=== PATIENT | female | born 1935 | race Caucasian/White ===

== ENCOUNTER 2016-12-12 17:03 | Emergency (ER) | payer MEDICARE, BC ==
[2016-12-12 17:33] VITALS: BP 181/81
--- NOTE | 2016-12-12 18:11 | UC ---
Complaint Female HPI - HPI Summary HPI Summary: The patient comes in today for: 1. Dysuria and urinary frequency: Onset: This morning. Palliative/provocative: Urination. AZO helps. Quality: Dysuria. Region: Severity: 4/10 Time: Constant, but worse with urination. Associated symptoms: "I've had previous urinary tract infections and these are the same symptoms. " Last UTI: 1-2 years ago. Urinary frequency: Present. Fever: None Urinary urgency: Present. * - History Of Current Complaint Chief Complaint: UCGU Stated Complaint: POSS UTI Time Seen by Provider: 12/12/16 18:02 Hx Last Menstrual Period: "years ago." ?: No - Allergies/Home Medications Allergies/Adverse Reactions: Allergies Allergy/AdvReac Type Severity Reaction Status Date / Time Doxycycline Allergy Unknown Unknown Verified 05/17/15 22:06 Reaction Details Erythromycin Allergy Unknown Unknown Verified 05/17/15 22:06 Reaction Details Home Medications: Home Medications Phenazopyridine HCl [Azo Urinary Pain Relief] 2 tab PO ONCE PRN 12/12/16 [ History Confirmed 12/12/16] PMH/Surg Hx/FS Hx/Imm Hx Previously Healthy: No - directed ASA use for ? reasons, insomnia, Endocrine History Of: Reports: Thyroid Disease - per pt, hypo thyroid Denies: Diabetes, Hyperthyroidism, Hypothyroidism, Dyslipidemia Cardiovascular History Of: Reports: Hypertension Denies: Cardiac Disorders, Pacemaker/ICD, Myocardial Infarction, Congestive Heart Failure, Atrial Fibrillation, Deep Vein Thrombosis, Bleeding Disorders Respiratory History Of: Denies: COPD, Asthma, Bronchitis, Pneumonia, Pulmonary Embolism GI/ History Of: Denies: Gastroesophageal Reflux, Ulcer, Gastrointestinal Bleed, Gall Bladder Disease, Kidney Stones, Diverticulitis, Renal Disease, Urosepsis Neurological History Of: Denies: TIA, CVA, Dementia, Seizures, Migraine Psychological History Of: Reports: Anxiety, Depression Denies: Bipolar Disorder, Schizophrenia, Post Traumatic Stress Disorder Cancer History Of: Denies: Lung Cancer, Colorectal Cancer, Breast Cancer, Prostate Cancer, Cervical Cancer Other History Of: Anticoagulant Therapy - ASA daily for general health. Negative For: HIV, Hepatitis B, Hepatitis C - Surgical History Surgical History: Yes Surgery Procedure, Year, and Place: hysterectomy. BILAT BREAST LUMPECTOMY- cysts - Family History Known Family History: Positive: Hypertension Negative: Cardiac Disease - Social History Occupation: Unemployed Alcohol Use: Rare Substance Use Type: None Smoking Status (MU): Never Smoked Tobacco - Immunization History Most Recent Influenza Vaccination: fall 2013 Most Recent Tetanus Shot: has received in past Most Recent Pneumonia Vaccination: has had before Review of Systems Constitutional: Negative Skin: Rash - Lichen sclerosis "in the groin area." Eyes: Negative ENT: Negative Respiratory: Negative Cardiovascular: Negative Gastrointestinal: Negative Genitourinary: Dysuria, Frequency, Urgency All Other Systems Reviewed And Are Negative: Yes Physical Exam Triage Information Reviewed: Yes Appearance: Well-Appearing, No Pain Distress, Well-Nourished Vital Signs: Initial Vital Signs Temp 98.1 F 12/12/16 17:25 Pulse 79 12/12/16 17:25 Resp 18 12/12/16 17:25 BP 181/81 12/12/16 17:25 Pulse Ox 100 12/12/16 17:25 Patient said that she does not usually have high blood pressure. She was encouraged to follow up with her primary care provider regarding today's elevated blood pressure. Vital Signs Reviewed: Yes Eyes: Positive: Conjunctiva Clear. Negative: Discharge ENT: Positive: Hearing grossly normal. Negative: Pharyngeal erythema, Nasal congestion, Nasal drainage, TM bulging, TM dull, TM red, Tonsillar swelling, Tonsillar exudate Dental: Negative: Gross Decay/Caries @, Dental Fracture @ Neck: Positive: Supple, Nontender, No Lymphadenopathy. Negative: Nuchal Rigidity Respiratory: Positive: Chest non-tender, Lungs clear, No respiratory distress, No accessory muscle use. Negative: Crackles, Stridor Cardiovascular: Positive: RRR, No Murmur Abdomen Description: Positive: Nontender, No Organomegaly, Soft. Negative: Distended, Guarding Musculoskeletal: Negative: Strength Intact, ROM Intact Neurological: Positive: Alert, Muscle Tone Normal Psychological: Positive: Age Appropriate Behavior, Consolable Skin: Negative: rashes, breakdown Diagnostics - Laboratory Diagnostic Studies Completed/Ordered: Urine screen: Trace WBC. Nitriate (+) Complaint Female Dx - Differential Dx/Diagnosis Provider Diagnoses: UTI Discharge - Discharge Plan Condition: Stable Disposition: HOME Patient Education Materials: Urinary Tract Infection in Women (ED) Referrals: [facility] PHYSICIAN REFERRAL [Outside] No Primary Care Phys,NOPCP [Primary Care Provider] - 1 Week (Please see your primary care provider in about three days to see how well you are doing. If you don't have a primary care provider, please contact the physician referral service. If you can't get in timely, please you may come back to see us until you can. If you get worse, please be seen sooner by us or the ER.)
== END 2016-12-12 18:35 | disposition home or self-care (01) ==
LOC: UCEAST 17:03
DX: N39.0 Urinary tract infection, site not specified (principal); Z88.1 Allergy status to other antibiotic agents; Z90.710 Acquired absence of both cervix and uterus; L90.0 Lichen sclerosus et atrophicus; R03.0 Elevated blood-pressure reading, without diagnosis of hypertension
CPT/HCPCS: 81003; 87086; 99212; G0463

== ENCOUNTER 2017-01-01 15:55 | Emergency (ER) | payer MEDICARE, BC ==
[2017-01-01 17:07] LABS: Urine Bacteria Absent (Absent); Urine Bilirubin Negative (Negative); Urine Glucose Negative (Negative); Urine Nitrite Positive (Negative)
[2017-01-01 18:34] VITALS: BP 156/69
[2017-01-01] MEDS ORDERED: Ciprofloxacin TAB* 500 MG PO SCH (21:00)
--- NOTE | 2017-01-11 20:26 | ED ---
Kae Connor SooYoung, scribed for Abdulaziz Adkins MD on 01/01/17 at 1641 . GI/ HPI - HPI Summary HPI Summary: A 81 y/o F presents to ED with c/o extreme discomfort during and after urinating onset 3 days ago. She notes that the Pyridium makes her urine red. Pert PMHx: multiple bladder infections. - History of Current Complaint Chief Complaint: EDUrogenitalProblems Stated Complaint: UTI Hx Obtained From: Patient Onset/Duration: Started Days Ago, Still Present Current Severity: Moderate Pain Intensity: 3 Associated Signs and Symptoms: Positive: Dysuria Aggravating Factor(s): Urination - Allergy/Home Medications Allergies/Adverse Reactions: Allergies Allergy/AdvReac Type Severity Reaction Status Date / Time Doxycycline Allergy Unknown Unknown Verified 01/01/17 16:11 Reaction Details Erythromycin Allergy Unknown Unknown Verified 01/01/17 16:11 Reaction Details PMH/Surg Hx/FS Hx/Imm Hx Previously Healthy: No Endocrine/Hematology History: Reports: Hx Anticoagulant Therapy - ASA daily for general health., Hx Thyroid Disease - per pt, hypo thyroid Denies: Hx Diabetes Cardiovascular History: Reports: Hx Angina, Hx Hypertension Denies: Hx Congestive Heart Failure, Hx Coronary Artery Disease, Hx Deep Vein Thrombosis, Hx Myocardial Infarction, Hx Pacemaker/ICD Respiratory History: Denies: Hx Asthma, Hx Chronic Obstructive Pulmonary Disease (COPD), Hx Lung Cancer, Hx Pneumonia, Hx Pulmonary Embolism GI History: Denies: Hx Gall Bladder Disease, Hx Gastrointestinal Bleed, Hx Ulcer, Hx Urosepsis History: Denies: Hx Kidney Stones, Hx Renal Disease Neurological History: Denies: Hx Dementia, Hx Migraine, Hx Seizures, Hx Transient Ischemic Attacks (TIA) Psychiatric History: Reports: Hx Anxiety, Hx Depression Denies: Hx Schizophrenia, Hx Bipolar Disorder - Surgical History Surgery Procedure, Year, and Place: hysterectomy. BILAT BREAST LUMPECTOMY- cysts - Immunization History Date of Tetanus Vaccine: UNKNOWN Date of Influenza Vaccine: JULY 2014 Infectious Disease History: No Infectious Disease History: Denies: Hx Clostridium Difficile, Hx Hepatitis, Hx Human Immunodeficiency Virus (HIV), Hx of Known/Suspected MRSA, Hx Shingles, Hx Tuberculosis, Hx Known/ Suspected VRE, Hx Known/Suspected VRSA, History Other Infectious Disease, Traveled Outside the [place] in Last 30 Days - Family History Known Family History: Positive: Hypertension Negative: Cardiac Disease - Social History Occupation: Retired Lives: Alone Alcohol Use: Rare Hx Substance Use: No Substance Use Type: Reports: None Hx Tobacco Use: No Smoking Status (MU): Never Smoked Tobacco Review of Systems Negative: Fever Positive: dysuria - pain during and after urination All Other Systems Reviewed And Are Negative: Yes Physical Exam Triage Information Reviewed: Yes Vital Signs On Initial Exam: Initial Vitals Temp Pulse Resp BP Pulse Ox 97.9 F 71 16 119/69 100 01/01/17 16:06 01/01/17 16:06 01/01/17 16:06 01/01/17 16:06 01/01/17 16:06 Vital Signs Reviewed: Yes Appearance: Positive: Well-Appearing, No Pain Distress Skin: Positive: Warm, Skin Color Reflects Adequate Perfusion, Dry Head/Face: Positive: Normal Head/Face Inspection Eyes: Positive: Normal ENT: Positive: Normal ENT inspection Neck: Positive: Supple, Nontender Musculoskeletal: Positive: Normal Neurological: Positive: Normal Psychiatric: Positive: Normal, Affect/Mood Appropriate Diagnostics - Vital Signs Vital Signs Temp Pulse Resp BP Pulse Ox 01/01/17 16:06 97.9 F 71 16 119/69 100 - Laboratory Lab Results: Lab Results 01/01/17 Range/Units 16:39 Urine Color Nancy Urine Appearance Clear Urine pH 6.0 (5-9) Ur Specific [place] 1.010 (1.010-1.030) Urine Protein Negative (Negative) Urine Ketones Trace H (Negative) Urine Blood Negative (Negative) Urine Nitrate Positive H (Negative) Urine Bilirubin Negative (Negative) Urine Urobilinogen Positive H (Negative) Ur Leukocyte Esterase Trace H (Negative) Urine WBC (Auto) 3+(>20/hpf) H (Absent) Urine RBC (Auto) Trace(0-2/hpf) (Absent) Urine Bacteria Absent (Absent) Urine Glucose Negative (Negative) Lab Statement: Any lab studies that have been ordered have been reviewed, and results considered in the medical decision making process. GIGU Course/Dx - Diagnoses Provider Diagnoses: UTI (urinary tract infection) Discharge - Discharge Plan Condition: Stable Disposition: HOME Prescriptions: Ciprofloxacin TAB* [Cipro Tab*] 500 mg PO BID #10 tab Patient Education Materials: Ciprofloxacin (By mouth), Urinary Tract Infection in Women (ED) Referrals: No Primary Care Phys,NOPCP [Primary Care Provider] - Eliot Parsons MD [Medical Doctor] - (In a few days if your symptoms persist. Otherwise, see as scheduled.) The documentation as recorded by the Kae carr SooYoung accurately reflects the service I personally performed and the decisions made by me, Abdulaziz Adkins MD.
== END 2017-01-01 18:33 | disposition home or self-care (01) ==
LOC: ED 15:55
DX: R30.0 Dysuria (principal); N39.0 Urinary tract infection, site not specified
CPT/HCPCS: 81003; 81015; 87086; 99282; A9270-GY

== ENCOUNTER 2017-04-24 16:58 | Emergency (ER) | payer MEDICARE, BC ==
[2017-04-24 17:12] VITALS: BP 116/61
--- NOTE | 2017-04-24 19:00 | UC ---
Garry Connor Alok, scribed for Gary Briseno MD on 04/24/17 at 1853 . Abdominal Pain Female HPI - HPI Summary HPI Summary: [address]F [address] the [facility] for 3-4 days of abd pain accompanied by nausea and loss of appetite. Pt states her abd pain is at a 6/10 in severity and is constant. Pt states her abd pain worsens with ambulation. Pt also notes lightheadedness currently and states she feels bloated. Pt also notes that her stools have been harder than baseline. Pt also notes a subjective fever today. Pt denies vomiting or chills. Pt denies hematochezia or diarrhea. Pt takes Potassium, Amlodipine, Paroxetine, and Troxidone. - History of Current Complaint Chief Complaint: UCAbdominalPain Stated Complaint: NO APPETITE,STOMACH CRAMPS Time Seen by Provider: 04/24/17 18:42 Hx Obtained From: Patient Hx Last Menstrual Period: "years ago." Onset/Duration: Lasting Days, Still Present Severity Initially: Moderate Severity Currently: Moderate Pain Intensity: 6 Pain Scale Used: 0-10 Numeric Location: Discrete At: LLQ Radiates: No Aggravating Factor(s): Movement Alleviating Factor(s): Nothing Associated Signs and Symptoms: Positive: Fever - subjective, Decreased Appetite , Nausea. Negative: Blood in Stool, Vomiting, Diarrhea Allergies/Adverse Reactions: Allergies Allergy/AdvReac Type Severity Reaction Status Date / Time Doxycycline Allergy Unknown Unknown Verified 01/01/17 16:11 Reaction Details Erythromycin Allergy Unknown Unknown Verified 01/01/17 16:11 Reaction Details PMH/Surg Hx/FS Hx/Imm Hx Other History Of: Anticoagulant Therapy - ASA daily for general health. Negative For: HIV, Hepatitis B, Hepatitis C - Surgical History Surgical History: Yes Surgery Procedure, Year, and Place: hysterectomy. BILAT BREAST LUMPECTOMY- cysts - Family History Known Family History: Positive: Hypertension Negative: Cardiac Disease - Social History Occupation: Retired Alcohol Use: Rare Substance Use Type: None Smoking Status (MU): Never Smoked Tobacco - Immunization History Most Recent Influenza Vaccination: fall 2013 Most Recent Tetanus Shot: has received in past Most Recent Pneumonia Vaccination: has had before Review of Systems Constitutional: Fever - subjective Gastrointestinal: Abdominal Pain, Nausea, Other - loss of appetite Neurological: Other - lightheadedness All Other Systems Reviewed And Are Negative: Yes Physical Exam Triage Information Reviewed: Yes Appearance: No Pain Distress, Ill-Appearing - mildly Vital Signs: Initial Vital Signs Temp 98 F 04/24/17 17:08 Pulse 80 04/24/17 17:08 Resp 18 04/24/17 17:08 BP 116/61 04/24/17 17:08 Pulse Ox 100 04/24/17 17:08 Vital Signs Reviewed: Yes Eyes: Positive: Other: - EOMI, EVE ENT: Positive: Normal ENT inspection Neck: Positive: Supple, Nontender Respiratory: Positive: Lungs clear, Normal breath sounds Cardiovascular: Positive: RRR Abdomen Description: Positive: Soft, Other: - Left Lower quadrant tenderness Bowel Sounds: Positive: Hypoactive Musculoskeletal Exam: Normal Musculoskeletal: Positive: Strength Intact, ROM Intact Neurological: Positive: Alert, Other: - Sensory/Motor intact Skin: Positive: Other - warm, dry, skin color reflects adequate perfusion Abd Pain Female Course/Dx - Course Course Of Treatment: Patient medications reviewed this visit. AMA/ED/POV FOR ABDOMINAL PAIN AND LIGHTHEADEDNESS. - Differential Dx/Diagnosis Provider Diagnoses: ABDOMINAL PAIN AND LIGHTHEADEDNESS Discharge - Discharge Plan Condition: Stable Disposition: AGAINST MEDICAL ADVICE Referrals: Rissa Green MD [Primary Care Provider] - The documentation as recorded by the Garry carr Alok accurately reflects the service I personally performed and the decisions made by , Gary Briseno MD.
== END 2017-04-24 19:23 | disposition left against medical advice (07) ==
LOC: UCEAST 16:58
DX: R10.9 Unspecified abdominal pain (principal); R42 Dizziness and giddiness; Z88.3 Allergy status to other anti-infective agents; Z79.82 Long term (current) use of aspirin
CPT/HCPCS: 99212; G0463

== ENCOUNTER 2017-04-24 19:38 | Emergency (ER) | payer MEDICARE, BC ==
[2017-04-24 20:33] LABS: Hematocrit 40 % (35-47); Hemoglobin 13.1 g/dl (12.0-16.0); Mean Corpuscular HGB Conc 33 g/dl (31-36); Mean Corpuscular Hemoglobin 28 pg (27-31); Mean Corpuscular Volume 87 fL (80-97); Mean Platelet Volume 9 um3 (7.4-10.4); Red Blood Count 4.62 10^6/ul (4.0-5.4); Red Cell Distribution Width 14 % (10.5-15); White Blood Count 4.6 10^3/ul (3.5-10.8)
--- NOTE | 2017-04-24 20:38 | ED ---
Charlotte Connor Edward, scribed for Andi Humphreys MD on 04/24/17 at 1941 . Abdominal Pain/Female - HPI Summary HPI Summary: 82 y/o female presents to ED c/o constant ABD bloating for the last 3-4 days. The bloating has gotten worse this afternoon. Patient has had decreased appetite due to the bloating. She also c/o pain the the left side of the ABD that radiates to the back. Associated sx: decreased urinary frequency. Denies nausea, fever. - History of Current Complaint Stated Complaint: ABD BLOATING Hx Obtained From: Patient Hx Last Menstrual Period: "years ago." Onset/Duration: Sudden Onset, Lasting Days, Still Present Timing: Constant Severity Initially: Mild Severity Currently: Mild Location: Diffuse Character: Other: - Bloating Associated Signs and Symptoms: Positive: Back Pain, Other: - ABD pain in L side. Negative: Fever, Nausea Allergies/Adverse Reactions: Allergies Allergy/AdvReac Type Severity Reaction Status Date / Time Erythromycin Allergy Unknown Unknown Verified 01/01/17 16:11 Reaction Details Doxycycline AdvReac Unknown Unknown Verified 04/24/17 19:44 Reaction Details PMH/Surg Hx/FS Hx/Imm Hx Previously Healthy: No Endocrine/Hematology History: Reports: Hx Anticoagulant Therapy - ASA daily for general health., Hx Thyroid Disease - per pt, hypo thyroid Denies: Hx Diabetes Cardiovascular History: Reports: Hx Angina, Hx Hypertension Denies: Hx Congestive Heart Failure, Hx Coronary Artery Disease, Hx Deep Vein Thrombosis, Hx Myocardial Infarction, Hx Pacemaker/ICD Respiratory History: Denies: Hx Asthma, Hx Chronic Obstructive Pulmonary Disease (COPD), Hx Lung Cancer, Hx Pneumonia, Hx Pulmonary Embolism GI History: Denies: Hx Gall Bladder Disease, Hx Gastrointestinal Bleed, Hx Ulcer, Hx Urosepsis History: Denies: Hx Kidney Stones, Hx Renal Disease Musculoskeletal History: Denies: Hx Osteoporosis Neurological History: Denies: Hx Dementia, Hx Migraine, Hx Seizures, Hx Transient Ischemic Attacks (TIA) Psychiatric History: Reports: Hx Anxiety, Hx Depression Denies: Hx Schizophrenia, Hx Bipolar Disorder - Surgical History Surgery Procedure, Year, and Place: hysterectomy. BILAT BREAST LUMPECTOMY- cysts - Immunization History Date of Tetanus Vaccine: UNKNOWN Date of Influenza Vaccine: JULY 2014 Infectious Disease History: Denies: Hx Clostridium Difficile, Hx Hepatitis, Hx Human Immunodeficiency Virus (HIV), Hx of Known/Suspected MRSA, Hx Shingles, Hx Tuberculosis, Hx Known/ Suspected VRE, Hx Known/Suspected VRSA, History Other Infectious Disease - Family History Known Family History: Positive: Hypertension Negative: Cardiac Disease - Social History Occupation: Retired Lives: Alone Alcohol Use: Rare Hx Substance Use: No Substance Use Type: Reports: None Hx Tobacco Use: No Smoking Status (MU): Never Smoked Tobacco Review of Systems Constitutional: Negative Negative: Fever Eyes: Negative ENT: Negative Cardiovascular: Negative Respiratory: Negative Positive: Abdominal Pain - L side, Other - ABD bloating. Decreased appetite secondary to bloating. Negative: Nausea Positive: other - Decreased frequency Musculoskeletal: Negative Skin: Negative Neurological: Negative Psychological: Normal All Other Systems Reviewed And Are Negative: Yes Physical Exam Triage Information Reviewed: Yes Vital Signs On Initial Exam: Initial Vitals Temp Pulse Resp BP Pulse Ox 97.3 F 68 18 170/56 100 04/24/17 19:43 04/24/17 19:43 04/24/17 19:43 04/24/17 19:43 04/24/17 19:43 Vital Signs Reviewed: Yes Appearance: Positive: Well-Appearing, No Pain Distress Skin: Positive: Warm Head/Face: Positive: Normal Head/Face Inspection Eyes: Positive: EVE ENT: Positive: Hearing grossly normal Neck: Positive: Supple Respiratory/Lung Sounds: Positive: Breath Sounds Present Cardiovascular: Positive: RRR Abdomen Description: Positive: Nontender, Soft Bowel Sounds: Positive: Present Musculoskeletal: Positive: Strength/ROM Intact Neurological: Positive: Alert, Oriented to Person Place, Time Diagnostics - Vital Signs Vital Signs Temp Pulse Resp BP Pulse Ox 04/24/17 19:43 97.3 F 68 18 170/56 100 - Laboratory Result Diagrams: 04/24/17 20:26 04/24/17 20:26 Lab Statement: Any lab studies that have been ordered have been reviewed, and results considered in the medical decision making process. - CT CT ABD/PEL CT Interpretation: No Acute Changes - No evidence of acute pathology. Sigmoid diverticulosis without obvious diverticulitis. CT Interpretation Completed By: Radiologist Re-Evaluation - Re-Evaluation 1 Re-Evaluation Time: 23:45 Change: Improved - results d/w pt Abdominal Pain Fem Course/Dx - Course Course Of Treatment: 82 y/o female presents to ED c/o constant ABD bloating for the last 3-4 days. The bloating has gotten worse this afternoon. Patient has had decreased appetite due to the bloating. She also c/o pain the the left side of the ABD that radiates to the back. Associated sx: decreased urinary frequency. Denies nausea, fever. CT ABD/PEL shows No evidence of acute pathology. Sigmoid diverticulosis without obvious diverticulitis. Pt will be discharged home. - Diagnoses Provider Diagnoses: Diverticulosis Discharge - Discharge Plan Condition: Stable Disposition: HOME Patient Education Materials: Diverticulosis (ED) Referrals: Rissa Green MD [Primary Care Provider] - 3 Days (Please f/u in 2-3 days) The documentation as recorded by the Charlotte carr Edward accurately reflects the service I personally performed and the decisions made by me, Andi Humphreys MD.
[2017-04-24 20:50] LABS: Albumin 3.9 g/dL (3.2-5.2); C Reactive Protein 5.08 mg/L (< 5.00); EGFR African American 81.9 (>60); EGFR Non-African American 63.7 (>60); Globulin 2.8 g/dL (2-4); Potassium 3.4 mmol/L (3.5-5.0); Total Bilirubin 0.5 mg/dL (0.2-1.0); Total Protein 6.7 g/dL (6.4-8.9)
[2017-04-24 21:30] LABS: Urine Bacteria Absent (Absent); Urine Bilirubin Negative (Negative); Urine Glucose Negative (Negative); Urine Nitrite Negative (Negative)
[2017-04-24] MEDS ORDERED: Iohexol 300* (CONTRAST) 10 ML SDV IV ONE (21:32)
[2017-04-24] MEDS ORDERED: amLODIPine TAB* 5 MG PO ONE (21:57)
[2017-04-25 00:19] VITALS: BP 149/86
--- NOTE | 2017-04-25 07:46 | RAD ---
CLINICAL HISTORY: Lower abdominal pain COMPARISON: None TECHNIQUE: Multiple contiguous axial CT scans were obtained of the abdomen and pelvis after the administration of intravenous contrast. Coronal and sagittal multiplanar reformations are submitted for review. Oral contrast was administered. Delayed images were obtained through the abdomen and pelvis. FINDINGS: LUNG BASES: The lung bases are clear. LIVER: The liver is diffusely low in attenuation compared to the spleen. There are no focal hepatic parenchymal masses. BILE DUCTS: There is no intrahepatic or extrahepatic biliary dilatation. GALLBLADDER: The gallbladder is normal, without pericholecystic inflammatory change. PANCREAS: The pancreas is normal, without mass or ductal dilatation. SPLEEN: Normal in size and appearance. UPPER GI TRACT: Evaluation of the gastrointestinal tract is limited by incomplete gastric distention. There is a small sliding hiatal hernia SMALL BOWEL AND MESENTERY: The small bowel is normal in contour, course, and caliber. There is no obstruction or dilatation. COLON: There is scattered diverticula of the distal colon. There is no pericolonic inflammatory change. ADRENALS: Normal bilaterally. KIDNEYS: The kidneys are normal in shape, size, contour, and axis. There is no hydronephrosis or nephrolithiasis. BLADDER: The bladder is smooth in contour. PELVIC ORGANS: The pelvic organs are not visualized. AORTA: There is calcific atherosclerotic disease of the abdominal aorta and its branches, without aneurysmal dilatation IVC: Unremarkable LYMPH NODES: There is no lymphadenopathy by size criteria. ABDOMINAL WALL: There is no evidence for abdominal wall hernia. BONES AND SOFT TISSUES: There is diffuse osteopenia. Degenerative changes are noted. OTHER: None IMPRESSION: 1. SCATTERED DIVERTICULA OF THE DISTAL COLON. 2. ATHEROSCLEROSIS. 3. SMALL HIATAL HERNIA
== END 2017-04-25 00:26 | disposition home or self-care (01) ==
LOC: ED 19:38
DX: K57.90 Diverticulosis of intestine, part unspecified, without perforation or abscess without bleeding (principal); I10 Essential (primary) hypertension; Z79.82 Long term (current) use of aspirin; F41.9 Anxiety disorder, unspecified; F32.9 Major depressive disorder, single episode, unspecified
CPT/HCPCS: 36415; 74177; 80053; 81003; 81015; 83605; 83690; 83735; 85025; 86140; 87086; 99283; A9270-GY; Q9967

== ENCOUNTER 2018-07-20 18:11 | Inpatient (IN) | payer MEDICARE, BC ==
[2018-07-20] MEDS ORDERED: NS 0.9% 1000 ML* 1,000 ML IV ONE (20:00)
[2018-07-20] MEDS ORDERED: Ondansetron ODT TAB* 4 MG SL ONE (20:00)
--- NOTE | 2018-07-20 20:00 | ED ---
Complex/Multi-Sys Presentation - HPI Summary HPI Summary: This patient is an 83 year old female presenting to [facility] accompanied by son with a chief complaint of nausea and generalized weakness since 3 days ago. Patient states that when she yawns, the right side of her jaw aches. The pain is rated 4/10 in severity. Symptoms aggravated by nothing. Symptoms alleviated by nothing. Patient notes that she has forgotten to take her medication yesterday. Patient additionally reports nausea, lack of appetite, vomiting 1x, abd pain. Patient denies diarrhea. - History Of Current Complaint Chief Complaint: EDWeakness Time Seen by Provider: 07/20/18 19:44 Hx Obtained From: Patient Onset/Duration: Still Present Timing: Constant Severity Currently: Moderate Severity Initially: Moderate Location: Pain At: - abd Aggravating Factor(s): nothing Alleviating Factor(s): nothing Associated Signs And Symptoms: Positive: Other - nausea, lack of appetite, vomiting 1x, abd pain. Negative: Diarrhea - Allergies/Home Medications Allergies/Adverse Reactions: Allergies Allergy/AdvReac Type Severity Reaction Status Date / Time doxycycline Allergy Unknown Unknown Verified 07/21/18 09:39 Reaction Details erythromycin base Allergy Unknown Unknown Verified 07/21/18 09:39 Reaction Details Home Medications: Home Medications Levothyroxine TAB* 100 mcg PO DAILY 07/20/18 [History Confirmed 07/20/18] Lisinopril [Lisinopril 2.5 MG-] 2.5 mg PO DAILY 07/20/18 [History Confirmed ] Nitrofurantoin Macrocrystals* 100 mg PO BID 07/20/18 [History Confirmed 07/20/18 ] Spironolactone TAB* 25 mg PO DAILY 07/20/18 [History Confirmed 07/20/18] traZODone TAB* [Desyrel TAB*] 50 mg PO BEDTIME 07/21/18 [History Confirmed 07/21] PMH/Surg Hx/FS Hx/Imm Hx Previously Healthy: No Endocrine/Hematology History: Reports: Hx Anticoagulant Therapy - ASA daily for general health., Hx Thyroid Disease - per pt, hypo thyroid Denies: Hx Diabetes Cardiovascular History: Reports: Hx Angina, Hx Hypertension Denies: Hx Congestive Heart Failure, Hx Coronary Artery Disease, Hx Deep Vein Thrombosis, Hx Myocardial Infarction, Hx Pacemaker/ICD Respiratory History: Denies: Hx Asthma, Hx Chronic Obstructive Pulmonary Disease (COPD), Hx Lung Cancer, Hx Pneumonia, Hx Pulmonary Embolism GI History: Denies: Hx Gall Bladder Disease, Hx Gastrointestinal Bleed, Hx Ulcer, Hx Urosepsis History: Denies: Hx Kidney Stones, Hx Renal Disease Musculoskeletal History: Denies: Hx Osteoporosis Neurological History: Denies: Hx Dementia, Hx Migraine, Hx Seizures, Hx Transient Ischemic Attacks (TIA) Psychiatric History: Reports: Hx Anxiety, Hx Depression Denies: Hx Schizophrenia, Hx Bipolar Disorder - Surgical History Surgery Procedure, Year, and Place: hysterectomy. BILAT BREAST LUMPECTOMY- cysts - Immunization History Date of Tetanus Vaccine: UNKNOWN Date of Influenza Vaccine: JULY 2014 Infectious Disease History: No Infectious Disease History: Denies: Hx Clostridium Difficile, Hx Hepatitis, Hx Human Immunodeficiency Virus (HIV), Hx of Known/Suspected MRSA, Hx Shingles, Hx Tuberculosis, Hx Known/ Suspected VRE, Hx Known/Suspected VRSA, History Other Infectious Disease, Traveled Outside the [place] in Last 30 Days - Family History Known Family History: Positive: Hypertension Negative: Cardiac Disease - Social History Lives: With Family Alcohol Use: Rare Hx Substance Use: No Substance Use Type: Reports: None Hx Tobacco Use: No Smoking Status (MU): Never Smoked Tobacco Review of Systems Negative: Fever Positive: Abdominal Pain, Vomiting, Nausea, Other - lack of appetite. Negative : Diarrhea Positive: Weakness All Other Systems Reviewed And Are Negative: Yes Physical Exam - Summary Physical Exam Summary: Appearance: Well-appearing, Well-nourished, lying in bed comfortable Skin: Warm, dry, no obvious rash Eyes: sclera anicteric, no conjunctival pallor ENT: mucous membranes dry Neck: deferred Respiratory: No signs of respiratory distress Cardiovascular: Appears well perfused, pulses are nml Abdomen: deferred Musculoskeletal: Moving all 4 extremities without obvious discomfort Neurological: Awake and alert, mentation is normal, speech is fluent and appropriate Psychiatric: affect is normal, does not appear anxious or depressed Triage Information Reviewed: Yes Vital Signs On Initial Exam: Initial Vitals Temp Pulse Resp BP Pulse Ox 98.9 F 105 18 128/107 94 07/20/18 18:17 07/20/18 18:17 07/20/18 18:17 07/20/18 18:17 07/20/18 18:17 Vital Signs Reviewed: Yes Diagnostics - Vital Signs Vital Signs Temp Pulse Resp BP Pulse Ox 07/20/18 18:17 98.9 F 105 18 128/107 94 - Laboratory Result Diagrams: 07/22/18 07:33 07/22/18 07:33 Lab Statement: Any lab studies that have been ordered have been reviewed, and results considered in the medical decision making process. - CT CT Abd/Pel CT Interpretation: Positive (See Comments) - CT Abd/Pel reveals, per radiologist , IMPRESSION: 1. Moderate bilateral pleural effusions with atelectasis. 2. Large heart. Small pericardial effusion. 3. No other acute disease seen. As above. ED physician has reviewed this radiology report. CT Interpretation Completed By: Radiologist Complex Multi-Symp Course/Dx Assessment/Plan: This patient is an 83 year old female presenting to [facility] accompanied by son with a chief complaint of nausea and generalized weakness since [address] Abd/Pel reveals, per radiologist, IMPRESSION: 1. Moderate bilateral pleural effusions with atelectasis. 2. Large heart. Small pericardial effusion. 3. No other acute disease seen. As above. ED physician has reviewed this radiology report. Bloodwork Obtained. Urinalysis Obtained. In the ED course the patient was given Iohexol, NS 0.9% 1000ml, Zofran 8mg SL, Rocephin. We discussed patient care with Dr. Vera (Hospitalist ) and they recommended admitting the patient. Patient will be admitted to the floor. The patient is agreeable with this plan. - Diagnoses Provider Diagnoses: UTI (urinary tract infection) - Physician Notifications Discussed Care Of Patient With: Lucia Vera - Hospitalist Time Discussed With Above Provider: 21:45 - We discussed patient care with Dr. Vera (Hospitalist) and they recommended admitting the patient. Discharge - Sign-Out/Discharge Documenting (check all that apply): Patient Departure - Discharge Plan Condition: Stable Disposition: ADMITTED TO [facility] - Billing Disposition and Condition Condition: STABLE Disposition: Admitted to [facility] - Attestation Statements Document Initiated by Scribe: Yes Documenting Scribe: Dena Fernando Provider For Whom Scribe is Documenting (Include Credential): Abdulaziz Brantley MD Scribe Attestation: Dena Connor, scribed for Abdulaziz Brantley MD on 07/23/18 at 1347. Scribe Documentation Reviewed: Yes Provider Attestation: The documentation as recorded by the Dena carr accurately reflects the service I personally performed and the decisions made by me, Abdulaziz Brantley MD
[2018-07-20 20:09] LABS: ABS Basophils 0 10^3/ul (0-0.2); ABS Eosinophils 0 10^3/ul (0-0.6); ABS Lymphocytes 0.4 10^3/ul (1.0-4.8); ABS Monocytes 0.7 10^3/ul (0-0.8); ABS Neutrophils 12.1 10^3/ul (1.5-7.7); ABS Nucleated RBC 0 10^3/ul; Eosinophil % 0.2 % (0-6); Hematocrit 37 % (35-47); Lymphocyte % 2.7 % (25-47); Mean Corpuscular HGB Conc 33 g/dl (31-36); Mean Corpuscular Hemoglobin 28 pg (27-31); Mean Corpuscular Volume 85 fL (80-97); Mean Platelet Volume 8.8 um3 (7.4-10.4); Nucleated Red Blood Cells % 0.1; Platelet Count 237 10^3/ul (150-450); Red Blood Count 4.31 10^6/ul (4.00-5.40); Red Cell Distribution Width 15 % (10.5-15); White Blood Count 13.2 10^3/ul (3.5-10.8)
[2018-07-20 20:14] LABS: EGFR Non-African American 79.5 (>60)
[2018-07-20] MEDS ORDERED: Iohexol 300* (CONTRAST) 10 ML SDV IV ONE (20:25)
[2018-07-20 20:37] LABS: Urine Appearance Cloudy; Urine Blood 2+ (Negative); Urine Color Yellow; Urine Ketones 2+ (Negative); Urine Protein Negative (Negative); Urine Red Blood Cell Absent (Absent); Urine Specific Gravity 1.011 (1.010-1.030); Urine Urobilinogen Negative (Negative); Urine White Blood Cell 3+(>20/hpf) (Absent)
[2018-07-20] MEDS ORDERED: cefTRIAXone(*) 1 GM in NS 0.9% 50 ML* 50 ML IVPB ONE (21:41)
[2018-07-20] MEDS ORDERED: Acetaminophen TAB* 325 MG PO PRN (21:58)
[2018-07-20] MEDS ORDERED: Al Hydrox/Mg Hydrox/Simet LIQ* 30 ML UDC PO PRN (21:58)
[2018-07-20] MEDS ORDERED: Enoxaparin(*) 40 MG/0.4 ML SYR SUBCUT SCH (22:00)
--- NOTE | 2018-07-20 23:14 | RAD ---
EXAM: CT Abdomen and Pelvis With Intravenous Contrast CLINICAL HISTORY: 83 years old, female; Pain; Abdominal pain; Generalized; Additional info: Abd pain, nausea TECHNIQUE: Axial computed tomography images of the abdomen and pelvis with intravenous contrast. All CT scans at this facility use at least one of these dose optimization techniques: automated exposure control; mA and/or kV adjustment per patient size (includes targeted exams where dose is matched to clinical indication); or iterative reconstruction. Coronal and sagittal reformatted images were created and reviewed. CONTRAST: 75 mL of omnipaque 300 administered intravenously. COMPARISON: A/P W CT ABD/PEL W 04/24/2017 10:33 PM FINDINGS: Lung bases: See below. Pleural space: Moderate bilateral pleural effusions with atelectasis. Heart: Large heart. Small pericardial effusion. ABDOMEN: Liver: Unremarkable. No mass. Gallbladder and bile ducts: Unremarkable. No calcified stones. No ductal dilation. Pancreas: Unremarkable. No mass. No ductal dilation. Spleen: Unremarkable. No splenomegaly. Adrenals: Unremarkable. No mass. Kidneys and ureters: Unremarkable. No solid mass. No hydronephrosis. Stomach and bowel: Diverticulosis. No obstruction. No mucosal thickening. PELVIS: Appendix: No findings to suggest acute appendicitis. Bladder: Unremarkable. No mass. Reproductive: Unremarkable as visualized. ABDOMEN and PELVIS: Intraperitoneal space: Unremarkable. No free air. No significant fluid collection. Bones/joints: Moderate skeletal degenerative change. No acute fracture. No dislocation. Soft tissues: Unremarkable. Vasculature: Moderate atherosclerosis. No abdominal aortic aneurysm. Lymph nodes: Unremarkable. No enlarged lymph nodes. Other findings: No other acute disease seen. As above. IMPRESSION: 1. Moderate bilateral pleural effusions with atelectasis. 2. Large heart. Small pericardial effusion. 3. No other acute disease seen. As above. To contact [facility] with a general question: Operations Center - [phone] For direct physician to physician contact: Physician Hotline - [phone] [facility] ([facility] Facility ID #[id number])
[2018-07-21] MEDS: traZODone TAB* 50 MG TAB PO SCH ×2 (01:42→20:35)
--- NOTE | 2018-07-21 03:48 | HP ---
CC: Dr. Green; Dr. Madden HISTORY AND PHYSICAL: DATE OF ADMISSION: 07/20/18 TIME OF ADMISSION: 11:30 p.m. PRIMARY CARE PHYSICIAN: Dr. Green. ASSEMBLER MECHANICAL ORDNANCE: Dr. Madden. CHIEF COMPLAINT: Weakness. HISTORY OF PRESENT ILLNESS: This is an 83-year-old female with history of SVT and cardiomyopathy who presents with weakness and nausea for the past 5 days. She went to Dr. Green's office on Monday with dysuria and was prescribed nitrofurantoin. There was some uncertainty between her and her son about whether she had actually taken it; however, she has a bottle with her and it is empty. She thought she had forgotten to take some. She came to the emergency department today because she was feeling "overall lousy". She noticed that she was more weak and sleepy and had some nausea. She does not think she had any fevers. Her son, Benjamin, is here and thinks she has been much more forgetful than usual over the past week. She denies any diarrhea, fevers, chills, chest pain, shortness of breath, dyspnea on exertion, headache, falls or confusion. PAST MEDICAL HISTORY: Depression/anxiety, insomnia, Lichen sclerosis, hypertension, hyperlipidemia, hypothyroid, depressed LV function of unknown etiology and history of SVT, [id number] mitral regurgitation. PAST SURGICAL HISTORY: She had a hysterectomy and a tonsillectomy. HOME MEDICATIONS: 1. Levothyroxine 100 mcg daily. 2. Xanax 0.5 mg daily p.r.n. anxiety. 3. Lisinopril 2.5 mg daily. 4. Paroxetine 50 mg daily. 5. Spironolactone 25 mg daily. SOCIAL HISTORY: She is a nonsmoker. She does not drink. She lives alone in the house and her son, Cristino, lives 10 miles away and sees her often. PHYSICAL EXAMINATION GENERAL: Alert, elderly female, in no distress. She is oriented x3; however, quite forgetful when recalling the events of the week. She forgot that she saw doctor Dr. Green on Monday. She is oriented to situation and answers all questions appropriately VITAL SIGNS: Temperature 98.6, heart rate 88, respiratory rate 18, pulse ox 98 % on 2 L, blood pressure 138/74. HEENT: Pupils are equal, round and reactive to light. No nystagmus. Oral mucosa is moist. She does have some aphthous ulcers on her tongue. NECK: No cervical adenopathy. CHEST: She seems to be in irregularly irregular rhythm. She has a systolic murmur at the apex. Her lungs have some crackles bilaterally at the bases. ABDOMEN: Soft, nontender, nondistended. The Ricks sign is negative. She has no CVA tenderness. EXTREMITIES: No edema, rashes, or ulcers. Her strength is 5/5 in all extremities. LABORATORY DATA: Urinalysis shows 3+ leukocyte esterase, 3+ wbc's, negative for nitrites. Her sodium is 133, potassium is 3.9, chloride 100, glucose 134. CRP 106. White blood cell 13.2, hemoglobin 12.0, platelets 237. A urinalysis from 07/16/18 shows E. coli that was sensitive to nitrofurantoin. ASSESSMENT AND PLAN: This is an 83-year-old female with history of cardiomyopathy, supraventricular tachycardia, and depression, who presents today with weakness and nausea and is found to have a positive urinalysis. 1. Complicated urinary tract infection. It appears that she took all of the nitrofurantoin and the culture from Monday shows E. coli that was sensitive to nitrofurantoin. So, it is a little unusual that her symptoms have continued despite being on the appropriate antibiotics for the appropriate amount of time. She does seem quite confused when discussing the antibiotic. So, while there are no pills in the bottles, I questioned whether she actually took all of them. Alternatively, she may have taken all of them and we need to consider other etiologies of her weakness and nausea. She has received 1 dose of ceftriaxone in the emergency department and I am going to continue this for presumed urinary tract infection, but I am also sending blood cultures, checking a chest x-ray and EKG, a troponin in order to broaden the differential for her presentation. I will follow up on her urine culture and adjust antibiotics as necessary. 2. New-onset atrial fibrillation. In reviewing her records in [facility], it appears that when she wore a Holter monitor recently, new onset atrial fibrillation was discovered; however, it is unclear to me whether this has been discussed with her. Dr. Madden is her primary back tender insulation board. I am going to check an EKG now and it may be worth reaching out to Dr. Madden tomorrow to discuss these findings. She has Eliquis on her record from Dr. Green's office. So, it appears that she has been treated for atrial fibrillation in the past, but she does not have any recollection of this nor does her son. 3. Cardiomyopathy. She follows with Dr. Madden. Most recently in March. She appears euvolemic to me at this time. So I am continuing her home medications. 4. Depression and anxiety. Continue home doses of Xanax and paroxetine. 5. DVT prophylaxis. Lovenox subcutaneously. 6. Diet, unrestricted. [id number]/[facility] #: [id number] [facility]
[2018-07-21] MEDS: Levothyroxine TAB* 100 MCG TAB PO SCH (06:09)
[2018-07-21 07:50] LABS: ABS Basophils 0.1 10^3/ul (0-0.2); ABS Eosinophils 0.1 10^3/ul (0-0.6); ABS Monocytes 0.8 10^3/ul (0-0.8); ABS Neutrophils 6.6 10^3/ul (1.5-7.7); ABS Nucleated RBC 0 10^3/ul; Eosinophil % 1.6 % (0-6); Hematocrit 33 % (35-47); Lymphocyte % 11.7 % (25-47); Mean Corpuscular HGB Conc 34 g/dl (31-36); Mean Corpuscular Hemoglobin 28 pg (27-31); Mean Corpuscular Volume 84 fL (80-97); Mean Platelet Volume 8.5 um3 (7.4-10.4); Nucleated Red Blood Cells % 0.1; Platelet Count 227 10^3/ul (150-450); Red Cell Distribution Width 15 % (10.5-15); White Blood Count 8.6 10^3/ul (3.5-10.8)
[2018-07-21 07:59] LABS: EGFR Non-African American 75.8 (>60)
--- NOTE | 2018-07-21 08:15 | RAD ---
HISTORY: effusions COMPARISONS: January 29, 2015 VIEWS: 4: Frontal dual-energy and lateral views of the chest. FINDINGS: CARDIOMEDIASTINAL SILHOUETTE: The cardiomediastinal silhouette is normal. LUMA: The luma are normal. PLEURA: There is blunting of the costophrenic angles bilaterally. LUNG PARENCHYMA: There is hyperinflation with flattening of the diaphragm and expansion of the AP diameter of the chest. ABDOMEN: The upper abdomen is clear. There is no subphrenic gas. BONES AND SOFT TISSUES: No bone or soft tissue abnormalities are noted. OTHER: None. IMPRESSION: COPD. SMALL BILATERAL PLEURAL EFFUSIONS. R1
[2018-07-21] MEDS: Lisinopril TAB* 5 MG PO SCH (10:11)
[2018-07-21] MEDS: PARoxetine HCL TAB* 10 MG PO SCH (10:12)
[2018-07-21] MEDS: PARoxetine HCL TAB* 40 MG PO SCH (10:13)
[2018-07-21] MEDS: Spironolactone TAB* 25 MG PO SCH (10:13)
[2018-07-21] MEDS: cefTRIAXone(*) 1 GM in NS 0.9% 50 ML* 50 ML IVPB SCH (15:59)
--- NOTE | 2018-07-21 16:56 | PN ---
Subjective Date of Service: 07/21/18 Interval History: Pt seen and examined. Meds and labs reviewed. Pt observed to be walking around the room without any gait instability ROS: Denied BONILLA/dizziness, F/C, N/V, CP, SOB, increased cough, sputum production , abd pain, diarrhea, constipation, dysuria, myalgias, arthralgias, throat pain , and new skin lesions. The rest of the 14 point ROS are unremarkable. PHYSICAL EXAM: GEN APPEARANCE: Awake, not in acute distress HEENT: NC/AT, PERRLA, moist oral mucosa, (-) throat erythema NECK: Soft, supple, (-) cervical LAD, (-)JVD HEART: S1S2 WNL, RRR, No MRG CHEST: CTA, BL, GAE, No W/R/R ABD: Soft, ND/NT, NABS 4x Q EXT: No C/C/E SKIN: Warm to touch PSYCH: No active psychosis, hallucinations, depression, SI/HI Objective Active Medications: Acetaminophen (Tylenol Tab*) 650 mg PO Q4H PRN PRN Reason: FEVER/PAIN Al Hydrox/Mg Hydrox/Simethicone (Maalox Plus*) 30 ml PO Q6H PRN PRN Reason: INDIGESTION Alprazolam (Xanax Tab*) 0.5 mg PO DAILY PRN PRN Reason: ANXIETY Enoxaparin Sodium (Lovenox(*)) 30 mg SUBCUT Q24HR [facility] Ceftriaxone Sodium 1 gm/ (Sodium Chloride) 50 mls @ 200 mls/hr IVPB Q24H [facility] Last Admin: 07/21/18 15:59 Dose: 200 mls/hr Levothyroxine Sodium (Synthroid Tab*) 100 mcg PO 0600 [facility] Last Admin: 07/21/18 06:09 Dose: 100 mcg Lisinopril (Prinivil Tab*) 2.5 mg PO DAILY [facility] Last Admin: 07/21/18 10:11 Dose: 2.5 mg Paroxetine HCl (Paxil Tab*) 10 mg PO DAILY [facility] Last Admin: 07/21/18 10:12 Dose: 10 mg Paroxetine HCl (Paxil Tab*) 40 mg PO DAILY [facility] Last Admin: 07/21/18 10:13 Dose: 40 mg Psyllium Hydrophilic Mucilloid (Metamucil Lucho*) 1 pkt PO DAILY PRN PRN Reason: DIARRHEA Spironolactone (Aldactone Tab*) 25 mg PO DAILY [facility] Last Admin: 07/21/18 10:13 Dose: 25 mg Trazodone HCl (Desyrel Tab*) 50 mg PO BEDTIME [facility] Last Admin: 07/21/18 01:42 Dose: 50 mg Vital Signs - 8 hr 07/21/18 12:01 Temperature 97.4 F Pulse Rate 79 Respiratory 20 Rate Blood Pressure 107/47 (mmHg) O2 Sat by Pulse 98 Oximetry Oxygen Devices in Use Now: Nasal Cannula Result Diagrams: 07/21/18 07:24 07/21/18 07:24 Assess/Plan/Problems-Billing Assessment: - Patient Problems (1) UTI (urinary tract infection) Current Visit: Yes Status: Acute Comment: -Failure of outpatient treatment -Continue Rocephin -Awaiting GS and culture results (2) Atrial fibrillation Current Visit: Yes Status: Acute Code(s): I48.91 - UNSPECIFIED ATRIAL FIBRILLATION SNOMED Code(s): 88591145 Comment: -There is some confusion whether this is new or not but from [facility], appears to have been part of her history -Will repeat 12 lead and continue tele -Will discuss with Dr. Blount in AM especially if RVR occurs along with purported Eliquis documented in PCPs office but not currently taking?? (3) Cardiomyopathy Current Visit: Yes Status: Acute Code(s): I42.9 - CARDIOMYOPATHY, UNSPECIFIED SNOMED Code(s): 27849280 Comment: -Continue Lisinopril and spironolactone -Defer with Dr. Madden on F/U (4) Depression Current Visit: Yes Status: Acute Code(s): F32.9 - MAJOR DEPRESSIVE DISORDER , SINGLE EPISODE, UNSPECIFIED SNOMED Code(s): 92152896 Comment: -Continue Paroxetine and Trazodone (5) Hypothyroidism Current Visit: Yes Status: Acute Code(s): E03.9 - HYPOTHYROIDISM, UNSPECIFIED SNOMED Code(s): 35456208 Comment: -Continue Synthroid (6) DVT prophylaxis Current Visit: No Status: Acute Priority: Medium Onset Date: 01/29/15 Code(s): YCT3739 - SNOMED Code(s): 776527630 Comment: -Given advanced age, will change dose of Lovenox to 30 mg Status and Disposition: -For possible D/C in 1-2 days
[2018-07-21] MEDS: ALPRAZolam TAB* 0.5 MG PO PRN (20:35)
[2018-07-21] MEDS ORDERED: cefTRIAXone(*) 1 GM in NS 0.9% 50 ML* 50 ML IVPB SCH (21:00)
[2018-07-22] MEDS: Levothyroxine TAB* 100 MCG TAB PO SCH (05:34)
[2018-07-22 07:52] LABS: ABS Basophils 0.1 10^3/ul (0-0.2); ABS Eosinophils 0.3 10^3/ul (0-0.6); ABS Monocytes 0.7 10^3/ul (0-0.8); ABS Neutrophils 3.8 10^3/ul (1.5-7.7); ABS Nucleated RBC 0 10^3/ul; Eosinophil % 4.7 % (0-6); Hematocrit 33 % (35-47); Hemoglobin 10.8 g/dl (12.0-16.0); Lymphocyte % 16.7 % (25-47); Mean Corpuscular HGB Conc 33 g/dl (31-36); Mean Corpuscular Hemoglobin 28 pg (27-31); Mean Corpuscular Volume 84 fL (80-97); Mean Platelet Volume 8.4 um3 (7.4-10.4); Nucleated Red Blood Cells % 0.2; Platelet Count 238 10^3/ul (150-450); Red Blood Count 3.87 10^6/ul (4.00-5.40); Red Cell Distribution Width 15 % (10.5-15); White Blood Count 5.8 10^3/ul (3.5-10.8)
[2018-07-22 08:09] LABS: EGFR Non-African American 83.7 (>60)
[2018-07-22] MEDS ORDERED: Magnesium Sulfate 2 GM IV* 2 GM/50 ML BAG IVPB ONE (09:30)
[2018-07-22] MEDS: Enoxaparin(*) 30 MG/0.3 ML SYR SUBCUT SCH (09:31)
[2018-07-22] MEDS: Lisinopril TAB* 5 MG PO SCH (09:32)
[2018-07-22] MEDS: PARoxetine HCL TAB* 40 MG PO SCH (09:32)
[2018-07-22] MEDS: Spironolactone TAB* 25 MG PO SCH (09:32)
[2018-07-22] MEDS: PARoxetine HCL TAB* 10 MG PO SCH (09:32)
--- NOTE | 2018-07-22 14:09 | PN ---
Subjective Date of Service: 07/22/18 Interval History: Pt seen and examined. Meds and labs reviewed. CC: Feels weak ROS: Denied BONILLA/dizziness, F/C, N/V, CP, SOB, increased cough, sputum production , abd pain, diarrhea, constipation, dysuria, myalgias, arthralgias, throat pain , and new skin lesions. The rest of the 14 point ROS are unremarkable. PHYSICAL EXAM: GEN APPEARANCE: Awake, not in acute distress HEENT: NC/AT, PERRLA, moist oral mucosa, (-) throat erythema NECK: Soft, supple, (-) cervical LAD, (-)JVD HEART: S1S2 WNL, RRR, No MRG CHEST: CTA, BL, GAE, No W/R/R ABD: Soft, ND/NT, NABS 4x Q EXT: No C/C/E SKIN: Warm to touch PSYCH: No active psychosis, hallucinations, depression, SI/HI Objective Active Medications: Acetaminophen (Tylenol Tab*) 650 mg PO Q4H PRN PRN Reason: FEVER/PAIN Al Hydrox/Mg Hydrox/Simethicone (Maalox Plus*) 30 ml PO Q6H PRN PRN Reason: INDIGESTION Alprazolam (Xanax Tab*) 0.5 mg PO DAILY PRN PRN Reason: ANXIETY Last Admin: 07/21/18 20:35 Dose: 0.5 mg Enoxaparin Sodium (Lovenox(*)) 30 mg SUBCUT Q24HR [facility] Last Admin: 07/22/18 09:31 Dose: 30 mg Ceftriaxone Sodium 1 gm/ (Sodium Chloride) 50 mls @ 200 mls/hr IVPB Q24H [facility] Last Admin: 07/21/18 15:59 Dose: 200 mls/hr Levothyroxine Sodium (Synthroid Tab*) 100 mcg PO 0600 [facility] Last Admin: 07/22/18 05:34 Dose: 100 mcg Lisinopril (Prinivil Tab*) 2.5 mg PO DAILY [facility] Last Admin: 07/22/18 09:32 Dose: 2.5 mg Paroxetine HCl (Paxil Tab*) 10 mg PO DAILY [facility] Last Admin: 07/22/18 09:32 Dose: 10 mg Paroxetine HCl (Paxil Tab*) 40 mg PO DAILY [facility] Last Admin: 07/22/18 09:32 Dose: 40 mg Psyllium Hydrophilic Mucilloid (Metamucil Lucho*) 1 pkt PO DAILY PRN PRN Reason: DIARRHEA Spironolactone (Aldactone Tab*) 25 mg PO DAILY [facility] Last Admin: 07/22/18 09:32 Dose: 25 mg Trazodone HCl (Desyrel Tab*) 50 mg PO BEDTIME [facility] Last Admin: 07/21/18 20:35 Dose: 50 mg Vital Signs - 8 hr 07/22/18 07/22/18 07:37 08:00 Temperature 98.5 F Pulse Rate 91 Respiratory 18 18 Rate Blood Pressure 132/72 (mmHg) O2 Sat by Pulse 93 Oximetry Oxygen Devices in Use Now: None Result Diagrams: 07/22/18 07:33 07/22/18 07:33 Microbiology and Other Data: Microbiology 07/20/18 20:18 Urine Culture - Final Urine Corynebacterium Species 07/21/18 00:14 Aerobic Blood Culture - Preliminary Blood Venous No Growth Day 1 Anaerobic Blood Culture - Preliminary No Growth Day 1 Assess/Plan/Problems-Billing Assessment: - Patient Problems (1) UTI (urinary tract infection) Current Visit: Yes Status: Acute Comment: -Failure of outpatient treatment -Continue Rocephin, abx D#2/10 -Urine Cx shows possible Corynebacterium, however, likely contaminant given improved on Rocephin alone; otherwise may need to be shifted to Vanco or Linezolid---only 1-10K CFUs -Will await blood culture results (2) Atrial fibrillation Current Visit: Yes Status: Acute Code(s): I48.91 - UNSPECIFIED ATRIAL FIBRILLATION SNOMED Code(s): 17979411 Comment: -There is some confusion whether this is new or not but from [facility] [place], appears to have been part of her history -Will repeat 12 lead shows pt is on Sinus rhythm with old LBBB -Defer with PCP to clarify with Dr. Madden on F/U if pt truly on Eliquis (3) Cardiomyopathy Current Visit: Yes Status: Acute Code(s): I42.9 - CARDIOMYOPATHY, UNSPECIFIED SNOMED Code(s): 28452322 Comment: -Continue Lisinopril and spironolactone -Defer with Dr. Madden on F/U (4) Depression Current Visit: Yes Status: Acute Code(s): F32.9 - MAJOR DEPRESSIVE DISORDER , SINGLE EPISODE, UNSPECIFIED SNOMED Code(s): 92333547 Comment: -Continue Paroxetine and Trazodone (5) Hypothyroidism Current Visit: Yes Status: Acute Code(s): E03.9 - HYPOTHYROIDISM, UNSPECIFIED SNOMED Code(s): 10471393 Comment: -Continue Synthroid (6) DVT prophylaxis Current Visit: No Status: Acute Priority: Medium Onset Date: 01/29/15 Code(s): DGM4923 - SNOMED Code(s): 465612316 Comment: -Given advanced age, continue Lovenox 30 mg Status and Disposition: -For possible D/C in 1-2 days -Given weakness, will ask PT to evaluate prior to planned D/C -Will call son in AM, Hever Carola at: [phone] if pt to be D/Cd in AM per his request
[2018-07-22] MEDS: Psyllium PAK PO PRN (15:53)
[2018-07-22] MEDS: cefTRIAXone(*) 1 GM in NS 0.9% 50 ML* 50 ML IVPB SCH (15:54)
[2018-07-22] MEDS ORDERED: Zolpidem TAB* 5 MG PO ONE (18:00)
[2018-07-22] MEDS: traZODone TAB* 50 MG TAB PO SCH (20:45)
[2018-07-23] MEDS: ALPRAZolam TAB* 0.5 MG PO PRN (04:05)
[2018-07-23] MEDS: Levothyroxine TAB* 100 MCG TAB PO SCH (05:07)
[2018-07-23] MEDS: Psyllium PAK PO PRN (09:12)
[2018-07-23] MEDS: PARoxetine HCL TAB* 40 MG PO SCH (09:13)
[2018-07-23] MEDS: Enoxaparin(*) 30 MG/0.3 ML SYR SUBCUT SCH (09:13)
[2018-07-23] MEDS: Spironolactone TAB* 25 MG PO SCH (09:13)
[2018-07-23] MEDS: PARoxetine HCL TAB* 10 MG PO SCH (09:13)
[2018-07-23] MEDS: Lisinopril TAB* 5 MG PO SCH (09:13)
[2018-07-23] MEDS ORDERED: Magnesium Sulfate 2 GM IV* 2 GM/50 ML BAG IVPB ONE (10:23)
[2018-07-23] MEDS: Apixaban* 2.5 MG TAB PO SCH ×2 (11:31→11:56)
[2018-07-23 13:35] VITALS: BP 142/80
[2018-07-23] MEDS ORDERED: Cefpodoxime (NF) 200 MG TAB PO SCH (16:00)
[2018-07-23] MEDS ORDERED: Cefdinir cap (NF) 300 MG CAP PO SCH (17:00)
[2018-07-23] MEDS ORDERED: Melatonin 3 MG TAB PO SCH (21:00)
--- NOTE | 2018-07-24 07:02 | DS ---
ADDENDUM NOW INCLUDED ON THIS REPORT CC: Serene Orta NP; Dr. Vera; Dr. Abdulaziz Brantley; Dr. Green * DISCHARGE SUMMARY: DATE OF ADMISSION: DATE OF DISCHARGE: 07/23/18 DISCHARGE DIAGNOSES: Are as follows: 1. Urinary tract infection, failed outpatient treatment, improved. 2. Atrial fibrillation. The patient refuses Eliquis. 3. Cardiomyopathy, history of. 4. History of depression. 5. History of hypothyroidism. HISTORY OF PRESENT ILLNESS/HOSPITAL COURSE: The patient is an 83-year-old lady with history of SVT and cardiomyopathy, who presented with weakness and nausea for the past 5 days. She mentioned that she went to Dr. Green's office on Monday with dysuria and was prescribed nitrofurantoin. However, there was some uncertainty whether she was compliant with this medication or not and the patient was feeling overall unwell and hence, her presentation to the ED and subsequent admission for failed outpatient therapy with UTI, either due to noncompliance or due to failure of treatment. She has been placed on Rocephin for the past 2 days and has done well and on urine cultures, it shows corynebacterium species, which could be just due to a contamination given she has done well with Rocephin alone. Her blood cultures were found to be normal for the last 2 days. She will be discharged home improved. The patient had been advised to follow up and/or call her PCP, Dr. Orta, within 3 days post discharge and arrange for a postdischarge followup. She was advised to discuss her Eliquis anticoagulation with either Dr. Orta and/or Dr. Madden; and if insurance is denying, Dr. Orta and Dr. Madden should be able to help her choose an anticoagulant that can be covered by her insurance. However, the son is unsure of whether this was the medication that was being denied by insurance and considered by the patient to be expensive, thus further decreasing compliance and will defer with Dr. Orta and/or Dr. Madden and follow up. If her symptoms resume or develop new ones or feel unwell for any reason, she was advised to call her PCP; and if her PCP cannot entertain her due to scheduling issues alone, she was advised to call [facility] if her issue is nonemergent. She was advised to call my office regarding any questions, concerns, or further clarifications regarding her discharge plans and /or prescriptions and to take her medications as prescribed. REVIEW OF SYSTEMS: She mentions that she still has insomnia despite being on trazodone and specially staying in the hospital. Hence, the patient is to continue on melatonin. Denied any other symptoms such as headaches, dizziness, fevers, chills, nausea, vomiting, chest pain, shortness of breath, increased cough and/or sputum production, abdominal pain, diarrhea, constipation, pain and /or increased frequency in urination, myalgias or arthralgias, throat pain, or new skin lesions. The rest of the 14-point review of systems are otherwise unremarkable. PHYSICAL EXAMINATION: Reveals the most recent vital signs of records with blood pressure of 142/80, 97.7 degrees Fahrenheit, 94 beats per minute heart rate, 20 per minute respiratory rate, saturating at 94% on room air. General Appearance: The patient is awake, alert, not in acute distress. HEENT: Normocephalic, atraumatic. PERRLA. Extraocular muscles intact. Negative for icterus. Moist oral mucosa. Negative throat erythema. Neck is soft, supple, with no cervical lymphadenopathy. No JVD. Heart: S1, S2, within normal limits. Regular rate and rhythm. No murmurs, rubs, or gallops. Chest: Clear to auscultation bilaterally. Good air entry. No wheezes, rales, or rhonchi. Abdomen is soft, nondistended, nontender. Normoactive bowel sounds x4 quadrants. Extremities: No cyanosis, clubbing, or edema. Psychiatric: No active psychosis, depression, suicidal or homicidal ideation. Skin is warm to touch. TIME SPENT: The total time spent evaluating the patient, reviewing pertinent data, and appropriate documentation is 40 minutes. ADDENDUM: DISCHARGE MEDICATIONS: 1. Alprazolam 0.5 to 1 tablet p.o. q. daily p.r.n. 2. Apixaban 2.5 mg p.o. b.i.d. 60 tabs prescribed, 0 refill. 3. Cefpodoxime 200 mg p.o. q.12, dispensed 18 tabs with 0 refill. The patient is to continue with 9 more days of treatment. 4. Synthroid 100 mcg p.o. q. daily. 5. Lisinopril 2.5 mg p.o. q. daily. 6. Melatonin 1 tab p.o. q.h.s. 7. Paroxetine 50 mg p.o. q. daily. 8. Psyllium one packet p.o. q. daily. 9. Spironolactone 25 mg p.o. q. daily. 10. Trazodone 50 mg p.o. q. h.s. 11. Floranex tablet 1 tab p.o. q. daily for 12 more days. [id number]/[facility] #: [id number] A- [id number]/[facility] #: [id number] [facility]
--- NOTE | 2018-07-24 07:11 | DS ---
DISCHARGE SUMMARY: ADDENDUM: DISCHARGE MEDICATIONS: 1. Alprazolam 0.5 to 1 tablet p.o. q. daily p.r.n. 2. Apixaban 2.5 mg p.o. b.i.d. 60 tabs prescribed, 0 refill. 3. Cefpodoxime 200 mg p.o. q.12, dispensed 18 tabs with 0 refill. The patient is to continue with 9 more days of treatment. 4. Synthroid 100 mcg p.o. q. daily. 5. Lisinopril 2.5 mg p.o. q. daily. 6. Melatonin 1 tab p.o. q.h.s. 7. Paroxetine 50 mg p.o. q. daily. 8. Psyllium one packet p.o. q. daily. 9. Spironolactone 25 mg p.o. q. daily. 10. Trazodone 50 mg p.o. q. h.s. 11. Floranex tablet 1 tab p.o. q. daily for 12 more days. [id number]/[facility] #: [id number] [facility]
== END 2018-07-23 18:10 | disposition home or self-care (01) | DRG 690 ==
LOC: ED 18:11 → MED 21:58 → OBSVTOIN 22:00
PROVIDERS: ADMIT Internal Medicine; ATTEND Student in an Organized Health Care Education/Training Program
DX: N39.0 Urinary tract infection, site not specified (principal); I42.9 Cardiomyopathy, unspecified; I47.1 Supraventricular tachycardia; I48.91 Unspecified atrial fibrillation; F32.9 Major depressive disorder, single episode, unspecified; E03.9 Hypothyroidism, unspecified; G47.00 Insomnia, unspecified; I10 Essential (primary) hypertension; E78.5 Hyperlipidemia, unspecified; I34.0 Nonrheumatic mitral (valve) insufficiency; F41.9 Anxiety disorder, unspecified; Z79.899 Other long term (current) drug therapy
CPT/HCPCS: 36415; 71046; 74177; 80048; 80053; 81003; 81015; 83605; 83690; 83735; 83880; 84100; 84484; 85025; 86140; 87040; 87086; 93005; 99284; A9270-GY; G8978-GP-CI; G8979-GP-CI; G8980-GP-CI; J0696; J1650; J3475; Q9967

== ENCOUNTER → 2018-08-20 19:07 | Emergency (ER) | payer MEDICARE, BC ==
[~2018-08-20 19:07] MED LIST: Iohexol 300* (CONTRAST) 10 ML SDV IV ONE; NS 0.9% 1000 ML* 1,000 ML IV ONE
--- OUTSIDE RECORDS SUMMARY | 2018-08-20 19:26 | XMS REPORT ---
:1935 External Reference #:[id number] Author Organization [facility] Address [address] [place] [id number] Phone [phone] Care Team Providers Name Role Phone Uche Duque MD Primary Care Physician Unavailable Payers Type Date Identification Numbers Payment Provider Subscriber Medicare Primary Policy Number: [id number] Medicare Blanca Tinoco PayID: [id number] [address] [place] [address] Medigap Part B Effective: Policy Number: Eliot Tinoco 2017 [id number] Ppo Group Number: [id number] [address] [address] PayID: [id number] LANNY Claudio [id number] Medigap Part B Expires: Policy Number: Eliot Valadez 2014 [id number] Pp Roopa Group Number: [id number] [address] [address] PayID: [id number] LANNY Claudio [id number] Problems Date Description Provider Status Onset: 04/10/2012 Depressive disorder Uche Duque M.D. Active Onset: 04/10/2012 Hammer toe Uche Duque M.D. Active Onset: 04/10/2012 Insomnia Uche uDque M.D. Active Onset: 09/03/2012 Electrocardiogram abnormal José Madden M.D. Active Onset: 09/03/2012 Essential hypertension José Madden M.D. Active Onset: 09/03/2012 Palpitations José Madden M.D. Active Onset: 10/30/2013 Mitral valve disorder José Madden M.D. Active Note: moderate to severe MR Onset: 10/30/2013 Hypokalemia José Madden M.D. Active Onset: 12/16/2014 Osteoarthritis of knee Uche Duque M.D. Active Note: possible iliotibial band syndrome, Dr Valenzuela Onset: 05/18/2015 Postoperative Wound Closure Shaun Cottrell M.D., [facility], Active Encounter [facility] Onset: Cardiomyopathy Active Note: non ischemic Onset: 07/27/2016 Anxiety disorder Uche Duque M.D. Active Onset: 03/20/2014 Osteopenia Uche Duque M.D. Active Onset: 05/10/2017 Diverticular disease of colon Uche Duque M.D. Active Note: scattered diverticuli of L colon Onset: 05/10/2017 Hiatal hernia Uche Duque M.D. Active Note: small Onset: 05/18/2017 Other sleep disorders Jimena Root MD Active Family History Date Family Member(s) Problem(s) Comments Father due to stomach CA () Mother due to Stroke () Mother due to CHF () Children 5 1 daughter and 5 sons all alive and well First Brother due to Parkinsons () Disease First Sister Cancer, Breast First Sister due to Alzheimer's () Disease First Sister polio Paternal Grandmother due to cancer stomach () Maternal Grandfather due to Heart Disease () Social History Type Date Description Comments Marital Status Lives With Alone in fall 2010 in [facility]. 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 Occupation Retired Occupation Homemaker ETOH Use Rarely consumes alcohol Recreational Drug Use Denies Drug Use Smoking Patient has never smoked Daily Caffeine Consumes on average 1 cup of hot tea per day Daily Caffeine Consumes on average 1 cup every other day of regular coffee per day Exercise Type/Frequency Exercises regularly Exercise Type/Frequency walks regularly every day Currently Active Patient is currently not sexually active General Hx Text belongs to philanth[employer] educational [employer] ( [employer]) Allergies, Adverse Reactions, Alerts Date Description Reaction Status Severity Comments 03/19/2012 Erythromycin confusion active 03/19/2012 Doxycycline active nausea 12/13/2016 Sulfamethoxazole nausea active Medications Medication Date Status Form Strength Qnty SIG Indications Ordering Provider Amiodarone HCL 07/30 Active Tablets 100mg 45tab take 2 tabs I48.0 Serene S. /2018 s by mouth Foster, daily for 2 N.P. weeks then 1 tab daily. Shingrix 07/16 Active Suspension 50mcg/0.5 1unit intramuscul Rec ML s ar x 1 then Dunia, repeat in 4 M.D. months Zolpidem 07/16 Active Tablets 5mg 30tab 1 tab at F51.04 Uche Tartrate s bedtime as Dunia, needed for M.D. sleep Eliquis 07/05 Active Tablets 2.5mg 60tab 1 tablet by Uche /2018 s mouth twice Duque, a day. M.D. blood thinner. Lisinopril 12/15 Active Tablets 2.5mg 60tab Take 1 tab I42.9 Serene S. /2017 s by mouth Foster, daily N.P. Pravastatin 11/27 Active Tablets 10mg 14tab take one José Sodium s tablet by F. susy Crowell M.D. Spironolactone 10/18 Active Tablets 25mg 30tab 1 tab by I42.9 José /2017 s mouth daily Flaquita Madden M.D. Alprazolam 09/13 Active Tablets 1mg 60tab 1 -2 tab a F41.9 Uche s day as Dunia, needed for M.D. anxiety attack Paroxetine HCL 12/08 Active Tablets 10mg 90tab Take One F41.9 Uche s Tablet By Duque, Mouth Every M.D. Day To Be Taken Along With 40MG Levothyroxine 11/26 Active Tablets 100mcg 90tab Take One Uche Sodium s Tablet By Duque, Mouth Every M.D. Day Paroxetine HCL 08/18 Active Tablets 40mg 90tab Take One F41.9 Gonsalo ECelso s Tablet By Wendy Mouth Every M.D. Day Along With 10MG Daily Multi For Her Active Capsules 1 po qd Unknown Calcium Active Tablets 1000mg 1 PO qd Metamucil Active Capsules 0.52gm 3 caps Unknown daily with water bid Trazodone HCL Active Tablets 100mg 1 1/2 tabs Wendy [facility], Gonsalo Alfonso MD Cefpodoxime Active Tablets 200mg Take One Unknown Proxetil Tablet By Mouth Every 12 Hours Fiber Active Tablets 2-4 tabs as needed daily increase up to twice a day if needed Cipro 08/03 Hx Tablets 250mg 10tab 1 tab twice Uche s a day x 5 Duque, - days M.D. 08/07 Nitrofurantoin 07/16 Hx Capsules 100mg 10cap 1 by mouth N30.01 Uche Macrocrystal s twice a day Dunia, - M.D. 07/21 Nitrofurantoin 03/16 Hx Capsules 100mg 10cap 1 by mouth Uche Macrocrystal s twice a day Dunia, - X 5 days in M.D. 03/21 case of UTI Rosuvastatin 11/01 Hx Tablets 5mg 30tab 1/2 tab by Serene Browning Calcium s mouth every Foster, - mon, mon, N.P. 11/26 Amlodipine 08/16 Hx Tablets 2.5mg 30tab 1 by mouth I10 José Besylate s every day F. - Mauser, 10/18 M.D. Valsartan 08/16 Hx Tablets 40mg 30tab Pt stopped I42.9 s this med, F. - states is Mauser, 10/18 causes M.D. anxiety---- 1 by mouth every day Nitroglycerin 07/26 Hx Patches 0.2mg/HR 90uni apply 1 24HR ts patch every F. - in the Mauser, 03/01 morning off M.D. at night hold as of 5.5.18 Mometasone 03/29 Hx Cream 0.1% 45gm apply to L30.9 Uche Furoate affected Duque, - areas twice M.D. 08/08 a day days only Amlodipine 02/21 Hx Tablets 5mg 90tab 1 by mouth I10 José Besylate s every day F. - Malindar, 08/16 M.D. Bacitracin 12/29 Hx Ointment 500Unit/G 14gm apply to L L08.9 Uche (External) M area of Dunia, - breast ( M.D. 02/20 open sores ) twice a day x 7 days Diazepam 12/29 Hx Tablets 2mg 5tabs 10/03 to 1 F41.9 Uche /2017 tab as Dunia, - needed for M.D. 02/20 severe anxiety Alprazolam 11/16 Hx Tablets 1mg 30tab 10/03 - 1 tab F41.9 s a day as Dunia, - needed for M.D. 09/13 anxiety attack Amlodipine 11/16 Hx Tablets 10mg 90tab Take One I10 Uche Besylate s Tablet By Dunia, - Mouth Every M.D. 02/21 Day Melatonin ( 07/27 Hx Tablets ER 3mg 30tab once at [facility] ) /2015 s night Dunia, - M.D. 11/16 Triamcinolone 03/31 Hx Cream 0.1% 45uni apply thin R21 Uche Acetonide ts film twice Dunia, - daily X 10 M.D. 11/16 days Hydroxyzine HCL 03/31 Hx Tablets 25mg 30tab take 1 R21 Adry s tablet by Espinoza, - mouth in M.D. 07/27 the evening to stop itching Trazodone HCL 02/21 Hx Tablets 100mg 60tab Take 1 & Uche s 1/2 Tablets Dunia, - By Mouth M.D. 07/16 Every Night AT Bedtime Ciprofloxacin 01/10 Hx Tablets 250mg 10tab 1 by mouth Uche HCL s twice a day Dunia, - for 5 days M.D. 01/01 Prednisone 12/30 Hx Tablets 10mg QS take 3 tab R21 Uche daily x 2 Dunia, - days then 2 M.D. 03/31 tab daily 3 days and then 1 tab daily x 3 days Keflex 12/30 Hx Capsules 500mg 21cap 1 by mouth R21 s tid X 7 Dunia, - days M.D. 01/05 Lunesta 12/30 Hx Tablets 1mg 30tab Not Taking G47.09 s Dunia, - M.D. 07/27 Atorvastatin 12/09 Hx Tablets 10mg 30tab 1 by mouth E78.5 José Calcium s every night F. - hold as of Maryanne, 07/07 10.6.16 M.D. Metoprolol 11/10 Hx Tablets ER 25mg 90tab Stopped José Succinate ER 24HR s Taking 1/2 F. - by mouth Maryanne, 02/21 every day( . not taking at this time) Azo Urinary Pain 08/03 Hx Tablets 97.5mg Uche Relief Dunia, Strength - M.D. 11/10 Sulfamethoxazole 08/03 Hx Tablets 800-160mg 14tab 1 by mouth N30.00 Uche /Trimethoprim s twice a day Dunia, - M.D. 11/10 Alprazolam 06/22 Hx Tablets 0.5mg 30tab 1-2 tab as F43.22 s needed for Dunia, - anxiety M.D. 11/16 Trazodone HCL 06/03 Hx Tablets 100mg 60tab Take 1 & s 1/2 Tablets Dunia, - By Mouth M.D. 12/30 Every Night AT Bedtime Metoprolol 05/08 Hx Tablets ER 25mg 30tab 1/2 tablet José Succinate ER 24HR s once a day F. - Maryanne, 11/09 M.D. Lunesta 04/21 Hx Tablets 2mg 30tab 1/2 to 1 s tab by Dunia, - mouth at M.D. 06/22 bedtime as needed Lunesta 04/08 Hx Tablets 1mg 60tab 1 to 2 s tablets at Dunia, - bedtime as M.D. 04/21 needed for sleep. Amlodipine 04/06 Hx Tablets 5mg 90tab 1 by mouth I10 Uche Besylate /2014 s every day Christiana DuqueDCelso 11/16 Alprazolam 04/06 Hx Tablets 0.25mg 30tab 1 tab by 300.09 Uche Dispers s mouth as Dunia, - needed M.D. 06/22 Atorvastatin 02/04 Hx Tablets 10mg 90tab 1 by mouth 272.2 Uche Calcium s every day Christiana Duque M.D. 08/03 Aspirin 81 10/[address] 81mg po qd Flaquita Madden, 07/30D. Keflex 10/28 Hx Capsules 250mg 14cap 1 po bid 682.9 Uche /2014 s Christiana Duque M.D. 11/08 Aspirin 10/02 Hx Tablets 325mg 1 po qd Ordering - Provider 10/30 Levothroid 09/06 Hx Tablets 100mcg 30tab 1 by mouth Uche /2013 s every day Christiana Duque M.D. 11/26 Triamcinolone 06/27 Hx Cream 0.1% 30gm apply twice Uche Acetonide a day x 10 Dunia, - days on the M.D. 10/28 area Amlodipine 12/24 Hx Tablets 2.5mg 60tab 1 by mouth José Besylate s every day Flaquita Madden, 04/06.D. Potassium 09/03 Hx Capsules ER 10Meq 180ca 1 by mouth José Chloride ER ps daily; Flaquita Madden, 12/15 as on D10/18/17 Amlodipine 09/03 Hx Tablets 2.5mg 90tab 2 po qd José Besylate s Flaquita Madden, 12/24.D. Lisinopril 08/30 Hx Tablets 10mg 90tab 1 po qd 401.9 Uche s Christiana Duque M.D. 09/03 Lisinopril 08/06 Hx Tablets 5mg 30tab 1 po qd 401.9 s Dunia, - M.D. 09/03 Acyclovir 08/06 Hx Tablets 400mg 21tab 1 tab tid X 054.9 s 7 days Dunia, - M.D. 08/30 Alprazolam 07/03 Hx Tablets 0.25mg 30tab 1 tab by s mouth as Dunia, - needed for M.D. 04/06 once a day Bactrim DS 06/01 Hx Tablets 800-160mg 6tabs twice daily 599.0 Catrachita /2011 for 3 days Hira, - N.P. 07/03 Pyridium 06/01 Hx Tablets 200mg 6tabs 1 tab tid 599.0 Catrachita after Hira, - meals, max N.P. 06/01 2 days Estradiol 05/27 Hx Tablets 0.5mg 30tab qod s Dunia, - M.D. 08/06 Estradiol 03/19 Hx Tablets 0.5mg 30tab 1 po qd X 2 627.2 s wks and Dunia, - then as M.D. 04/10 Trazodone HCL 03/19 Hx Tablets 100mg 135ta take 2 by 780.52 bs mouth at Dunia, - bedtime M.D. 04/08 Estradiol Hx Tablets 2mg 30tab po qam s - 07/03 Trazodone HCL Hx Tablets 50mg 90tab 1 tablet at Unknown / s bedtime as - needed 04/10 Alprazolam Hx Tablets 0.5mg 10tab 1 po bid s prn - 07/03 Retin-A Hx Cream 0.1% 1unit apply as s directed to Dunia, - affected M.D. 07/03 area daily Omeprazole Hx Capsules DR 20mg 90cap 1 po qd Unknown s - 03/19 Oxybutynin Hx Tablets 5mg 270ta 1 po bid Unknown Chloride /0000 bs - 03/19 Mupirocin Hx Ointment 2% 44gm apply to Unknown / skin - lesions 04/10 twice daily /2011 Levothroid Hx Tablets 0.1mg 30tab 1 po qd Valentin / s Christiana Montes M.D.,FACP 09/06 Red Rice Yeast Hx 600mg 1 po qd Unknown /0000 - 12/11 Bend 3 Hx Capsules 90cap po qd Unknown /0000 s - 12/11 Fish Oil Hx Capsules 1000mg 90cap 1 po qd Unknown / s - 12/08 Vitamin E-400 Hx Capsules 400Unit 1 po Unknown / occasionall - y 11/[address] 325mg 30tab 1/2 tablet Unknown /0000 s po qd - 10/30 Paroxetine HCL Hx Tablets 30mg 135ta Take 1 tab 311 Uche /0000 bs daily Christiana Duque M.D. 08/18 Red Yeast Rice Hx Capsules 600mg 1 by mouth Unknown /0000 twice a day - 02/[address] 20mg 1 by mouth Unknown /0000 every day - 03/22 Triamcinolone Hx Lotion 0.1% to be Unknown Acetonide / applied - twice a day 12/30 on arms, /2016 thighs Trazodone HCL Hx 100mg 60uni 1and a half Uche /0000 ts tablet Dunia - tablet at M.D. 06/03 bedtime /2014 Vitamin B12 00 Hx 1 tablet po Unknown / occasional - 11/16 Co Q 10 Hx 200mg 1 tablet José / daily Flaquita Madden 02/20 M.D. /2016 Relax & Sleep Hx Tablets Unknown / - 02/20 Phenazopyridine Hx Tablets 100mg Unknown HCL / - 02/20 Sulfamethoxazole 0000 Hx Tablets 800-160mg Unknown /Trimethoprim DS /0000 - 02/20 Doxycycline Hx Capsules 100mg Swann, Monohydrate / Christiana Barnard MD 10/26 Immunizations CPT Code Status Date Vaccine Lot # 53220 Given 05/30/2018 Pneumonia Vaccine [id number] Given 09/13/2017 Influenza Virus Vaccine, Quadrivalent, Split, [id number] Preservative Free 81235 Given 06/22/2015 Influenza Virus Vaccine, Quadrivalent, Split, [id number] Preservative Free 02796 Given 12/18/2014 Pneumococcal Conjugate Vaccine 13 Valent For [id number] Intramuscular Use 86534 Given 08/18/2014 Flu Vaccine Split Virus Preservative Free For [id number] Indiv 3Yr Older 64142 Given 06/27/2013 Flu Vaccine Split Virus Preservative Free For [id number] Indiv 3Yr Older 03481 Given 10/02/2008 Pneumonia Vaccine Vital Signs Date Vital Result Comment 08/07/2018 Height 62 inches 5'2" Weight 121.00 lb Heart Rate 84 /min BP Systolic Sitting 116 mmHg BP Diastolic Sitting 78 mmHg Body Temperature 97.1 F O2 % BldC Oximetry 98 % BMI (Body Mass Index) 22.1 kg/m2 07/30/2018 Weight 122.50 lb Heart Rate 80 /min BP Systolic Sitting 108 mmHg Rue regular cuff BP Diastolic Sitting 68 mmHg Rue regular cuff Ejection Fraction 35-40 echocardiogram 10/13/17 07/16/2018 Height 62 inches 5'2" Weight 122.00 lb Heart Rate 87 /min BP Systolic Sitting 134 mmHg BP Diastolic Sitting 86 mmHg O2 % BldC Oximetry 97 % BMI (Body Mass Index) 22.3 kg/m2 05/30/2018 Height 62 inches 5'2" Weight 124.00 lb Heart Rate 77 /min BP Systolic Sitting 118 mmHg BP Diastolic Sitting 82 mmHg O2 % BldC Oximetry 98 % BMI (Body Mass Index) 22.7 kg/m2 04/18/2018 Height 63 inches 5'3" Heart Rate 64 /min BP Systolic 130 mmHg right arm reg cuff sitting BP Diastolic 82 mmHg right arm reg cuff sitting BP Systolic Sitting 132 mmHg left arm reg cuff sitting BP Diastolic Sitting 84 mmHg left arm reg cuff sitting BP Systolic Standing 128 mmHg standing right arm reg cuff BP Diastolic Standing 78 mmHg standing right arm reg cuff 03/23/2018 Height 63 inches 5'3" Weight 129.00 lb No shoes Heart Rate 68 /min BP Systolic Sitting 162 mmHg Rue reg cuff BP Diastolic Sitting 92 mmHg Rue reg cuff BP Systolic Standing 152 mmHg Rue reg cuff BP Diastolic Standing 90 mmHg Rue reg cuff Respiratory Rate 17 /min BMI (Body Mass Index) 22.8 kg/m2 Ejection Fraction 35-40% 10/13/2017-echo 03/21/2018 Height 63 inches 5'3" Weight 128.00 lb Heart Rate 79 /min BP Systolic Sitting 140 mmHg BP Diastolic Sitting 85 mmHg Body Temperature 97.4 F O2 % BldC Oximetry 98 % BMI (Body Mass Index) 22.7 kg/m2 03/01/2018 Height 63 inches 5'3" Heart Rate 78 /min BP Systolic Sitting 106 mmHg BP Diastolic Sitting 62 mmHg O2 % BldC Oximetry 96 % 02/02/2018 Height 63 inches 5'3" Weight 129.00 lb pt scale Heart Rate 70 /min BP Systolic Sitting 112 mmHg L/A Reg Cuff BP Diastolic Sitting 70 mmHg L/A Reg Cuff BMI (Body Mass Index) 22.8 kg/m2 Ejection Fraction 35-40% echo 10/13/2017 01/05/2018 Height 63 inches 5'3" Weight 129.00 lb without shoes Heart Rate 88 /min BP Systolic Sitting 120 mmHg Rue reg cuff BP Diastolic Sitting 82 mmHg Rue reg cuff BP Systolic Standing 122 mmHg Rue reg cuff BP Diastolic Standing 84 mmHg Rue reg cuff Respiratory Rate 17 /min BMI (Body Mass Index) 22.8 kg/m2 Ejection Fraction 35-40% date 10/13/17 ECHO 12/15/2017 Height 63 inches 5'3" Weight 131.50 lb without shoes Heart Rate 72 /min BP Systolic Sitting 122 mmHg LA, reg cuff BP Diastolic Sitting 78 mmHg LA, reg cuff BMI (Body Mass Index) 23.3 kg/m2 Ejection Fraction 35%-40% 10/13/17 10/26/2017 Weight 126.00 lb Heart Rate 77 /min BP Systolic Sitting 130 mmHg BP Diastolic Sitting 66 mmHg O2 % BldC Oximetry 97 % 10/18/2017 Height 62.5 inches 5'2.50" Weight 129.00 lb w/shoes Heart Rate 68 /min BP Systolic Sitting 136 mmHg LA reg cuff BP Diastolic Sitting 80 mmHg LA reg cuff BMI (Body Mass Index) 23.2 kg/m2 Ejection Fraction 35-40% Echo 10/13/17 09/13/2017 Weight 129.00 lb Heart Rate 69 /min BP Systolic Sitting 136 mmHg BP Diastolic Sitting 78 mmHg Body Temperature 97.5 F O2 % BldC Oximetry 98 % 08/16/2017 Height 62.5 inches 5'2.50" Weight 128.00 lb Heart Rate 68 /min BP Systolic Sitting 130 mmHg LA reg cuff BP Diastolic Sitting 76 mmHg LA reg cuff BMI (Body Mass Index) 23.0 kg/m2 Ejection Fraction 45%-50% echo 05/1807/20/2017 Height 62.5 inches 5'2.50" Weight 127.00 lb w/o shoes Heart Rate 72 /min BP Systolic Sitting 122 mmHg LA reg cuff BP Diastolic Sitting 68 mmHg LA reg cuff BMI (Body Mass Index) 22.9 kg/m2 Ejection Fraction 45-50% Jerald 06/09/17 05/18/2017 Height 62.5 inches 5'2.50" Weight 128.00 lb Heart Rate 72 /min BP Systolic Sitting 108 mmHg BP Diastolic Sitting 58 mmHg Respiratory Rate 14 /min O2 % BldC Oximetry 97 % BMI (Body Mass Index) 23.0 kg/m2 Neck Circumference in inches 12.5 05/15/2017 Height 63 inches 5'3" Weight 128.00 lb No shoes Heart Rate 78 /min BP Systolic Sitting 144 mmHg Rue reg cuff BP Diastolic Sitting 86 mmHg Rue reg cuff Respiratory Rate 18 /min BMI (Body Mass Index) 22.7 kg/m2 Ejection Fraction 45-50% 05/11/2017-echo 05/10/2017 Height 63 inches 5'3" Weight 127.00 lb Heart Rate 93 /min BP Systolic Sitting 150 mmHg BP Diastolic Sitting 80 mmHg Body Temperature 97.6 F O2 % BldC Oximetry 98 % BMI (Body Mass Index) 22.5 kg/m2 03/29/2017 Height 63 inches 5'3" Weight 130.50 lb Heart Rate 77 /min BP Systolic 114 mmHg BP Diastolic 70 mmHg Body Temperature 97.1 F O2 % BldC Oximetry 97 % BMI (Body Mass Index) 23.1 kg/m2 03/13/2017 Heart Rate 77 /min BP Systolic Sitting 114 mmHg BP Diastolic Sitting 70 mmHg O2 % BldC Oximetry 98 % 02/21/2017 Height 62.6 inches 5'2.60" Weight 130.25 lb w/o shoes Heart Rate 72 /min BP Systolic Sitting 122 mmHg LA reg cuff BP Diastolic Sitting 78 mmHg LA reg cuff BMI (Body Mass Index) 23.4 kg/m2 Ejection Fraction 55% Echo 11/16/15 12/29/2016 Weight 131.00 lb Heart Rate 74 /min BP Systolic Sitting 134 mmHg BP Diastolic Sitting 72 mmHg Respiratory Rate 15 /min Body Temperature 98.2 F O2 % BldC Oximetry 98 % 12/08/2016 Heart Rate 76 /min BP Systolic Sitting 140 mmHg BP Diastolic Sitting 78 mmHg Body Temperature 97.4 F O2 % BldC Oximetry 97 % 11/16/2016 Weight 130.00 lb Heart Rate 71 /min BP Systolic Sitting 168 mmHg BP Diastolic Sitting 88 mmHg O2 % BldC Oximetry 98 % 09/12/2016 Height 62.5 inches 5'2.50" Weight 133.75 lb with boots Heart Rate 66 /min BP Systolic Sitting 126 mmHg LA reg cuff BP Diastolic Sitting 78 mmHg LA reg cuff BMI (Body Mass Index) 24.1 kg/m2 Ejection Fraction 55% echo 11/16/15 07/27/2016 Height 62.5 inches 5'2.50" Weight 130.50 lb Heart Rate 75 /min BP Systolic Sitting 120 mmHg BP Diastolic Sitting 80 mmHg Body Temperature 97.1 F O2 % BldC Oximetry 98 % BMI (Body Mass Index) 23.5 kg/m2 07/07/2016 Height 62.5 inches 5'2.50" Weight 132.00 lb without shoes Heart Rate 80 /min BP Systolic Sitting 120 mmHg Ra reg cuff BP Diastolic Sitting 62 mmHg Ra reg cuff Respiratory Rate 17 /min BMI (Body Mass Index) 23.8 kg/m2 Ejection Fraction 55% date 11/16/15 ECHO 03/31/2016 Height 62.5 inches 5'2.50" Heart Rate 76 /min BP Systolic Sitting 110 mmHg BP Diastolic Sitting 60 mmHg Body Temperature 97.9 F O2 % BldC Oximetry 98 % 12/31/2015 Height 62.5 inches 5'2.50" Weight 127.25 lb Heart Rate 70 /min BP Systolic Sitting 114 mmHg BP Diastolic Sitting 62 mmHg Body Temperature 96.8 F O2 % BldC Oximetry 98 % BMI (Body Mass Index) 22.9 kg/m2 12/10/2015 Height 62.5 inches 5'2.50" Weight 103.25 lb Heart Rate 65 /min BP Systolic Sitting 112 mmHg LA, regular cuff BP Diastolic Sitting 64 mmHg LA, regular cuff BMI (Body Mass Index) 18.6 kg/m2 Ejection Fraction 55% echo 11/16/15 11/10/2015 Height 62.5 inches 5'2.50" Weight 131.00 lb without shoes Heart Rate 68 /min BP Systolic Sitting 130 mmHg LA reg cuff BP Diastolic Sitting 60 mmHg LA reg cuff Respiratory Rate 16 /min BMI (Body Mass Index) 23.6 kg/m2 Ejection Fraction 45-50% date 04/15/15 ECHO 08/03/2015 Weight 126.00 lb Heart Rate 85 /min BP Systolic Sitting 122 mmHg BP Diastolic Sitting 62 mmHg Body Temperature 98.9 F O2 % BldC Oximetry 96 % 06/22/2015 Height 63 inches 5'3" Weight 129.00 lb Heart Rate 63 /min BP Systolic 130 mmHg BP Diastolic 67 mmHg Body Temperature 97.2 F BMI (Body Mass Index) 22.8 kg/m2 05/18/2015 Height 63 inches 5'3" Weight 130.00 lb Heart Rate 70 /min 72 BP Systolic Sitting 114 mmHg left arm, reg cuff BP Diastolic Sitting 72 mmHg left arm, reg cuff BP Systolic Standing 108 mmHg left arm, reg cuff BP Diastolic Standing 68 mmHg left arm, reg cuff Respiratory Rate 16 /min BMI (Body Mass Index) 23.0 kg/m2 Ejection Fraction 45-50% 04/15/15 05/07/2015 Weight 128.00 lb with out shoes Heart Rate 76 /min BP Systolic Sitting 130 mmHg LA reg cuff BP Diastolic Sitting 70 mmHg LA reg cuff Respiratory Rate 17 /min Ejection Fraction 45-50% date 04/15/15 ECHO 04/24/2015 Heart Rate 71 /min BP Systolic Sitting 133 mmHg BP Diastolic Sitting 70 mmHg 04/06/2015 Heart Rate 67 /min BP Systolic Sitting 161 mmHg BP Diastolic Sitting 91 mmHg 03/23/2015 Height 63 inches 5'3" Weight 131.75 lb Heart Rate 64 /min BP Systolic Sitting 160 mmHg LA< reg BP Diastolic Sitting 84 mmHg LA< reg BMI (Body Mass Index) 23.3 kg/m2 Ejection Fraction 55%-60% 11/26/13 echo 02/04/2015 Weight 128.75 lb Heart Rate 80 /min BP Systolic Sitting 118 mmHg BP Diastolic Sitting 74 mmHg Body Temperature 97.2 F O2 % BldC Oximetry 97 % 12/18/2014 Height 62.25 inches 5'2.25" Weight 130.75 lb Heart Rate 75 /min BP Systolic Sitting 115 mmHg BP Diastolic Sitting 70 mmHg BMI (Body Mass Index) 23.7 kg/m2 08/18/2014 Weight 129.00 lb Heart Rate 72 /min BP Systolic Sitting 122 mmHg BP Diastolic Sitting 80 mmHg O2 % BldC Oximetry 96 % 01/08/2014 Height 62.50 inches 5'2.50" Weight 131.00 lb Heart Rate 80 /min BP Systolic Sitting 124 mmHg BP Diastolic Sitting 78 mmHg Body Temperature 97.4 F BMI (Body Mass Index) 23.6 kg/m2 12/12/2013 Height 62.50 inches 5'2.50" Weight 131.00 lb Heart Rate 82 /min BP Systolic Sitting 122 mmHg BP Diastolic Sitting 68 mmHg Body Temperature 97.3 F BMI (Body Mass Index) 23.6 kg/m2 10/30/2013 Height 62.50 inches 5'2.50" Weight 130.00 lb Heart Rate 80 /min BP Systolic Sitting 138 mmHg BP Diastolic Sitting 72 mmHg BMI (Body Mass Index) 23.4 kg/m2 10/28/2013 Weight 129.00 lb Heart Rate 73 /min BP Systolic Sitting 130 mmHg BP Diastolic Sitting 72 mmHg 07/10/2013 Heart Rate 69 /min BP Systolic Sitting 138 mmHg BP Diastolic Sitting 62 mmHg 06/27/2013 Weight 128.00 lb Heart Rate 63 /min BP Systolic Sitting 150 mmHg BP Diastolic Sitting 86 mmHg 02/13/2013 Weight 130.00 lb Heart Rate 88 /min BP Systolic Sitting 160 mmHg BP Diastolic Sitting 92 mmHg Body Temperature 98.3 F 02/06/2013 Weight 128.00 lb Heart Rate 73 /min BP Systolic Sitting 152 mmHg BP Diastolic Sitting 78 mmHg 12/24/2012 Height 62.5 inches 5'2.50" Weight 126.00 lb Heart Rate 70 /min BP Systolic 118 mmHg BP Diastolic 66 mmHg BMI (Body Mass Index) 22.7 kg/m2 12/14/2012 Height 62.5 inches 5'2.50" Weight 123.00 lb Heart Rate 76 /min machine 76 BP Systolic 116 mmHg machine 118/69 BP Diastolic 70 mmHg machine 118/69 BMI (Body Mass Index) 22.1 kg/m2 12/11/2012 Height 62.5 inches 5'2.50" Weight 124.75 lb Heart Rate 82 /min BP Systolic 140 mmHg BP Diastolic 82 mmHg BP Systolic Sitting 140 mmHg BP Diastolic Sitting 84 mmHg BMI (Body Mass Index) 22.5 kg/m2 11/27/2012 Height 62.5 inches 5'2.50" Heart Rate 68 /min BP Systolic Sitting 150 mmHg BP Diastolic Sitting 80 mmHg 09/03/2012 Height 62.5 inches 5'2.50" Weight 123.00 lb BP Systolic 130 mmHg BP Diastolic 90 mmHg BP Systolic Sitting 132 mmHg BP Diastolic Sitting 90 mmHg BP Systolic Standing 130 mmHg BP Diastolic Standing 88 mmHg Respiratory Rate 16 /min BMI (Body Mass Index) 22.1 kg/m2 08/30/2012 Height 62.5 inches 5'2.50" Weight 126.00 lb Heart Rate 70 /min BP Systolic Sitting 153 mmHg BP Diastolic Sitting 78 mmHg BMI (Body Mass Index) 22.7 kg/m2 08/06/2012 Height 62.5 inches 5'2.50" Weight 127.00 lb Heart Rate 72 /min BP Systolic Sitting 146 mmHg BP Diastolic Sitting 88 mmHg BMI (Body Mass Index) 22.9 kg/m2 07/03/2012 Height 62.5 inches 5'2.50" Weight 124.00 lb Heart Rate 76 /min BP Systolic Sitting 156 mmHg BP Diastolic Sitting 88 mmHg BMI (Body Mass Index) 22.3 kg/m2 06/01/2012 Height 62 inches 5'2" Weight 121.00 lb Heart Rate 78 /min BP Systolic Sitting 144 mmHg BP Diastolic Sitting 84 mmHg Body Temperature 97.8 F lt ear BMI (Body Mass Index) 22.1 kg/m2 04/10/2012 Height 62 inches 5'2" Weight 120.00 lb Heart Rate 76 /min BP Systolic Sitting 104 mmHg BP Diastolic Sitting 80 mmHg BMI (Body Mass Index) 21.9 kg/m2 03/19/2012 Height 62 inches 5'2" Weight 121.00 lb Heart Rate 58 /min BP Systolic Sitting 140 mmHg BP Diastolic Sitting 82 mmHg Respiratory Rate 14 /min Body Temperature 97.3 F BMI (Body Mass Index) 22.1 kg/m2 Results Test Date Test Result H/L Range Note Urine Culture And 07/20/2018 Urine Culture SEE RESULT 1 Sensitivities BELOW Laboratory test finding 07/20/2018 B-Type Natriuretic 1206 pg/mL High 2 Peptide BNP Urinalysis Profile 07/20/2018 Urine Color Yellow Urine Appearance Cloudy Urine Specific [place] 1.011 1.010-1.030 Urine pH 6.0 5-9 Urine Urobilinogen Negative Negative Urine Ketones 2+ Negative Urine Protein Negative Negative Urine Leukocytes 3+ Negative Urine Blood 2+ Negative Urine Nitrite Negative Negative Urine Bilirubin Negative Negative Urine Glucose Negative Negative Urine White Blood Cell 3+(>20/hpf) Absent Urine Red Blood Cell Absent Absent Urine Bacteria Absent Absent Urine Squamous Epithelial Cell Present Absent Laboratory test finding 07/20/2018 Lactic Acid 1.1 mmol/L 0.5-2.0 3 Comp Metabolic Panel 07/20/2018 Sodium 133 mmol/L Low 135-145 Potassium 3.9 mmol/L 3.5-5.0 Chloride 100 mmol/L Low 101-111 Co2 Carbon Dioxide 25 mmol/L 22-32 Anion Gap 8 mmol/L 2-11 Glucose 134 mg/dL High 70-100 Blood Urea Nitrogen 10 mg/dL 6-24 Creatinine 0.70 mg/dL 0.51-0.95 BUN/Creatinine Ratio 14.3 8-20 Calcium 9.1 mg/dL 8.6-10.3 Total Protein 6.7 g/dL 6.4-8.9 Albumin 3.7 g/dL 3.2-5.2 Globulin 3.0 g/dL 2-4 Albumin/Globulin Ratio 1.2 1-3 Total Bilirubin 1.10 mg/dL High 0.2-1.0 Alkaline Phosphatase 67 U/L 34-104 Alt 57 U/L High 7-52 Ast 29 U/L 13-39 Egfr Non- 79.5 >60 Egfr 96.2 >60 4 CBC Auto Diff 07/20/2018 White Blood Count 13.2 10^3/uL High 3.5-10.8 Red Blood Count 4.31 10^6/uL 4.00-5.40 Hemoglobin 12.0 g/dL 12.0-16.0 Hematocrit 37 % 35-47 Mean Corpuscular Volume 85 fL 80-97 Mean Corpuscular Hemoglobin 28 pg 27-31 Mean Corpuscular HGB Conc 33 g/dL 31-36 Red Cell Distribution Width 15 % 10.5-15 Platelet Count 237 10^3/uL 150-450 Mean Platelet Volume 8.8 um3 7.4-10.4 Abs Neutrophils 12.1 10^3/uL High 1.5-7.7 Abs Lymphocytes 0.4 10^3/uL Low 1.0-4.8 Abs Monocytes 0.7 10^3/uL 0-0.8 Abs Eosinophils 0 10^3/uL 0-0.6 Abs Basophils 0 10^3/uL 0-0.2 Abs Nucleated RBC 0 10^3/uL Granulocyte % 91.4 % High 38-83 Lymphocyte % 2.7 % Low 25-47 Monocyte % 5.5 % 0-7 Eosinophil % 0.2 % 0-6 Basophil % 0.2 % 0-2 Nucleated Red Blood Cells % 0.1 Laboratory test finding 07/20/2018 Lipase < 10 U/L Low 11.0-82.0 C Reactive Protein 106.57 mg/L High <8.01 Urine Culture And 07/16/2018 Urine Culture SEE RESULT BELOW 5 Sensitivities Ua Routine 07/16/2018 Ua Specific [place] 1.015 Ua PH 6 Ua Color medium yellow Ua Appera cloudy Ua WBC ++ Ua Protein trace Ua Glucose norm Ua Ketones - Ua Bilirubin - Ua Urobilinogen norm Ua Nitrite - Ua Occult Blood 250 Comp Metabolic Panel 06/22/2018 Sodium 140 mmol/L 135-145 Chloride 105 mmol/L 101-111 Co2 Carbon Dioxide 29 mmol/L 22-32 Glucose 92 mg/dL 70-100 Blood Urea Nitrogen 18 mg/dL 6-24 Creatinine 0.78 mg/dL 0.51-0.95 BUN/Creatinine Ratio 23.1 High 8-20 Calcium 9.2 mg/dL 8.6-10.3 Total Protein 6.6 g/dL 6.4-8.9 Albumin 4.2 g/dL 3.2-5.2 Globulin 2.4 g/dL 2-4 Albumin/Globulin Ratio 1.8 1-3 Total Bilirubin 0.40 mg/dL 0.2-1.0 Alkaline Phosphatase 59 U/L 34-104 Alt 18 U/L 7-52 Ast 19 U/L 13-39 Egfr Non- 70.2 >60 Egfr 84.9 >60 6 Potassium 5.2 mmol/L High 3.5-5.0 Anion Gap 6 mmol/L 2-11 Lipid Profile (Trig/Chol/HDL) 06/22/2018 Triglycerides 100 mg/dL 7 Cholesterol 230 mg/dL 8 HDL Cholesterol 45.3 mg/dL 9 LDL Cholesterol 165 mg/dL 10 Laboratory test finding 06/22/2018 Magnesium 2.0 mg/dL 1.9-2.7 TSH (Thyroid Stim Horm) 6.41 mcIU/mL High 0.34-5.60 T3 Free 2.80 pg/mL 2.5-3.9 Free T4 (Free Thyroxine) 0.75 ng/dL 0.61-1.12 Laboratory test finding 06/14/2018 TSH (Thyroid Stim Horm) <pending> T3 Free <pending> Free T4 (Free Thyroxine) <pending> Magnesium <pending> Lipid Panel - [facility] 10/31/2017 Creatine Kinase(CK) 43 U/L 10223 11 Comp Metabolic Panel 10/31/2017 Sodium 138 mmol/L 133-145 Potassium 4.0 mmol/L 3.5-5.0 Chloride 105 mmol/L 101-111 Co2 Carbon Dioxide 28 mmol/L 22-32 Anion Gap 5 mmol/L 2-11 Glucose 96 mg/dL 70-100 Blood Urea Nitrogen 17 mg/dL 6-24 Creatinine 0.80 mg/dL 0.51-0.95 BUN/Creatinine Ratio 21.3 High 8-20 Calcium 9.2 mg/dL 8.6-10.3 Total Protein 6.5 g/dL 6.4-8.9 Albumin 3.9 g/dL 3.2-5.2 Globulin 2.6 g/dL 2-4 Albumin/Globulin Ratio 1.5 1-3 Total Bilirubin 0.40 mg/dL 0.2-1.0 Alkaline Phosphatase 65 U/L 34-104 Alt 17 U/L 7-52 Ast 19 U/L 13-39 Egfr Non- 68.3 >60 Egfr 87.9 >60 12 Lipid Profile (Trig/Chol/HDL) 10/31/2017 Triglycerides 136 mg/dL 13 Cholesterol 235 mg/dL 14 HDL Cholesterol 39.8 mg/dL 15 LDL Cholesterol 168 mg/dL 16 Laboratory test finding 10/31/2017 Magnesium 2.0 mg/dL 1.9-2.7 17 Laboratory test finding 07/07/2017 Magnesium 2.1 mg/dL 1.9-2.7 18 Basic Metabolic Panel 07/07/2017 Sodium 139 mmol/L 133-145 Potassium 4.1 mmol/L 3.5-5.0 Chloride 104 mmol/L 101-111 Co2 Carbon Dioxide 31 mmol/L 22-32 Anion Gap 4 mmol/L 2-11 Glucose 96 mg/dL 70-100 Blood Urea Nitrogen 19 mg/dL 6-24 Creatinine 0.78 mg/dL 0.51-0.95 BUN/Creatinine Ratio 24.4 High 8-20 Calcium 8.9 mg/dL 8.6-10.3 Egfr Non- 70.4 >60 Egfr 90.5 >60 19 CBC Auto Diff 04/24/2017 White Blood Count 4.6 10^3/uL 3.5-10.8 Red Blood Count 4.62 10^6/uL 4.0-5.4 Hemoglobin 13.1 g/dL 12.0-16.0 Hematocrit 40 % 35-47 Mean Corpuscular Volume 87 fL 80-97 Mean Corpuscular Hemoglobin 28 pg 27-31 Mean Corpuscular HGB Conc 33 g/dL 31-36 Red Cell Distribution Width 14 % 10.5-15 Platelet Count 166 10^3/uL 150-450 Mean Platelet Volume 9 um3 7.4-10.4 Abs Neutrophils 3.4 10^3/uL 1.5-7.7 Abs Lymphocytes 0.6 10^3/uL Low 1.0-4.8 Abs Monocytes 0.4 10^3/uL 0-0.8 Abs Eosinophils 0.1 10^3/uL 0-0.6 Abs Basophils 0 10^3/uL 0-0.2 Abs Nucleated RBC 0 10^3/uL Granulocyte % 74.1 % 38-83 Lymphocyte % 14.1 % Low 25-47 Monocyte % 9.7 % High 1-9 Eosinophil % 1.2 % 0-6 Basophil % 0.9 % 0-2 Nucleated Red Blood Cells % 0 Comp Metabolic Panel 04/24/2017 Sodium 136 mmol/L 133-145 Potassium 3.4 mmol/L Low 3.5-5.0 Chloride 106 mmol/L 101-111 Co2 Carbon Dioxide 23 mmol/L 22-32 Anion Gap 7 mmol/L 2-11 Glucose 97 mg/dL 70-100 Blood Urea Nitrogen 17 mg/dL 6-24 Creatinine 0.85 mg/dL 0.51-0.95 BUN/Creatinine Ratio 20.0 8-20 Calcium 9.0 mg/dL 8.6-10.3 Total Protein 6.7 g/dL 6.4-8.9 Albumin 3.9 g/dL 3.2-5.2 Globulin 2.8 g/dL 2-4 Albumin/Globulin Ratio 1.4 1-3 Total Bilirubin 0.50 mg/dL 0.2-1.0 Alkaline Phosphatase 57 U/L 34-104 Alt 15 U/L 7-52 Ast 19 U/L 13-39 Egfr Non- 63.7 >60 Egfr 81.9 >60 20 Laboratory test finding 04/24/2017 Magnesium 2.0 mg/dL 1.9-2.7 Lipase 28 U/L 11.0-82.0 C Reactive Protein 5.08 mg/L High < 5.00 21 Lactic Acid 1.0 mmol/L 0.5-2.0 22 Urinalysis Profile 04/24/2017 Urine Color Straw Urine Appearance Clear Urine Specific [place] 1.004 Low 1.010-1.030 Urine pH 8.0 5-9 Urine Urobilinogen Negative Negative Urine Ketones Trace Negative Urine Protein Negative Negative Urine Leukocytes Trace Negative Urine Blood Negative Negative Urine Nitrite Negative Negative Urine Bilirubin Negative Negative Urine Glucose Negative Negative Urine White Blood Cell Trace(0-5/hpf) Absent Urine Red Blood Cell Absent Absent Urine Bacteria Absent Absent Urine Culture And 04/24/2017 Urine Culture SEE RESULT 23 Sensitivities BELOW Laboratory test finding 04/06/2017 TSH (Thyroid Stim 1.08 mcIU/mL 0.34- 5.60 Horm) Lipid Profile 04/06/2017 Triglycerides 105 mg/dL 24 (Trig/Chol/HDL) Cholesterol 229 mg/dL 25 HDL Cholesterol 48.8 mg/dL 26 LDL Cholesterol 159 mg/dL 27 Laboratory test finding 04/06/2017 T3 Free 2.80 pg/mL 2.5-3.9 Free T4 (Free Thyroxine) 0.94 ng/dL 0.61-1.12 Laboratory test finding 03/10/2017 TSH (Thyroid Stim 5.57 mcIU/mL 0.34- 5.60 Horm) Laboratory test finding 07/28/2016 Troponin-I (TnI) 0.01 ng/mL <0.03 28 Erythrocyte Sed Rate 16 mm/Hr 0-40 29 Comp Metabolic Panel 06/09/2016 Sodium 139 mmol/L 133-145 Potassium 3.8 mmol/L 3.5-5.0 Chloride 106 mmol/L 101-111 Co2 Carbon Dioxide 28 mmol/L 22-32 Anion Gap 5 mmol/L 2-11 Glucose 91 mg/dL 70-100 Blood Urea Nitrogen 21 mg/dL 6-24 Creatinine 0.77 mg/dL 0.51-0.95 BUN/Creatinine Ratio 27.3 High 8-20 Calcium 8.6 mg/dL 8.6-10.3 Total Protein 6.2 g/dL Low 6.4-8.9 Albumin 3.8 g/dL 3.2-5.2 Globulin 2.4 g/dL 2-4 Albumin/Globulin Ratio 1.6 1-3 Total Bilirubin 0.50 mg/dL 0.2-1.0 Alkaline Phosphatase 55 U/L 34-104 Alt 18 U/L 7-52 Ast 22 U/L 13-39 Egfr Non- 71.6 >60 Egfr 92.1 >60 30 Lipid Profile (Trig/Chol/HDL) 06/09/2016 Triglycerides 92 mg/dL 31 Cholesterol 194 mg/dL 32 HDL Cholesterol 43.1 mg/dL 33 LDL Cholesterol 133 mg/dL 34 Lipid Panel - [facility] 06/09/2016 Creatine Kinase(CK) 92 U/L 10-223 CBC Auto Diff 12/09/2015 White Blood Count 3.6 10^3/uL 3.5-10.8 Red Blood Count 4.77 10^6/uL 4.0-5.4 Hemoglobin 13.3 g/dL 12.0-16.0 Hematocrit 42 % 35-47 Mean Corpuscular Volume 87 fL 80-97 Mean Corpuscular Hemoglobin 28 pg 27-31 Mean Corpuscular HGB Conc 32 g/dL 31-36 Red Cell Distribution Width 15 % 10.5-15 Platelet Count 207 10^3/uL 150-450 Mean Platelet Volume 10 um3 7.4-10.4 Abs Neutrophils 2.0 10^3/uL 1.5-7.7 Abs Lymphocytes 1.1 10^3/uL 1.0-4.8 Abs Monocytes 0.4 10^3/uL 0-0.8 Abs Eosinophils 0.2 10^3/uL 0-0.6 Abs Basophils 0.1 10^3/uL 0-0.2 Abs Nucleated RBC 0 10^3/uL Granulocyte % 53.7 % 38-83 Lymphocyte % 29.2 % 25-47 Monocyte % 10.4 % High 1-9 Eosinophil % 4.8 % 0-6 Basophil % 1.9 % 0-2 Nucleated Red Blood Cells % 0.1 Lipid Profile (Trig/Chol/HDL) 12/09/2015 Triglycerides 113 mg/dL 35 Cholesterol 234 mg/dL 36 HDL Cholesterol 47.1 mg/dL 37 LDL Cholesterol 164 mg/dL 38 Laboratory test finding 12/09/2015 TSH (Thyroid Stim Horm) 2.27 ?IU/mL 0.34-5.60 Magnesium 2.1 mg/dL 1.9-2.7 Vitamin B12 And Folate Serum 12/09/2015 Vitamin B12 730 pg/mL 180-914 39 Folic Acid (Folate) 15.18 ng/mL >3.99 Laboratory test finding 12/09/2015 CRP High Sensitivity 1.37 mg/L 40 Erythrocyte Sed Rate 11 mm/Hr 0-40 Lipid Panel - [facility] 12/09/2015 Creatine Kinase(CK) 44 U/L 10-223 Comp Metabolic Panel 12/09/2015 Sodium 140 mmol/L 133-145 Potassium 4.0 mmol/L 3.5-5.0 Chloride 105 mmol/L 101-111 Co2 Carbon Dioxide 30 mmol/L 22-32 Anion Gap 5 mmol/L 2-11 Glucose 88 mg/dL 70-100 Blood Urea Nitrogen 19 mg/dL 6-24 Creatinine 0.76 mg/dL 0.51-0.95 BUN/Creatinine Ratio 25.0 High 8-20 Calcium 8.9 mg/dL 8.6-10.3 Total Protein 6.4 g/dL 6.4-8.9 Albumin 3.9 g/dL 3.2-5.2 Globulin 2.5 g/dL 2-4 Albumin/Globulin Ratio 1.6 1-3 Total Bilirubin 0.30 mg/dL 0.2-1.0 Alkaline Phosphatase 54 U/L 34-104 Alt 14 U/L 7-52 Ast 19 U/L 13-39 Egfr Non- 72.9 >60 Egfr 93.7 >60 41 Laboratory test finding 08/03/2015 Urine Culture And SEE RESULT BELOW 42 Sensitivities Ua Routine 06/22/2015 Ua Specific [place] 1.005 Ua PH 5 Ua Color yellow Ua Appera clear Ua WBC small Ua Protein negative Ua Glucose negative Ua Ketones negative Ua Bilirubin small Ua Urobilinogen normal Ua Nitrite negative Ua Occult Blood negative Laboratory test 05/17/2015 Urine Culture And SEE RESULT BELOW 43 finding Sensitivities Basic Metabolic Panel 05/11/2015 Sodium 139 mmol/L 133-145 Potassium 4.7 mmol/L 3.5-5.0 Chloride 106 mmol/L 101-111 Co2 Carbon Dioxide 30 mmol/L 22-32 Anion Gap 3 mmol/L 2-11 Glucose 71 mg/dL 70-100 Blood Urea Nitrogen 20 mg/dL 6-24 Creatinine 0.76 mg/dL 0.51-0.95 BUN/Creatinine Ratio 26.3 High 8-20 Calcium 9.0 mg/dL 8.6-10.3 Egfr Non- 72.9 >60 Egfr 93.7 >60 44 Liver Function Panel 05/11/2015 Total Protein 6.2 g/dL Low 6.4-8.9 45 Albumin 3.7 g/dL 3.2-5.2 45 Globulin 2.5 g/dL 2-4 45 Albumin/Globulin Ratio 1.5 1-3 45 Total Bilirubin 0.30 mg/dL 0.2-1.0 45 Direct Bilirubin 0.10 mg/dL 0.03-0.18 45 Indirect Bilirubin 0.2 mg/dL Low 0.3-1.0 45 Alkaline Phosphatase 59 U/L 34-104 45 Alt 14 U/L 7-52 45 Ast 20 U/L 13-39 45 Laboratory test finding 05/11/2015 Partial Thrombo Time 31.1 seconds 26.0 -36.3 PTT Inr/Protime 05/11/2015 Inr 0.90 0.78-1.07 CBC Auto Diff 05/11/2015 White Blood Count 4.1 10^3/uL Low 4.8-10.8 Red Blood Count 4.59 10^6/uL 4.0-5.4 Hemoglobin 12.9 g/dL 12.0-16.0 Hematocrit 40 % 35-47 Mean Corpuscular Volume 87 fL 80-97 Mean Corpuscular Hemoglobin 28 pg 27-31 Mean Corpuscular HGB Conc 32 g/dL 31-36 Red Cell Distribution Width 14 % 10.5-15 Platelet Count 247 10^3/uL 150-450 Mean Platelet Volume 9 um3 7.4-10.4 Abs Neutrophils 2.5 10^3/uL 1.5-7.7 Abs Lymphocytes 0.9 10^3/uL Low 1.0-4.8 Abs Monocytes 0.4 10^3/uL 0-0.8 Abs Eosinophils 0.2 10^3/uL 0-0.6 Abs Basophils 0 10^3/uL 0-0.2 Abs Nucleated RBC 0.01 10^3/uL Granulocyte % 60.5 % 38-83 Lymphocyte % 22.2 % Low 25-47 Monocyte % 10.3 % High 1-9 Eosinophil % 6.1 % High 0-6 Basophil % 0.9 % 0-2 Nucleated Red Blood Cells % 0.2 Liver Function Panel 04/24/2015 Total Protein 6.5 g/dL 6.4-8.9 Albumin 4.1 g/dL 3.2-5.2 Globulin 2.4 g/dL 2-4 Albumin/Globulin Ratio 1.7 1-3 Total Bilirubin 0.30 mg/dL 0.2-1.0 Direct Bilirubin 0.10 mg/dL 0.03-0.18 Indirect Bilirubin 0.2 mg/dL Low 0.3-1.0 Alkaline Phosphatase 55 U/L 34-104 Alt 16 U/L 7-52 Ast 20 U/L 13-39 Laboratory test finding 01/29/2015 B Type Natriuretic Peptide 78 pg/mL 46 Laboratory test finding 01/29/2015 Creatine Kinase 45 U/L 10-223 Comp Metabolic Panel 01/29/2015 Sodium 138 mmol/L 133-145 Potassium 3.4 mmol/L Low 3.5-5.0 Chloride 105 mmol/L 101-111 Co2 Carbon Dioxide 28 mmol/L 22-32 Anion Gap 5 mmol/L 2-11 Glucose 88 mg/dL 70-100 Blood Urea Nitrogen 20 mg/dL 6-24 Creatinine 0.83 mg/dL 0.51-0.95 BUN/Creatinine Ratio 24.1 High 8-20 Calcium 9.1 mg/dL 8.6-10.3 Total Protein 6.8 g/dL 6.4-8.9 Albumin 4.0 g/dL 3.2-5.2 Globulin 2.8 g/dL 2-4 Albumin/Globulin Ratio 1.4 1-3 Total Bilirubin 0.40 mg/dL 0.2-1.0 Alkaline Phosphatase 59 U/L 34-104 Alt 17 U/L 7-52 Ast 20 U/L 13-39 Egfr Non- 65.8 >60 Egfr 84.6 >60 47 CKMB 01/29/2015 CKMB ng/mL 1.8 ng/mL 0.6-6.3 Laboratory test finding 01/29/2015 Inr 0.87 0.78-1.07 Activated Partial Thrombo Time 30.9 seconds 26.0-36.3 Urinalysis Profile 01/29/2015 Urine Color Straw Urine Appearance Clear Urine Specific [place] 1.008 Low 1.010-1.030 Urine pH 8.0 5-9 Urine Urobilinogen Negative Negative Urine Ketones Negative Negative Urine Protein Negative Negative Urine Leukocytes Trace Negative Urine Blood Negative Negative Urine Nitrite Negative Negative Urine Bilirubin Negative Negative Urine Glucose Negative Negative Urine White Blood Cell Trace(0-5/hpf) Absent Urine Red Blood Cell Absent Absent Urine Bacteria Absent Absent Urine Squamous Epithelial Cell Present Absent Laboratory test finding 01/29/2015 Troponin I 0.01 ng/mL <0.03 48 CBC Auto Diff 01/29/2015 White Blood Count 3.6 10^3/uL Low 4.8-10.8 Red Blood Count 4.92 10^6/uL 4.0-5.4 Hemoglobin 14.1 g/dL 12.0-16.0 Hematocrit 42 % 35-47 Mean Corpuscular Volume 86 fL 80-97 Mean Corpuscular Hemoglobin 29 pg 27-31 Mean Corpuscular HGB Conc 33 g/dL 31-36 Red Cell Distribution Width 14 % 10.5-15 Platelet Count 189 10^3/uL 150-450 Mean Platelet Volume 9 um3 7.4-10.4 Abs Neutrophils 1.8 10^3/uL 1.5-7.7 Abs Lymphocytes 1.1 10^3/uL 1.0-4.8 Abs Monocytes 0.4 10^3/uL 0-0.8 Abs Eosinophils 0.3 10^3/uL 0-0.6 Abs Basophils 0 10^3/uL 0-0.2 Abs Nucleated RBC 0.01 10^3/uL Granulocyte % 49.3 % 38-83 Lymphocyte % 30.5 % 25-47 Monocyte % 11.7 % High 1-9 Eosinophil % 7.3 % High 0-6 Basophil % 1.2 % 0-2 Nucleated Red Blood Cells % 0.2 Laboratory test 11/14/2014 TSH (Thyroid 2.14 IU/mL 0.34-5.60 49, 50 finding Stimulating Horm) Comp Metabolic Panel 11/14/2014 Sodium 137 mmol/L 133-145 49 Potassium 4.1 mmol/L 3.5-5.0 49 Chloride 105 mmol/L 101-111 49 Co2 Carbon Dioxide 26 mmol/L 22-32 49 Anion Gap 6 mmol/L 2-11 49 Glucose 87 mg/dL 70-100 49 Blood Urea Nitrogen 17 mg/dL 6-24 49 Creatinine 0.80 mg/dL 0.51-0.95 49 BUN/Creatinine Ratio 21.3 High 8-20 49 Calcium 9.1 mg/dL 8.6-10.3 49 Total Protein 6.3 g/dL Low 6.4-8.9 49 Albumin 4.0 g/dL 3.2-5.2 49 Globulin 2.3 g/dL 2-4 49 Albumin/Globulin Ratio 1.7 1-3 49 Total Bilirubin 0.40 mg/dL 0.2-1.0 49 Alkaline Phosphatase 57 U/L 34-104 49 Alt 14 U/L 7-52 49 Ast 20 U/L 13-39 49 Egfr Non- 68.8 >60 49 Egfr 88.5 >60 49, 51 Lipid Profile (Trig/Chol/HDL) 11/14/2014 Triglycerides 76 mg/dL 49, 52 Cholesterol 213 mg/dL 49, 53 HDL Cholesterol 45.1 mg/dL 49, 54 LDL Cholesterol 153 mg/dL 49, 55 Pthi 01/08/2014 PTH Intact 7.9 pmol/L 1.3-9.3 Calcium (PTH Intact) 8.9 mg/dL 8.6-10.3 Vitamin D, 25 Hydroxy 01/08/2014 25-Hydroxy Vitamin D2 <4.0 ng/mL 25-Hydroxy Vitamin D3 40 ng/mL 25-Hydroxy Vitamin D Total 40 ng/mL 56 Laboratory test finding 10/28/2013 TSH (Thyroid Stimulating 1.69 miu/mL 0.34-5.60 Horm) Potassium 3.9 mmol/L 3.5-5.0 Laboratory test finding 06/27/2013 Potassium 4.3 mmol/L 3.5-5.0 Laboratory test finding 01/08/2013 Free T4 1.24 ng/mL 0.61-1.24 57 TSH (Thyroid Stimulating Horm) 0.72 miu/mL 0.34-5.60 58 Lipid Panel 01/08/2013 Triglycerides 62 mg/dL 40-200 Cholesterol 224 mg/dL High Less than 200 HDL Cholesterol 57 mg/dL 40-60 59 Cholesterol/HDL Ratio 3.9 Average 1-4.44 LDL Cholesterol 154.6 mg/dL High Less Than 100 60 CMP Panel 01/08/2013 Sodium 139 mmol/L 133-145 Potassium 3.8 mmol/L 3.5-5.0 Chloride 104 mmol/L 101-111 Co2 Carbon Dioxide 29.0 mmol/L 22-32 Anion Gap 6.0 mmol/L 2-11 Glucose 83 mg/dL 70-100 Blood Urea Nitrogen 13 mg/dL 6-24 Creatinine 0.90 mg/dL 0.50-1.40 BUN/Creatinine Ratio 14.4 8-20 Calcium 9.1 mg/dL 8.1-9.9 Total Protein 6.1 g/dL Low 6.2-8.1 Albumin 3.7 g/dL 3.2-5.2 Globulin 2.4 g/dL 2-4 Albumin/Globulin Ratio 1.5 1-3 Total Bilirubin 0.7 mg/dL 0.4-1.5 Alkaline Phosphatase 61 U/L 30-110 Alt 21 U/L 14-54 Ast 24 U/L 12-42 Egfr Non- 60.4 >60 Egfr 77.7 >60 61 Basic Metabolic Panel 11/08/2012 Sodium 140 mmol/L 133-145 Potassium 4.0 mmol/L 3.5-5.0 Chloride 105 mmol/L 101-111 Co2 Carbon Dioxide 31.0 mmol/L 22-32 Anion Gap 4.0 mmol/L 2-11 Glucose 56 mg/dL Low 70-100 Blood Urea Nitrogen 17 mg/dL 6-24 Creatinine 0.70 mg/dL 0.50-1.40 BUN/Creatinine Ratio 24.3 High 8-20 Calcium 9.0 mg/dL 8.1-9.9 Egfr Non- 80.7 >60 Egfr 103.8 >60 62 Laboratory test finding 09/14/2012 TSH (Thyroid Stimulating 0.72 miu/mL 0.34-5.60 63 Horm) Comp Metabolic Panel 09/14/2012 Sodium 141 mmol/L 133-145 Potassium 3.8 mmol/L 3.5-5.0 Chloride 107 mmol/L 101-111 Co2 Carbon Dioxide 30.0 mmol/L 22-32 Anion Gap 4.0 mmol/L 2-11 Glucose 91 mg/dL 70-100 Blood Urea Nitrogen 18 mg/dL 6-24 Creatinine 0.80 mg/dL 0.50-1.40 BUN/Creatinine Ratio 22.5 High 8-20 Calcium 8.9 mg/dL 8.1-9.9 Total Protein 5.9 g/dL Low 6.2-8.1 Albumin 3.8 g/dL 3.2-5.2 Globulin 2.1 g/dL 2-4 Albumin/Globulin Ratio 1.8 1-3 Total Bilirubin 0.8 mg/dL 0.4-1.5 Alkaline Phosphatase 63 U/L 30-110 Alt 23 U/L 14-54 Ast 23 U/L 12-42 Egfr Non- 69.2 >60 Egfr 89.0 >60 64 CBC Auto Diff 09/14/2012 White Blood Count 3.4 10^3/uL Low 4.8-10.8 Red Blood Count 4.67 10^6/uL 4.0-5.4 Hemoglobin 13.4 g/dL 12.0-16.0 Hematocrit 41 % 35-47 Mean Corpuscular Volume 88 fL 80-97 Mean Corpuscular Hemoglobin 29 pg 27-31 Mean Corpuscular HGB Conc 33 g/dL 31-36 Red Cell Distribution Width 14 % 10.5-15 Platelet Count 180 10^3/uL 150-450 Mean Platelet Volume 10 um3 7.4-10.4 Abs Neutrophils 1.9 10^3/uL 1.5-7.7 Abs Lymphocytes 0.9 10^3/uL Low 1.0-4.8 Abs Monocytes 0.4 10^3/uL 0-0.8 Abs Eosinophils 0.1 10^3/uL 0-0.6 Abs Basophils 0 10^3/uL 0-0.2 Abs Nucleated RBC 0 10^3/uL Granulocyte % 55.6 % 38-83 Lymphocyte % 27.6 % 25-47 Monocyte % 12.2 % High 1-9 Eosinophil % 3.3 % 0-6 Basophil % 1.3 % 0-2 Nucleated Red Blood Cells % 0.1 Laboratory test finding 09/14/2012 Creatine Kinase 55 U/L 0-200 65 Lipid Profile (Trig/Chol/HDL) 09/14/2012 Triglycerides 87 mg/dL 40-200 Cholesterol 215 mg/dL High Less than 200 HDL Cholesterol 58 mg/dL 40-60 66 Cholesterol/HDL Ratio 3.7 Average 1-4.44 LDL Cholesterol 139.6 mg/dL High Less Than 100 67 Ua Routine 07/03/2012 Ua Specific [place] 1.000 Ua PH 7.5 Ua Color pale yellow Ua Appera clear Ua WBC neg Ua Protein neg Ua Glucose neg Ua Ketones neg Ua Bilirubin neg Ua Urobilinogen neg Ua Nitrite neg Ua Occult Blood neg Basic Metabolic Panel 06/26/2012 Sodium 136 mmol/L 135-145 Potassium 3.4 mmol/L Low 3.5-5.0 Chloride 101 mmol/L 101-111 Co2 (Carbon Dioxide) 30.0 mmol/L 22-32 Anion Gap 5.0 mmol/L 2-11 68 Glucose 83 mg/dL 70-100 BUN 13 mg/dL 6-24 Creatinine 0.8 mg/dL 0.50-1.40 One Over Creatinine 1.25 BUN/Creatinine Ratio 16.3 8-20 Calcium 8.8 mg/dL 8.1-9.9 eGFR Non- 69.2 > 60 eGFR 89.0 > 60 69 Lipid Profile (Trig/Chol/HDL) 06/26/2012 Triglyceride 63 mg/dL 40-200 Cholesterol 245 mg/dL High Less Than 200 70 High Density Lipoprotein 69 mg/dL High 40-60 71 Cholesterol/HDL Ratio 3.55 AVERAGE 1-4.44 Low Density Lipoprotein 163 mg/dL High Less Than 100 72 Laboratory test 06/26/2012 TSH 2.98 MIU/ML 0.34-5.60 finding Urine Culture & 06/01/2012 M 73 Sensitivi <SEE NOTE> Ua Routine 06/01/2012 Ua Specific [place] 1.005 Ua PH 6.0 Ua Color yellow Ua Appera cloudy Ua WBC +++ Ua Protein trace Ua Glucose neg Ua Ketones trace Ua Bilirubin mod Ua Urobilinogen neg Ua Nitrite pos Ua Occult Blood trace 1 SEE RESULT BELOW Name: BLANCA TINOCO : [address]: Oc Cortes MD Acct: [id number] Unit: [id number] AGE: 83 Location: [place] [address] Re07/20/18 SEX: F Status: ADM [place] SPEC: [id number] NEELAM: 07/20/[address]: Liliam Bah MD REQ: [id number] RECD: 07/20/18 STATUS: JASMYNE HARMAN DR: [facility] Uche Duque MD _ SOURCE: URINE SPDESC: ORDERED: Urine Culture Procedure Result Reported Site Urine Culture Final 07/22/18- 1026 ML Organism 1 CORYNEBACTERIUM SPECIES [place] Count 1-10,000 (Few) CFU/ML SIGNIFICANCE QUESTIONED. * ML - Main Lab . END OF REPORT DEPARTMENT OF PATHOLOGY, [address] [place] [address] Julius Herman M.D. Director [facility] # [id number] 2 >100 to <200 pg/mL: likely compensated congestive heart failure (CHF) 200 to 400 pg/mL: likely moderate CHF >400 pg/mL: likely moderate to severe CHF 3 [facility] Severe Sepsis and Septic Shock Management Bundle Measure requires all lactic acids initially measuring >2.0 mmol/L be repeated. 4 Because ethnic data is not always readily available, this report includes an eGFR for both -Americans and non- Americans. The National Kidney Disease Education Program (NKDEP) does not endorse the use of the MDRD equation for patients that are not between the ages of 18 and 70, are , have extremes of body size, muscle mass, or nutritional status, or are non- or non-. According to the National Kidney Foundation, irrespective of diagnosis, the stage of the disease is based on the level of kidney function: Stage Description GFR(mL/min/1.73 m(2)) 1 Kidney damage with normal or decreased GFR 90 2 Kidney damage with mild decrease in GFR 60-89 3 Moderate decrease in GFR 30-59 4 Severe decrease in GFR 15-29 5 Kidney failure <15 (or dialysis) 5 SEE RESULT BELOW Name: BLANCA TINOCO : [address]: Uche Duque MD Acct: [id number] Unit: [id number] AGE: 83 Location: [facility] Re07/16/18 SEX: F Status: REG REF SPEC: [id number] NEELAM: 07/16/[address]: Uche Duque MD REQ: [id number] RECD: 07/16/18 STATUS: COMP _ SOURCE: URINE SPDESC: ORDERED: Urine Culture COMMENTS: [id number] QUERIES: Urine Source: Random Procedure Result Reported Site Urine Culture Final 07/18/18- 0805 ML Organism 1 ESCHERICHIA COLI [place] Count >100,000 (Many) CFU/ML 1. ESCHERICHIA COLI M.I.C. RX --------- ------ Ampicillin 8 S Cefazolin <=4 S Cefepime <=1 S Ceftriaxone <=1 S Ciprofloxacin <=0.25 S Gentamicin <=1 S Levofloxacin <=0.12 S Meropenem <=0.25 S Nitrofurantoin <=16 S Tetracycline <=1 S Pipercillin/Tazobactam <=4 S Trimethoprim/Sulfamethoxazole <=20 S Amoxicillin/Clavulanic Acid 4 S Aztreonam <=1 S Contact the Microbiology Department for any additional antibiotic reporting. * ML - Main Lab . END OF REPORT DEPARTMENT OF PATHOLOGY, [address] [place] [address] Julius Herman M.D. Director [facility] # [id number] 6 Because ethnic data is not always readily available, this report includes an eGFR for both -Americans and non- Americans. The National Kidney Disease Education Program (NKDEP) does not endorse the use of the MDRD equation for patients that are not between the ages of 18 and 70, are , have extremes of body size, muscle mass, or nutritional status, or are non- or non-. According to the National Kidney Foundation, irrespective of diagnosis, the stage of the disease is based on the level of kidney function: Stage Description GFR(mL/min/1.73 m(2)) 1 Kidney damage with normal or decreased GFR 90 2 Kidney damage with mild decrease in GFR 60-89 3 Moderate decrease in GFR 30-59 4 Severe decrease in GFR 15-29 5 Kidney failure <15 (or dialysis) 7 Desirable: <150 Borderline High: 150-199 High: 200-499 Very High: >500 8 Desirable: <200 Borderline High: 200-239 High: >239 9 Low: <40 Desirable: 40-60 High: >60 10 Desirable: <100 Near Optimal: 100-129 Borderline High: 130-159 High: 160-189 Very High: >189 11 FASTING in two weeks 12 Because ethnic data is not always readily available, this report includes an eGFR for both -Americans and non- Americans. The National Kidney Disease Education Program (NKDEP) does not endorse the use of the MDRD equation for patients that are not between the ages of 18 and 70, are , have extremes of body size, muscle mass, or nutritional status, or are non- or non-. According to the National Kidney Foundation, irrespective of diagnosis, the stage of the disease is based on the level of kidney function: Stage Description GFR(mL/min/1.73 m(2)) 1 Kidney damage with normal or decreased GFR 90 2 Kidney damage with mild decrease in GFR 60-89 3 Moderate decrease in GFR 30-59 4 Severe decrease in GFR 15-29 5 Kidney failure <15 (or dialysis) 13 Desirable: <150 Borderline High: 150-199 High: 200-499 Very High: >500 14 Desirable: <200 Borderline High: 200-239 High: >239 15 Low: <40 Desirable: 40-60 High: >60 16 Desirable: <100 Near Optimal: 100-129 Borderline High: 130-159 High: 160-189 Very High: >189 17 FASTING in two weeks 18 Copy Result to: UCHE DUQUE ([id number]) 19 Because ethnic data is not always readily available, this report includes an eGFR for both -Americans and non- Americans. The National Kidney Disease Education Program (NKDEP) does not endorse the use of the MDRD equation for patients that are not between the ages of 18 and 70, are , have extremes of body size, muscle mass, or nutritional status, or are non- or non-. According to the National Kidney Foundation, irrespective of diagnosis, the stage of the disease is based on the level of kidney function: Stage Description GFR(mL/min/1.73 m(2)) 1 Kidney damage with normal or decreased GFR 90 2 Kidney damage with mild decrease in GFR 60-89 3 Moderate decrease in GFR 30-59 4 Severe decrease in GFR 15-29 5 Kidney failure <15 (or dialysis) 20 Because ethnic data is not always readily available, this report includes an eGFR for both -Americans and non- Americans. The National Kidney Disease Education Program (NKDEP) does not endorse the use of the MDRD equation for patients that are not between the ages of 18 and 70, are , have extremes of body size, muscle mass, or nutritional status, or are non- or non-. According to the National Kidney Foundation, irrespective of diagnosis, the stage of the disease is based on the level of kidney function: Stage Description GFR(mL/min/1.73 m(2)) 1 Kidney damage with normal or decreased GFR 90 2 Kidney damage with mild decrease in GFR 60-89 3 Moderate decrease in GFR 30-59 4 Severe decrease in GFR 15-29 5 Kidney failure <15 (or dialysis) 21 Acute inflammation: >10.00 22 [place] Severe Sepsis and Septic Shock Management Bundle Measure requires all lactic acids initially measuring >2.0 mmol/L be repeated. 23 SEE RESULT BELOW Name: BLANCA TINOCO : [address]: Andi Humphreys MD Acct: [id number] Unit: [id number] AGE: 82 Location: ED Re04/24/17 SEX: F Status: DEP ER SPEC: [id number] NEELAM: 04/24/[address] [facility] [address]: Andi Humphreys MD REQ: [id number] RECD: 04/24/17 STATUS: JASMYNE HARMAN DR: Uche Duque MD _ SOURCE: URINE SPDESC: ORDERED: Urine Culture Procedure Result Reported Site Urine Culture Final 04/26/17- 0858 ML No growth of clinically significant organisms * ML - MAIN LAB (PSYCHIATRIC1) . END OF REPORT * ML=Testing performed at Main Lab DEPARTMENT OF PATHOLOGY, [address] [place] [address] Julius Herman M.D. Director [facility] # [id number] 24 Desirable <150 Borderline high 150-199 High 200-499 Very High >500 25 Desirable <200 Borderline high 200-239 High >239 26 Low <40 Desirable: 40-60 High: >60 27 Desirable: <100 mg/dL Near Optimal: 100-129 mg/dL Borderline High: 130-159 mg/dL High: 160-189 mg/dL Very High: >189 mg/dL 28 Reference Range and Interpretation: TnI (ng/mL) Interpretation Less Than 0.03 ng/mL Not supportive of diagnosis of MA 0.03 - 0.50 ng/mL Indeterminate: suggest serial studies if clinically indicated. Greater than 0.5 ng/mL Consistent with diagnosis of MA 29 cc pmd PLEASE RUN STAT CALL DR DUNIA ESPINOZA [phone] EX 249 THANKS 30 Because ethnic data is not always readily available, this report includes an eGFR for both -Americans and non- Americans. The National Kidney Disease Education Program (NKDEP) does not endorse the use of the MDRD equation for patients that are not between the ages of 18 and 70, are , have extremes of body size, muscle mass, or nutritional status, or are non- or non-. According to the National Kidney Foundation, irrespective of diagnosis, the stage of the disease is based on the level of kidney function: Stage Description GFR(mL/min/1.73 m(2)) 1 Kidney damage with normal or decreased GFR 90 2 Kidney damage with mild decrease in GFR 60-89 3 Moderate decrease in GFR 30-59 4 Severe decrease in GFR 15-29 5 Kidney failure <15 (or dialysis) 31 Desirable <150 Borderline high 150-199 High 200-499 Very High >500 32 Desirable <200 Borderline high 200-239 High >239 33 Low <40 Desirable: 40-60 High: >60 34 Desirable: <100 mg/dL Near Optimal: 100-129 mg/dL Borderline High: 130-159 mg/dL High: 160-189 mg/dL Very High: >189 mg/dL 35 Desirable <150 Borderline high 150-199 High 200-499 Very High >500 36 Desirable <200 Borderline high 200-239 High >239 37 Low <40 Desirable: 40-60 High: >60 38 Desirable: <100 mg/dL Near Optimal: 100-129 mg/dL Borderline High: 130-159 mg/dL High: 160-189 mg/dL Very High: >189 mg/dL 39 Normal Range 180 to 914 Indeterminate Range 145 to 180 Deficient Range <145 40 Low risk: <1.00 Average risk: 1.00-3.00 High risk: >3.00 41 Because ethnic data is not always readily available, this report includes an eGFR for both -Americans and non- Americans. The National Kidney Disease Education Program (NKDEP) does not endorse the use of the MDRD equation for patients that are not between the ages of 18 and 70, are , have extremes of body size, muscle mass, or nutritional status, or are non- or non-. According to the National Kidney Foundation, irrespective of diagnosis, the stage of the disease is based on the level of kidney function: Stage Description GFR(mL/min/1.73 m(2)) 1 Kidney damage with normal or decreased GFR 90 2 Kidney damage with mild decrease in GFR 60-89 3 Moderate decrease in GFR 30-59 4 Severe decrease in GFR 15-29 5 Kidney failure <15 (or dialysis) 42 SEE RESULT BELOW Name: BLANCA TINOCO : [address]: Uche Duque MD Acct: [id number] Unit: [id number] AGE: 80 Location: [facility] Re08/03/15 SEX: F Status: REG REF SPEC: [id number] NEELAM: 08/03/15-[address]: Uche Duque MD REQ: [id number] RECD: 08/03/15 STATUS: COMP _ SOURCE: URINE SPDESC: ORDERED: Urine Culture Procedure Result Verified Site Urine Culture Final 08/05/15- 1119 ML Organism 1 ESCHERICHIA COLI Kennard Count >100,000 (Many) CFU/ML 1. ESCHERICHIA COLI M.I.C. RX --------- ------ Ampicillin <=2 S Cefazolin <=4 S Cefepime <=1 S Ceftriaxone <=1 S Ciprofloxacin <=0.25 S Gentamicin <=1 S Levofloxacin <=0.12 S Meropenem <=0.25 S Nitrofurantoin <=16 S Tetracycline <=1 S Pipercillin/Tazobactam <=4 S Trimethoprim/Sulfamethoxazole <=20 S Amoxicillin/Clavulanic Acid <=2 S Aztreonam <=1 S Contact the Microbiology Department for any additional antibiotic reporting. * ML - MAIN LAB ([facility]) . END OF REPORT * ML=Testing performed at Main Lab DEPARTMENT OF PATHOLOGY, [address] [place] [address] Julius Herman M.D. Director [facility] # [id number] 43 SEE RESULT BELOW Name: BLANCA TINOCO : [address]: Andrew Aldridge MD Acct: [id number] Unit: [id number] AGE: 80 Location: [facility] Re05/17/15 SEX: F Status: DEP ER SPEC: [id number] NEELAM: 05/17/[address] [facility] [address]: Andrew Aldridge MD REQ: [id number] RECD: 05/18/15 STATUS: JASMYNE HARMAN DR: Uche Duque MD _ SOURCE: URINE [facility]: ORDERED: Urine Culture Procedure Result Verified Site Urine Culture Final 05/20/15- 0825 ML Organism 1 ESCHERICHIA COLI Kenn[place] Count >100,000 (Many) CFU/ML 1. ESCHERICHIA COLI M.I.C. RX --------- ------ Ampicillin <=2 S Cefazolin <=4 S Cefepime <=1 S Ceftriaxone <=1 S Ciprofloxacin <=0.25 S Gentamicin <=1 S Levofloxacin <=0.12 S Meropenem <=0.25 S Nitrofurantoin <=16 S Tetracycline <=1 S Pipercillin/Tazobactam <=4 S Trimethoprim/Sulfamethoxazole <=20 S Amoxicillin/Clavulanic Acid <=2 S Aztreonam <=1 S Contact the Microbiology Department for any additional antibiotic reporting. * ML - MAIN LAB ([facility]) . END OF REPORT * ML=Testing performed at Main Lab DEPARTMENT OF PATHOLOGY, [address] [place] [address] Julius Herman M.D. Director [facility] # [id number] 44 Because ethnic data is not always readily available, this report includes an eGFR for both -Americans and non- Americans. The National Kidney Disease Education Program (NKDEP) does not endorse the use of the MDRD equation for patients that are not between the ages of 18 and 70, are , have extremes of body size, muscle mass, or nutritional status, or are non- or non-. According to the National Kidney Foundation, irrespective of diagnosis, the stage of the disease is based on the level of kidney function: Stage Description GFR(mL/min/1.73 m(2)) 1 Kidney damage with normal or decreased GFR 90 2 Kidney damage with mild decrease in GFR 60-89 3 Moderate decrease in GFR 30-59 4 Severe decrease in GFR 15-29 5 Kidney failure <15 (or dialysis) 45 HAVE DRAWN MAY 25 46 >100 to <200 pg/mL: likely compensated congestive heart failure (CHF) 200 to 400 pg/mL: likely moderate CHF >400 pg/mL: likely moderate to severe CHF DC HEART 47 Because ethnic data is not always readily available, this report includes an eGFR for both -Americans and non- Americans. The National Kidney Disease Education Program (NKDEP) does not endorse the use of the MDRD equation for patients that are not between the ages of 18 and 70, are , have extremes of body size, muscle mass, or nutritional status, or are non- or non-. According to the National Kidney Foundation, irrespective of diagnosis, the stage of the disease is based on the level of kidney function: Stage Description GFR(mL/min/1.73 m(2)) 1 Kidney damage with normal or decreased GFR 90 2 Kidney damage with mild decrease in GFR 60-89 3 Moderate decrease in GFR 30-59 4 Severe decrease in GFR 15-29 5 Kidney failure <15 (or dialysis) 48 Reference Range and Interpretation: TnI (ng/mL) Interpretation Less Than 0.03 ng/mL Not supportive of diagnosis of MA 0.03 - 0.50 ng/mL Indeterminate: suggest serial studies if clinically indicated. Greater than 0.5 ng/mL Consistent with diagnosis of MA 49 FASTING 12 HOUR 50 FASTING 12 HOUR 51 Because ethnic data is not always readily available, this report includes an eGFR for both -Americans and non- Americans. The National Kidney Disease Education Program (NKDEP) does not endorse the use of the MDRD equation for patients that are not between the ages of 18 and 70, are , have extremes of body size, muscle mass, or nutritional status, or are non- or non-. According to the National Kidney Foundation, irrespective of diagnosis, the stage of the disease is based on the level of kidney function: Stage Description GFR(mL/min/1.73 m(2)) 1 Kidney damage with normal or decreased GFR 90 2 Kidney damage with mild decrease in GFR 60-89 3 Moderate decrease in GFR 30-59 4 Severe decrease in GFR 15-29 5 Kidney failure <15 (or dialysis) 52 Desirable <150 Borderline high 150-199 High 200-499 Very High >500 53 Desirable <200 Borderline high 200-239 High >239 54 Low <40 Desirable: 40-60 High: >60 55 Desirable <100 Near Optimal 100-129 Borderline high 130-159 High 160-189 Very High >189 56 -- REFERENCE VALUE -- 25-HYDROXY D TOTAL (D2+D3) Optimum levels in the healthy population are 20-50, patients with bone disease may benefit from higher levels within this range. Test Performed by: [facility] [address] [address] [employer]: Emmett Brand III, M.D. 57 PT IS FASTING 58 PT IS FASTING 59 HDL Interpretation: Undesirable: High Risk: Less than 40 MG/DL Desirable: Low Risk: Greater than 60 MG/DL 60 LDL Interpretation: Low Risk Optimal Level: LDL Less than 100 MG/DL Near or Above Optimal: LDL 100-129 MG/DL Borderline High Risk: LDL 130-159 MG/DL High Risk: LDL 160-189 MG/DL Very High Risk: LDL Greater than 189 MG/DL 61 Because ethnic data is not always readily available, this report includes an eGFR for both -Americans and non- Americans. The National Kidney Disease Education Program (NKDEP) does not endorse the use of the MDRD equation for patients that are not between the ages of 18 and 70, are , have extremes of body size, muscle mass, or nutritional status, or are non- or non-. According to the National Kidney Foundation, irrespective of diagnosis, the stage of the disease is based on the level of kidney function: Stage Description GFR(mL/min/1.73 m(2)) 1 Kidney damage with normal or decreased GFR 90 2 Kidney damage with mild decrease in GFR 60-89 3 Moderate decrease in GFR 30-59 4 Severe decrease in GFR 15-29 5 Kidney failure <15 (or dialysis) 62 Because ethnic data is not always readily available, this report includes an eGFR for both -Americans and non- Americans. The National Kidney Disease Education Program (NKDEP) does not endorse the use of the MDRD equation for patients that are not between the ages of 18 and 70, are , have extremes of body size, muscle mass, or nutritional status, or are non- or non-. According to the National Kidney Foundation, irrespective of diagnosis, the stage of the disease is based on the level of kidney function: Stage Description GFR(mL/min/1.73 m(2)) 1 Kidney damage with normal or decreased GFR 90 2 Kidney damage with mild decrease in GFR 60-89 3 Moderate decrease in GFR 30-59 4 Severe decrease in GFR 15-29 5 Kidney failure <15 (or dialysis) 63 PT IS FASTING 64 Because ethnic data is not always readily available, this report includes an eGFR for both -Americans and non- Americans. The National Kidney Disease Education Program (NKDEP) does not endorse the use of the MDRD equation for patients that are not between the ages of 18 and 70, are , have extremes of body size, muscle mass, or nutritional status, or are non- or non-. According to the National Kidney Foundation, irrespective of diagnosis, the stage of the disease is based on the level of kidney function: Stage Description GFR(mL/min/1.73 m(2)) 1 Kidney damage with normal or decreased GFR 90 2 Kidney damage with mild decrease in GFR 60-89 3 Moderate decrease in GFR 30-59 4 Severe decrease in GFR 15-29 5 Kidney failure <15 (or dialysis) 65 PT IS FASTING 66 HDL Interpretation: Undesirable: High Risk: Less than 40 MG/DL Desirable: Low Risk: Greater than 60 MG/DL 67 LDL Interpretation: Low Risk Optimal Level: LDL Less than 100 MG/DL Near or Above Optimal: LDL 100-129 MG/DL Borderline High Risk: LDL 130-159 MG/DL High Risk: LDL 160-189 MG/DL Very High Risk: LDL Greater than 189 MG/DL 68 Anion gap measurement may be of limited value in the presence of any alkalosis, especially in a combined acid base disorder. . 69 Because ethnic data is not always readily available, this report includes an eGFR for both -Americans and non- Americans. The National Kidney Disease Education Program (NKDEP) does not endorse the use of the MDRD equation for patients that are not between the ages of 18 and 70, are , have extremes of body size, muscle mass, or nutritional status, or are non- or non-. According to the National Kidney Foundation, irrespective of diagnosis, the stage of the disease is based on the level of kidney function: Stage Description GFR(mL/min/1.73 m(2)) 1 Kidney damage with normal or decreased GFR 90 2 Kidney damage with mild decrease in GFR 60-89 3 Moderate decrease in GFR 30-59 4 Severe decrease in GFR 15-29 5 Kidney failure <15 (or dialysis) 70 CHOLESTEROL INTERPRETATION: Desirable: Less than 200 MG/DL Borderline-High Risk: 200-239 MG/DL High-Risk: 240 MG/DL and over 71 HDL INTERPRETATION: Undesirable: High Risk: Less than 40 MG/DL Desirable: Low Risk: Greater than 60 MG/DL 72 LDL INTERPRETATION: Low Risk Optimal Level: LDL Less than 100 MG/DL Near or Above Optimal: LDL 100-129 MG/DL Borderline High Risk: LDL 130-159 MG/DL High Risk: LDL 160-189 MG/DL Very High Risk: LDL Greater than 189 MG/DL 73 RUN DATE: 06/03/12 [facility] NMI LIVE PAGE 1 RUN TIME: 942 Specimen Inquiry RUN USER: INTERFACE Name: BLANCA TINOCO Allyson Status: REG REF Re06/01/12 Age/Sex: 77/F Unit#: [id number] Location: [facility] : 31 SPEC #: [id number] NEELAM: 06/01/12-124 STATUS: COMP REQ #: [id number] RECD: 06/01/12-[address]: Catrachita Iniguez NP SOURCE: URINE ENTR: 06/01/12-[address]: MEREDITHC: ORDERED: URINE C S QUERIES: MEDENT REQUISITION # [id number] SPECIMEN DESCRIPTION: URINE, RANDOM ACT WKST: UR 06/03/12 #1 Procedure Result Verified Site > URINE CULTURE SENSITIVI Final 06/03/12- 0943 ML FINAL: NO GROWTH DAY 2 (<1,000 CFU/mL) ML - [facility] Permit #[id number] [facility] [employer] [facility] [address] DEPARTMENT OF PATHOLOGY, [facility] [employer] [place], [place] [address] [facility] Permit #[id number] Julius Herman M.D. Director Shirin Vincent M.D. Program Analyst Procedures Date CPT Code Description Status Comment 06/15/2018 99175 Mobile Cardiovascular Telemetry Completed Over 24 HR Up To 30 Days 02/02/2018 54217 EKG Tracing & Interpretation Completed 12/15/2017 26853 EKG Tracing & Interpretation Completed 10/13/2017 09769 ECHO Transthoracic, Real-Time 2D Completed With Doppler And Color Flow 10/13/2017 84025 ECHO Transthoracic, Real-Time 2D Completed With Doppler And Color Flow 08/23/2017 11167 Holter Monitor Review (24 hr)dr Completed review & interp only 08/17/2017 67172 ECG Monitor/Recording W/Visual Completed Superimposition Scanning 07/26/2017 69190 ECHO Stress Test Incl Perf Completed Contiuous ekg Monitoring W/Phys Superv 07/26/2017 83295 ECHO Stress Test Incl Perf Completed Contiuous ekg Monitoring W/Phys Superv 07/20/2017 82091 EKG Tracing & Interpretation Completed 06/09/2017 48243 Echocardiography, Transesophageal, Completed Real Time W/Image 2D W/W/O M-M 06/09/2017 17448 Pulse Wave/Continuous-Interp.RPT Completed 06/09/2017 36299 Color Flow Doppler/Interp & Reprt Completed 06/09/2017 30687 Moderate Sedation Services; Same Completed Phys Intl 15 Mins; PT >=5 Years 06/09/2017 15677 Moderate Sedation Services; Same Completed Phys Each Additional 15 Mins 05/17/2017 48484 Echocardiography, Transesophageal, Completed Real Time W/Image 2D W/W/O M-M 05/11/2017 10877 ECHO Transthoracic, Real-Time 2D Completed With Doppler And Color Flow 04/06/2017 Bone Mineral Density Test Completed 02/21/2017 23831 EKG Tracing & Interpretation Completed 09/12/2016 33802 EKG Tracing & Interpretation Completed 07/27/2016 96822 EKG Tracing & Interpretation Completed 07/07/2016 82482 EKG Tracing & Interpretation Completed 11/16/2015 68747 ECHO Transthoracic, Real-Time 2D Completed With Doppler And Color Flow 11/10/2015 33866 EKG Tracing & Interpretation Completed 05/12/2015 40314 Left Heart Cath. Incl S/I Completed Coronaries, Angio S/I V Gram If Done 05/07/2015 05799 EKG Tracing & Interpretation Completed 04/15/2015 19539 ECHO Transthoracic, Real-Time 2D Completed With Doppler And Color Flow 03/23/2015 11540 EKG Tracing & Interpretation Completed 01/30/2015 64040 Treadmill Interp/Report Only Completed 01/30/2015 79123 Stress Test Supervsn W/Out I/R Completed 11/26/2013 33390 ECHO Transthoracic, Real-Time 2D Completed With Doppler And Color Flow 11/12/2013 Bone Mineral Density Test Completed 10/30/2013 23760 EKG Tracing & Interpretation Completed 12/24/2012 71590 EKG Tracing & Interpretation Completed 11/13/2012 47673 Stress ECHO Interpretation/Report Completed [facility] 11/13/2012 74057 Treadmill Interp/Report Only Completed 11/13/2012 60386 Stress Test Supervsn W/Out I/R Completed 10/11/2012 16555 Holter Monitoring 24 HR New Completed 09/14/2012 40865 ECHO Transthoracic, Real-Time 2D Completed With Doppler And Color Flow 09/12/2012 59522 ECHO Stress Test Incl Perf Completed Contiuous ekg Monitoring W/Phys Superv 09/12/2012 94897 ECHO Stress Test Incl Perf Completed Contiuous ekg Monitoring W/Phys Superv 09/12/2012 59171 ECHO Stress Test Incl Perf Completed Contiuous ekg Monitoring W/Phys Superv 09/03/2012 36374 EKG Tracing & Interpretation Completed 08/30/2012 46268 EKG Tracing & Interpretation Completed 07/30/2012 90175 Rad Exam; Foot Comp Completed 07/30/2012 13554 Xray Knee 3 Views Completed 07/30/2012 80916 Rad Exam; Knee, Ap&L Completed 05/14/2012 94781 Rad Exam; Foot Comp Completed 10/02/2010 Bone Mineral Density Test Completed normal per patient 10/02/2007 Colonoscopy Completed normal Encounters Type Date Location Provider CPT E/M Dx Office Visit 07/30/2018 2:00p [facility] Serene Orta N.P. 94997 I48.0 E78.00 I34.0 I42.9 Office Visit 07/23/2018 9:41a [facility],pc Oc Garcia 65259 N39.0 Hospitalists MD Sebastian I48.91 Office Visit 07/22/2018 9:41a [facility],josefa Garcia 02696 N39.0 Hospitalists MD Sebastian R53.1 Office Visit 07/21/2018 9:40a [facility],josefa Garcia 24371 R53.1 Hospitalists MD Sebastian N39.0 Office Visit 07/20/2018 9:40a [facility], [place] [address] R53.1 Hospitalists R11.0 N39.0 I48.91 Office Visit 07/16/2018 9:50a [facility] Internal Medicine Uche Duque M.D. 18851 R30.0 - Sarah N30.01 F51.04 Office Visit 05/30/2018 11:10a [facility] Internal Medicine Uche Duque 86194 Z00.01 - Sarah Olvera Z23 R09.89 Office Visit 04/18/2018 9:00a [facility] [place] [address] I10 Office Visit 03/23/2018 11:30a [facility] Serene Orta, 63186 I42.9 N.P. I34.0 I10 I47.1 Office Visit 03/21/2018 2:00p [facility] Internal Medicine - Uche Duque M.D. 74006 R21 [place] F41.9 Office Visit 03/01/2018 11:50a [facility] Internal Medicine Uche Duque M.D. 19585 F41.9 - Sarah M17.9 Office Visit 02/02/2018 3:40p [facility] José Madden M.D. 65993 I10 I34.0 I42.9 I47.1 I27.20 I25.10 Office Visit 01/05/2018 11:30a [facility] Serene Orta N.PCelso 71519 I10 I34.0 I42.9 I47.1 I27.20 E78.00 I25.10 Office Visit 12/15/2017 1:20p [facility] José Madden M.D. 61513 I10 I34.0 I42.9 I25.10 E78.00 I27.20 I47.1 Office Visit 10/26/2017 10:10a [facility] Internal Medicine - Uche Duque 74579 M17.9 Sarah Olvera Office Visit 10/18/2017 10:00a [facility] PALAK Alonso 84021 I10 I42.9 I34.0 I25.10 E78.00 Office Visit 09/13/2017 10:50a [facility] Internal Medicine Uche Duque M.D. 71287 F41.9 - Sarah Z23 Office Visit 08/16/2017 11:30a [facility] PALAK Alonso 79595 I34.0 I42.9 I10 Office Visit 07/20/2017 3:20p [facility] José Madden M.D. 21875 I34.0 I42.9 I44.7 G47.9 Office Visit 05/18/2017 2:00p [facility] [address] R06.83 Services Of [facility] R35.1 R68.2 R40.0 Office Visit 05/15/2017 2:30p [facility] PALAK Alonso 70505 I42.9 I34.0 Office Visit 05/10/2017 11:30a [facility] Internal Medicine U[place] Duque 02453 K57.30 - Sarah Olvera F41.9 G47.9 Office Visit 03/29/2017 11:10a [facility] [place] Duque 75884 Z00.01 - Sarah Olvera F41.9 L30.9 E03.9 E78.5 M85.89 G47.00 K59.00 Office Visit 03/13/2017 1:20p [facility] [place] Duque 95586 M25.551 - Sarah Olvera Office Visit 02/21/2017 1:20p [facility] José Madden, 75742 I42.9 May R94.31 I10 R53.83 G47.9 Office Visit 12/29/2016 11:50a [facility] Medicine Uche Duque M.D. 71487 F41.9 - [place] R30.0 L08.9 Office Visit 12/08/2016 1:40p [facility] Uche Duque M.D. 21278 F41.9 - [place] Office Visit 11/16/2016 11:10a [facility] Uche Duque M.D. 08536 I10 - [place] G47.00 F41.9 Office Visit 09/12/2016 11:00a [facility] PALAK Alonso 89147DKG I42.9 F41.9 R53.83 E78.5 Office Visit 07/27/2016 2:40p [facility] [place] Duque 26826 R07.89 - Sarah Olvera F41.9 Office Visit 07/07/2016 10:00a [facility] José Madden, 71655 I42.9 Yi Olvera I34.0 E78.5 R53.83 I10 Office Visit 03/31/2016 12:40p [facility] Medicine Adry Doran M.D. 61711 F41.9 - [place] R21 Office Visit 12/31/2015 11:50a [facility] Internal Medicine - Uche Duque M.D. 65162 R21 [place] G47.09 F41.9 Office Visit 12/10/2015 11:00a [facility] PALAK Alonso 12612 I42.9 I34.0 E78.5 R53.83 I10 Office Visit 11/10/2015 10:40a [facility] José Madden, 02701 R94.31 May I42.9 I34.0 Office Visit 08/03/2015 12:10p [facility] [place] Du[place] 26232 N30.00 - Mandy Olvera Office Visit 06/22/2015 12:10p [facility] [place], 44949 N39.42 - Mandy Olvera M17.9 V04.81 Z23 F43.22 R68.2 Office Visit 05/18/2015 4:00p [facility] Shaun Cottrell M.D., 99964 V58.41 [employer] AT [facility] Office Visit 05/07/2015 2:00p [facility] PALAK Alonso 65160 401.9 786.50 794.31 425.9 272.2 794.39 Office Visit 04/06/2015 1:10p [facility] [place] 42022 300.09 - Mandy Olvera 401.9 780.52 272.2 Office Visit 03/23/2015 11:20a [facility] José Madden M.D. 87683 401.9 786.50 794.31 424.0 307.49 Office Visit 02/04/2015 9:50a [facility] [place] Duque 71038 535.00 - Mandy Olvera 401.1 272.2 300.09 Office Visit 01/30/2015 10:44a [facility] Julia Jensen, 47448 786.50 [facility] May 789.06 244.9 401.9 Office Visit 01/29/2015 10:43a [facility] Julia eJnsen 50567 786.50 [facility] May 789.06 244.9 401.9 Office Visit 12/18/2014 2:30p [facility] Uche Duque M.D. 57615 V70.0 - Mandy 272.2 311 300.00 401.1 V03.82 V72.31 Office Visit 08/18/2014 12:10p [facility] Uche Duque M.D. 31439 472.0 - Mandy V04.81 300.00 Office Visit 01/08/2014 2:50p [facility] [place] Du[place] 77222 733.90 - Mandy Olvera 300.00 Office Visit 12/12/2013 12:10p [facility] Internal Medicine - U[place] Duque M.D. 10767 311 [place] 733.90 Office Visit 10/30/2013 11:20a [facility] José Madden M.D. 08779 401.9 424.0 311 276.8 794.31 785.1 Office Visit 10/28/2013 2:10p [facility] [place] Du[place] 02955 300.00 - Mandy Olvera 311 401.9 682.9 244.8 V49.81 782.1 Office Visit 07/10/2013 1:50p [facility] Internal Medicine Nurse Visit C 57515 401.9 - [place] Office Visit 06/27/2013 1:50p [facility] Uche Duque M.D. 42235 401.9 - [place] 276.8 272.2 300.00 V04.81 Office Visit 02/13/2013 11:10a [facility] [place] Duque 36050 338.19 - Mandy Olvera Office Visit 02/06/2013 2:50p [facility] [place] Du[place] 99972 401.9 - Mandy Olvera 311 272.2 300.00 Office Visit 12/24/2012 11:20a [facility] José Madden M.D. 01923 401.9 311 276.8 785.1 Office Visit 12/14/2012 11:00a [facility] [place] [address] 401.9 Office Visit 12/11/2012 1:50p [facility] - [place] Duque 08810 401.9 Mandy Olvera 311 300.00 272.2 276.8 Office Visit 11/27/2012 11:00a [facility] [place] [address] 401.1 Office Visit 11/13/2012 11:30a [facility] José Madden 83748 794.31 MCelsoDCelso 425.4 401.1 786.50 Office Visit 09/12/2012 1:30p [facility] José Madden M.D. 99111 785.1 794.31 786.50 Office Visit 09/03/2012 2:20p [facility] José Madden, 15027 794.31 May 401.9 785.1 Office Visit 08/30/2012 1:50p [facility] Uche Duque M.D. 56057 401.9 - [place] 794.31 470 311 Office Visit 08/06/2012 1:50p [facility] Uche Duque M.D. 54259 401.9 - [place] 054.9 Office Visit 07/30/2012 11:15a [facility] Migue Lopez M.D. 61096 355.6 Of Vi Office Visit 07/12/2012 1:30p [facility] Rene Brar 99315 719.47 Of Valery Abbott Office Visit 07/03/2012 1:10p [facility] Uche Duque M.D. 99182 V70.0 - [place] 788.43 311 300.00 272.2 796.2 586 Office Visit 06/01/2012 11:30a [facility] Catrachita Iniguez N.PCelso 78903 788.1 - [place] 599.0 Office Visit 05/28/2012 2:30p [facility] Of Migue Lopez, 54940 733.94 Vi Olvera Office Visit 05/14/2012 10:00a [facility] Of Migue Lopez, 57773 719.47 Vi Olvera Office Visit 04/10/2012 11:45a [facility] [place] Du[place] 74323 924.11 - Mandy Olvera 627.2 Office Visit 03/19/2012 2:00p [facility] - Uche Duque M.D. 41073 311 [place] 627.2 780.52 735.4 Plan of Care Future Appointment(s):09/17/2018 11:00 am - [place] [facility]09/28/2018 2:00 pm - José Madden M.D. at [facility]03/2018 - [place] Duque M.D.N39.0 Urinary tract infection, site not specifiedComments:I suggested to finish the antibiotic course ( Cefpodoxime ) every 12 sckpnH84.9 Anxiety disorder, xsyzgkbprklW95.8 Other specified hypothyroidismNew Labs:TSH (Thyroid Stim Horm)Free T4 (Free Thyroxine)T3 FreeZ23 Encounter for immunizationImmunizations/Injections:Fluzone High Dose
--- OUTSIDE RECORDS SUMMARY | 2018-08-20 19:27 | XMS REPORT ---
:1935 External Reference #:[id number] Author Organization [facility] Address [address] [place] [address] Phone [phone] Care Team Providers Name Role Phone Uche Duque MD Primary Care Physician Unavailable Payers Type Date Identification Numbers Payment Provider Subscriber Medicare Primary Policy Number: [id number] Medicare Blanca Tinoco PayID: [id number] [address] [place] [address] Medigap Part B Effective: Policy Number: Eliot Tinoco 2017 [id number] Ppo Group Number: [id number] [address] [address] PayID: [id number] LANNY Claudio [id number] Medigap Part B Expires: Policy Number: Eliot Valadez 2014 [id number] Pp Alejandrina Group Number: [id number] [address] [address] PayID: [id number] LANNY Claudio [id number] Problems Date Description Provider Status Onset: 04/10/2012 Depressive disorder Uche Duque M.D. Active Onset: 04/10/2012 Hammer toe Uche Duque M.D. Active Onset: 04/10/2012 Insomnia Uche Duque M.D. Active Onset: 09/03/2012 Electrocardiogram abnormal José Madden M.D. Active Onset: 09/03/2012 Essential hypertension José Madden M.D. Active Onset: 09/03/2012 Palpitations José Madden M.D. Active Onset: 10/30/2013 Mitral valve disorder José Madden M.D. Active Note: moderate to severe MR Onset: 10/30/2013 Hypokalemia José Madden M.D. Active Onset: 12/16/2014 Osteoarthritis of knee Uche Duque M.D. Active Note: possible iliotibial band syndrome, Dr Valenuzela Onset: 05/18/2015 Postoperative Wound Closure Shaun Cottrell M.D., [facility], Active Encounter [facility] Onset: Cardiomyopathy [...] Lives With Alone in fall 2010 in [facility]. 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 s mouth twice Foster, a day. N.P. blood thinner. Lisinopril 12/15 Active Tablets 2.5mg 60tab Take 1 tab I42.9 Serene S. s by mouth Foster, daily N.P. Pravastatin [...] Her Active Capsules 1 po qd Unknown / Calcium Active Tablets 1000mg 1 PO qd Unknown Metamucil Active Capsules 0.52gm 3 caps Unknown daily with water bid Nitrofurantoin 07/16 Hx Capsules 100mg 10cap 1 by mouth N30.01 Uche Macrocrystal s twice a day Duque, - M.D. 07/21 Nitrofurantoin 03/16 Hx Capsules 100mg 10cap 1 by mouth Uche Macrocrystal s twice a day Duque, - X 5 days in M.D. 03/21 case of UTI Rosuvastatin 11/01 Hx Tablets 5mg 30tab 10/03 tab by Serene Browning Calcium s mouth every Foster, - mon, mon, N.P. 11/26 Amlodipine 08/16 Hx Tablets 2.5mg 30tab 1 by mouth I10 José Besylate s every day F. - Marichr, 10/18 M.D. Valsartan 08/16 Hx Tablets 40mg 30tab Pt stopped I42.9 s this med, F. - states is Mauser, 10/18 causes .D. anxiety---- 1 by mouth every day Nitroglycerin 07/26 Hx Patches 0.2mg/HR 90uni apply 24HR ts patch every . - in the Mauser, 03/01 morning off M.D. at night hold as of 5.5.18 Mometasone 03/29 Hx Cream 0.1% 45gm apply to L30.9 Uche Furoate affected Duque, - areas twice M.D. 08 a day days only Amlodipine 02/21 Hx Tablets 5mg 90tab 1 by mouth I10 José Besylate s every day F. - Mauser, 08/16 M.D. Bacitracin 12/29 Hx Ointment 500Unit/G 14gm apply to L L08.9 Uche (External) /2016 area of Duque, - breast ( M.D. 02/20 open sores ) twice a day x 7 days Diazepam 12/29 Hx Tablets 2mg 5tabs 10/03 to 1 F41.9 tab as Dunia, - needed for M.D. 02/20 severe anxiety Alprazolam 11/16 Hx Tablets 1mg 30tab 10/03 - 1 tab F41.9 s a day as Dunia, - needed for M.D. 09/13 anxiety /2016 attack Amlodipine 11/16 Hx Tablets 10mg 90tab Take One I10 Uche Besylate s Tablet By Dunia, - Mouth Every M.D. Melatonin ( 07/27 Hx Tablets ER 3mg 30tab once at [facility] ) s night Dunia, - M.D. 11/16 Triamcinolone [...] Tablets 100mg 60tab Take 1 & s /2 Tablets Dunia, - By Mouth M.D. 07/16 Every AT Bedtime Ciprofloxacin 01/10 Hx Tablets 250mg 10tab 1 by mouth Uche HCL s twice a day Dunia, - for 5 days M.D. 01/01 Prednisone 12/30 Hx Tablets 10mg QS take 3 tab R21 Uche daily x 2 Duque, - days then 2 M.D. 03/31 tab daily x 3 days and then 1 tab daily x 3 days Keflex 12/30 Hx Capsules 500mg 21cap 1 by mouth R21 Uche s tid X 7 Dunia, - days M.D. 01/05 Lunesta 12/30 Hx Tablets 1mg 30tab Not Taking G47.09 Uche s Dunia, - M.D. 07/27 Atorvastatin 12/09 Hx Tablets 10mg 30tab 1 by mouth E78.5 José Calcium s every night F. - hold as of Maryanne, 07/07 10.6.16 M.D. Metoprolol 11/10 Hx Tablets ER 25mg 90tab Stopped José Succinate ER 24HR s Taking 1/2 F. - by mouth Maryanne, 02/21 every day( M.D. not taking at this time) Azo Urinary Pain 08/03 Hx Tablets 97.5mg Uche Relief Dunia, Strength - M.D. 11/10 Sulfamethoxazole 08/03 Hx Tablets 800-160mg 14tab 1 by mouth N30.00 Uche /Trimethoprim s twice a day Dunia, - M.D. 11/10 Alprazolam 06/22 Hx Tablets 0.5mg 30tab 1-2 tab as F43.22 Uche /2015 s needed for Dunia, - anxiety M.D. 11/16 Trazodone HCL 06/03 Hx Tablets 100mg 60tab Take 1 & s 1/2 Tablets Dunia, - By Mouth M.D. 12/30 Every Night AT Bedtime Metoprolol 05/08 Hx Tablets ER 25mg 30tab 1/2 tablet José Succinate 24HR s once a day F. - Maryanne, 11/09 M.D. Lunesta 04/21 Hx Tablets 2mg 30tab 1/2 to 1 s tab by Dunia, - mouth at M.D. 06/22 bedtime as needed Lunesta 04/08 Hx Tablets 1mg 60tab 1 to 2 Uche /2015 s tablets at Duque, - bedtime as M.D. 04/21 needed sleep. Amlodipine 04/06 Hx Tablets 5mg 90tab 1 by mouth I10 Uche Besylate s every day Dunia, - M.D. 11/16 Alprazolam 04/06 Hx Tablets 0.25mg 30tab 1 tab by 300.09 Uche Dispers s mouth as [place]ia, - needed M.D. 06/22 Atorvastatin 02/04 Hx Tablets 10mg 90tab 1 by mouth 272.2 Uche Calcium /2015 s every day Christiana Duque M.DCelso 08/03 Aspirin 81 10/[address] 81mg po qd Flaquita Madden, 07/30 Keflex 10/28 Hx Capsules 250mg 14cap 1 po bid 682.9 s Christiana Duque M.DCelso 11/08 Aspirin 10/02 Hx Tablets 325mg 1 po qd Ordering - Provider 10/30 Levothroid 09/06 Hx Tablets 100mcg 30tab 1 by mouth Uche s every day Christiana Duque M.DCelso 11/26 Triamcinolone 06/27 Hx Cream 0.1% 30gm apply twice Uche Acetonide a day x 10 Dunia, - days on the M.D. 10/28 area Amlodipine 12/24 Hx Tablets 2.5mg 60tab 1 by mouth José Besylate s every day Flaquita Madden, 04/06.. Potassium 09/03 Hx Capsules ER 10Meq 180ca 1 by mouth José Chloride ER ps daily; Flaquita Madden, 12/15 as on 10/18/17 Amlodipine 09/03 Hx Tablets 2.5mg 90tab 2 po qd José Besylate s Flaquita Madden, 12/24.D. Lisinopril 08/30 Hx Tablets 10mg 90tab 1 po qd 401.9 Uche /2012 s Christiana Duque.DCelso 09/03 Lisinopril 08/06 Hx Tablets 5mg 30tab 1 po qd 401.9 Uche /2012 s Christiana Duque M.DCelso 09/03 Acyclovir 08/06 Hx Tablets 400mg 21tab 1 tab tid X 054.9 Uche /2012 s 7 days Christiana DuqueDCelso 08/30 Alprazolam 07/03 Hx Tablets 0.25mg 30tab 1 tab by Uche s mouth as Dunia, - needed for M.D. 04/06 once a day Bactrim DS 06/01 Hx Tablets 800-160mg 6tabs twice daily 599.0 Catrachita /2011 for 3 days Hira, - N.P. 07/03 Pyridium 06/01 Hx Tablets 200mg 6tabs 1 tab tid 599.0 Catrachita /2011 after Hira, - meals, max N.P. 06/01 2 days Estradiol 05/27 Hx Tablets 0.5mg 30tab qod s Dunia, - M.D. 08/06 Estradiol 03/19 Hx Tablets 0.5mg 30tab 1 po qd X 2 627.2 s wks and Dunia, - then as M.D. 04/10 Trazodone HCL 03/19 Hx Tablets 100mg 135ta take 2 by 780.52 bs mouth at [facility], - bedtime M.D. 04/08 Estradiol Hx Tablets 2mg 30tab po qam s - 07/03 Trazodone HCL Hx Tablets 50mg 90tab 1 tablet at Unknown / s bedtime as - needed 04/10 Alprazolam Hx Tablets 0.5mg 10tab 1 po bid Unknown s prn - 07/03 Retin-A Hx Cream 0.1% 1unit apply as s directed to Dunia, - affected M.D. 07/03 area once daily Omeprazole Hx Capsules DR 20mg 90cap 1 po qd Unknown / s - 03/19 Oxybutynin Hx Tablets 5mg 270ta 1 po bid Unknown Chloride bs - 03/19 Mupirocin Hx Ointment 2% 44gm apply to skin - lesions 04/10 twice daily Levothroid Hx Tablets 0.1mg 30tab 1 po qd Valentin / s Christiana Montes M.D.,FACP 09/06 Red Rice Yeast Hx 600mg 1 po qd Unknown /0000 - 12/11 Garrochales 3 Hx Capsules 90cap po qd Unknown / s - 12/11 Fish Oil 0000 Hx Capsules 1000mg 90cap 1 po qd Unknown /0000 s - 12/08 Vitamin E-400 00 Hx Capsules 400Unit 1 po Unknown /0000 occasionall - y 11/16 [address] 325mg 30tab 1/2 tablet [...] Hx Lotion 0.1% to be Unknown Acetonide applied - twice a day 12/30 on arms, /2016 thighs Trazodone HCL Hx 100mg 60uni 1and a half Uche 0000 ts tablet Dunia - tablet at M.DCelso 06/03 bedtime /2014 Vitamin B12 00 Hx 1 tablet po Unknown /0000 occasional - 11/16 Co Q 10 Hx 200mg 1 tablet José daily Flaquita Madden 02/20 M.DCelso Relax & Sleep 00 Hx Tablets Unknown - 02/20 Phenazopyridine 00 Hx Tablets 100mg Unknown HCL 0000 - 02/20 Sulfamethoxazole Hx Tablets 800-160mg Unknown /Trimethoprim DS /0000 - 02/20 Doxycycline Hx Capsules 100mg Swann, Monohydrate /0000 Christiana Barnard MD 10/26 Immunizations CPT Code Status Date Vaccine Lot # [id number] Given 05/30/2018 Pneumonia Vaccine [id number] 22039 Given 09/13/2017 Influenza Virus Vaccine, Quadrivalent, Split, [id number] Preservative Free 84488 Given 06/22/2015 Influenza Virus Vaccine, Quadrivalent, Split, [id number] Preservative Free 64391 Given 12/18/2014 Pneumococcal Conjugate Vaccine 13 Valent For [id number] Intramuscular Use 11673 Given 08/18/2014 Flu Vaccine Split Virus Preservative Free For [id number] Indiv 3Yr Older 71475 Given 06/27/2013 Flu Vaccine Split Virus Preservative Free For [id number] Indiv 3Yr Older 59921 Given 10/02/2008 Pneumonia Vaccine Vital Signs Date Vital Result Comment 07/30/2018 Weight 122.50 lb Heart Rate 80 [...] Color Yellow Urine Appearance Cloudy Urine Specific Johnson 1.011 1.010-1.030 Urine pH 6.0 5-9 Urine [...] 5 Sensitivities Ua Routine 07/16/2018 Ua Specific Johnson 1.015 Ua PH 6 Ua Color medium [...] Thyroxine) <pending> Magnesium <pending> Lipid Panel - [facility] 10/31/2017 Creatine Kinase(CK) 43 U/L 10-223 11 Comp Metabolic Panel 10/31/2017 Sodium 138 [...] Color Straw Urine Appearance Clear Urine Specific Johnson 1.004 Low 1.010-1.030 Urine pH 8.0 5-9 [...] Cholesterol 133 mg/dL 34 Lipid Panel - [facility] 06/09/2016 Creatine Kinase(CK) 92 U/L 10-223 CBC [...] 42 Sensitivities Ua Routine 06/22/2015 Ua Specific Johnson 1.005 Ua PH 5 Ua Color yellow [...] Color Straw Urine Appearance Clear Urine Specific Johnson 1.008 Low 1.010-1.030 Urine pH 8.0 5-9 [...] 100 67 Ua Routine 07/03/2012 Ua Specific Johnson 1.000 Ua PH 7.5 Ua Color pale [...] <SEE NOTE> Ua Routine 06/01/2012 Ua Specific Johnson 1.005 Ua PH 6.0 Ua Color yellow Ua Appera cloudy Ua WBC +++ Ua Protein trace Ua Glucose neg Ua Ketones trace Ua Bilirubin mod Ua Urobilinogen neg Ua Nitrite pos Ua Occult Blood trace 1 SEE RESULT BELOW Name: ALEJANDRINABLANCA T : [address]: Oc Cortes MD Acct: [id number] Unit: [id number] AGE: 83 Location: [place] [address] Re07/20/18 SEX: F Status: ADM Ansley SPEC: [id number] NEELAM: 07/20/[address] [facility] [address]: Liliam Bah MD REQ: [id number] RECD: 07/20/18 STATUS: JASMYNE HARMAN DR: [facility] Uche Duque MD _ SOURCE: URINE SPDESC: ORDERED: Urine Culture Procedure Result Reported Site Urine Culture Final 07/22/18- 1026 ML Organism 1 CORYNEBACTERIUM SPECIES [place] Count 1-10,000 (Few) CFU/ML SIGNIFICANCE QUESTIONED. * ML - Main Lab . END OF REPORT DEPARTMENT OF PATHOLOGY, [address] [place] [address] Julius Herman M.D. Director [facility] # [id number] 2 >100 to <200 pg/mL: likely compensated congestive heart failure (CHF) 200 to 400 pg/mL: likely moderate CHF >400 pg/mL: likely moderate to severe CHF 3 [facility] Severe Sepsis and Septic Shock Management Bundle [...] [address]: Uche Duque MD Acct: [id number] Unit: [id number] AGE: 83 Location: [facility] Re07/16/18 SEX: F Status: REG REF SPEC: [id number] NEELAM: 07/16/18-[address] [facility] [address]: Uche Duque MD REQ: [id number] RECD: 07/16/18 STATUS: COMP _ SOURCE: URINE SPDESC: ORDERED: Urine Culture COMMENTS: [id number] QUERIES: Urine Source: Random Procedure Result Reported Site Urine Culture Final 07/18/18- 0805 ML Organism 1 ESCHERICHIA COLI [place] Count >100,000 (Many) CFU/ML 1. ESCHERICHIA COLI [...] . END OF REPORT DEPARTMENT OF PATHOLOGY, [address] [place] [address] Julius Herman M.D. Director [facility] # [id number] 6 Because ethnic data is not always [...] weeks 18 Copy Result to: UCHE DUQUE ([id number]) 19 Because ethnic data is not always [...] (or dialysis) 21 Acute inflammation: >10.00 22 [facility] Severe Sepsis and Septic Shock Management Bundle Measure requires all lactic acids initially measuring >2.0 mmol/L be repeated. 23 SEE RESULT BELOW Name: BLANCA TINOCO : [address]: Andi Humphreys MD Acct: [id number] Unit: [id number] AGE: 82 Location: ED Re04/24/17 SEX: F Status: DEP ER SPEC: [id number] NEELAM: 04/24/17-[address] [facility] [address]: Andi Humphreys MD REQ: [id number] RECD: 04/24/17 STATUS: JASMYNE HARMAN DR: Uche Duque MD _ SOURCE: URINE SPDESC: ORDERED: Urine Culture Procedure Result Reported Site Urine Culture Final 04/26/17- 0858 ML No growth of clinically significant organisms * ML - MAIN LAB ([facility]) . END OF REPORT * ML=Testing performed at Main Lab DEPARTMENT OF PATHOLOGY, [address] [place] [address] Julius Herman M.D. Director [facility] # [id number] 24 Desirable <150 Borderline high 150-199 High 200-499 Very High >500 25 Desirable <200 Borderline high 200-239 High >239 26 Low <40 Desirable: 40-60 High: >60 27 Desirable: <100 mg/dL Near Optimal: 100-129 mg/dL Borderline High: 130-159 mg/dL High: 160-189 mg/dL Very High: >189 mg/dL 28 Reference Range and Interpretation: TnI (ng/mL) Interpretation Less Than 0.03 ng/mL Not supportive of diagnosis of OR 0.03 - 0.50 ng/mL Indeterminate: suggest serial studies if clinically indicated. Greater than 0.5 ng/mL Consistent with diagnosis of OR 29 cc pmd PLEASE RUN STAT CALL DR DUNIA ESPINOZA [phone] EX 249 THANKS 30 Because ethnic data [...] [address]: Uche Duque MD Acct: [id number] Unit: [id number] AGE: 80 Location: [facility] Re08/03/15 SEX: F Status: REG REF SPEC: [id number] NEELAM: 08/03/[address] [facility] [address]: Uche Duque MD REQ: [id number] RECD: 08/03/15 STATUS: COMP _ SOURCE: URINE SPDESC: ORDERED: Urine Culture Procedure Result Verified Site Urine Culture Final 08/05/15- 1119 ML Organism 1 ESCHERICHIA COLI [place] Count >100,000 (Many) CFU/ML 1. ESCHERICHIA COLI [...] antibiotic reporting. * ML - MAIN LAB ([facility]) . END OF REPORT * ML=Testing performed at Main Lab DEPARTMENT OF PATHOLOGY, [address] [place] [address] Julius Herman M.D. Director [facility] # [id number] 43 SEE RESULT BELOW Name: BLANCA TINOCO Allyson : [address]: Andrew Aldridge MD Acct: [id number] Unit: [id number] AGE: 80 Location: [facility] Re05/17/15 SEX: F Status: DEP ER SPEC: [id number] NEELAM: 05/17/15-[address] [facility] [address]: Andrew Aldridge MD REQ: [id number] RECD: 05/18/159544 STATUS: JASMYNE HARMAN DR: Uche Duque MD _ SOURCE: URINE SPDESC: ORDERED: Urine Culture Procedure Result Verified Site Urine Culture Final 05/20/15- 08 ML Organism 1 ESCHERICHIA COLI [place] Count >100,000 (Many) CFU/ML 1. ESCHERICHIA COLI [...] antibiotic reporting. * ML - MAIN LAB ([facility]) . END OF REPORT * ML=Testing performed at Main Lab DEPARTMENT OF PATHOLOGY, [address] [place] [address] Julius Herman M.D. Director [facility] # [id number] 44 Because ethnic data is not always [...] failure <15 (or dialysis) 45 HAVE DRAWN WEEK MAY 25 46 >100 to <200 pg/mL: likely compensated congestive heart failure (CHF) 200 to 400 pg/mL: likely moderate CHF >400 pg/mL: likely moderate to severe CHF [facility] 47 Because ethnic data is not [...] 0.03 ng/mL Not supportive of diagnosis of OR 0.03 - 0.50 ng/mL Indeterminate: suggest serial studies if clinically indicated. Greater than 0.5 ng/mL Consistent with diagnosis of OR 49 FASTING 12 HOUR 50 FASTING 12 [...] levels within this range. Test Performed by: [place] [address] Document Specialist: Emmett Brand III, M.D. 57 PT IS [...] than 189 MG/DL 73 RUN DATE: 06/03/12 [facility] NMI LIVE PAGE 1 RUN TIME: 942 Specimen Inquiry RUN USER: INTERFACE Name: BLANCA TINOCO Status: REG REF Re06/01/12 Age/Sex: 77/F Unit#: [id number] [facility] SPEC #: [id number] NEELAM: 06/01/12-1249 STATUS: COMP REQ #: [id number] RECD: 06/01/12-[address]: Hira OROZCO,Catrachita Mccall SOURCE: URINE ENTR: 06/01/12-[address]: LANDEN: ORDERED: URINE C S QUERIES: MEDENT REQUISITION # [id number] SPECIMEN DESCRIPTION: URINE, RANDOM ACT WKST: UR 06/03/12 #1 Procedure Result Verified Site > URINE CULTURE SENSITIVI Final 06/03/12- 942 ML FINAL: NO GROWTH DAY 2 (<1,000 CFU/mL) ML - [facility] Permit #[id number] [address] [place] [address] DEPARTMENT OF PATHOLOGY, [address] [place] [address] [facility] Permit #[id number] 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 [employer] Procedures Date CPT Code Description Status Comment 06/15/2018 94016 Mobile Cardiovascular Telemetry Completed Over 24 HR Up To 30 Days 02/02/2018 36836 EKG Tracing & Interpretation Completed 12/15/2017 00235 EKG Tracing & Interpretation Completed 10/13/2017 32725 ECHO Transthoracic, Real-Time 2D Completed With Doppler And Color Flow 10/13/2017 53600 ECHO Transthoracic, Real-Time 2D Completed With Doppler And Color Flow 08/23/2017 44574 Holter Monitor Review (24 hr)dr Completed review & interp only 08/17/2017 72942 ECG Monitor/Recording W/Visual Completed Superimposition Scanning 07/26/2017 21545 ECHO Stress Test Incl Perf Completed Contiuous ekg Monitoring W/Phys Superv 07/26/2017 62158 ECHO Stress Test Incl Perf Completed Contiuous ekg Monitoring W/Phys Superv 07/20/2017 10248 EKG Tracing & Interpretation Completed 06/09/2017 95004 Echocardiography, Transesophageal, Completed Real Time W/Image 2D W/W/O M-M 06/09/2017 82370 Pulse Wave/Continuous-Interp.RPT Completed 06/09/2017 88182 Color Flow Doppler/Interp & Reprt Completed 06/09/2017 15388 Moderate Sedation Services; Same Completed Phys Intl 15 Mins; PT >=5 Years 06/09/2017 85110 Moderate Sedation Services; Same Completed Phys Each Additional 15 Mins 05/17/2017 53155 Echocardiography, Transesophageal, Completed Real Time W/Image 2D W/W/O M-M 05/11/2017 18316 ECHO Transthoracic, Real-Time 2D Completed With Doppler And Color Flow 04/06/2017 Bone Mineral Density Test Completed 02/21/2017 77312 EKG Tracing & Interpretation Completed 09/12/2016 05033 EKG Tracing & Interpretation Completed 07/27/2016 86815 EKG Tracing & Interpretation Completed 07/07/2016 33204 EKG Tracing & Interpretation Completed 11/16/2015 92451 ECHO Transthoracic, Real-Time 2D Completed With Doppler And Color Flow 11/10/2015 94629 EKG Tracing & Interpretation Completed 05/12/2015 50609 Left Heart Cath. Incl S/I Completed Coronaries, Angio S/I V Gram If Done 05/07/2015 44353 EKG Tracing & Interpretation Completed 04/15/2015 21294 ECHO Transthoracic, Real-Time 2D Completed With Doppler And Color Flow 03/23/2015 47249 EKG Tracing & Interpretation Completed 01/30/2015 93846 Treadmill Interp/Report Only Completed 01/30/2015 56782 Stress Test Supervsn W/Out I/R Completed 11/26/2013 43270 ECHO Transthoracic, Real-Time 2D Completed With Doppler And Color Flow 11/12/2013 Bone Mineral Density Test Completed 10/30/2013 76603 EKG Tracing & Interpretation Completed 12/24/2012 80756 EKG Tracing & Interpretation Completed 11/13/2012 09169 Stress ECHO Interpretation/Report Completed Hospital 11/13/2012 67436 Treadmill Interp/Report Only Completed 11/13/2012 00748 Stress Test Supervsn W/Out I/R Completed 10/11/2012 56974 Holter Monitoring 24 HR New Completed 09/14/2012 94354 ECHO Transthoracic, Real-Time 2D Completed With Doppler And Color Flow 09/12/2012 62308 ECHO Stress Test Incl Perf Completed Contiuous ekg Monitoring W/Phys Superv 09/12/2012 63244 ECHO Stress Test Incl Perf Completed Contiuous ekg Monitoring W/Phys Superv 09/12/2012 11387 ECHO Stress Test Incl Perf Completed Contiuous ekg Monitoring W/Phys Superv 09/03/2012 79687 EKG Tracing & Interpretation Completed 08/30/2012 93014 EKG Tracing & Interpretation Completed 07/30/2012 70338 Rad Exam; Foot Comp Completed 07/30/2012 62725 Xray Knee 3 Views Completed 07/30/2012 56728 Rad Exam; Knee, Ap&L Completed 05/14/2012 98422 Rad Exam; Foot Comp Completed 10/02/2010 Bone Mineral Density Test Completed normal per patient 10/02/2007 Colonoscopy Completed normal Encounters Type Date Location Provider CPT E/M Dx Office Visit 07/16/2018 9:50a [facility] Internal Medicine Uche Duque M.D. 45418 R30.0 - Sarah N30.01 F51.04 Office Visit 05/30/2018 11:10a [facility] Internal Medicine Uche Duque, 09416 Z00.01 - Sarah Olvera Z23 R09.89 Office Visit 04/18/2018 9:00a [facility] [place] [address] I10 Office Visit 03/23/2018 11:30a [facility] Serene Orta, 04817 I42.9 N.P. I34.0 I10 I47.1 Office Visit 03/21/2018 2:00p [facility] Internal Medicine - Uche Duque M.D. 50485 R21 Sarah F41.9 Office Visit 03/01/2018 11:50a [facility] Internal Medicine Uche Duque M.D. 45162 F41.9 - [place] M17.9 Office Visit 02/02/2018 3:40p [facility] José Madden M.D. 58051 I10 I34.0 I42.9 I47.1 I27.20 I25.10 Office Visit 01/05/2018 11:30a [facility] [facility] Serene Orta N.PCelso 32029 I10 I34.0 I42.9 I47.1 I27.20 E78.00 I25.10 Office Visit 12/15/2017 1:20p [facility] José Madden M.D. 26069 I10 I34.0 I42.9 I25.10 E78.00 I27.20 I47.1 Office Visit 10/26/2017 10:10a [facility] Internal Medicine - Uche Duque 61520 M17.9 Sarah Olvera Office Visit 10/18/2017 10:00a [facility] PALAK Alonso 06270 I10 I42.9 I34.0 I25.10 E78.00 Office Visit 09/13/2017 10:50a [facility] Internal Medicine Uche Duque M.D. 99863 F41.9 - [place] Z23 Office Visit 08/16/2017 11:30a [facility] PALAK Alonso 08771 I34.0 I42.9 I10 Office Visit 07/20/2017 3:20p [facility] José Madden M.D. 84059 I34.0 I42.9 I44.7 G47.9 Office Visit 05/18/2017 2:00p [facility] [place] [address] R06.83 [facility] R35.1 R68.2 R40.0 Office Visit 05/15/2017 2:30p [facility] [facility] PALAK Alonso 02750 I42.9 I34.0 Office Visit 05/10/2017 11:30a [facility] Internal Medicine Uche Duque 85541 K57.30 - Sarah Olvera F41.9 G47.9 Office Visit 03/29/2017 11:10a [facility] Internal Medicine Uche Duque, 98437 Z00.01 - Sarah Olvera F41.9 L30.9 E03.9 E78.5 M85.89 G47.00 K59.00 Office Visit 03/13/2017 1:20p [facility] Medicine Uche Duque, 88077 M25.551 - Sarah Olvera Office Visit 02/21/2017 1:20p [facility] José Madden, 69663 I42.9 May R94.31 I10 R53.83 G47.9 Office Visit 12/29/2016 11:50a [facility] Medicine Uche Duque M.D. 42135 F41.9 - Sarah R30.0 L08.9 Office Visit 12/08/2016 1:40p [facility] Medicine Uche Duque M.D. 57651 F41.9 - [place] Office Visit 11/16/2016 11:10a [facility] Medicine Uche Duque M.D. 08272 I10 - [place] G47.00 F41.9 Office Visit 09/12/2016 11:00a [facility] PALAK Alonso 00536PSA I42.9 F41.9 R53.83 E78.5 Office Visit 07/27/2016 2:40p [facility] Medicine Uche Duque, 21090 R07.89 - Sarah Olvera F41.9 Office Visit 07/07/2016 10:00a [facility] José Madden, 77663 I42.9 Yi Olvera I34.0 E78.5 R53.83 I10 Office Visit 03/31/2016 12:40p [facility] Adry Doran M.D. 13647 F41.9 - [place] R21 Office Visit 12/31/2015 11:50a [facility] Christiana Duque M.D. 92697 R21 [place] G47.09 F41.9 Office Visit 12/10/2015 11:00a [facility] PALAK Alonso 35699 I42.9 I34.0 E78.5 R53.83 I10 Office Visit 11/10/2015 10:40a [facility] José Madden 12250 R94.31 May I42.9 I34.0 Office Visit 08/03/2015 12:10p [facility] Uche Duque 34771 N30.00 - Mandy Olvera Office Visit 06/22/2015 12:10p [facility] Uche Duque 48894 N39.42 - Mandy Olvera M17.9 V04.81 Z23 F43.22 R68.2 Office Visit 05/18/2015 4:00p [facility] Shaun Cottrell M.D., 02027 V58.41 [employer] Administrator AT [facility] Office Visit 05/07/2015 2:00p [facility] PALAK Alonso 99084 401.9 786.50 794.31 425.9 272.2 794.39 Office Visit 04/06/2015 1:10p [facility] Uche Duque 99647 300.09 - Mandy Olvera 401.9 780.52 272.2 Office Visit 03/23/2015 11:20a [facility] José Madden M.D. 57053 401.9 786.50 794.31 424.0 307.49 Office Visit 02/04/2015 9:50a [facility] Uche Duque 38963 535.00 - Mandy Olvera 401.1 272.2 300.09 Office Visit 01/30/2015 10:44a [facility] Julia Jensen 17403 786.50 [facility] May 789.06 244.9 401.9 Office Visit 01/29/2015 10:43a [facility] Julia Jensen 84985 786.50 [facility]oc[facility] Hospitalists May 789.06 244.9 401.9 Office Visit 12/18/2014 2:30p [facility] Uche Duque M.D. 56739 V70.0 - [place] 272.2 311 300.00 401.1 V03.82 V72.31 Office Visit 08/18/2014 12:10p [facility] Uche Duque M.D. 55218 472.0 - [place] V04.81 300.00 Office Visit 01/08/2014 2:50p [facility] Uche Duque 12138 733.90 - Mandy Olvera 300.00 Office Visit 12/12/2013 12:10p [facility] - Uche Duque M.D. 35304 311 [place] 733.90 Office Visit 10/30/2013 11:20a [facility] José Madden M.D. 33117 401.9 424.0 311 276.8 794.31 785.1 Office Visit 10/28/2013 2:10p [facility] Uche Duque 01402 300.00 - Mandy Olvera 311 401.9 682.9 244.8 V49.81 782.1 Office Visit 07/10/2013 1:50p [facility] Nurse Visit C 58892 401.9 - [place] Office Visit 06/27/2013 1:50p [facility] Uche Duque M.D. 03440 401.9 - [place] 276.8 272.2 300.00 V04.81 Office Visit 02/13/2013 11:10a [facility] Uche Duque 70717 338.19 - Mandy Olvera Office Visit 02/06/2013 2:50p [facility] Uche uDque 83335 401.9 - Mandy Olvera 311 272.2 300.00 Office Visit 12/24/2012 11:20a [facility] José Madden M.D. 18312 401.9 311 276.8 785.1 Office Visit 12/14/2012 11:00a [facility] [place] [address] 401.9 Office Visit 12/11/2012 1:50p [facility] - Uche Duque 17512 401.9 Mandy Olvera 311 300.00 272.2 276.8 Office Visit 11/27/2012 11:00a [facility] Nurse Visit 41501 401.1 Office Visit 11/13/2012 11:30a [facility] José Madden, 49018 794.31 M.DCelso 425.4 401.1 786.50 Office Visit 09/12/2012 1:30p [facility] José Madden M.D. 10514 785.1 794.31 786.50 Office Visit 09/03/2012 2:20p [facility] José Madden, 26230 794.31 M.DCelso 401.9 785.1 Office Visit 08/30/2012 1:50p [facility] Uche Duque M.D. 12892 401.9 - [place] 794.31 470 311 Office Visit 08/06/2012 1:50p [facility] Uche Duque M.D. 77170 401.9 - [place] 054.9 Office Visit 07/30/2012 11:15a [facility] Migue Lopez M.D. 44382 355.6 Of Vi Office Visit 07/12/2012 1:30p [facility] Rene Brar 86372 719.47 Of Valery Abbott Office Visit 07/03/2012 1:10p [facility] Uche Duque M.D. 99586 V70.0 - [place] 788.43 311 300.00 272.2 796.2 586 Office Visit 06/01/2012 11:30a [facility] Catrachita Iniguez N.PCelso 98155 788.1 - [place] 599.0 Office Visit 05/28/2012 2:30p [facility] Of Migue Lopez 50778 733.94 Vi Olvera Office Visit 05/14/2012 10:00a [facility] Of Migue Lopez 32405 719.47 Vi Olvera Office Visit 04/10/2012 11:45a [facility] Uche Duque 75187 924.11 - Mandy Olvera 627.2 Office Visit 03/19/2012 2:00p [facility] - Uche Duque M.D. 13858 311 [place] 627.2 780.52 735.4 Plan of Care Future Appointment(s):09/17/2018 11:00 am - [place] [facility] Schedule at [facility]09/28/2018 2:00 pm - José Madden M.D. at [facility]03/2018 10:10 am - Uche Duque M.D. at [facility] - [place]17/ 29/2018 - Serene Orta N.P.I48.0 Paroxysmal atrial fibrillationNew Medication :Amiodarone HCL 100 mgNew Orders:EchocardiogramFollow up:2mo JENS Madden.Recommendations:Continue Eliquis; I can see how much Xarelto will cost STOP ASA START Amiodarone Take 2 tabs daily for 2 weeks then 1 tab daily. I will talk to Dr Duque about elevated TSH from 06/2018. We will monitor your thyroid, lungs and liver every 6 months on this medication. The idea is that this mediactionwill suppress the afib and improve your heart function. and give you more energy.E78.00 Pure hypercholesterolemia, ggofbksglfiH34.0 Nonrheumatic mitral (valve) hckchztuhroevZ33.9 Cardiomyopathy, unspecified
--- OUTSIDE RECORDS SUMMARY | 2018-08-20 19:28 | XMS REPORT ---
:1935 External Reference #:[id number] Author Organization [facility] Address [address] [place] [address] Phone [phone] Care Team Providers Name Role Phone Uche Duque MD Primary Care Physician Unavailable Payers Type Date Identification Numbers Payment Provider Subscriber Medicare Primary Policy Number: [id number] Medicare Blanca Tinoco PayID: [id number] [address] [place] [address] Medigap Part B Effective: Policy Number: Eliot Tinoco 2017 [id number] Ppo Group Number: [id number] [address] [address] PayID: [id number] LANNY Claudio 248[address] Medigap Part B Expires: Policy Number: Eliot Valadez 2014 [id number] Pp Alejandrina Group Number: [id number] [address] [address] PayID: [id number] LANNY Claudio [address]14 Problems Date Description Provider Status Onset: 04/10/2012 [...] 05/18/2015 Postoperative Wound Closure Shaun Cottrell M.D., [facility], Active Encounter [facility] Onset: Cardiomyopathy Active Note: [...] Lives With Alone in fall 2010 in [facility]. 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, - bedtime M.D. 04/08 Estradiol Hx [...] 1 po qd Unknown /0000 - 12/11 [place] 3 Hx Capsules 90cap po qd Unknown [...] CPT Code Status Date Vaccine Lot # [id number] Given 05/30/2018 Pneumonia Vaccine [id number] 34011 Given 09/13/2017 Influenza Virus Vaccine, Quadrivalent, Split, [id number] Preservative Free 92018 Given 06/22/2015 Influenza Virus Vaccine, Quadrivalent, Split, [id number] Preservative Free 54188 Given 12/18/2014 Pneumococcal Conjugate Vaccine 13 Valent For [id number] Intramuscular Use 96850 Given 08/18/2014 Flu Vaccine Split Virus Preservative Free For [id number] Indiv 3Yr Older 36837 Given 06/27/2013 Flu Vaccine Split Virus Preservative Free For [id number] Indiv 3Yr Older 53816 Given 10/02/2008 Pneumonia Vaccine Vital Signs Date [...] Color Yellow Urine Appearance Cloudy Urine Specific [place] 1.011 1.010-1.030 Urine pH 6.0 5-9 Urine [...] 5 Sensitivities Ua Routine 07/16/2018 Ua Specific [place] 1.015 Ua PH 6 Ua Color medium [...] Thyroxine) <pending> Magnesium <pending> Lipid Panel - [facility] 10/31/2017 Creatine Kinase(CK) 43 U/L 10-223 11 [...] Color Straw Urine Appearance Clear Urine Specific [place] 1.004 Low 1.010-1.030 Urine pH 8.0 5-9 [...] Cholesterol 133 mg/dL 34 Lipid Panel - [facility] 06/09/2016 Creatine Kinase(CK) 92 U/L 10-223 CBC [...] 42 Sensitivities Ua Routine 06/22/2015 Ua Specific [place] 1.005 Ua PH 5 Ua Color yellow [...] Color Straw Urine Appearance Clear Urine Specific [place] 1.008 Low 1.010-1.030 Urine pH 8.0 5-9 [...] 100 67 Ua Routine 07/03/2012 Ua Specific [place] 1.000 Ua PH 7.5 Ua Color pale [...] <SEE NOTE> Ua Routine 06/01/2012 Ua Specific [place] 1.005 Ua PH 6.0 Ua Color yellow Ua Appera cloudy Ua WBC +++ Ua Protein trace Ua Glucose neg Ua Ketones trace Ua Bilirubin mod Ua Urobilinogen neg Ua Nitrite pos Ua Occult Blood trace 1 SEE RESULT BELOW Name: ALEJANDRINABLANCA T : [address]: Oc Cortes MD Acct: [id number] Unit: [id number] AGE: 83 Location: [place] [id number] Re07/20/18 SEX: F Status: ADM [place] SPEC: [id number] NEELAM: 07/20/[address] [facility] [address]: Liliam Bah MD REQ: [id number] RECD: 07/20/18 STATUS: JASMYNE HARMAN DR: [facility] Uche Duque MD _ SOURCE: URINE SPDESC: ORDERED: Urine Culture Procedure Result Reported Site Urine Culture Final 07/22/18- 1026 ML Organism 1 CORYNEBACTERIUM SPECIES Warren Count 1-10,000 (Few) CFU/ML SIGNIFICANCE QUESTIONED. * ML - Main Lab . END OF REPORT DEPARTMENT OF PATHOLOGY, [address] [place] [address] Julius Herman M.D. Director [facility] # [id number] 2 >100 to <200 pg/mL: likely compensated congestive heart failure (CHF) 200 to 400 pg/mL: likely moderate CHF >400 pg/mL: likely moderate to severe CHF 3 [facility] Severe Sepsis and Septic Shock Management Bundle [...] [address]: Uche Duque MD Acct: [id number] Unit: [id number] AGE: 83 Location: [facility] Re07/16/18 SEX: F Status: REG REF SPEC: [id number] NEELAM: 07/16/18-[address] [facility] [address]: Uche Duque MD REQ: [id number] RECD: 07/16/18 STATUS: COMP _ SOURCE: URINE SPDESC: ORDERED: Urine Culture COMMENTS: [id number] QUERIES: Urine Source: Random Procedure Result Reported Site Urine Culture Final 07/18/18- 0805 ML Organism 1 ESCHERICHIA COLI Warren Count >100,000 (Many) CFU/ML 1. ESCHERICHIA COLI [...] . END OF REPORT DEPARTMENT OF PATHOLOGY, [address] [place] [address] Julius Herman M.D. Director [facility] # [id number] 6 Because ethnic data is not always [...] weeks 18 Copy Result to: UCHE DUQUE ([id number]) 19 Because ethnic data is not always [...] (or dialysis) 21 Acute inflammation: >10.00 22 [facility] Severe Sepsis and Septic Shock Management Bundle Measure requires all lactic acids initially measuring >2.0 mmol/L be repeated. 23 SEE RESULT BELOW Name: BLANCA TINOCO : [address]: Andi Humphreys MD Acct: [id number] Unit: [id number] AGE: 82 Location: ED Re04/24/17 SEX: F Status: DEP ER SPEC: [id number] NEELAM: 04/24/17-[address] [facility] [address]: Andi Humphreys MD REQ: [id number] RECD: 04/24/17 STATUS: JASMYNE HARMAN DR: Uche Duque MD _ SOURCE: URINE SPDESC: ORDERED: Urine Culture Procedure Result Reported Site Urine Culture Final 04/26/17- 0858 ML No growth of clinically significant organisms * ML - MAIN LAB ([facility]) . END OF REPORT * ML=Testing performed at Main Lab DEPARTMENT OF PATHOLOGY, [address] [place] [address] Julius Herman M.D. Director [facility] # [id number] 24 Desirable <150 Borderline high 150-199 High 200-499 Very High >500 25 Desirable <200 Borderline high 200-239 High >239 26 Low <40 Desirable: 40-60 High: >60 27 Desirable: <100 mg/dL Near Optimal: 100-129 mg/dL Borderline High: 130-159 mg/dL High: 160-189 mg/dL Very High: >189 mg/dL 28 Reference Range and Interpretation: TnI (ng/mL) Interpretation Less Than 0.03 ng/mL Not supportive of diagnosis of NV 0.03 - 0.50 ng/mL Indeterminate: suggest serial studies if clinically indicated. Greater than 0.5 ng/mL Consistent with diagnosis of NV 29 cc pmd PLEASE RUN STAT CALL DR DUNIA ESPINOZA [phone] EX 249 THANKS 30 Because ethnic data [...] [address]: Uche Duque MD Acct: [id number] Unit: [id number] AGE: 80 Location: [facility] Re08/03/15 SEX: F Status: REG REF SPEC: [id number] NEELAM: 08/03/[address] [facility] [address]: Uche Duque MD REQ: [id number] RECD: 08/03/15 STATUS: COMP _ SOURCE: URINE SPDESC: ORDERED: Urine Culture Procedure Result Verified Site Urine Culture Final 08/05/15- 1119 ML Organism 1 ESCHERICHIA COLI [place] Count >100,000 (Many) CFU/ML 1. ESCHERICHIA COLI [...] antibiotic reporting. * ML - MAIN LAB ([facility]) . END OF REPORT * ML=Testing performed at Main Lab DEPARTMENT OF PATHOLOGY, [address] [place] [address] Julius Herman M.D. Director [facility] # [id number] 43 SEE RESULT BELOW Name: BLANCA TINOCO Allyson : [address]: Andrew Aldridge MD Acct: [id number] Unit: [id number] AGE: 80 Location: [facility] Re05/17/15 SEX: F Status: DEP ER SPEC: [id number] NEELAM: 05/17/15-[address] [facility] [address]: Andrew Aldridge MD REQ: [id number] RECD: 05/18/157661 STATUS: JASMYNE HARMAN DR: Uche Duque MD _ SOURCE: URINE SPDESC: ORDERED: Urine Culture Procedure Result Verified Site Urine Culture Final 05/20/15- 08 ML Organism 1 ESCHERICHIA COLI [place] Count >100,000 (Many) CFU/ML 1. ESCHERICHIA COLI [...] ML - MAIN LAB ([facility]) . END OF REPORT * ML=Testing performed at Main Lab DEPARTMENT OF PATHOLOGY, [address] [place] [address] Julius Herman M.D. Director [facility] # [id number] 44 Because ethnic data is not always [...] 0.03 ng/mL Not supportive of diagnosis of NV 0.03 - 0.50 ng/mL Indeterminate: suggest serial studies if clinically indicated. Greater than 0.5 ng/mL Consistent with diagnosis of NV 49 FASTING 12 HOUR 50 FASTING 12 [...] levels within this range. Test Performed by: [place] [address] Basketball Coach: Emmett Brand III, M.D. 57 PT IS [...] than 189 MG/DL 73 RUN DATE: 06/03/12 [facility] NMI LIVE PAGE 1 RUN TIME: 942 Specimen Inquiry RUN USER: INTERFACE Name: BLANCA TINOCO Status: REG REF Re06/01/12 Age/Sex: 77/F Unit#: [id number] [facility] [birth year] SPEC #: [id number] NEELAM: 06/01/12-1249 STATUS: COMP REQ #: [id number] RECD: 06/01/12-[address]: Hira OROZCO,Catrachita Mccall SOURCE: URINE ENTR: 06/01/12-[address]: LANDEN: ORDERED: URINE C S QUERIES: MEDENT REQUISITION # [id number] SPECIMEN DESCRIPTION: URINE, RANDOM ACT WKST: UR 06/03/12 #1 Procedure Result Verified Site > URINE CULTURE SENSITIVI Final 06/03/12- 942 ML FINAL: NO GROWTH DAY 2 (<1,000 CFU/mL) ML - [facility] Permit #[id number] [address] [place] [address] DEPARTMENT OF PATHOLOGY, [address] [place] [address] [facility] Permit #[id number] May De Los Santos M.D. Slurry Tank Tender Procedures Date CPT Code Description Status Comment 06/15/2018 17171 Mobile Cardiovascular Telemetry Completed Over 24 HR Up To 30 Days 02/02/2018 68720 EKG Tracing & Interpretation Completed 12/15/2017 94281 EKG Tracing & Interpretation Completed 10/13/2017 73554 ECHO Transthoracic, Real-Time 2D Completed With Doppler And Color Flow 10/13/2017 13773 ECHO Transthoracic, Real-Time 2D Completed With Doppler And Color Flow 08/23/2017 52859 Holter Monitor Review (24 hr)dr Completed review & interp only 08/17/2017 91575 ECG Monitor/Recording W/Visual Completed Superimposition Scanning 07/26/2017 19348 ECHO Stress Test Incl Perf Completed Contiuous ekg Monitoring W/Phys Superv 07/26/2017 55359 ECHO Stress Test Incl Perf Completed Contiuous ekg Monitoring W/Phys Superv 07/20/2017 13240 EKG Tracing & Interpretation Completed 06/09/2017 87089 Echocardiography, Transesophageal, Completed Real Time W/Image 2D W/W/O M-M 06/09/2017 17049 Pulse Wave/Continuous-Interp.RPT Completed 06/09/2017 87611 Color Flow Doppler/Interp & Reprt Completed 06/09/2017 82381 Moderate Sedation Services; Same Completed Phys Intl 15 Mins; PT >=5 Years 06/09/2017 27540 Moderate Sedation Services; Same Completed Phys Each Additional 15 Mins 05/17/2017 87779 Echocardiography, Transesophageal, Completed Real Time W/Image 2D W/W/O M-M 05/11/2017 76905 ECHO Transthoracic, Real-Time 2D Completed With Doppler And Color Flow 04/06/2017 Bone Mineral Density Test Completed 02/21/2017 79379 EKG Tracing & Interpretation Completed 09/12/2016 26924 EKG Tracing & Interpretation Completed 07/27/2016 90072 EKG Tracing & Interpretation Completed 07/07/2016 58177 EKG Tracing & Interpretation Completed 11/16/2015 11460 ECHO Transthoracic, Real-Time 2D Completed With Doppler And Color Flow 11/10/2015 57006 EKG Tracing & Interpretation Completed 05/12/2015 75554 Left Heart Cath. Incl S/I Completed Coronaries, Angio S/I V Gram If Done 05/07/2015 49449 EKG Tracing & Interpretation Completed 04/15/2015 22390 ECHO Transthoracic, Real-Time 2D Completed With Doppler And Color Flow 03/23/2015 92681 EKG Tracing & Interpretation Completed 01/30/2015 76588 Treadmill Interp/Report Only Completed 01/30/2015 70515 Stress Test Supervsn W/Out I/R Completed 11/26/2013 99582 ECHO Transthoracic, Real-Time 2D Completed With Doppler And Color Flow 11/12/2013 Bone Mineral Density Test Completed 10/30/2013 69891 EKG Tracing & Interpretation Completed 12/24/2012 90374 EKG Tracing & Interpretation Completed 11/13/2012 05386 Stress ECHO Interpretation/Report Completed Hospital 11/13/2012 11088 Treadmill Interp/Report Only Completed 11/13/2012 60190 Stress Test Supervsn W/Out I/R Completed 10/11/2012 36153 Holter Monitoring 24 HR New Completed 09/14/2012 61438 ECHO Transthoracic, Real-Time 2D Completed With Doppler And Color Flow 09/12/2012 92289 ECHO Stress Test Incl Perf Completed Contiuous ekg Monitoring W/Phys Superv 09/12/2012 24370 ECHO Stress Test Incl Perf Completed Contiuous ekg Monitoring W/Phys Superv 09/12/2012 44704 ECHO Stress Test Incl Perf Completed Contiuous ekg Monitoring W/Phys Superv 09/03/2012 43619 EKG Tracing & Interpretation Completed 08/30/2012 11250 EKG Tracing & Interpretation Completed 07/30/2012 86086 Rad Exam; Foot Comp Completed 07/30/2012 45344 Xray Knee 3 Views Completed 07/30/2012 10406 Rad Exam; Knee, Ap&L Completed 05/14/2012 79385 Rad Exam; Foot Comp Completed 10/02/2010 Bone Mineral Density Test Completed normal per patient 10/02/2007 Colonoscopy Completed normal Encounters Type Date Location Provider CPT E/M Dx Office Visit 07/16/2018 9:50a [facility] Internal Medicine Uche Duque M.D. 29331 R30.0 - Sarah N30.01 F51.04 Office Visit 05/30/2018 11:10a [facility] Internal Medicine Uche Duque, 29406 Z00.01 - Sarah Olvera Z23 R09.89 Office Visit 04/18/2018 9:00a [facility] [place] [address] I10 Office Visit 03/23/2018 11:30a [place] [facility] Serene Orta, 32992 I42.9 N.P. I34.0 I10 I47.1 Office Visit 03/21/2018 2:00p [facility] Internal Medicine - Uche Duque M.D. 13845 R21 Sarah F41.9 Office Visit 03/01/2018 11:50a [facility] Internal Medicine Uche Duque M.D. 10878 F41.9 - [place] M17.9 Office Visit 02/02/2018 3:40p [facility] José Madden M.D. 45715 I10 I34.0 I42.9 I47.1 I27.20 I25.10 Office Visit 01/05/2018 11:30a [place] [facility] Serene Orta N.PCelso 36357 I10 I34.0 I42.9 I47.1 I27.20 E78.00 I25.10 Office Visit 12/15/2017 1:20p [facility] José Madden M.D. 77588 I10 I34.0 I42.9 I25.10 E78.00 I27.20 I47.1 Office Visit 10/26/2017 10:10a [facility] Internal Medicine - Uche Duque 86511 M17.9 Sarah Olvera Office Visit 10/18/2017 10:00a [facility] PALAK Alonso 14648 I10 I42.9 I34.0 I25.10 E78.00 Office Visit 09/13/2017 10:50a [facility] Internal Medicine Uche Duque M.D. 65429 F41.9 - [place] Z23 Office Visit 08/16/2017 11:30a [facility] PALAK Alonso 79356 I34.0 I42.9 I10 Office Visit 07/20/2017 3:20p [facility] José Madden M.D. 06356 I34.0 I42.9 I44.7 G47.9 Office Visit 05/18/2017 2:00p [facility] [place] [address] R06.83 Services Of [facility] R35.1 R68.2 R40.0 Office Visit 05/15/2017 2:30p [place] [facility] PALAK Alonso 01009 I42.9 I34.0 Office Visit 05/10/2017 11:30a [facility] Internal Medicine Uche Duque 77303 K57.30 - Sarah Olvera F41.9 G47.9 Office Visit 03/29/2017 11:10a [facility] Internal Medicine Uche Duque, 77168 Z00.01 - Sarah Olvera F41.9 L30.9 E03.9 E78.5 M85.89 G47.00 K59.00 Office Visit 03/13/2017 1:20p [facility] Internal Medicine Uche Duque, 26204 M25.551 - Sarah Olvera Office Visit 02/21/2017 1:20p [facility] José Madden, 44608 I42.9 May R94.31 I10 R53.83 G47.9 Office Visit 12/29/2016 11:50a [facility] Internal Medicine Uche Duque M.D. 78552 F41.9 - Sarah R30.0 L08.9 Office Visit 12/08/2016 1:40p [facility] Internal Medicine Uche Duque M.D. 34679 F41.9 - [place] Office Visit 11/16/2016 11:10a [facility] Internal Medicine Uche Duque M.D. 16839 I10 - [place] G47.00 F41.9 Office Visit 09/12/2016 11:00a [facility] PALAK Alonso 25848NMS I42.9 F41.9 R53.83 E78.5 Office Visit 07/27/2016 2:40p [facility] Internal Medicine Uche Duque, 47937 R07.89 - Sarah Olvera F41.9 Office Visit 07/07/2016 10:00a [facility] José Madden, 96317 I42.9 Yi Olvera I34.0 E78.5 R53.83 I10 Office Visit 03/31/2016 12:40p [facility] Medicine Adry Doran M.D. 79685 F41.9 - [place] R21 Office Visit 12/31/2015 11:50a [facility] Internal Medicine Christiana Duque M.D. 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 02697 401.9 786.50 794.31 424.0 307.49 Office Visit 02/04/2015 9:50a [facility] Internal Medicine Uche Duque 16386 535.00 - Mandy Olvera 401.1 272.2 300.09 Office Visit 01/30/2015 10:44a [facility] Julia Jensen 75998 786.50 [facility] May 789.06 244.9 401.9 Office Visit 01/29/2015 10:43a [facility] Julia Jensen 09522 786.50 [facility]oc[facility] Hospitalists May 789.06 244.9 401.9 Office Visit 12/18/2014 2:30p [facility] Internal Medicine Uche Duque M.D. 14703 V70.0 - [place] 272.2 311 300.00 401.1 V03.82 V72.31 Office Visit 08/18/2014 12:10p [facility] Internal Medicine Uche Duque M.D. 05209 472.0 - [place] V04.81 300.00 Office Visit 01/08/2014 2:50p [facility] Internal Medicine Uche Duque 28943 733.90 - Mandy Olvera 300.00 Office Visit 12/12/2013 12:10p [facility] Internal Medicine - Uche Duque M.D. 81760 311 [place] 733.90 Office Visit 10/30/2013 11:20a [facility] José Madden M.D. 60338 401.9 424.0 311 276.8 794.31 785.1 Office Visit 10/28/2013 2:10p [facility] Internal Medicine Uche Duque 74572 300.00 - Mandy Olvera 311 401.9 682.9 244.8 V49.81 782.1 Office Visit 07/10/2013 1:50p [facility] Internal Medicine Nurse Visit C 95933 401.9 - [place] Office Visit 06/27/2013 1:50p [facility] Internal Medicine Uche Duque M.D. 01462 401.9 - [place] 276.8 272.2 300.00 V04.81 Office Visit 02/13/2013 11:10a [facility] Internal Medicine Uche Duque 25486 338.19 - Mandy Olvera Office Visit 02/06/2013 2:50p [facility] Internal Medicine Uche Duque 22592 401.9 - Mandy Olvera 311 272.2 300.00 Office Visit 12/24/2012 11:20a [facility] José Madden M.D. 28492 401.9 311 276.8 785.1 Office Visit 12/14/2012 11:00a [facility] [place] [address] 401.9 Office Visit 12/11/2012 1:50p [facility] Internal Medicine - Uche Duque 58006 401.9 Mandy Olvera 311 300.00 272.2 276.8 Office Visit 11/27/2012 11:00a [facility] Nurse Visit 66309 401.1 Office Visit 11/13/2012 11:30a [facility] José Madden, 22314 794.31 M.DCelso 425.4 401.1 786.50 Office Visit 09/12/2012 1:30p [facility] José Madden M.D. 48850 785.1 794.31 786.50 Office Visit 09/03/2012 2:20p [facility] José Madden, 98113 794.31 M.DCelso 401.9 785.1 Office Visit 08/30/2012 1:50p [facility] Medicine Uche Duque M.D. 96077 401.9 - [place] 794.31 470 311 Office Visit 08/06/2012 1:50p [facility] Medicine Uche Duque M.D. 78090 401.9 - [place] 054.9 Office Visit 07/30/2012 11:15a [facility] Migue Lopez M.D. 96052 355.6 Of Vi Office Visit 07/12/2012 1:30p [facility] Rene Brar 17759 719.47 Of Valery Abbott Office Visit 07/03/2012 1:10p [facility] Medicine Uche Duque M.D. 02225 V70.0 - [place] 788.43 311 300.00 272.2 796.2 586 Office Visit 06/01/2012 11:30a [facility] Medicine Catrachita Iniguez N.PCelso 62792 788.1 - [place] 599.0 Office Visit 05/28/2012 2:30p [facility] Of Migue Lopez 77116 733.94 Vi Olvera Office Visit 05/14/2012 10:00a [facility] Of Migue Lopez 75430 719.47 Vi Olvera Office Visit 04/10/2012 11:45a [facility] Internal Medicine Uche Duque 06916 924.11 - Mandy Olvera 627.2 Office Visit 03/19/2012 2:00p [facility] Internal Medicine - Uche Duque M.D. 59243 311 [place] 627.2 780.52 735.4 Plan of Care Future Appointment(s):09/17/2018 11:00 am - [place] [facility] Schedule at [facility]09/28/2018 2:00 pm - José Madden M.D. at [facility]03/2018 10:10 am - Uche Duque M.D. at [facility] Internal Medicine - Gbmjdemao08/ 29/2018 - Serene Orta N.P.I48.0 Paroxysmal atrial [...] and give you more energy.E78.00 Pure hypercholesterolemia, yjljvihzdniS64.0 Nonrheumatic mitral (valve) uyaqzjnlrcrxuM58.9 Cardiomyopathy, unspecified
--- NOTE | 2018-08-20 19:49 | ED ---
Abdominal Pain/Female - HPI Summary HPI Summary: An 83 y/o female presents to the ED c/o intermittent diarrhea since 08/11/2018. She rates her pain as 4/10. The pt admits to having left abd pain but denies fever. She has a Hx of diverticulosis. She was in the ED one month ago for similar symptoms when she was diagnosed with a UTI. She notes that after her ED visit one month ago she has been feeling more fatigued, rarely leaving the house. When she followed up with Dr. Green, she was told this may be due to her not taking her abx for her UTI. When in the ED one month ago she did not give a urine sample. - History of Current Complaint Chief Complaint: EDAbdPain Stated Complaint: DIARRHEA Time Seen by Provider: 08/20/18 19:27 Hx Obtained From: Patient Hx Last Menstrual Period: "years ago." Onset/Duration: Sudden Onset, Lasting Weeks, Still Present Timing: Intermittent Episode Lasting Severity Initially: Moderate Severity Currently: Moderate Pain Intensity: 4 Pain Scale Used: 0-10 Numeric Location: Discrete At: LLQ Radiates: No Associated Signs and Symptoms: Positive: Diarrhea Allergies/Adverse Reactions: Allergies Allergy/AdvReac Type Severity Reaction Status Date / Time doxycycline Allergy Unknown Unknown Verified 08/20/18 19:18 Reaction Details erythromycin base Allergy Unknown Unknown Verified 08/20/18 19:18 Reaction Details PMH/Surg Hx/FS Hx/Imm Hx Endocrine/Hematology History: Reports: Hx Anticoagulant Therapy - ASA daily for general health., Hx Thyroid Disease - per pt, hypo thyroid Denies: Hx Diabetes, Other Endocrine/Hematological Disorders Cardiovascular History: Reports: Hx Angina, Hx Hypertension, Hx Valvular Heart Disease - Mitral regurgitation Denies: Hx Congestive Heart Failure, Hx Coronary Artery Disease, Hx Deep Vein Thrombosis, Hx Myocardial Infarction, Hx Pacemaker/ICD Respiratory History: Denies: Hx Asthma, Hx Chronic Obstructive Pulmonary Disease (COPD), Hx Lung Cancer, Hx Pneumonia, Hx Pulmonary Embolism GI History: Denies: Hx Gall Bladder Disease, Hx Gastrointestinal Bleed, Hx Ulcer, Hx Urosepsis History: Reports: Other Problems/Disorders - UTI Denies: Hx Kidney Stones, Hx Renal Disease Musculoskeletal History: Reports: Other Musculoskeletal History - Lichens Sclerosa Denies: Hx Osteoporosis Sensory History: Reports: Hx Contacts or Glasses Denies: Hx Deafness, Hx Hearing Aid, Other Sensory Impairments Opthamlomology History: Reports: Hx Contacts or Glasses Denies: Other Sensory Impairments Neurological History: Denies: Hx Dementia, Hx Migraine, Hx Seizures, Hx Transient Ischemic Attacks (TIA) Psychiatric History: Reports: Hx Anxiety, Hx Depression Denies: Hx Schizophrenia, Hx Bipolar Disorder - Surgical History Surgery Procedure, Year, and Place: hysterectomy. BILAT BREAST LUMPECTOMY- cysts - Immunization History Date of Tetanus Vaccine: UNKNOWN Date of Influenza Vaccine: JULY 2014 Infectious Disease History: No Infectious Disease History: Denies: Hx Clostridium Difficile, Hx Hepatitis, Hx Human Immunodeficiency Virus (HIV), Hx of Known/Suspected MRSA, Hx Shingles, Hx Tuberculosis, Hx Known/ Suspected VRE, Hx Known/Suspected VRSA, History Other Infectious Disease, Traveled Outside the [place] in Last 30 Days - Family History Known Family History: Positive: Hypertension Negative: Cardiac Disease - Social History Alcohol Use: Rare Hx Substance Use: No Substance Use Type: Reports: None Hx Tobacco Use: No Smoking Status (MU): Never Smoked Tobacco Have You Smoked in the Last Year: No Review of Systems Positive: Fatigue Positive: Abdominal Pain - left, Diarrhea All Other Systems Reviewed And Are Negative: Yes Physical Exam - Summary Physical Exam Summary: VITAL SIGNS: Reviewed. GENERAL: Patient is a well-developed and nourished FEMALE who is lying comfortable in the stretcher. Patient is not in any acute respiratory distress. HEAD AND FACE: No signs of trauma. No ecchymosis, hematomas or skull depressions. No sinus tenderness. EYES: PERRLA, EOMI x 2, No injected conjunctiva, no nystagmus. EARS: Hearing grossly intact. Ear canals and tympanic membranes are within normal limits. MOUTH: Oropharynx within normal limits. NECK: Supple, trachea is midline, no adenopathy, no JVD, no carotid bruit, no c- spine tenderness, neck with full ROM. CHEST: Symmetric, no tenderness at palpation LUNGS: Clear to auscultation bilaterally. No wheezing or crackles. CVS: Regular rate and rhythm, S1 and S2 present, no murmurs or gallops appreciated. ABDOMEN: Soft, LLQ tenderness. No signs of distention. No rebound no guarding, and no masses palpated. Hyperactive bowel sounds. EXTREMITIES: FROM in all major joints, no edema, no cyanosis or clubbing. NEURO: Alert and oriented x 3. No acute neurological deficits. Speech is normal and follows commands. SKIN: Dry and warm Triage Information Reviewed: Yes Vital Signs On Initial Exam: Initial Vitals Temp Pulse Resp BP Pulse Ox 97.6 F 81 16 130/81 99 08/20/18 19:13 08/20/18 19:13 08/20/18 19:13 08/20/18 19:13 08/20/18 19:13 Vital Signs Reviewed: Yes Diagnostics - Vital Signs Vital Signs Temp Pulse Resp BP Pulse Ox 08/20/18 19:13 97.6 F 81 16 130/81 99 - Laboratory Result Diagrams: 08/20/18 19:57 08/20/18 19:56 Lab Statement: Any lab studies that have been ordered have been reviewed, and results considered in the medical decision making process. - CT abdomen/pelvis CT Interpretation Completed By: Radiologist - 1. Wall thickening in the sigmoid colon, possibly due to under distention. Colitis less likely. Diverticulosis coli. No convincing evidence of diverticulitis, but assessment is limited by motion artifact and lack of oral contrast. 2. Small bilateral pleural effusions, decreased since prior. ED physician has reviewed this imaging report. Re-Evaluation - Re-Evaluation First Eval Re-Evaluation Time: 23:30 Change: Improved Comment: Pt is feeling better Abdominal Pain Fem Course/Dx - Course Course Of Treatment: An 83 y/o female presents to the ED c/o intermittent diarrhea since 08/11/2018. She rates her pain as 4/10. The pt admits to having left abd pain but denies fever. She has a Hx of diverticulosis. She was in the ED one month ago for similar symptoms when she was diagnosed with a UTI. She notes that after her ED visit one month ago she has been feeling more fatigued, rarely leaving the house. When she followed up with Dr. Green, she was told this may be due to her not taking her abx for her UTI. When in the ED one month ago she did not give a urine sample. Her PE was remarkable with LLQ tenderness and hyperactive bowel sounds. Her abdomen/pelvis CT impression was: 1. Wall thickening in the sigmoid colon, possibly due to under distention. Colitis less likely. Diverticulosis coli. No convincing evidence of diverticulitis, but assessment is limited by motion artifact and lack of oral contrast. 2. Small bilateral pleural effusions, decreased since prior. The pt had no diarrhea in the ED. She does not have leukocytosis. Her CT results are secondary to underdistention of the colon, less likely diverticulosis. The patient was treated to two courses of Abx for UTI. Pt was advised to have PCP follow up with her urine culture. Pt does not require new abx at this time. Dx: diarrhea. The patient will be discharged and is agreeable with this plan. - Diagnoses Provider Diagnoses: Diarrhea Discharge - Sign-Out/Discharge Documenting (check all that apply): Patient Departure - DC - Discharge Plan Condition: Stable Disposition: HOME Patient Education Materials: Acute Diarrhea (ED) Referrals: Rissa Green MD [Primary Care Provider] - (1-2 days) Additional Instructions: HAVE YOUR PCP FOLLOW UP WITH YOUR URINE CULTURE. RETURN TO THE EMERGENCY DEPARTMENT FOR CHANGING OR WORSENING SYMPTOMS. FOLLOW UP WITH PCP IN 1-2 DAYS. - Attestation Statements Document Initiated by Scribe: Yes Documenting Scribe: Shaun Katz Provider For Whom Scribe is Documenting (Include Credential): Sameer Stubbs MD Scribe Attestation: Shaun Connor, scribed for Sameer Stubbs MD on 08/21/18 at 0027.
[2018-08-20 20:03] LABS: ABS Basophils 0.1 10^3/ul (0-0.2); ABS Eosinophils 0.2 10^3/ul (0-0.6); ABS Monocytes 0.5 10^3/ul (0-0.8); ABS Neutrophils 2.8 10^3/ul (1.5-7.7); ABS Nucleated RBC 0 10^3/ul; Eosinophil % 3.5 % (0-6); Hematocrit 35 % (35-47); Hemoglobin 11.3 g/dl (12.0-16.0); Lymphocyte % 22.2 % (25-47); Mean Corpuscular HGB Conc 33 g/dl (31-36); Mean Corpuscular Hemoglobin 28 pg (27-31); Mean Corpuscular Volume 84 fL (80-97); Mean Platelet Volume 8.4 fL (7.4-10.4); Nucleated Red Blood Cells % 0.2; Platelet Count 188 10^3/ul (150-450); Red Cell Distribution Width 16 % (10.5-15); White Blood Count 4.5 10^3/ul (3.5-10.8)
[2018-08-20 20:12] LABS: INR 0.96 (0.77-1.02)
[2018-08-20 20:28] LABS: EGFR Non-African American 70.2 (>60)
[2018-08-20 23:37] LABS: Urine Appearance Clear; Urine Blood Negative (Negative); Urine Color Yellow; Urine Ketones Negative (Negative); Urine Protein Negative (Negative); Urine Red Blood Cell Absent (Absent); Urine Specific Gravity 1.016 (1.010-1.030); Urine Urobilinogen Negative (Negative); Urine White Blood Cell 2+(11-20/hpf) (Absent)
[2018-08-21 00:14] VITALS: BP 136/90
== END | disposition home or self-care (01) ==
LOC: ED 19:07
DX: R19.7 Diarrhea, unspecified (principal); R53.83 Other fatigue; J90 Pleural effusion, not elsewhere classified; Z79.82 Long term (current) use of aspirin; Z90.710 Acquired absence of both cervix and uterus; Z88.1 Allergy status to other antibiotic agents
CPT/HCPCS: 36415; 74177; 80053; 81003; 81015; 83605; 83690; 83735; 85025; 85610; 85730; 86140; 87086; 99283; Q9967

== ENCOUNTER 2018-09-02 20:52 | Inpatient (IN) | payer MEDICARE, BC ==
--- OUTSIDE RECORDS SUMMARY | 2018-09-02 21:12 | XMS REPORT | Continuity of Care Document ---
:1935 External Reference #:[id number] Author Name Ann Mack Care Team Providers Name Role Phone Uche Duque MD Primary Care Physician Unavailable Payers Type Date Identification Numbers Payment Provider Subscriber Policy Number: [id number] Medicare Blanca Tinoco PayID: [id number] [address] [place] [address] Effective: 2017 Policy Number: [id number] [place] Justa Tinoco Group Number: [id number] [address] [address] PayID: [id number] LANNY Claudio [id number] Expires: 2014 Policy Number: Eliot Tinoco [id number] Group Number: [id number] [address] [address] PayID: [id number] LANNY Claudio [id number] Advance Directives Type Date Description Status Comment [facility] 12/18/2014 [facility] Current and Verified Problems Date Description Provider Status Onset: 04/10/2012 [...] 05/18/2015 Postoperative Wound Closure Shaun Cottrell M.D., [facility], Active Encounter [facility] Onset: Cardiomyopathy Active Note: non ischemic Onset: 07/27/2016 Anxiety disorder Uche Duque M.D. Active Onset: 03/20/2014 Osteopenia Uche Duque M.D. Active Onset: 05/10/2017 Diverticular disease of colon Uche Duque M.D. Active Note: scattered diverticuli of L colon sigmoid colon Onset: 05/10/2017 Hiatal hernia Uche Duque [...] () Social History Type Date Description Comments Sex Unknown Marital Status Lives With Alone in fall 2010 in [facility]. relocated to [place] to be near her son 5.12 Primary occasional caregiver for her during prolonged terminal illness; stressful for patient. Occupation Retired Occupation Homemaker ETOH Use Rarely consumes alcohol Recreational Drug Use Denies Drug Use Tobacco Use Start: Unknown Patient has never smoked Smoking Status Reviewed: 08/28/18 Patient has never smoked Exercise Type/Frequency Exercises regularly Exercise Type/Frequency walks regularly every day Currently Active Patient is currently not sexually active Allergies, Adverse Reactions, Alerts Date Description Reaction Status Severity Comments 03/19/2012 Erythromycin confusion Active 03/19/2012 Doxycycline Active nausea 12/13/2016 Sulfamethoxazole nausea Active Medications Medication Date Status Form Strength Qnty SIG Indications Ordering Provider Amlodipine 08/28 Active Tablets 5mg 90tab 1 by mouth Uche Besylate s every day May Duque Amiodarone HCL 07/30 Active Tablets 100mg 45tab take 2 tabs I48.0 Serene S. /2017 s by mouth Foster, daily for 2 N.P. weeks then 1 tab daily. Shingrix 07/16 Active Suspension 50mcg/0.5 1unit intramuscul Rec ML s ar x 1 then Dunia, repeat in 4 M.D. months Zolpidem 07/16 Active Tablets 5mg 30tab 1 tab at F51.04 Uche Tartrate s bedtime as Dunia, needed for M.D. sleep Eliquis 07/05 Active Tablets 2.5mg 60tab 1 tablet by Uche s mouth twice Duque, a day. M.D. [...] Tablets 40mg 90tab Take One F41.9 Gonsalo E. s Tablet By Wendy Mouth Every M.D. Day Along With 10MG Daily Multi For Her Active Capsules 1 po qd Unknown /0000 Calcium Active Tablets 1000mg 1 PO qd Unknown Metamucil Active Capsules 0.52gm 3 caps Unknown /0000 daily with water bid Fiber Active Tablets 2-4 tabs as Unknown /0000 needed daily increase up to twice a [...] José Besylate s every day F. - use, 10/18.D Valsartan 08/16 Hx Tablets 40mg 30tab Pt stopped I42.9 s this med, F. - states is Okuser, 10/18 causes M.. anxiety---- 1 by mouth every day Nitroglycerin 07/26 Hx Patches 0.2mg/HR 90uni apply 1 24HR ts patch every F. - in the [place], 03/01 morning off M.D. at night hold as of 5.5.18 Mometasone 03/29 Hx Cream 0.1% 45gm apply to L30.9 Uche Fur affected Duque, - areas twice M.D. 08 a day days only Amlodipine 02/21 Hx Tablets 5mg 90tab 1 by mouth I10 José Besylate s every day F. - [place], 08/16.D. Bacitracin 12/29 Hx Ointment 500Unit/G 14gm apply [...] Hx Tablets ER 3mg 30tab once at [facility] ) s night Dunia, [...] Tablets 1mg 30tab Not Taking G47.09 Uche /2016 s Christiana Duque.Prabhakar 07/27 Atorvastatin 12/09 Hx Tablets 10mg 30tab 1 by mouth E78.5 José Calcium s every night F. - hold as of Maryanne, 07/07 10.6.16 M.D. Metoprolol 11/10 Hx Tablets ER 25mg 90tab Stopped José Succinate ER 24HR s Taking 1/2 F. - by mouth Maryanne 02/21 every day( .D not taking at this time) Azo Urinary Pain 08/03 Hx Tablets 97.5mg Uche Relief Dunia, Strength - M.DCelso 11/10 Sulfamethoxazole 08/03 Hx Tablets 800-160mg 14tab 1 by mouth N30.00 Uche /Trimethoprim s twice a day Christiana Duque.Prabhakar 11/10 Alprazolam 06/22 Hx Tablets 0.5mg 30tab 1-2 tab as F43.22 Uche /2015 s needed for Dunia - anxiety M.D. 11/16 Trazodone HCL 06/03 Hx Tablets 100mg 60tab Take 1 & s 1/2 Tablets Dunia, - By Mouth M.D. 12/30 Every Night AT Bedtime Metoprolol 05/08 Hx Tablets ER 25mg 30tab 1/2 tablet José Succinate ER 24HR s once a day F. - Maryanne, 11/09 M.D. Lunesta 04/21 Hx Tablets 2mg 30tab 1/2 to 1 Uche /2015 s tab by Dunia, - mouth at M.D. 06/22 bedtime needed Lunesta 04/08 Hx Tablets 1mg 60tab 1 to 2 Uche /2015 s tablets at Dunia, - bedtime as M.D. 04/21 needed sleep. Amlodipine 04/06 Hx Tablets 5mg 90tab 1 by mouth I10 Uche Bes s every day Christiana Duque M.DCelso 11/16 Alprazolam 04/06 Hx Tablets 0.25mg 30tab 1 tab by 300.09 Dispers s mouth as Dunia - needed M.DCelso 06/22 Atorvastatin 02/04 Hx Tablets 10mg 90tab 1 by mouth 272.2 Uche s every day Christiana Duque M.D. 08/03 Aspirin 81 10/[address] 81mg po qd Flaquita Madden, 07/30.D. Keflex 10/28 Hx Capsules 250mg 14cap 1 po bid 682.9 s Christiana Duque M.D. 11/08 Aspirin 10/02 Hx Tablets 325mg 1 po qd Ordering - Provider 10/30 Levothroid 09/06 Hx Tablets 100mcg 30tab 1 by mouth Uche /2013 s every day Christiana Duque M.D. 11/26 Triamcinolone 06/27 Hx Cream 0.1% 30gm apply twice [facility] Acetonide a day x 10 Dunia, - [...] po qd José Besylate s Flaquita Madden, 12/24 M.D. Lisinopril 08/30 Hx Tablets 10mg 90tab 1 po qd 401.9 Uche /2012 s Christiana Duque M.D. 09/03 Lisinopril 08/06 Hx Tablets 5mg 30tab 1 po qd 401.9 Uche /2012 s Christiana Duque M.D. 09/03 Acyclovir 08/06 Hx Tablets 400mg 21tab 1 tab tid X 054.9 Uche /2012 s 7 days Christiana Duque M.D. 08/30 Alprazolam 07/03 Hx Tablets 0.25mg 30tab 1 tab by s mouth as Dunia, - needed for M.D. 04/06 once a day Bactrim DS 06/01 Hx Tablets 800-160mg 6tabs twice daily 599.0 Catrachita /2011 for 3 days Hira, - N.P. 07/03 Pyridium 06/01 Hx Tablets 200mg 6tabs 1 tab tid 599.0 Catrachita /2011 after Hira, - meals, max N.P. 06/01 2 days /2011 Estradiol 05/27 Hx Tablets 0.5mg 30tab qod [...] Tablets 0.5mg 10tab 1 po bid Unknown / s prn - 07/03 Retin-A Hx Cream 0.1% 1unit apply as s directed to Dunia, - affected M.D. 07/03 area once daily Omeprazole Hx Capsules DR 20mg 90cap 1 po qd Unknown s - 03/19 Oxybutynin Hx Tablets 5mg 270ta 1 po bid Unknown bs - 03/19 Mupirocin Hx Ointment 2% 44gm apply to skin - lesions 04/10 twice daily Levothroid Hx Tablets 0.1mg 30tab 1 po qd Valentin s Christiana Montes M.D.,FACP 09/06 Red Rice Yeast /00 Hx 600mg 1 po qd Unknown /0000 - 12/11 [place] 3 00/ Hx Capsules 90cap po qd Unknown /0000 s - 12/11 Fish Oil Hx Capsules 1000mg 90cap 1 po qd Unknown /0000 s - 12/08 Vitamin E-400 / Hx Capsules 400Unit 1 po Unknown /0000 occasionall - y 11/16 Aspirin 00/[address] 325mg 30tab 1/2 tablet [...] - twice a day 12/30 on arms, 2016 thighs Trazodone HCL Hx 100mg 60uni 1and a half Uche /0000 ts tablet Dunia, - tablet at M.DCelso 06/03 bedtime /2014 Vitamin B12 /00 Hx 1 tablet po Unknown /0000 occasional - 11/16 Co Q 10 Hx 200mg 1 tablet José / daily Flaquita Madden, 02/20 M.DCelso /2016 Relax & Sleep Hx Tablets Unknown /0000 - 02/20 Phenazopyridine 00 Hx Tablets 100mg Unknown HCL /0000 - 02/20 Sulfamethoxazole Hx Tablets 800-160mg Unknown /Trimethoprim DS /0000 - 02/20 Doxycycline 0000 Hx Capsules 100mg [place], Monohydrate /0000 Christiana Barnard MD 10/26 Trazodone HCL 00/00 Hx Tablets 100mg 1 1/2 tabs Wendy /0000 ravi IIIChristiana 08/28 MD Kaden Cefpodoxime Hx Tablets 200mg Take One Unknown Proxetil /0000 Tablet By - Mouth Every 08/28 Immunizations CPT Code Status Date Vaccine Lot # [id number] Given 05/30/2018 Pneumonia Vaccine [id number] Given 09/13/2017 Influenza Virus Vaccine, Quadrivalent, Split, [id number] Preservative Free [id number] Given 06/22/2015 Influenza Virus Vaccine, Quadrivalent, Split, [id number] Preservative Free [id number] Given 12/18/2014 Pneumococcal Conjugate Vaccine 13 Valent For [id number] Intramuscular Use 56211 Given 08/18/2014 Flu Vaccine Split Virus Preservative Free For [id number] Indiv 3Yr Older 22297 Given 06/27/2013 Flu Vaccine Split Virus Preservative Free For [id number] Indiv 3Yr Older 13769 Given 10/02/2008 Pneumonia Vaccine Vital Signs Date Vital Result Comment 08/28/2018 12:19pm Height 62 inches 5'2" Weight 121.00 lb Heart Rate 92 /min BP Systolic Sitting 128 mmHg BP Diastolic Sitting 78 mmHg O2 % BldC Oximetry 95 % BMI (Body Mass Index) 22.1 kg/m2 08/07/2018 10:11am Height 62 inches 5'2" Weight 121.00 lb Heart Rate 84 /min BP Systolic Sitting 116 mmHg BP Diastolic Sitting 78 mmHg Body Temperature 97.1 F O2 % BldC Oximetry 98 % BMI (Body Mass Index) 22.1 kg/m2 07/30/2018 2:02pm Weight 122.50 lb Heart Rate 80 /min BP Systolic Sitting 108 mmHg Rue regular cuff BP Diastolic Sitting 68 mmHg Rue regular cuff Ejection Fraction 35-40 echocardiogram 10/13/17 07/16/2018 9:41am Height 62 inches 5'2" Weight 122.00 lb Heart Rate 87 /min BP Systolic Sitting 134 mmHg BP Diastolic Sitting 86 mmHg O2 % BldC Oximetry 97 % BMI (Body Mass Index) 22.3 kg/m2 05/30/2018 11:24am Height 62 inches 5'2" Weight 124.00 lb Heart Rate 77 /min BP Systolic Sitting 118 mmHg BP Diastolic Sitting 82 mmHg O2 % BldC Oximetry 98 % BMI (Body Mass Index) 22.7 kg/m2 04/18/2018 8:53am Height 63 inches 5'3" Heart Rate 64 [...] mmHg standing right arm reg cuff 03/23/2018 10:58am Height 63 inches 5'3" Weight 129.00 lb No shoes Heart Rate 68 /min BP Systolic Sitting 162 mmHg Rue reg cuff BP Diastolic Sitting 92 mmHg Rue reg cuff BP Systolic Standing 152 mmHg Rue reg cuff BP Diastolic Standing 90 mmHg Rue reg cuff Respiratory Rate 17 /min BMI (Body Mass Index) 22.8 kg/m2 Ejection Fraction 35-40% 10/13/2017-echo 03/21/2018 1:33pm Height 63 inches 5'3" Weight 128.00 lb Heart Rate 79 /min BP Systolic Sitting 140 mmHg BP Diastolic Sitting 85 mmHg Body Temperature 97.4 F O2 % BldC Oximetry 98 % BMI (Body Mass Index) 22.7 kg/m2 03/01/2018 11:10am Height 63 inches 5'3" Heart Rate 78 /min BP Systolic Sitting 106 mmHg BP Diastolic Sitting 62 mmHg O2 % BldC Oximetry 96 % 02/02/2018 3:52pm Height 63 inches 5'3" Weight 129.00 lb pt scale Heart Rate 70 /min BP Systolic Sitting 112 mmHg L/A Reg Cuff BP Diastolic Sitting 70 mmHg L/A Reg Cuff BMI (Body Mass Index) 22.8 kg/m2 Ejection Fraction 35-40% echo 10/13/2017 01/05/2018 11:09am Height 63 inches 5'3" Weight 129.00 lb without shoes Heart Rate 88 /min BP Systolic Sitting 120 mmHg Rue reg cuff BP Diastolic Sitting 82 mmHg Rue reg cuff BP Systolic Standing 122 mmHg Rue reg cuff BP Diastolic Standing 84 mmHg Rue reg cuff Respiratory Rate 17 /min BMI (Body Mass Index) 22.8 kg/m2 Ejection Fraction 35-40% date 10/13/17 ECHO 12/15/2017 1:16pm Height 63 inches 5'3" Weight 131.50 lb without shoes Heart Rate 72 /min BP Systolic Sitting 122 mmHg LA, reg cuff BP Diastolic Sitting 78 mmHg LA, reg cuff BMI (Body Mass Index) 23.3 kg/m2 Ejection Fraction 35%-40% 10/13/17 10/26/2017 10:13am Weight 126.00 lb Heart Rate 77 /min BP Systolic Sitting 130 mmHg BP Diastolic Sitting 66 mmHg O2 % BldC Oximetry 97 % 10/18/2017 9:49am Height 62.5 inches 5'2.50" Weight 129.00 lb w/shoes Heart Rate 68 /min BP Systolic Sitting 136 mmHg LA reg cuff BP Diastolic Sitting 80 mmHg LA reg cuff BMI (Body Mass Index) 23.2 kg/m2 Ejection Fraction 35-40% Echo 10/13/17 09/13/2017 10:27am Weight 129.00 lb Heart Rate 69 /min BP Systolic Sitting 136 mmHg BP Diastolic Sitting 78 mmHg Body Temperature 97.5 F O2 % BldC Oximetry 98 % 08/16/2017 11:29am Height 62.5 inches 5'2.50" Weight 128.00 lb Heart Rate 68 /min BP Systolic Sitting 130 mmHg LA reg cuff BP Diastolic Sitting 76 mmHg LA reg cuff BMI (Body Mass Index) 23.0 kg/m2 Ejection Fraction 45%-50% echo 05/1807/20/2017 3:02pm Height 62.5 inches 5'2.50" Weight 127.00 lb w/o shoes Heart Rate 72 /min BP Systolic Sitting 122 mmHg LA reg cuff BP Diastolic Sitting 68 mmHg LA reg cuff BMI (Body Mass Index) 22.9 kg/m2 Ejection Fraction 45-50% Jerald 06/09/17 05/18/2017 2:16pm Height 62.5 inches 5'2.50" Weight 128.00 lb Heart Rate 72 /min BP Systolic Sitting 108 mmHg BP Diastolic Sitting 58 mmHg Respiratory Rate 14 /min O2 % BldC Oximetry 97 % BMI (Body Mass Index) 23.0 kg/m2 Neck Circumference in inches 12.5 05/15/2017 2:09pm Height 63 inches 5'3" Weight 128.00 lb No shoes Heart Rate 78 /min BP Systolic Sitting 144 mmHg Rue reg cuff BP Diastolic Sitting 86 mmHg Rue reg cuff Respiratory Rate 18 /min BMI (Body Mass Index) 22.7 kg/m2 Ejection Fraction 45-50% 05/11/2017-echo 05/10/2017 12:00pm Height 63 inches 5'3" Weight 127.00 lb Heart Rate 93 /min BP Systolic Sitting 150 mmHg BP Diastolic Sitting 80 mmHg Body Temperature 97.6 F O2 % BldC Oximetry 98 % BMI (Body Mass Index) 22.5 kg/m2 03/29/2017 11:39am Height 63 inches 5'3" Weight 130.50 lb Heart Rate 77 /min BP Systolic 114 mmHg BP Diastolic 70 mmHg Body Temperature 97.1 F O2 % BldC Oximetry 97 % BMI (Body Mass Index) 23.1 kg/m2 03/13/2017 1:16pm Heart Rate 77 /min BP Systolic Sitting 114 mmHg BP Diastolic Sitting 70 mmHg O2 % BldC Oximetry 98 % 02/21/2017 12:51pm Height 62.6 inches 5'2.60" Weight 130.25 lb w/o shoes Heart Rate 72 /min BP Systolic Sitting 122 mmHg LA reg cuff BP Diastolic Sitting 78 mmHg LA reg cuff BMI (Body Mass Index) 23.4 kg/m2 Ejection Fraction 55% Echo 11/16/15 12/29/2016 11:41am Weight 131.00 lb Heart Rate 74 /min BP Systolic Sitting 134 mmHg BP Diastolic Sitting 72 mmHg Respiratory Rate 15 /min Body Temperature 98.2 F O2 % BldC Oximetry 98 % 12/08/2016 1:40pm Heart Rate 76 /min BP Systolic Sitting 140 mmHg BP Diastolic Sitting 78 mmHg Body Temperature 97.4 F O2 % BldC Oximetry 97 % 11/16/2016 11:12am Weight 130.00 lb Heart Rate 71 /min BP Systolic Sitting 168 mmHg BP Diastolic Sitting 88 mmHg O2 % BldC Oximetry 98 % 09/12/2016 10:15am Height 62.5 inches 5'2.50" Weight 133.75 lb with boots Heart Rate 66 /min BP Systolic Sitting 126 mmHg LA reg cuff BP Diastolic Sitting 78 mmHg LA reg cuff BMI (Body Mass Index) 24.1 kg/m2 Ejection Fraction 55% echo 11/16/15 07/27/2016 2:40pm Height 62.5 inches 5'2.50" Weight 130.50 lb Heart Rate 75 /min BP Systolic Sitting 120 mmHg BP Diastolic Sitting 80 mmHg Body Temperature 97.1 F O2 % BldC Oximetry 98 % BMI (Body Mass Index) 23.5 kg/m2 07/07/2016 10:06am Height 62.5 inches 5'2.50" Weight 132.00 lb without shoes Heart Rate 80 /min BP Systolic Sitting 120 mmHg Ra reg cuff BP Diastolic Sitting 62 mmHg Ra reg cuff Respiratory Rate 17 /min BMI (Body Mass Index) 23.8 kg/m2 Ejection Fraction 55% date 11/16/15 ECHO 03/31/2016 12:51pm Height 62.5 inches 5'2.50" Heart Rate 76 /min BP Systolic Sitting 110 mmHg BP Diastolic Sitting 60 mmHg Body Temperature 97.9 F O2 % BldC Oximetry 98 % 12/31/2015 11:20am Height 62.5 inches 5'2.50" Weight 127.25 lb Heart Rate 70 /min BP Systolic Sitting 114 mmHg BP Diastolic Sitting 62 mmHg Body Temperature 96.8 F O2 % BldC Oximetry 98 % BMI (Body Mass Index) 22.9 kg/m2 12/10/2015 10:26am Height 62.5 inches 5'2.50" Weight 103.25 lb Heart Rate 65 /min BP Systolic Sitting 112 mmHg LA, regular cuff BP Diastolic Sitting 64 mmHg LA, regular cuff BMI (Body Mass Index) 18.6 kg/m2 Ejection Fraction 55% echo 11/16/15 11/10/2015 11:16am Height 62.5 inches 5'2.50" Weight 131.00 lb without shoes Heart Rate 68 /min BP Systolic Sitting 130 mmHg LA reg cuff BP Diastolic Sitting 60 mmHg LA reg cuff Respiratory Rate 16 /min BMI (Body Mass Index) 23.6 kg/m2 Ejection Fraction 45-50% date 04/15/15 ECHO 08/03/2015 12:33pm Weight 126.00 lb Heart Rate 85 /min BP Systolic Sitting 122 mmHg BP Diastolic Sitting 62 mmHg Body Temperature 98.9 F O2 % BldC Oximetry 96 % 06/22/2015 12:20pm Height 63 inches 5'3" Weight 129.00 lb Heart Rate 63 /min BP Systolic 130 mmHg BP Diastolic 67 mmHg Body Temperature 97.2 F BMI (Body Mass Index) 22.8 kg/m2 05/18/2015 3:53pm Height 63 inches 5'3" Weight 130.00 lb Heart Rate 70 /min 72 BP Systolic Sitting 114 mmHg left arm, reg cuff BP Diastolic Sitting 72 mmHg left arm, reg cuff BP Systolic Standing 108 mmHg left arm, reg cuff BP Diastolic Standing 68 mmHg left arm, reg cuff Respiratory Rate 16 /min BMI (Body Mass Index) 23.0 kg/m2 Ejection Fraction 45-50% 04/15/15 05/07/2015 2:33pm Weight 128.00 lb with out shoes Heart Rate 76 /min BP Systolic Sitting 130 mmHg LA reg cuff BP Diastolic Sitting 70 mmHg LA reg cuff Respiratory Rate 17 /min Ejection Fraction 45-50% date 04/15/15 ECHO 04/24/2015 1:42pm Heart Rate 71 /min BP Systolic Sitting 133 mmHg BP Diastolic Sitting 70 mmHg 04/06/2015 1:05pm Heart Rate 67 /min BP Systolic Sitting 161 mmHg BP Diastolic Sitting 91 mmHg 03/23/2015 12:23pm Height 63 inches 5'3" Weight 131.75 lb Heart Rate 64 /min BP Systolic Sitting 160 mmHg LA< reg BP Diastolic Sitting 84 mmHg LA< reg BMI (Body Mass Index) 23.3 kg/m2 Ejection Fraction 55%-60% 11/26/13 echo 02/04/2015 9:56am Weight 128.75 lb Heart Rate 80 /min BP Systolic Sitting 118 mmHg BP Diastolic Sitting 74 mmHg Body Temperature 97.2 F O2 % BldC Oximetry 97 % 12/18/2014 2:34pm Height 62.25 inches 5'2.25" Weight 130.75 lb Heart Rate 75 /min BP Systolic Sitting 115 mmHg BP Diastolic Sitting 70 mmHg BMI (Body Mass Index) 23.7 kg/m2 08/18/2014 12:10pm Weight 129.00 lb Heart Rate 72 /min BP Systolic Sitting 122 mmHg BP Diastolic Sitting 80 mmHg O2 % BldC Oximetry 96 % 01/08/2014 2:52pm Height 62.50 inches 5'2.50" Weight 131.00 lb Heart Rate 80 /min BP Systolic Sitting 124 mmHg BP Diastolic Sitting 78 mmHg Body Temperature 97.4 F BMI (Body Mass Index) 23.6 kg/m2 12/12/2013 11:48am Height 62.50 inches 5'2.50" Weight 131.00 lb Heart Rate 82 /min BP Systolic Sitting 122 mmHg BP Diastolic Sitting 68 mmHg Body Temperature 97.3 F BMI (Body Mass Index) 23.6 kg/m2 10/30/2013 11:07am Height 62.50 inches 5'2.50" Weight 130.00 lb Heart Rate 80 /min BP Systolic Sitting 138 mmHg BP Diastolic Sitting 72 mmHg BMI (Body Mass Index) 23.4 kg/m2 10/28/2013 2:08pm Weight 129.00 lb Heart Rate 73 /min BP Systolic Sitting 130 mmHg BP Diastolic Sitting 72 mmHg 07/10/2013 2:19pm Heart Rate 69 /min BP Systolic Sitting 138 mmHg BP Diastolic Sitting 62 mmHg 06/27/2013 1:41pm Weight 128.00 lb Heart Rate 63 /min BP Systolic Sitting 150 mmHg BP Diastolic Sitting 86 mmHg 02/13/2013 11:08am Weight 130.00 lb Heart Rate 88 /min BP Systolic Sitting 160 mmHg BP Diastolic Sitting 92 mmHg Body Temperature 98.3 F 02/06/2013 2:40pm Weight 128.00 lb Heart Rate 73 /min BP Systolic Sitting 152 mmHg BP Diastolic Sitting 78 mmHg 12/24/2012 10:29am Height 62.5 inches 5'2.50" Weight 126.00 lb Heart Rate 70 /min BP Systolic 118 mmHg BP Diastolic 66 mmHg BMI (Body Mass Index) 22.7 kg/m2 12/14/2012 10:15am Height 62.5 inches 5'2.50" Weight 123.00 lb Heart Rate 76 /min machine 76 BP Systolic 116 mmHg machine 118/69 BP Diastolic 70 mmHg machine 118/69 BMI (Body Mass Index) 22.1 kg/m2 12/11/2012 1:43pm Height 62.5 inches 5'2.50" Weight 124.75 lb Heart Rate 82 /min BP Systolic 140 mmHg BP Diastolic 82 mmHg BP Systolic Sitting 140 mmHg BP Diastolic Sitting 84 mmHg BMI (Body Mass Index) 22.5 kg/m2 11/27/2012 10:17am Height 62.5 inches 5'2.50" Heart Rate 68 /min BP Systolic Sitting 150 mmHg BP Diastolic Sitting 80 mmHg 09/03/2012 2:47pm Height 62.5 inches 5'2.50" Weight 123.00 lb BP Systolic 130 mmHg BP Diastolic 90 mmHg BP Systolic Sitting 132 mmHg BP Diastolic Sitting 90 mmHg BP Systolic Standing 130 mmHg BP Diastolic Standing 88 mmHg Respiratory Rate 16 /min BMI (Body Mass Index) 22.1 kg/m2 08/30/2012 1:30pm Height 62.5 inches 5'2.50" Weight 126.00 lb Heart Rate 70 /min BP Systolic Sitting 153 mmHg BP Diastolic Sitting 78 mmHg BMI (Body Mass Index) 22.7 kg/m2 08/06/2012 1:22pm Height 62.5 inches 5'2.50" Weight 127.00 lb Heart Rate 72 /min BP Systolic Sitting 146 mmHg BP Diastolic Sitting 88 mmHg BMI (Body Mass Index) 22.9 kg/m2 07/03/2012 12:59pm Height 62.5 inches 5'2.50" Weight 124.00 lb Heart Rate 76 /min BP Systolic Sitting 156 mmHg BP Diastolic Sitting 88 mmHg BMI (Body Mass Index) 22.3 kg/m2 06/01/2012 11:47am Height 62 inches 5'2" Weight 121.00 lb Heart Rate 78 /min BP Systolic Sitting 144 mmHg BP Diastolic Sitting 84 mmHg Body Temperature 97.8 F lt ear BMI (Body Mass Index) 22.1 kg/m2 04/10/2012 11:26am Height 62 inches 5'2" Weight 120.00 lb Heart Rate 76 /min BP Systolic Sitting 104 mmHg BP Diastolic Sitting 80 mmHg BMI (Body Mass Index) 21.9 kg/m2 03/19/2012 2:16pm Height 62 inches 5'2" Weight 121.00 lb Heart Rate 58 /min BP Systolic Sitting 140 mmHg BP Diastolic Sitting 82 mmHg Respiratory Rate 14 /min Body Temperature 97.3 F BMI (Body Mass Index) 22.1 kg/m2 Results Test Date Facility Test Result H/L Range Note CBC Auto Diff 08/20/2018 [facility] White Blood 4.5 10^3/uL N 3.5-10.[address] [place] [address] [phone] Red Blood Count 4.10 10^6/uL N 4.00-5.40 Hemoglobin 11.3 g/dL Low 12.0-16.0 Hematocrit 35 % N 35-47 Mean Corpuscular Volume 84 fL N 80-97 Mean Corpuscular Hemoglobin 28 pg N 27-31 Mean Corpuscular HGB Conc 33 g/dL N 31-36 Red Cell Distribution Width 16 % High 10.5-15 Platelet Count 188 10^3/uL N 150-450 Mean Platelet Volume 8.4 fL N 7.4-10.4 Abs Neutrophils 2.8 10^3/uL N 1.5-7.7 Abs Lymphocytes 1.0 10^3/uL N 1.0-4.8 Abs Monocytes 0.5 10^3/uL N 0-0.8 Abs Eosinophils 0.2 10^3/uL N 0-0.6 Abs Basophils 0.1 10^3/uL N 0-0.2 Abs Nucleated RBC 0 10^3/uL Granulocyte % 61.8 % N 38-83 Lymphocyte % 22.2 % Low 25-47 Monocyte % 11.2 % High 0-7 Eosinophil % 3.5 % N 0-6 Basophil % 1.3 % N 0-2 Nucleated Red Blood Cells % 0.2 Inr/Protime 08/20/2018 [facility] Inr 0.96 N 0.77-1.[address] [place] [address] [phone] Laboratory test 08/20/2018 [facility] Partial 33.0 seconds N 26.0-36.[address] [place] [address] PTT [phone] Comp Metabolic 08/20/2018 [facility] Sodium 137 mmol/L N 135- 145 Panel [address] [place] [address] [phone] Potassium 4.7 mmol/L N 3.5-5.0 Chloride 105 mmol/L N 101-111 Co2 Carbon Dioxide 27 mmol/L N 22-32 Anion Gap 5 mmol/L N 2-11 Glucose 104 mg/dL High 70-100 Blood Urea Nitrogen 19 mg/dL N 6-24 Creatinine 0.78 mg/dL N 0.51-0.95 BUN/Creatinine Ratio 24.4 High 8-20 Calcium 9.3 mg/dL N 8.6-10.3 Total Protein 6.5 g/dL N 6.4-8.9 Albumin 3.7 g/dL N 3.2-5.2 Globulin 2.8 g/dL N 2-4 Albumin/Globulin Ratio 1.3 N 1-3 Total Bilirubin 0.30 mg/dL N 0.2-1.0 Alkaline Phosphatase 50 U/L N 34-104 Alt 27 U/L N 7-52 Ast 30 U/L N 13-39 Egfr Non- 70.2 >60 Egfr 84.9 >60 1 Laboratory test 08/20/2018 [facility] Magnesium 2.0 mg/dL N 1.9-2.7 finding [address] [place] [address] [phone] Lipase 18 U/L N 11.0-82.0 C Reactive Protein 20.14 mg/L High <8.01 Lactic Acid 0.9 mmol/L N 0.5-2.0 2 Urinalysis Profile 08/20/2018 [facility] Urine Color Yellow [address] [place] [address] [phone] Urine Appearance Clear Urine Specific [place] 1.016 N 1.010-1.030 Urine pH 6.0 N 5-9 Urine Urobilinogen Negative Negative Urine Ketones Negative Negative Urine Protein Negative Negative Urine Leukocytes 1+ Abnormal Negative Urine Blood Negative Negative Urine Nitrite Negative Negative Urine Bilirubin Negative Negative Urine Glucose Negative Negative Urine White Blood Cell 2+(11-20/hpf) Abnormal Absent Urine Red Blood Cell Absent Absent Urine Bacteria Absent Absent Urine Culture And 08/20/2018 [facility] Urine Culture SEE RESULT [address] [place], [place] [id number] [phone] Laboratory test 07/20/2018 [facility] Lactic Acid 1.1 mmol/L N 0.5- [address] [place] [address] [phone] Urine Culture And 07/20/2018 [facility] Urine Culture SEE RESULT [address] [place] [address] [phone] Laboratory test 07/20/2018 [facility] B-Type 1206 pg/mL High [address] Natriuretic [place] [address] Peptide BNP [phone] Comp Metabolic 07/20/2018 [facility] Sodium 133 mmol/L Low 135 - Panel [address] [place] [address] [phone] Potassium 3.9 mmol/L N 3.5-5.0 Chloride 100 mmol/L Low 101-111 Co2 Carbon Dioxide 25 mmol/L N 22-32 Anion Gap 8 mmol/L N 2-11 Glucose 134 mg/dL High 70-100 Blood Urea Nitrogen 10 mg/dL N 6-24 Creatinine 0.70 mg/dL N 0.51-0.95 BUN/Creatinine Ratio 14.3 N 8-20 Calcium 9.1 mg/dL N 8.6-10.3 Total Protein 6.7 g/dL N 6.4-8.9 Albumin 3.7 g/dL N 3.2-5.2 Globulin 3.0 g/dL N 2-4 Albumin/Globulin Ratio 1.2 N 1-3 Total Bilirubin 1.10 mg/dL High 0.2-1.0 Alkaline Phosphatase 67 U/L N 34-104 Alt 57 U/L High 7-52 Ast 29 U/L N 13-39 Egfr Non- 79.5 >60 Egfr 96.2 >60 7 Laboratory test 07/20/2018 [facility] Lipase < 10 U/L Low 11.0 -82.[address] [place] [address] [phone] C Reactive Protein 106.57 mg/L High <8.01 Urinalysis Profile 07/20/2018 [facility] Urine Color Yellow [address] [place] [address] [phone] Urine Appearance Cloudy Urine Specific [place] 1.011 N 1.010-1.030 Urine pH 6.0 N 5-9 Urine Urobilinogen Negative Negative Urine Ketones 2+ Abnormal Negative Urine Protein Negative Negative Urine Leukocytes 3+ Abnormal Negative Urine Blood 2+ Abnormal Negative Urine Nitrite Negative Negative Urine Bilirubin Negative Negative Urine Glucose Negative Negative Urine White Blood Cell 3+(>20/hpf) Abnormal Absent Urine Red Blood Cell Absent Absent Urine Bacteria Absent Absent Urine Squamous Epithelial Cell Present Abnormal Absent CBC Auto 07/20/2018 [facility] White Blood 13.2 10^3/uL High 3.5-10.[address] [place] [address] [phone] Red Blood Count 4.31 10^6/uL N 4.00-5.40 Hemoglobin 12.0 g/dL N 12.0-16.0 Hematocrit 37 % N 35-47 Mean Corpuscular Volume 85 fL N 80-97 Mean Corpuscular Hemoglobin 28 pg N 27-31 Mean Corpuscular HGB Conc 33 g/dL N 31-36 Red Cell Distribution Width 15 % N 10.5-15 Platelet Count 237 10^3/uL N 150-450 Mean Platelet Volume 8.8 um3 N 7.4-10.4 Abs Neutrophils 12.1 10^3/uL High 1.5-7.7 Abs Lymphocytes 0.4 10^3/uL Low 1.0-4.8 Abs Monocytes 0.7 10^3/uL N 0-0.8 Abs Eosinophils 0 10^3/uL N 0-0.6 Abs Basophils 0 10^3/uL N 0-0.2 Abs Nucleated RBC 0 10^3/uL Granulocyte % 91.4 % High 38-83 Lymphocyte % 2.7 % Low 25-47 Monocyte % 5.5 % N 0-7 Eosinophil % 0.2 % N 0-6 Basophil % 0.2 % N 0-2 Nucleated Red Blood Cells % 0.1 Urine Culture And 07/16/2018 [facility] Urine Culture SEE RESULT [address] [place] [address] [phone] Ua Routine 07/16/2018 [facility] Ua Specific 1.015 [place] Ua PH 6 Ua Color medium yellow Ua Appera cloudy Ua WBC ++ Ua Protein trace Ua Glucose norm Ua Ketones - Ua Bilirubin - Ua Urobilinogen norm Ua Nitrite - Ua Occult Blood 250 Comp Metabolic Panel 06/22/2018 [facility] Sodium 140 mmol/L N 135-[address] [place] [address] [phone] Chloride 105 mmol/L N 101-111 Co2 Carbon Dioxide 29 mmol/L N 22-32 Glucose 92 mg/dL N 70-100 Blood Urea Nitrogen 18 mg/dL N 6-24 Creatinine 0.78 mg/dL N 0.51-0.95 BUN/Creatinine Ratio 23.1 High 8-20 Calcium 9.2 mg/dL N 8.6-10.3 Total Protein 6.6 g/dL N 6.4-8.9 Albumin 4.2 g/dL N 3.2-5.2 Globulin 2.4 g/dL N 2-4 Albumin/Globulin Ratio 1.8 N 1-3 Total Bilirubin 0.40 mg/dL N 0.2-1.0 Alkaline Phosphatase 59 U/L N 34-104 Alt 18 U/L N 7-52 Ast 19 U/L N 13-39 Egfr Non- 70.2 >60 Egfr 84.9 >60 9 Potassium 5.2 mmol/L High 3.5-5.0 Anion Gap 6 mmol/L N 2-11 Lipid Profile 06/22/2018 [facility] Triglycerides 100 mg/dL 10 (Trig/Chol/HDL) [address] [place] [address] [phone] Cholesterol 230 mg/dL 11 HDL Cholesterol 45.3 mg/dL 12 LDL Cholesterol 165 mg/dL 13 Laboratory test 06/22/2018 [facility] Magnesium 2.0 mg/dL N 1.9-2.[address] [place] [address] [phone] TSH (Thyroid Stim Horm) 6.41 mcIU/mL High 0.34-5.60 T3 Free 2.80 pg/mL N 2.5-3.9 Free T4 (Free Thyroxine) 0.75 ng/dL N 0.61-1.12 Laboratory test 06/14/2018 [facility] TSH (Thyroid <pending> finding [address] Stim Horm) [place] [address] [phone] T3 Free <pending> Free T4 (Free Thyroxine) <pending> Magnesium <pending> Lipid Panel - 10/31/2017 [facility] Creatine 43 U/L N 10-[address] Kinase(CK) [place] [address] [phone] Comp Metabolic 10/31/2017 [facility] Sodium 138 N 133-145 Panel mmol/[place] [address] [phone] Potassium 4.0 mmol/L N 3.5-5.0 Chloride 105 mmol/L N 101-111 Co2 Carbon Dioxide 28 mmol/L N 22-32 Anion Gap 5 mmol/L N 2-11 Glucose 96 mg/dL N 70-100 Blood Urea Nitrogen 17 mg/dL N 6-24 Creatinine 0.80 mg/dL N 0.51-0.95 BUN/Creatinine Ratio 21.3 High 8-20 Calcium 9.2 mg/dL N 8.6-10.3 Total Protein 6.5 g/dL N 6.4-8.9 Albumin 3.9 g/dL N 3.2-5.2 Globulin 2.6 g/dL N 2-4 Albumin/Globulin Ratio 1.5 N 1-3 Total Bilirubin 0.40 mg/dL N 0.2-1.0 Alkaline Phosphatase 65 U/L N 34-104 Alt 17 U/L N 7-52 Ast 19 U/L N 13-39 Egfr Non- 68.3 >60 Egfr 87.9 >60 15 Lipid Profile 10/31/2017 [facility] Triglycerides 136 mg/dL 16 (Trig/Chol/HDL) [address] [place] [address] [phone] Cholesterol 235 mg/dL 17 HDL Cholesterol 39.8 mg/dL 18 LDL Cholesterol 168 mg/dL 19 Laboratory test 10/31/2017 [facility] Magnesium 2.0 mg/dL N 1.9-2.7 20 finding [address] [place] [address] [phone] Laboratory test 07/07/2017 [facility] Magnesium 2.1 mg/dL N 1.9-2.7 21 finding [address] [place] [address] [phone] Basic Metabolic 07/07/2017 [facility] Sodium 139 mmol/L N 133- 145 Panel [address] [place] [address] [phone] Potassium 4.1 mmol/L N 3.5-5.0 Chloride 104 mmol/L N 101-111 Co2 Carbon Dioxide 31 mmol/L N 22-32 Anion Gap 4 mmol/L N 2-11 Glucose 96 mg/dL N 70-100 Blood Urea Nitrogen 19 mg/dL N 6-24 Creatinine 0.78 mg/dL N 0.51-0.95 BUN/Creatinine Ratio 24.4 High 8-20 Calcium 8.9 mg/dL N 8.6-10.3 Egfr Non- 70.4 N >60 Egfr 90.5 N >60 22 CBC Auto Diff 04/24/2017 [facility] White Blood 4.6 10^3/uL N 3.5-10.[address] [facility] [place] [address] [phone] Red Blood Count 4.62 10^6/uL N 4.0-5.4 Hemoglobin 13.1 g/dL N 12.0-16.0 Hematocrit 40 % N 35-47 Mean Corpuscular Volume 87 fL N 80-97 Mean Corpuscular Hemoglobin 28 pg N 27-31 Mean Corpuscular HGB Conc 33 g/dL N 31-36 Red Cell Distribution Width 14 % N 10.5-15 Platelet Count 166 10^3/uL N 150-450 Mean Platelet Volume 9 um3 N 7.4-10.4 Abs Neutrophils 3.4 10^3/uL N 1.5-7.7 Abs Lymphocytes 0.6 10^3/uL Low 1.0-4.8 Abs Monocytes 0.4 10^3/uL N 0-0.8 Abs Eosinophils 0.1 10^3/uL N 0-0.6 Abs Basophils 0 10^3/uL N 0-0.2 Abs Nucleated RBC 0 10^3/uL N Granulocyte % 74.1 % N 38-83 Lymphocyte % 14.1 % Low 25-47 Monocyte % 9.7 % High 1-9 Eosinophil % 1.2 % N 0-6 Basophil % 0.9 % N 0-2 Nucleated Red Blood Cells % 0 N Comp Metabolic Panel 04/24/2017 [facility] Sodium 136 mmol/L N 133-145 [address] [place] [address] [phone] Potassium 3.4 mmol/L Low 3.5-5.0 Chloride 106 mmol/L N 101-111 Co2 Carbon Dioxide 23 mmol/L N 22-32 Anion Gap 7 mmol/L N 2-11 Glucose 97 mg/dL N 70-100 Blood Urea Nitrogen 17 mg/dL N 6-24 Creatinine 0.85 mg/dL N 0.51-0.95 BUN/Creatinine Ratio 20.0 N 8-20 Calcium 9.0 mg/dL N 8.6-10.3 Total Protein 6.7 g/dL N 6.4-8.9 Albumin 3.9 g/dL N 3.2-5.2 Globulin 2.8 g/dL N 2-4 Albumin/Globulin Ratio 1.4 N 1-3 Total Bilirubin 0.50 mg/dL N 0.2-1.0 Alkaline Phosphatase 57 U/L N 34-104 Alt 15 U/L N 7-52 Ast 19 U/L N 13-39 Egfr Non- 63.7 N >60 Egfr 81.9 N >60 23 Laboratory test 04/24/2017 [facility] Magnesium 2.0 mg/dL N 1.9-2.7 finding [address] [place] [address] [phone] Lipase 28 U/L N 11.0-82.0 C Reactive Protein 5.08 mg/L High < 5.00 24 Lactic Acid 1.0 mmol/L N 0.5-2.0 25 Urinalysis Profile 04/24/2017 [facility] Urine Color Straw N [address] [place] [address] [phone] Urine Appearance Clear N Urine Specific [place] 1.004 Low 1.010-1.030 Urine pH 8.0 N 5-9 Urine Urobilinogen Negative N Negative Urine Ketones Trace Abnormal Negative Urine Protein Negative N Negative Urine Leukocytes Trace Abnormal Negative Urine Blood Negative N Negative Urine Nitrite Negative N Negative Urine Bilirubin Negative N Negative Urine Glucose Negative N Negative Urine White Blood Cell Trace(0-5/hpf) N Absent Urine Red Blood Cell Absent N Absent Urine Bacteria Absent N Absent Urine Culture And 04/24/2017 [facility] Urine Culture SEE RESULT [address] [place], [place] [id number] [phone] Laboratory test 04/06/2017 [facility] TSH (Thyroid Stim 1.[address] Horm) mcIU/mL -5.6 [place] [address] 0 [phone] Lipid Profile 04/06/2017 [facility] Triglycerides 105 mg/dL N 27 (Trig/Chol/HDL) [address] [place] [address] [phone] Cholesterol 229 mg/dL N 28 HDL Cholesterol 48.8 mg/dL N 29 LDL Cholesterol 159 mg/dL N 30 Laboratory test 04/06/2017 [facility] T3 Free 2.80 pg/mL N 2.5 -3.[address] [place] [address] [phone] Free T4 (Free Thyroxine) 0.94 ng/dL N 0.61-1.12 Laboratory test 03/10/2017 [facility] TSH (Thyroid 5.57 mcIU/mL N 0.34-5.[address] Stim Horm) [place] [address] [phone] Laboratory test 07/28/2016 [facility] Troponin-I 0.01 ng/mL N <0.03 31 finding 101 (TnI) [place] [address] [phone] Erythrocyte Sed Rate 16 mm/Hr N 0-40 32 Comp Metabolic Panel 06/09/2016 [facility] Sodium 139 mmol/L N 133-[address] [place] [address] [phone] Potassium 3.8 mmol/L N 3.5-5.0 Chloride 106 mmol/L N 101-111 Co2 Carbon Dioxide 28 mmol/L N 22-32 Anion Gap 5 mmol/L N 2-11 Glucose 91 mg/dL N 70-100 Blood Urea Nitrogen 21 mg/dL N 6-24 Creatinine 0.77 mg/dL N 0.51-0.95 BUN/Creatinine Ratio 27.3 High 8-20 Calcium 8.6 mg/dL N 8.6-10.3 Total Protein 6.2 g/dL Low 6.4-8.9 Albumin 3.8 g/dL N 3.2-5.2 Globulin 2.4 g/dL N 2-4 Albumin/Globulin Ratio 1.6 N 1-3 Total Bilirubin 0.50 mg/dL N 0.2-1.0 Alkaline Phosphatase 55 U/L N 34-104 Alt 18 U/L N 7-52 Ast 22 U/L N 13-39 Egfr Non- 71.6 N >60 Egfr 92.1 N >60 33 Lipid Profile 06/09/2016 [facility] Triglycerides 92 mg/dL N 34 (Trig/Chol/HDL) [address] [place] [address] [phone] Cholesterol 194 mg/dL N 35 HDL Cholesterol 43.1 mg/dL N 36 LDL Cholesterol 133 mg/dL N 37 Lipid Panel - 06/09/2016 [facility] Creatine 92 U/L N 10-[address] Kinase(CK) [place] [address] [phone] CBC Auto Diff 12/09/2015 [facility] White Blood Count 3.6 N 3.5-10.[address] 10^3/[place] [address] [phone] Red Blood Count 4.77 10^6/uL N 4.0-5.4 Hemoglobin 13.3 g/dL N 12.0-16.0 Hematocrit 42 % N 35-47 Mean Corpuscular Volume 87 fL N 80-97 Mean Corpuscular Hemoglobin 28 pg N 27-31 Mean Corpuscular HGB Conc 32 g/dL N 31-36 Red Cell Distribution Width 15 % N 10.5-15 Platelet Count 207 10^3/uL N 150-450 Mean Platelet Volume 10 um3 N 7.4-10.4 Abs Neutrophils 2.0 10^3/uL N 1.5-7.7 Abs Lymphocytes 1.1 10^3/uL N 1.0-4.8 Abs Monocytes 0.4 10^3/uL N 0-0.8 Abs Eosinophils 0.2 10^3/uL N 0-0.6 Abs Basophils 0.1 10^3/uL N 0-0.2 Abs Nucleated RBC 0 10^3/uL N Granulocyte % 53.7 % N 38-83 Lymphocyte % 29.2 % N 25-47 Monocyte % 10.4 % High 1-9 Eosinophil % 4.8 % N 0-6 Basophil % 1.9 % N 0-2 Nucleated Red Blood Cells % 0.1 N Lipid Profile 12/09/2015 [facility] Triglycerides 113 mg/dL N 38 (Trig/Chol/HDL) [address] [place] [address] [phone] Cholesterol 234 mg/dL N 39 HDL Cholesterol 47.1 mg/dL N 40 LDL Cholesterol 164 mg/dL N 41 Laboratory test 12/09/2015 [facility] TSH (Thyroid 2.27 ?IU/mL N 0.34-5.[address] Stim Horm) [place] [address] [phone] Magnesium 2.1 mg/dL N 1.9-2.7 Vitamin B12 And 12/09/2015 [facility] Vitamin B12 730 pg/mL N 180-914 [address] [place] [address] [phone] Folic Acid (Folate) 15.18 ng/mL N >3.99 Laboratory test 12/09/2015 [facility] CRP High 1.37 mg/L N [address] [place] [address] [phone] Erythrocyte Sed Rate 11 mm/Hr N 0-40 Lipid Panel - 12/09/2015 [facility] Creatine 44 U/L N 10-223 JFM [address] Kinase(CK) [place] [address] [phone] Comp Metabolic 12/09/2015 [facility] Sodium 140 N 133-[address] mmol/[place] [address] [phone] Potassium 4.0 mmol/L N 3.5-5.0 Chloride 105 mmol/L N 101-111 Co2 Carbon Dioxide 30 mmol/L N 22-32 Anion Gap 5 mmol/L N 2-11 Glucose 88 mg/dL N 70-100 Blood Urea Nitrogen 19 mg/dL N 6-24 Creatinine 0.76 mg/dL N 0.51-0.95 BUN/Creatinine Ratio 25.0 High 8-20 Calcium 8.9 mg/dL N 8.6-10.3 Total Protein 6.4 g/dL N 6.4-8.9 Albumin 3.9 g/dL N 3.2-5.2 Globulin 2.5 g/dL N 2-4 Albumin/Globulin Ratio 1.6 N 1-3 Total Bilirubin 0.30 mg/dL N 0.2-1.0 Alkaline Phosphatase 54 U/L N 34-104 Alt 14 U/L N 7-52 Ast 19 U/L N 13-39 Egfr Non- 72.9 N >60 Egfr 93.7 N >60 44 Laboratory test 08/03/2015 [facility] Urine Culture And SEE RESULT [address] [place] [address] [phone] Ua Routine 06/22/2015 [facility] Ua Specific [place] 1.005 Ua PH 5 Ua Color yellow Ua Appera clear Ua WBC small Ua Protein negative Ua Glucose negative Ua Ketones negative Ua Bilirubin small Ua Urobilinogen normal Ua Nitrite negative Ua Occult Blood negative Laboratory test 05/17/2015 [facility] Urine Culture And SEE RESULT [address] [place] [address] [phone] Liver Function 05/11/2015 Total Protein 6.2 g/dL Low 6.4- 47 Panel 8.9 Albumin 3.7 g/dL N 3.2-5.2 Globulin 2.5 g/dL N 2-4 Albumin/Globulin Ratio 1.5 N 1-3 Total Bilirubin 0.30 mg/dL N 0.2-1.0 Direct Bilirubin 0.10 mg/dL N 0.03-0.18 Indirect Bilirubin 0.2 mg/dL Low 0.3-1.0 Alkaline Phosphatase 59 U/L N 34-104 Alt 14 U/L N 7-52 Ast 20 U/L N 13-39 Basic Metabolic Panel 05/11/2015 [facility] Sodium 139 mmol/L N 133-[address] [place] [address] [phone] Potassium 4.7 mmol/L N 3.5-5.0 Chloride 106 mmol/L N 101-111 Co2 Carbon Dioxide 30 mmol/L N 22-32 Anion Gap 3 mmol/L N 2-11 Glucose 71 mg/dL N 70-100 Blood Urea Nitrogen 20 mg/dL N 6-24 Creatinine 0.76 mg/dL N 0.51-0.95 BUN/Creatinine Ratio 26.3 High 8-20 Calcium 9.0 mg/dL N 8.6-10.3 Egfr Non- 72.9 N >60 Egfr 93.7 N >60 48 Laboratory test 05/11/2015 [facility] Partial 31.1 seconds N 26.0-36.[address] [place] [address] PTT [phone] Inr/Protime 05/11/2015 [facility] Inr 0.90 N 0.78-1.[address] [place] [address] [phone] CBC Auto Diff 05/11/2015 [facility] White Blood 4.1 10^3/uL Low 4.8-10.[address] [place] [address] [phone] Red Blood Count 4.59 10^6/uL N 4.0-5.4 Hemoglobin 12.9 g/dL N 12.0-16.0 Hematocrit 40 % N 35-47 Mean Corpuscular Volume 87 fL N 80-97 Mean Corpuscular Hemoglobin 28 pg N 27-31 Mean Corpuscular HGB Conc 32 g/dL N 31-36 Red Cell Distribution Width 14 % N 10.5-15 Platelet Count 247 10^3/uL N 150-450 Mean Platelet Volume 9 um3 N 7.4-10.4 Abs Neutrophils 2.5 10^3/uL N 1.5-7.7 Abs Lymphocytes 0.9 10^3/uL Low 1.0-4.8 Abs Monocytes 0.4 10^3/uL N 0-0.8 Abs Eosinophils 0.2 10^3/uL N 0-0.6 Abs Basophils 0 10^3/uL N 0-0.2 Abs Nucleated RBC 0.01 10^3/uL N Granulocyte % 60.5 % N 38-83 Lymphocyte % 22.2 % Low 25-47 Monocyte % 10.3 % High 1-9 Eosinophil % 6.1 % High 0-6 Basophil % 0.9 % N 0-2 Nucleated Red Blood Cells % 0.2 N Liver Function Panel 04/24/2015 Total Protein 6.5 g/dL N 6.4-8.9 Albumin 4.1 g/dL N 3.2-5.2 Globulin 2.4 g/dL N 2-4 Albumin/Globulin Ratio 1.7 N 1-3 Total Bilirubin 0.30 mg/dL N 0.2-1.0 Direct Bilirubin 0.10 mg/dL N 0.03-0.18 Indirect Bilirubin 0.2 mg/dL Low 0.3-1.0 Alkaline Phosphatase 55 U/L N 34-104 Alt 16 U/L N 7-52 Ast 20 U/L N 13-39 Laboratory test finding 01/29/2015 [facility] Inr 0.87 N 0.78- 1.07 [address] [place] [address] [phone] Activated Partial Thrombo Time 30.9 seconds N 26.0-36.3 Comp Metabolic Panel 01/29/2015 [facility] Sodium 138 mmol/L N 133-145 [address] [place] [address] [phone] Potassium 3.4 mmol/L Low 3.5-5.0 Chloride 105 mmol/L N 101-111 Co2 Carbon Dioxide 28 mmol/L N 22-32 Anion Gap 5 mmol/L N 2-11 Glucose 88 mg/dL N 70-100 Blood Urea Nitrogen 20 mg/dL N 6-24 Creatinine 0.83 mg/dL N 0.51-0.95 BUN/Creatinine Ratio 24.1 High 8-20 Calcium 9.1 mg/dL N 8.6-10.3 Total Protein 6.8 g/dL N 6.4-8.9 Albumin 4.0 g/dL N 3.2-5.2 Globulin 2.8 g/dL N 2-4 Albumin/Globulin Ratio 1.4 N 1-3 Total Bilirubin 0.40 mg/dL N 0.2-1.0 Alkaline Phosphatase 59 U/L N 34-104 Alt 17 U/L N 7-52 Ast 20 U/L N 13-39 Egfr Non- 65.8 N >60 Egfr 84.6 N >60 49 CKMB 01/29/2015 [facility] CKMB ng/mL 1.8 ng/mL N 0.6-6.3 [address] [place] [address] [phone] CBC Auto 01/29/2015 [facility] White Blood 3.6 10^3/uL Low 4.8 -10.[address] [place] [address] [phone] Red Blood Count 4.92 10^6/uL N 4.0-5.4 Hemoglobin 14.1 g/dL N 12.0-16.0 Hematocrit 42 % N 35-47 Mean Corpuscular Volume 86 fL N 80-97 Mean Corpuscular Hemoglobin 29 pg N 27-31 Mean Corpuscular HGB Conc 33 g/dL N 31-36 Red Cell Distribution Width 14 % N 10.5-15 Platelet Count 189 10^3/uL N 150-450 Mean Platelet Volume 9 um3 N 7.4-10.4 Abs Neutrophils 1.8 10^3/uL N 1.5-7.7 Abs Lymphocytes 1.1 10^3/uL N 1.0-4.8 Abs Monocytes 0.4 10^3/uL N 0-0.8 Abs Eosinophils 0.3 10^3/uL N 0-0.6 Abs Basophils 0 10^3/uL N 0-0.2 Abs Nucleated RBC 0.01 10^3/uL N Granulocyte % 49.3 % N 38-83 Lymphocyte % 30.5 % N 25-47 Monocyte % 11.7 % High 1-9 Eosinophil % 7.3 % High 0-6 Basophil % 1.2 % N 0-2 Nucleated Red Blood Cells % 0.2 N Laboratory test 01/29/2015 [facility] Troponin I 0.01 ng/mL N <0.[address] [place] [address] [phone] Urinalysis Profile 01/29/2015 [facility] Urine Color Straw N [address] [place] [address] [phone] Urine Appearance Clear N Urine Specific [place] 1.008 Low 1.010-1.030 Urine pH 8.0 N 5-9 Urine Urobilinogen Negative N Negative Urine Ketones Negative N Negative Urine Protein Negative N Negative Urine Leukocytes Trace Abnormal Negative Urine Blood Negative N Negative Urine Nitrite Negative N Negative Urine Bilirubin Negative N Negative Urine Glucose Negative N Negative Urine White Blood Cell Trace(0-5/hpf) N Absent Urine Red Blood Cell Absent N Absent Urine Bacteria Absent N Absent Urine Squamous Epithelial Cell Present Abnormal Absent Laboratory test 01/29/2015 [facility] B Type 78 pg/mL N [address] [place] [address] Peptide [phone] Laboratory test 01/29/2015 [facility] Creatine Kinase 45 U/L N 10-[address] [place] [address] [phone] Laboratory test 11/14/2014 TSH (Thyroid 2.14 IU/mL N 0.34- 52, 53 finding Stimulating 5.60 Horm) Comp Metabolic 11/14/2014 Sodium 137 mmol/L N 133-1 Panel 45 Potassium 4.1 mmol/L N 3.5-5.0 Chloride 105 mmol/L N 101-111 Co2 Carbon Dioxide 26 mmol/L N 22-32 Anion Gap 6 mmol/L N 2-11 Glucose 87 mg/dL N 70-100 Blood Urea Nitrogen 17 mg/dL N 6-24 Creatinine 0.80 mg/dL N 0.51-0.95 BUN/Creatinine Ratio 21.3 High 8-20 Calcium 9.1 mg/dL N 8.6-10.3 Total Protein 6.3 g/dL Low 6.4-8.9 Albumin 4.0 g/dL N 3.2-5.2 Globulin 2.3 g/dL N 2-4 Albumin/Globulin Ratio 1.7 N 1-3 Total Bilirubin 0.40 mg/dL N 0.2-1.0 Alkaline Phosphatase 57 U/L N 34-104 Alt 14 U/L N 7-52 Ast 20 U/L N 13-39 Egfr Non- 68.8 N >60 Egfr 88.5 N >60 54 Lipid Profile (Trig/Chol/HDL) 11/14/2014 Triglycerides 76 mg/dL N 55 Cholesterol 213 mg/dL N 56 HDL Cholesterol 45.1 mg/dL N 57 LDL Cholesterol 153 mg/dL N 58 Vitamin D, 25 01/08/2014 [facility] 25-Hydroxy Vitamin <4.0 ng/ mL N Hydroxy [address] D[address] [place] [address] [phone] 25-Hydroxy Vitamin D3 40 ng/mL N 25-Hydroxy Vitamin D Total 40 ng/mL N 59 Pthi 01/08/2014 [facility] PTH Intact 7.9 pmol/L N 1.3-9.[address] [place] [address] [phone] Calcium (PTH Intact) 8.9 mg/dL N 8.6-10.3 Laboratory test 10/28/2013 [facility] TSH (Thyroid 1.69 0.34- 5.[address] Stimulating miu/[place] [address] Horm) [phone] Potassium 3.9 mmol/L 3.5-5.0 Laboratory test 06/27/2013 [facility] Potassium 4.3 mmol/L 3.5-5.[address] [place], [place] [id number] [phone] Laboratory test 01/08/2013 [facility] Free T4 1.24 ng/mL 0.61 -1.[address] [place] [address] [phone] TSH (Thyroid Stimulating Horm) 0.72 miu/mL 0.34-5.60 61 Lipid Panel 01/08/2013 [facility] Triglycerides 62 mg/dL 40- [address] [place] [address] [phone] Cholesterol 224 mg/dL High Less than 200 HDL Cholesterol 57 mg/dL 40-60 62 Cholesterol/HDL Ratio 3.9 Average 1-4.44 LDL Cholesterol 154.6 mg/dL High Less Than 100 63 CMP Panel 01/08/2013 [facility] Sodium 139 mmol/L 133-145 [address] [place] [address] [phone] Potassium 3.8 mmol/L 3.5-5.0 Chloride 104 mmol/L [...] Egfr Non- 60.4 >60 Egfr 77.7 >60 64 Basic Metabolic Panel 11/08/2012 [facility] Sodium 140 mmol/L 133-145 [address] [place] [address] [phone] Potassium 4.0 mmol/L 3.5-5.0 Chloride 105 mmol/L 101-111 Co2 Carbon Dioxide 31.0 mmol/L 22-32 Anion Gap 4.0 mmol/L 2-11 Glucose 56 mg/dL Low 70-100 Blood Urea Nitrogen 17 mg/dL 6-24 Creatinine 0.70 mg/dL 0.50-1.40 BUN/Creatinine Ratio 24.3 High 8-20 Calcium 9.0 mg/dL 8.1-9.9 Egfr Non- 80.7 >60 Egfr 103.8 >60 65 Comp Metabolic Panel 09/14/2012 [facility] Sodium 141 mmol/L 133-145 [address] [place] [address] [phone] Potassium 3.8 mmol/L 3.5-5.0 Chloride 107 mmol/L [...] Egfr Non- 69.2 >60 Egfr 89.0 >60 66 Lipid Profile 09/14/2012 [facility] Triglycerides 87 mg/dL 40 -200 (Trig/Chol/HDL) [address] [place] [address] [phone] Cholesterol 215 mg/dL High Less than 200 HDL Cholesterol 58 mg/dL 40-60 67 Cholesterol/HDL Ratio 3.7 Average 1-4.44 LDL Cholesterol 139.6 mg/dL High Less Than 100 68 Laboratory test 09/14/2012 [facility] Creatine Kinase 55 U/L 0-200 [address] [place] [address] [phone] Laboratory test 09/14/2012 [facility] TSH (Thyroid 0.72 0.34- 5.60 [address] Stimulating miu/mL [place] [id number] Horm) [phone] CBC Auto Diff 09/14/2012 [facility] White Blood 3.4 Low 4.8- 10.[address] Count 10^3/[place] [address] [phone] Red Blood Count 4.67 10^6/uL 4.0-5.4 Hemoglobin [...] 0-2 Nucleated Red Blood Cells % 0.1 Ua Routine 07/03/2012 [facility] Ua Specific [place] 1.000 Ua PH 7.5 Ua Color pale yellow Ua Appera clear Ua WBC neg Ua Protein neg Ua Glucose neg Ua Ketones neg Ua Bilirubin neg Ua Urobilinogen neg Ua Nitrite neg Ua Occult Blood neg Laboratory test 06/26/2012 [facility] TSH 2.98 MIU/ML 0.34- 5.[address] [place] [id number] [phone] Basic Metabolic 06/26/2012 [facility] Sodium 136 mmol/L 135- [address] [place] [address] [phone] Potassium 3.4 mmol/L Low 3.5-5.0 Chloride 101 mmol/L 101-111 Co2 (Carbon Dioxide) 30.0 mmol/L 22-32 Anion Gap 5.0 mmol/L 2-11 71 Glucose 83 mg/dL 70-100 BUN 13 mg/dL 6-24 Creatinine 0.8 mg/dL 0.50-1.40 One Over Creatinine 1.25 BUN/Creatinine Ratio 16.3 8-20 Calcium 8.8 mg/dL 8.1-9.9 eGFR Non- 69.2 > 60 eGFR 89.0 > 60 72 Lipid Profile 06/26/2012 [facility] Triglyceride 63 mg/dL 40- 200 (Trig/Chol/HDL) [address] [place] [address] [phone] Cholesterol 245 mg/dL High Less Than 200 73 High Density Lipoprotein 69 mg/dL High 40-60 74 Cholesterol/HDL Ratio 3.55 AVERAGE 1-4.44 Low Density Lipoprotein 163 mg/dL High Less Than 100 75 Urine Culture 06/01/2012 [facility] M <SEE [address]ensit[address] NOTE> [place] [address] [phone] Ua Routine 06/01/2012 [facility] House Ua Specific 1.005 [place] Ua PH 6.0 Ua Color yellow Ua Appera cloudy Ua WBC +++ Ua Protein trace Ua Glucose neg Ua Ketones trace Ua Bilirubin mod Ua Urobilinogen neg Ua Nitrite pos Ua Occult Blood trace 1 Because ethnic data is not always readily [...] 15-29 5 Kidney failure <15 (or dialysis) 2 [place] Severe Sepsis and Septic Shock Management Bundle Measure requires all lactic acids initially measuring >2.0 mmol/L be repeated. 3 SEE RESULT BELOW Name: BLANCA TINOCO : [address]: Sameer Stubbs MD Acct: [id number] Unit: [id number] AGE: 83 Location: ED Re08/20/18 SEX: F Status: REG ER SPEC: [id number] NEELAM: 08/20/[address] [facility] [address]: Sameer Stubbs MD REQ: [id number] RECD: 08/20/18 STATUS: JASMYNE HARMAN DR: Uche Duque MD _ SOURCE: URINE SPDESC: ORDERED: Urine Culture Procedure Result Reported Site Urine Culture Final 08/22/18- 0844 ML No Growth (<1,000 CFU/mL) * ML - Main Lab . END OF REPORT DEPARTMENT OF PATHOLOGY, [address] [place] [address] Julius Herman M.D. Director [facility] # [id number] 4 [facility] Severe Sepsis and Septic Shock Management Bundle Measure requires all lactic acids initially measuring >2.0 mmol/L be repeated. 5 SEE RESULT BELOW Name: ALEJANDRINABLANCA T : [address]: Oc Cortes MD Acct: [id number] Unit: [id number] AGE: 83 Location: [place] [address]- Re07/20/18 SEX: F Status: ADM [place] SPEC: [id number] NEELAM: 07/20/[address]: Liliam Bah MD REQ: [id number] RECD: 07/20/18 STATUS: JASMYNE HARMAN DR: [facility] Uche Duque MD _ SOURCE: URINE SPDESC: ORDERED: Urine Culture Procedure Result Reported Site Urine Culture Final 07/22/18- 1026 ML Organism 1 CORYNEBACTERIUM SPECIES [place] Count 1-10,000 (Few) CFU/ML SIGNIFICANCE QUESTIONED. * ML - Main Lab . END OF REPORT DEPARTMENT OF PATHOLOGY, [address] [place] [address] Julius Herman M.D. Director [facility] # [id number] 6 >100 to <200 pg/mL: likely compensated congestive heart failure (CHF) 200 to 400 pg/mL: likely moderate CHF >400 pg/mL: likely moderate to severe CHF 7 Because ethnic data is not always readily [...] 15-29 5 Kidney failure <15 (or dialysis) 8 SEE RESULT BELOW Name: BLANCA TINOCO : [address]: Uche Duque MD Acct: [id number] Unit: [id number] AGE: 83 Location: [facility] Re07/16/18 SEX: F Status: REG REF SPEC: [id number] NEELAM: 07/16/18-[address]: Uche Duque MD REQ: [id number] RECD: 07/16/18 STATUS: COMP _ SOURCE: URINE SPDESC: ORDERED: Urine Culture COMMENTS: [id number] QUERIES: Urine Source: Random Procedure Result Reported Site Urine Culture Final 07/18/18- 0805 ML Organism 1 ESCHERICHIA COLI [place] Count >100,000 (Many) CFU/ML 1. ESCHERICHIA COLI [...] . END OF REPORT DEPARTMENT OF PATHOLOGY, [address] [place] [address] Julius Herman M.D. Director [facility] # [id number] 9 Because ethnic data is not always readily [...] 15-29 5 Kidney failure <15 (or dialysis) 10 Desirable: <150 Borderline High: 150-199 High: 200-499 Very High: >500 11 Desirable: <200 Borderline High: 200-239 High: >239 12 Low: <40 Desirable: 40-60 High: >60 13 Desirable: <100 Near Optimal: 100-129 Borderline High: 130-159 High: 160-189 Very High: >189 14 FASTING in two weeks 15 Because ethnic data is not always readily [...] 15-29 5 Kidney failure <15 (or dialysis) 16 Desirable: <150 Borderline High: 150-199 High: 200-499 Very High: >500 17 Desirable: <200 Borderline High: 200-239 High: >239 18 Low: <40 Desirable: 40-60 High: >60 19 Desirable: <100 Near Optimal: 100-129 Borderline High: 130-159 High: 160-189 Very High: >189 20 FASTING in two weeks 21 Copy Result to: UCHE DUQUE ([id number]) 22 Because ethnic data is not always readily [...] 15-29 5 Kidney failure <15 (or dialysis) 23 Because ethnic data is not always readily [...] 15-29 5 Kidney failure <15 (or dialysis) 24 Acute inflammation: >10.00 25 [place] Severe Sepsis and Septic Shock Management Bundle Measure requires all lactic acids initially measuring >2.0 mmol/L be repeated. 26 SEE RESULT BELOW Name: BLANCA TINOCO : [address]: Andi Humphreys MD Acct: [id number] Unit: [id number] AGE: 82 Location: ED Re04/24/17 SEX: F Status: DEP ER SPEC: [id number] NEELAM: 04/24/[address] [facility] [address]: Andi Humphreys MD REQ: [id number] RECD: 04/24/17 STATUS: JASMYNE HARMAN DR: Uche Duque MD _ SOURCE: URINE SPDESC: ORDERED: Urine Culture Procedure Result Reported Site Urine Culture Final 04/26/17- 0858 ML No growth of clinically significant organisms * ML - MAIN LAB ([facility]) . END OF REPORT * ML=Testing performed at Main Lab DEPARTMENT OF PATHOLOGY, [address] [place] [address] Julius Herman M.D. Director [facility] # [id number] 27 Desirable <150 Borderline high 150-199 High 200-499 Very High >500 28 Desirable <200 Borderline high 200-239 High >239 29 Low <40 Desirable: 40-60 High: >60 30 Desirable: <100 mg/dL Near Optimal: 100-129 mg/dL Borderline High: 130-159 mg/dL High: 160-189 mg/dL Very High: >189 mg/dL 31 Reference Range and Interpretation: TnI (ng/mL) Interpretation Less Than 0.03 ng/mL Not supportive of diagnosis of ND 0.03 - 0.50 ng/mL Indeterminate: suggest serial studies if clinically indicated. Greater than 0.5 ng/mL Consistent with diagnosis of ND 32 cc pmd PLEASE RUN STAT CALL DR DUNIA ESPINOZA [phone] EX 249 THANKS 33 Because ethnic data is not always readily [...] 15-29 5 Kidney failure <15 (or dialysis) 34 Desirable <150 Borderline high 150-199 High 200-499 Very High >500 35 Desirable <200 Borderline high 200-239 High >239 36 Low <40 Desirable: 40-60 High: >60 37 Desirable: <100 mg/dL Near Optimal: 100-129 mg/dL Borderline High: 130-159 mg/dL High: 160-189 mg/dL Very High: >189 mg/dL 38 Desirable <150 Borderline high 150-199 High 200-499 Very High >500 39 Desirable <200 Borderline high 200-239 High >239 40 Low <40 Desirable: 40-60 High: >60 41 Desirable: <100 mg/dL Near Optimal: 100-129 mg/dL Borderline High: 130-159 mg/dL High: 160-189 mg/dL Very High: >189 mg/dL 42 Normal Range 180 to 914 Indeterminate Range 145 to 180 Deficient Range <145 43 Low risk: <1.00 Average risk: 1.00-3.00 High risk: >3.00 44 Because ethnic data is not always [...] 5 Kidney failure <15 (or dialysis) 45 SEE RESULT BELOW Name: BLANCA TINOCO : [address]: Uche Duque MD Acct: [id number] Unit: [id number] AGE: 80 Location: [facility] Re08/03/15 SEX: F Status: REG REF SPEC: [id number] NEELAM: 08/03/15-[address] [facility] [address]: Uche Duque MD REQ: [id number] RECD: 08/03/15 STATUS: COMP _ SOURCE: URINE SPDESC: ORDERED: Urine Culture Procedure Result Verified Site Urine Culture Final 08/05/15- 1119 ML Organism 1 ESCHERICHIA COLI [place] Count >100,000 (Many) CFU/ML 1. ESCHERICHIA COLI [...] antibiotic reporting. * ML - MAIN LAB ([facility]) . END OF REPORT * ML=Testing performed at Main Lab DEPARTMENT OF PATHOLOGY, [address] [place] [address] Julius Herman M.D. Director [facility] # [id number] 46 SEE RESULT BELOW Name: BLANCA TINOCO : [address]: Andrew Aldridge MD Acct: [id number] Unit: [id number] AGE: 80 Location: [facility] Re05/17/15 SEX: F Status: DEP ER SPEC: [id number] NEELAM: 05/17/[address] [facility] [address]: Andrew Aldridge MD REQ: [id number] RECD: 05/18/15 STATUS: JASMYNE HARMAN DR: Uche Duque MD _ SOURCE: URINE [facility]: ORDERED: Urine Culture Procedure Result Verified Site Urine Culture Final 05/20/15- 824 ML Organism 1 ESCHERICHIA COLI [place] Count >100,000 (Many) CFU/ML 1. ESCHERICHIA COLI [...] antibiotic reporting. * ML - MAIN LAB ([facility]) . END OF REPORT * ML=Testing performed at Main Lab DEPARTMENT OF PATHOLOGY, [address] [place] [address] Julius Herman M.D. Director [facility] # [id number] 47 HAVE DRAWN WEEK OF MAY 25 48 Because ethnic data is not always readily [...] 15-29 5 Kidney failure <15 (or dialysis) 49 Because ethnic data is not always readily [...] 15-29 5 Kidney failure <15 (or dialysis) 50 Reference Range and Interpretation: TnI (ng/mL) Interpretation Less Than 0.03 ng/mL Not supportive of diagnosis of ND 0.03 - 0.50 ng/mL Indeterminate: suggest serial studies if clinically indicated. Greater than 0.5 ng/mL Consistent with diagnosis of ND 51 >100 to <200 pg/mL: likely compensated congestive heart failure (CHF) 200 to 400 pg/mL: likely moderate CHF >400 pg/mL: likely moderate to severe CHF [facility] 52 FASTING 12 HOUR 53 FASTING 12 HOUR 54 Because ethnic data is not always readily [...] 15-29 5 Kidney failure <15 (or dialysis) 55 Desirable <150 Borderline high 150-199 High 200-499 Very High >500 56 Desirable <200 Borderline high 200-239 High >239 57 Low <40 Desirable: 40-60 High: >60 58 Desirable <100 Near Optimal 100-129 Borderline high 130-159 High 160-189 Very High >189 59 -- REFERENCE VALUE -- 25-HYDROXY D TOTAL (D2+D3) Optimum levels in the healthy population are 20-50, patients with bone disease may benefit from higher levels within this range. Test Performed by: [facility] [address] [address] [employer] Cover Cementer: Emmett Brand III, M.D. 60 PT IS FASTING 61 PT IS FASTING 62 HDL Interpretation: Undesirable: High Risk: Less than 40 MG/DL Desirable: Low Risk: Greater than 60 MG/DL 63 LDL Interpretation: Low Risk Optimal Level: LDL Less than 100 MG/DL Near or Above Optimal: LDL 100-129 MG/DL Borderline High Risk: LDL 130-159 MG/DL High Risk: LDL 160-189 MG/DL Very High Risk: LDL Greater than 189 MG/DL 64 Because ethnic data is not always [...] 5 Kidney failure <15 (or dialysis) 65 Because ethnic data is not always readily [...] 15-29 5 Kidney failure <15 (or dialysis) 66 Because ethnic data is not always readily [...] 15-29 5 Kidney failure <15 (or dialysis) 67 HDL Interpretation: Undesirable: High Risk: Less than 40 MG/DL Desirable: Low Risk: Greater than 60 MG/DL 68 LDL Interpretation: Low Risk Optimal Level: LDL Less than 100 MG/DL Near or Above Optimal: LDL 100-129 MG/DL Borderline High Risk: LDL 130-159 MG/DL High Risk: LDL 160-189 MG/DL Very High Risk: LDL Greater than 189 MG/DL 69 PT IS FASTING 70 PT IS FASTING 71 Anion gap measurement may be of limited value in the presence of any alkalosis, especially in a combined acid base disorder. . 72 Because ethnic data is not always readily [...] 15-29 5 Kidney failure <15 (or dialysis) 73 CHOLESTEROL INTERPRETATION: Desirable: Less than 200 MG/DL Borderline-High Risk: 200-239 MG/DL High-Risk: 240 MG/DL and over 74 HDL INTERPRETATION: Undesirable: High Risk: Less than 40 MG/DL Desirable: Low Risk: Greater than 60 MG/DL 75 LDL INTERPRETATION: Low Risk Optimal Level: LDL Less than 100 MG/DL Near or Above Optimal: LDL 100-129 MG/DL Borderline High Risk: LDL 130-159 MG/DL High Risk: LDL 160-189 MG/DL Very High Risk: LDL Greater than 189 MG/DL 76 RUN DATE: 06/03/12 [facility] NMI LIVE PAGE 1 RUN TIME: 942 Specimen Inquiry RUN USER: INTERFACE Name: BLANCA TINOCO Status: REG REF Re06/01/12 Age/Sex: 77/F Unit#: [id number] Location: [facility] : 33 SPEC #: [id number] NEELAM: 06/01/12-1249 STATUS: COMP REQ #: [id number] RECD: 06/01/12-[address]: Catrachita Iniguez NP SOURCE: URINE ENTR: 06/01/12-[address] ORDERED: URINE C S QUERIES: MEDENT REQUISITION # [id number] SPECIMEN DESCRIPTION: URINE, RANDOM ACT WKST: UR 06/03/12 #1 Procedure Result Verified Site > URINE CULTURE SENSITIVI Final 06/03/12- 09 ML FINAL: NO GROWTH DAY 2 (<1,000 CFU/mL) ML - [facility] State Permit #[id number] [facility] [employer] direct marketing concepts [place] [id number] DEPARTMENT OF PATHOLOGY, [facility] [employer] [place], [place] [address] [facility] Permit #[id number] Julius Herman M.D. Director Shirin Vincent M.D. Sand[employer] Operator Procedures Date Code Description Status 06/15/2018 73908 Mobile Cardiovascular Telemetry Over 24 HR Up To 30 Completed Days 02/02/2018 40425 EKG Tracing & Interpretation Completed 12/15/2017 33874 EKG Tracing & Interpretation Completed 10/13/2017 06695 ECHO Transthoracic, Real-Time 2D With Doppler And Completed Color Flow 10/13/2017 46983 ECHO Transthoracic, Real-Time 2D With Doppler And Completed Color Flow 08/23/2017 61120 Holter Monitor Review (24 hr)dr review & interp only Completed 08/17/2017 11450 ECG Monitor/Recording W/Visual Superimposition Completed Scanning 07/26/2017 17664 ECHO Stress Test Incl Perf Contiuous ekg Monitoring Completed W/Phys Superv 07/26/2017 37038 ECHO Stress Test Incl Perf Contiuous ekg Monitoring Completed W/Phys Superv 07/20/2017 24831 EKG Tracing & Interpretation Completed 06/09/2017 85690 Echocardiography, Transesophageal, Real Time W/Image Completed 2D W/W/O M-M 06/09/2017 09994 Pulse Wave/Continuous-Interp.RPT Completed 06/09/2017 23943 Color Flow Doppler/Interp & Reprt Completed 06/09/2017 68788 Moderate Sedation Services; Same Phys Intl 15 Mins; PT Completed >=5 Years 06/09/2017 37292 Moderate Sedation Services; Same Phys Each Additional Completed 15 Mins 05/17/2017 82644 Echocardiography, Transesophageal, Real Time W/Image Completed 2D W/W/O M-M 05/11/2017 33086 ECHO Transthoracic, Real-Time 2D With Doppler And Completed Color Flow 04/06/2017 294935199 Bone Mineral Density Test Completed 02/21/2017 92513 EKG Tracing & Interpretation Completed 09/12/2016 11419 EKG Tracing & Interpretation Completed 07/27/2016 00115 EKG Tracing & Interpretation Completed 07/07/2016 21004 EKG Tracing & Interpretation Completed 11/16/2015 04186 ECHO Transthoracic, Real-Time 2D With Doppler And Completed Color Flow 11/10/2015 52443 EKG Tracing & Interpretation Completed 05/12/2015 78548 Left Heart Cath. Incl S/I Coronaries, Angio S/I V Gram Completed If Done 05/07/2015 73966 EKG Tracing & Interpretation Completed 04/15/2015 78938 ECHO Transthoracic, Real-Time 2D With Doppler And Completed Color Flow 03/23/2015 23787 EKG Tracing & Interpretation Completed 01/30/2015 69942 Treadmill Interp/Report Only Completed 01/30/2015 00623 Stress Test Supervsn W/Out I/R Completed 11/26/2013 78519 ECHO Transthoracic, Real-Time 2D With Doppler And Completed Color Flow 11/12/2013 528084204 Bone Mineral Density Test Completed 10/30/2013 70011 EKG Tracing & Interpretation Completed 12/24/2012 37936 EKG Tracing & Interpretation Completed 11/13/2012 78662 Stress ECHO Interpretation/Report Hospital Completed 11/13/2012 64295 Treadmill Interp/Report Only Completed 11/13/2012 45740 Stress Test Supervsn W/Out I/R Completed 10/11/2012 48088 Holter Monitoring 24 HR New Completed 09/14/2012 46179 ECHO Transthoracic, Real-Time 2D With Doppler And Completed Color Flow 09/12/2012 03108 ECHO Stress Test Incl Perf Contiuous ekg Monitoring Completed W/Phys Superv 09/12/2012 14910 ECHO Stress Test Incl Perf Contiuous ekg Monitoring Completed W/Phys Superv 09/12/2012 86689 ECHO Stress Test Incl Perf Contiuous ekg Monitoring Completed W/Phys Superv 09/03/2012 55843 EKG Tracing & Interpretation Completed 08/30/2012 14142 EKG Tracing & Interpretation Completed 07/30/2012 16731 Rad Exam; Foot Comp Completed 07/30/2012 18058 Xray Knee 3 Views Completed 07/30/2012 47178 Rad Exam; Knee, Ap&L Completed 05/14/2012 10493 Rad Exam; Foot Comp Completed 10/02/2010 976241496 Bone Mineral Density Test Completed 10/02/2007 [id number] Colonoscopy Completed Encounters Type Date Location Provider Dx Diagnosis Office Visit 07/30/2018 [facility] Serene Orta, I48.0 Paroxysmal atrial 2:00p N.P. fibrillation E78.00 Pure hypercholesterolemia, unspecified I34.0 Nonrheumatic mitral (valve) insufficiency I42.9 Cardiomyopathy, unspecified Office Visit 07/23/2018 9:41a [facility] Oc Garcia N39.0 Urinary tract Assoc,pc MD Sebastian infection, site Hospitalists not specified I48.91 Unspecified atrial fibrillation Office Visit 07/22/2018 9:41a [facility] Oc Garcia N39.0 Urinary tract Assoc,pc MD Sebastian infection, site Hospitalists not specified R53.1 Weakness Office Visit 07/21/2018 9:40a [facility] Oc Garcia R53.1 Weakness Assoc, Hospitalists MD Sebastian N39.0 Urinary tract infection, site not specified Office Visit 07/20/2018 9:40a [facility] Lucia Vera, R53.1 Weakness Assoc, Hospitalists DO R11.0 Nausea N39.0 Urinary tract infection, site not specified I48.91 Unspecified atrial fibrillation Office Visit 07/16/2018 9:50a [facility] Internal Medicine Uche Duque, R30.0 Dysuria - Sarah Olvera N30.01 Acute cystitis with hematuria F51.04 Psychophysiologic insomnia Office Visit 05/30/2018 11:10a [facility] Internal Uche Z00.01 Encounter for Medicine - May Duque general adult [place] medical exam w abnormal findings Z23 Encounter for immunization R09.89 Oth symptoms and signs involving the circ and resp systems Office Visit 04/18/2018 9:00a [facility] Nurse Visit I10 Essential (primary) cc hypertension Office Visit 03/23/2018 11:30a [facility] Serene Browning I42.9 Cardiomyopathy, Of Yi Orta, N.P. unspecified I34.0 Nonrheumatic mitral (valve) insufficiency I10 Essential (primary) hypertension I47.1 Supraventricular tachycardia Office Visit 03/21/2018 2:00p [facility] Internal Uche Duque, R21 Rash and other Medicine - May nonspecific skin [place] eruption F41.9 Anxiety disorder, unspecified Office Visit 03/01/2018 11:50a [facility] Internal Uche F41.9 Anxiety disorder , Ja Duque M.D. unspecified [place] M17.9 Osteoarthritis of knee, unspecified Office Visit 02/02/2018 3:40p [facility] José Sams I10 Essential (primary) May Madden hypertension I34.0 Nonrheumatic mitral (valve) insufficiency I42.9 Cardiomyopathy, unspecified I47.1 Supraventricular tachycardia I27.20 Pulmonary hypertension, unspecified I25.10 Athscl heart disease of [place] coronary artery w/o ang pctrs Office Visit 01/05/2018 11:30a [facility] Serene SCelso I10 Essential ( primary) Of [facility] Foster, N.P. hypertension I34.0 Nonrheumatic mitral (valve) insufficiency I42.9 Cardiomyopathy, unspecified I47.1 Supraventricular tachycardia I27.20 Pulmonary hypertension, unspecified E78.00 Pure hypercholesterolemia, unspecified I25.10 Athscl heart disease of [place] coronary artery w/o ang pctrs Office Visit 12/15/2017 1:20p [facility] José Sams I10 Essential (primary) May Madden hypertension I34.0 Nonrheumatic mitral (valve) insufficiency I42.9 Cardiomyopathy, unspecified I25.10 Athscl heart disease of [place] coronary artery w/o ang pctrs E78.00 Pure hypercholesterolemia, unspecified I27.20 Pulmonary hypertension, unspecified I47.1 Supraventricular tachycardia Office Visit 10/26/2017 10:10a [facility] Internal Uche M17.9 Osteoarthritis of Ja Duque M.D. knee, unspecified [place] Office Visit 10/18/2017 10:00a [place] Laya Grossman, I10 Essential (primary) Cardiology PA hypertension I42.9 Cardiomyopathy, unspecified I34.0 Nonrheumatic mitral (valve) insufficiency I25.10 Athscl heart disease of [place] coronary artery w/o ang pctrs E78.00 Pure hypercholesterolemia, unspecified Office Visit 09/13/2017 10:50a [facility] Internal Uche F41.9 Anxiety disorder , Ja Duque M.D. unspecified [place] Z23 Encounter for immunization Office Visit 08/16/2017 11:30a [facility] Laya Grossman, I34.0 Nonrheumatic mitral PA (valve) insufficiency I42.9 Cardiomyopathy, unspecified I10 Essential (primary) hypertension Office Visit 07/20/2017 3:20p Teresa Sams I34.0 Nonrheumatic mitral Cardiology May Madden (valve) insufficiency I42.9 Cardiomyopathy, unspecified I44.7 Left bundle-branch block, unspecified G47.9 Sleep disorder, unspecified Office Visit 05/18/2017 2:00p [facility] Jimena Root, R06.83 Snoring Services Of [facility] R35.1 Nocturia R68.2 Dry mouth, unspecified R40.0 Somnolence Office Visit 05/15/2017 2:30p Aleksandr Grossman I42.9 Cardiomyopathy, Cardiology Of [place] unspecified [facility] I34.0 Nonrheumatic mitral (valve) insufficiency Office Visit 05/10/2017 11:30a [facility] Internal U[place] K57.30 [facility] Ja Duque M.D. w/o perforation or [place] abscess w/o bleeding F41.9 Anxiety disorder, unspecified G47.9 Sleep disorder, unspecified Office Visit 03/29/2017 11:10a [facility] Internal U[place] Z00.01 Encounter for Ja Duque M.D. general adult [place] medical exam w abnormal findings F41.9 Anxiety disorder, unspecified L30.9 Dermatitis, unspecified E03.9 Hypothyroidism, unspecified E78.5 Hyperlipidemia, unspecified M85.89 Oth disrd of bone density and structure, multiple sites G47.00 Insomnia, unspecified K59.00 Constipation, unspecified Office Visit 03/13/2017 1:20p [facility] Internal U[place] M25.551 Pain in right hip Ja Duque M.D. [place] Office Visit 02/21/2017 1:20p Teresa Sams I42.9 Cardiomyopathy, Cardiology May Madden unspecified R94.31 Abnormal electrocardiogram [ECG] [EKG] I10 Essential (primary) hypertension R53.83 Other fatigue G47.9 Sleep disorder, unspecified Office Visit 12/29/2016 11:50a [facility] Internal U[place] F41.9 Anxiety disorder , Ja Duque M.D. unspecified [place] R30.0 Dysuria L08.9 Local infection of the skin and subcutaneous tissue, unsp Office Visit 12/08/2016 1:40p [facility] Internal U[place] F41.9 Anxiety disorder , Medicine - May Duque unspecified [place] Office Visit 11/16/2016 11:10a [facility] Internal Uche I10 Essential (primary ) Medicine Christiana Duque M.D. hypertension [place] G47.00 Insomnia, unspecified F41.9 Anxiety disorder, unspecified Office Visit 09/12/2016 11:00a Teresa Grossman, I42.9 Cardiomyopathy, Cardiology [place] unspecified F41.9 Anxiety disorder, unspecified R53.83 Other fatigue E78.5 Hyperlipidemia, unspecified Office Visit 07/27/2016 2:40p [facility] Internal Uche Duque, R07.89 Other chest Medicine - RussellDCelso pain [place] F41.9 Anxiety disorder, unspecified Office Visit 07/07/2016 Aleksandr Sams I42.9 Cardiomyopathy, 10:00a Cardiology José Madden M.D. unspecified [employer] I34.0 Nonrheumatic mitral (valve) insufficiency E78.5 Hyperlipidemia, unspecified R53.83 Other fatigue I10 Essential (primary) hypertension Office Visit 03/31/2016 12:40p [facility] Internal Adry Doran F41.9 Anxiety disorder, Medicine - M.D. unspecified [place] R21 Rash and other nonspecific skin eruption Office Visit 12/31/2015 11:50a [facility] Internal Uche Duque, R21 Rash and other Medicine - M.D. nonspecific skin [place] eruption G47.09 Other insomnia F41.9 Anxiety disorder, unspecified Office Visit 12/10/2015 11:00a Teresa Grossman, I42.9 Cardiomyopathy, Cardiology PA unspecified I34.0 Nonrheumatic mitral (valve) insufficiency E78.5 Hyperlipidemia, unspecified R53.83 Other fatigue I10 Essential (primary) hypertension Office Visit 11/10/2015 Teresa Sams R94.31 Abnormal 10:40a Cardiology May Madden electrocardiogram [ECG] [EKG] I42.9 Cardiomyopathy, unspecified I34.0 Nonrheumatic mitral (valve) insufficiency Office Visit 08/03/2015 12:10p [facility] Internal U[place] N30.00 Acute cystitis Ja Duque M.D. without hematuria [place] Office Visit 06/22/2015 12:10p [facility] Internal [place] N39.42 Incontinence Ja Duque M.D. without sensory [place] awareness M17.9 Osteoarthritis of knee, unspecified V04.81 Need For Prophylactic Vaccination & Inoculation/Influenza Z23 Encounter for immunization F43.22 Adjustment disorder with anxiety R68.2 Dry mouth, unspecified Office Visit 05/18/2015 4:00p Aleksandr Cottrell, V58.41 Postoperative Wound Cardiology Of [place], FAC, Closure Encounter [employer] AT [facility] Office Visit 05/07/2015 2:00p [place] Laya Grossman, 401.9 Hypertension Unspec Cardiology PA 786.50 Pain Chest Unspec 794.31 Electrocardiogram (ECG) (EKG) Abnormal 425.9 Cardiomyopathy Secondary Unspecified 272.2 Hyperlipidemia Mixed 794.39 Cardiovascular Study Other Abnormal Office Visit 04/06/2015 1:10p [facility] Internal Uchemicheal Duque, 300.09 Anxiety States Medicine - May Other [place] 401.9 Hypertension Unspec 780.52 Insomnia Unspecified 272.2 Hyperlipidemia Mixed Office Visit 03/23/2015 11:20a [facility] José Sams 401.9 Hypertension May Madden Unspec 786.50 Pain Chest Unspec 794.31 Electrocardiogram (ECG) (EKG) Abnormal 424.0 Mitral Valve Disorder 307.49 Sleep Disorder Other Office Visit 02/04/2015 9:50a [facility] Internal [place] 535.00 Gastritis Acute Ja Duque M.D. W/O Hemorrhage [place] 401.1 Hypertension Benign 272.2 Hyperlipidemia Mixed 300.09 Anxiety States Other Office Visit 01/30/2015 10:44a [facility] Julia Jensen, 786.50 Pain Chest Assoc,pc M.DCelso Unspec Hospitalists 789.06 Pain Abdominal Epigastric 244.9 Hypothyroidism Other Unspec 401.9 Hypertension Unspec Office Visit 01/29/2015 10:43a [facility] Julia Jensen 786.50 Pain Chest Assoc,pc RusesllDCelso Unspec Hospitalists 789.06 Pain Abdominal Epigastric 244.9 Hypothyroidism Other Unspec 401.9 Hypertension Unspec Office Visit 12/18/2014 2:30p [facility] Internal [place] V70.0 Examination Ja Duque M.D. 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 Office Visit 08/18/2014 12:10p [facility] Internal Uche Dunia, 472.0 Rhinitis Chronic Medicine - Jean.Prabhakar [place] V04.81 Need For Prophylactic Vaccination & Inoculation/Influenza 300.00 Anxiety State Unspec Office Visit 01/08/2014 2:50p [facility] Internal [place] 733.90 Bone & Cartilage Medicine - May Duque Disorder Unspec [place] 300.00 Anxiety State Unspec Office Visit 12/12/2013 12:10p [facility] Internal Uche Dunia, 311 Depressive Medicine - M.DCelso Disorder Not [place] Elsewhere Spec 733.90 Bone & Cartilage Disorder Unspec Office Visit 10/30/2013 11:20a [facility] José Sams 401.9 Hypertension May Madden Unspec 424.0 Mitral Valve Disorder 311 Depressive Disorder Not Elsewhere Spec 276.8 Hypopotassemia 794.31 Electrocardiogram (ECG) (EKG) Abnormal 785.1 Palpitations Office Visit 10/28/2013 2:10p [facility] Internal Uche Dunia, 300.00 Anxiety State Medicine - MAndrez Unspec [place] 311 Depressive Disorder Not Elsewhere Spec 401.9 Hypertension Unspec 682.9 Cellulitis & Abscess Unspec Site 244.8 Hypothyroidism Other Spec V49.81 Postmenopausal Status Asymptomatic (Age-Related,Natural) 782.1 Rash & Other Nonspec Skin Eruption Office Visit 07/10/2013 1:50p [facility] Internal Nurse Visit C 401.9 Hypertension Unspec Medicine - [place] Office Visit 06/27/2013 1:50p [facility] Internal [place] 401.9 Hypertension Unspec Ja Duque M.D. [place] 276.8 Hypopotassemia 272.2 Hyperlipidemia Mixed 300.00 Anxiety State Unspec V04.81 Need For Prophylactic Vaccination & Inoculation/Influenza Office Visit 02/13/2013 11:10a [facility] Internal [place] 338.19 Other Acute Pain Ja Duque M.D. [place] Office Visit 02/06/2013 2:50p [facility] Internal [place] 401.9 Hypertension Ja Duque M.D. Unspec [place] 311 Depressive Disorder Not Elsewhere Spec 272.2 Hyperlipidemia Mixed 300.00 Anxiety State Unspec Office Visit 12/24/2012 11:20a [facility] José Sams 401.9 Hypertension May Madden Unspec 311 Depressive Disorder Not Elsewhere Spec 276.8 Hypopotassemia 785.1 Palpitations Office Visit 12/14/2012 11:00a [facility] Nurse Visit cc 401.9 Hypertension Unspec Office Visit 12/11/2012 1:50p [facility] Internal [place] 401.9 Hypertension Ja Duque M.D. Unspec [place] 311 Depressive Disorder Not Elsewhere Spec 300.00 Anxiety State Unspec 272.2 Hyperlipidemia Mixed 276.8 Hypopotassemia Office Visit 11/27/2012 [place] Nurse Visit 401.1 Hypertension Benign 11:00a Cardiology cc Office Visit 11/13/2012 [place] José Sams 794.31 Electrocardiogram 11:30a Cardiology May Madden (ECG) (EKG) Abnormal 425.4 Cardiomyopathy Other Prim 401.1 Hypertension Benign 786.50 Pain Chest Unspec Office Visit 09/12/2012 1:30p [facility] José Sams 785.1 Palpitations May Madden 794.31 Electrocardiogram (ECG) (EKG) Abnormal 786.50 Pain Chest Unspec Office Visit 09/03/2012 [place] José Sams 794.31 Electrocardiogram 2:20p Cardiology May Madden (ECG) (EKG) Abnormal 401.9 Hypertension Unspec 785.1 Palpitations Office Visit 08/30/2012 1:50p [facility] Internal [place] 401.9 Hypertension Unspec May [place] 794.31 Electrocardiogram (ECG) (EKG) Abnormal 470 Deviated Nasal Septum 311 Depressive Disorder Not Elsewhere Spec Office Visit 08/06/2012 1:50p [facility] Internal [place] 401.9 Hypertension Unspec May [place] 054.9 Herpes Simplex W/O Complication Office Visit 07/30/2012 11:15a Orthopedic Migue Lopez, 355.6 [facility] [place] Office Visit 07/12/2012 1:30p Orthopedic Rene Brar 719.47 [facility]C Office Visit 07/03/2012 1:10p [facility] Internal Uche Duque, V70.0 Examination Medicine Christiana [facility] Routine AT Health Care Facility 788.43 Nocturia 311 Depressive Disorder Not Elsewhere Spec 300.00 Anxiety State Unspec 272.2 Hyperlipidemia Mixed 796.2 Blood Pressure Reading Elevated W/O Hypertension 586 Renal Failure Unspec Office Visit 06/01/2012 11:30a [facility] Internal Catrachita Iniguez, N.PCelso 788.1 Dysuria Medicine - [place] 599.0 UTI Urinary Tract Infection Site Not Spec Office Visit 05/28/2012 2:30p Orthopedic Migue 733.94 Stress Fract[facility] Metatarsals Office Visit 05/14/2012 10:00a Orthopedic Migue 719.47 [facility] Office Visit 04/10/2012 11:45a [facility] Internal [place] 924.11 Contusion Knee aJ Duque M.D. [place] 627.2 Menopausal Or Female Climacteric State, Symptomatic Office Visit 03/19/2012 2:00p [facility] Internal Uche Duque, 311 Depressive Medicine May Disorder Not [place] Elsewhere Spec 627.2 Menopausal Or Female Climacteric State, Symptomatic 780.52 Insomnia Unspecified 735.4 Hammer Toe Other Acquired Plan of Treatment Future Appointment(s):09/06/2018 8:50 am - Uche Duque M.D. at [facility] Internal Medicine [facility]09/17/2018 11:00 am - [place] [facility] Schedule at [facility]09/28/2018 2:00 pm - José Madden M.D. at [facility]08/28/2018 - Uche Duque M.D.A08.39 Other viral enteritisComments:we discussed soft foods to rest the bowels , if your pain really gets worse , please go to the wyicxyucE55.130 Patient's unintentional underdosing of medication regimen duComments:Please bring all your medications from [facility] on your next [id number] Essential (primary) hypertensionFollow up:BP check in 1 week
[2018-09-02 22:28] LABS: ABS Basophils 0 10^3/ul (0-0.2); ABS Eosinophils 0 10^3/ul (0-0.6); ABS Lymphocytes 0.3 10^3/ul (1.0-4.8); ABS Monocytes 0.6 10^3/ul (0-0.8); ABS Neutrophils 10.4 10^3/ul (1.5-7.7); ABS Nucleated RBC 0 10^3/ul; Eosinophil % 0.3 %; Hematocrit 41 % (35-47); Hemoglobin 13.3 g/dl (12.0-16.0); Lymphocyte % 2.8 %; Mean Corpuscular HGB Conc 32 g/dl (31-36); Mean Corpuscular Hemoglobin 28 pg (27-31); Mean Corpuscular Volume 85 fL (80-97); Mean Platelet Volume 8.6 fL (7.4-10.4); Nucleated Red Blood Cells % 0; Platelet Count 276 10^3/ul (150-450); Red Blood Count 4.82 10^6/ul (4.00-5.40); Red Cell Distribution Width 16 % (10.5-15); White Blood Count 11.4 10^3/ul (3.5-10.8)
[2018-09-02 22:34] LABS: INR 1.24 (0.77-1.02)
--- NOTE | 2018-09-02 22:44 | ED ---
Back Pain - HPI Summary HPI Summary: This patient is a 83 year old F presenting to [facility] accompanied by her son with a chief complaint of left flank pain. The patient rates the pain 6/10 in severity. Patient reports ABD pain that began 3 hours ago. Her son reminds her that she has had a stomach ache for days and she corrected herself. Patient denies CP, SOB, urinary sx, and vomiting. Patient dx with UTI at PCP on and began taking her abx today. Hx diverticulosis. Pt ambulates at home without a walker. She denies relevant lung history. - History of Current Complaint Chief Complaint: EDFlankPain Stated Complaint: ABD PAIN Time Seen by Provider: 09/02/18 22:25 Hx Obtained From: Patient Hx Last Menstrual Period: "years ago." Onset/Duration: Still Present Timing: Constant Back Pain Location: Is Discrete @ - L flank Severity Initially: Moderate Severity Currently: Moderate Pain Intensity: 6 Pain Scale Used: 0-10 Numeric Associated Signs And Symptoms: Positive: Other - ABD pain - Allergies/Home Medications Allergies/Adverse Reactions: Allergies Allergy/AdvReac Type Severity Reaction Status Date / Time doxycycline Allergy Unknown Unknown Verified 09/02/18 22:06 Reaction Details erythromycin base Allergy Unknown Unknown Verified 09/02/18 22:06 Reaction Details PMH/Surg Hx/FS Hx/Imm Hx Endocrine/Hematology History: Reports: Hx Anticoagulant Therapy - ASA daily for general health., Hx Thyroid Disease - per pt, hypo thyroid Denies: Hx Diabetes, Other Endocrine/Hematological Disorders Cardiovascular History: Reports: Hx Angina, Hx Hypertension, Hx Valvular Heart Disease - Mitral regurgitation Denies: Hx Congestive Heart Failure, Hx Coronary Artery Disease, Hx Deep Vein Thrombosis, Hx Myocardial Infarction, Hx Pacemaker/ICD Respiratory History: Denies: Hx Asthma, Hx Chronic Obstructive Pulmonary Disease (COPD), Hx Lung Cancer, Hx Pneumonia, Hx Pulmonary Embolism GI History: Denies: Hx Gall Bladder Disease, Hx Gastrointestinal Bleed, Hx Ulcer, Hx Urosepsis History: Reports: Other Problems/Disorders - UTI Denies: Hx Kidney Stones, Hx Renal Disease Musculoskeletal History: Reports: Other Musculoskeletal History - Lichens Sclerosa Denies: Hx Osteoporosis Sensory History: Reports: Hx Contacts or Glasses Denies: Hx Deafness, Hx Hearing Aid, Other Sensory Impairments Opthamlomology History: Reports: Hx Contacts or Glasses Denies: Other Sensory Impairments Neurological History: Denies: Hx Dementia, Hx Migraine, Hx Seizures, Hx Transient Ischemic Attacks (TIA) Psychiatric History: Reports: Hx Anxiety, Hx Depression Denies: Hx Schizophrenia, Hx Bipolar Disorder - Surgical History Surgery Procedure, Year, and Place: hysterectomy. BILAT BREAST LUMPECTOMY- cysts - Immunization History Date of Tetanus Vaccine: utd Date of Influenza Vaccine: fall 2017 Infectious Disease History: No Infectious Disease History: Denies: Hx Clostridium Difficile, Hx Hepatitis, Hx Human Immunodeficiency Virus (HIV), Hx of Known/Suspected MRSA, Hx Shingles, Hx Tuberculosis, Hx Known/ Suspected VRE, Hx Known/Suspected VRSA, History Other Infectious Disease, Traveled Outside the [place] in Last 30 Days - Family History Known Family History: Positive: Hypertension Negative: Cardiac Disease - Social History Alcohol Use: Occasionally Hx Substance Use: No Substance Use Type: Reports: None Hx Tobacco Use: No Smoking Status (MU): Never Smoked Tobacco Have You Smoked in the Last Year: No Review of Systems Negative: Fever Negative: Chest Pain Negative: Shortness Of Breath Positive: Abdominal Pain. Negative: Vomiting Positive: no symptoms reported, flank pain All Other Systems Reviewed And Are Negative: Yes Physical Exam - Summary Physical Exam Summary: VITAL SIGNS: Reviewed. GENERAL: Patient is a well-developed and nourished female who is lying comfortable in the stretcher. Patient is not in any acute respiratory distress. HEAD AND FACE: No signs of trauma. No ecchymosis, hematomas or skull depressions. No sinus tenderness. EYES: PERRLA, EOMI x 2, No injected conjunctiva, no nystagmus. EARS: Hearing grossly intact. Ear canals and tympanic membranes are within normal limits. MOUTH: Oropharynx within normal limits. NECK: Supple, trachea is midline, no adenopathy, no JVD, no carotid bruit, no c- spine tenderness, neck with full ROM. CHEST: Symmetric, no tenderness at palpation LUNGS: bilateral rales CVS: Regular rate and rhythm, S1 and S2 present, no murmurs or gallops appreciated. ABDOMEN: Soft, LLQ is TTP. No signs of distention. No rebound no guarding, and no masses palpated. Bowel sounds are normal. EXTREMITIES: FROM in all major joints, no edema, no cyanosis or clubbing. NEURO: Alert and oriented x 3. No acute neurological deficits. Speech is normal and follows commands. SKIN: Dry and warm Triage Information Reviewed: Yes Vital Signs On Initial Exam: Initial Vitals Temp Pulse Resp BP Pulse Ox 98.7 F 102 24 134/61 93 09/02/18 20:58 09/02/18 20:58 09/02/18 20:58 18 20:58 09/02/18 20:58 Vital Signs Reviewed: Yes Diagnostics - Vital Signs Vital Signs Temp Pulse Resp BP Pulse Ox 09/02/18 20:58 98.7 F 102 24 134/61 93 - Laboratory Lab Results: Lab Results 09/02/18 09/02/18 Range/Units 22:15 22:15 WBC 11.4 H (3.5-10.8) 10^3/ul RBC 4.82 (4.00-5.40) 10^6/ul Hgb 13.3 (12.0-16.0) g/dl Hct 41 (35-47) % MCV 85 (80-97) fL MCH 28 (27-31) pg MCHC 32 (31-36) g/dl RDW 16 H (10.5-15) % Plt Count 276 (150-450) 10^3/ul MPV 8.6 (7.4-10.4) fL Neut % (Auto) 91.5 % Lymph % (Auto) 2.8 % [place] % (Auto) 5.0 % Eos % (Auto) 0.3 % Baso % (Auto) 0.4 % Absolute Neuts (auto) 10.4 H (1.5-7.7) 10^3/ul Absolute Lymphs (auto) 0.3 L (1.0-4.8) 10^3/ul Absolute Monos (auto) 0.6 (0-0.8) 10^3/ul Absolute Eos (auto) 0 (0-0.6) 10^3/ul Absolute Basos (auto) 0 (0-0.2) 10^3/ul Absolute Nucleated RBC 0 10^3/ul Nucleated RBC % 0 INR (Anticoag Therapy) 1.24 H (0.77-1.02) Result Diagrams: 09/02/18 22:15 09/02/18 22:15 Lab Statement: Any lab studies that have been ordered have been reviewed, and results considered in the medical decision making process. - Radiology CXR Radiology Interpretation Completed By: ED Physician Summary of Radiographic Findings: bilateral venous congestion. Pending official report. - CT CTA Chest/Pelvis/ ABD CT Interpretation Completed By: Radiologist Summary of CT Findings: 1. No CT findings to correlate with patient's symptomatology. 2. Large pleural effusions and associated lung volume loss. 3. Distal colonic diverticulosis. 4. CHF associated mesenteric edema. 1. Acute congestive heart failure. 2. No pulmonary emboli. ED physician has reviewed this radiology report Back Pain Course/Dx - Course Assessment/Plan: This patient is a 83 year old F presenting to [facility] accompanied by her son with a chief complaint of left flank pain. The patient rates the pain 6/10 in severity. Patient reports ABD pain that began 3 hours ago. Her son reminds her that she has had a stomach ache for days and she corrected herself. Patient denies CP, SOB, urinary sx, and vomiting. Patient dx with UTI at PCP on and began taking her abx today. Hx diverticulosis. Pt ambulates at home without a walker. She denies relevant lung history. CXR reveals bilateral venous congestion. Pending official report. CTA Chest/ABD/ Pelvis reveals, per radiologist, 1. No CT findings to correlate with patient's symptomatology. 2. Large pleural effusions and associated lung volume loss. 3. Distal colonic diverticulosis. 4. CHF associated mesenteric edema. 1. Acute congestive heart failure. 2. No pulmonary emboli. Bloodwork obtained. In the ED course the patient was given lasix and IV fluids. Dx CHF. We discussed patient care with dr burch and she has accepted the patient for admission. Patient will be amitted. The patient is agreeable with this plan. - Diagnoses Provider Diagnoses: CHF (congestive heart failure) - Provider Notifications Discussed Care Of Patient With: Steffanie Burch Time Discussed With Above Provider: 15:17 Instructed by Provider To: Admit As Inpatient Discharge - Sign-Out/Discharge Documenting (check all that apply): Patient Departure - admitted - Discharge Plan Condition: Fair Disposition: ADMITTED TO [facility] Referrals: Rissa Green MD [Primary Care Provider] - - Attestation Statements Document Initiated by Scribe: Yes Documenting Scribe: Jordan Nguyen Provider For Whom Scribe is Documenting (Include Credential): Sameer Stubbs MD Scribe Attestation: Jordan Connor scribed for Sameer Stubbs MD on 09/03/18 at 0219. Status of Scribe Document: Ready
[2018-09-02 22:46] LABS: EGFR Non-African American 74.6 (>60)
[2018-09-02] MEDS ORDERED: NS 0.9% 1000 ML* 1,000 ML IV ONE (22:58)
[2018-09-03] MEDS ORDERED: Iohexol 350* (CONTRAST) 500 ML MDV IV ONE (00:19)
[2018-09-03] MEDS ORDERED: Furosemide IV* 10 MG/ML VIAL (40 MG) IV SLOW PU ONE (01:34)
[2018-09-03 02:38] LABS: Urine Appearance Clear; Urine Blood Negative (Negative); Urine Color Straw; Urine Ketones Trace (Negative); Urine Protein Negative (Negative); Urine Specific Gravity 1.013 (1.010-1.030); Urine Urobilinogen Negative (Negative)
[2018-09-03] MEDS ORDERED: Zolpidem TAB* 5 MG PO PRN (05:15)
[2018-09-03] MEDS ORDERED: Heparin VIAL(*) 5000 UNITS/ML VIAL (FIVE THOUSAND) SUBCUT SCH (06:00)
--- NOTE | 2018-09-03 06:50 | HP ---
CC: Rissa Green MD; José Madden MD.* HISTORY AND PHYSICAL: DATE OF ADMISSION: 09/03/18 PRIMARY CARE PROVIDER: Rissa Green MD WHITEWASHER: José Madden MD CHIEF COMPLAINT: Abdominal discomfort. HISTORY OF PRESENT ILLNESS: Ms. Blas is an 83-year-old female with history of nonischemic cardiomyopathy, SVT, atrial fibrillation, mitral regurgitation, hypertension, depression/anxiety, and hyperthyroidism, who presents to the emergency room with complaints of abdominal discomfort. I will preface this by saying that the patient is incredibly poor historian, and it is difficult to determine what actually brought her to the hospital. At one point, she states that the main reason she came to the hospital is because her hands were cold, another time she states that it is because of abdominal discomfort. She is unable to describe the abdominal discomfort to me. She states that she has not had any fever. She admits to having chills. She denies any diarrhea. She states that her bowel movements are regular after initiating Metamucil for her history of diverticulosis. At times, she describes her discomfort is crampy. She also states that she is having difficulty with sleeping. She states that she had been on trazodone, but this was discontinued per her primary. This patient's son states the patient has not been eating or drinking real well. She states she has had no appetite, because she feels full. Her son also states that she has not taken her medications over the last 1-1/2 days. PAST MEDICAL HISTORY: 1. Depression/anxiety. 2. Hypertension. 3. Hyperlipidemia. 4. Hypothyroidism. 5. Nonischemic cardiomyopathy. 6. History of SVT. 7. Mitral regurgitation. 8. Newly diagnosed AFib. PAST SURGICAL HISTORY: 1. Hysterectomy. 2. Tonsillectomy. 3. Urethral sling. MEDICATIONS: 1. Amiodarone 100 mg p.o. daily. 2. Ambien 5 mg p.o. q.h.s. p.r.n. insomnia. 3. Eliquis 2.5 mg p.o. twice daily. 4. Lisinopril 2.5 mg p.o. daily. 5. Pravastatin 10 mg p.o. Monday, Monday, Monday. 6. Spironolactone 25 mg p.o. daily. 7. Xanax 1 mg p.o. daily p.r.n. anxiety. 8. Paxil 50 mg p.o. daily. 9. Levothyroxine 100 mcg p.o. daily. 10. Multivitamin 1 tab p.o. daily. 11. Calcium 1000 mg p.o. daily. 12. Metamucil 0.52 g 3 caps p.o. daily. ALLERGIES: ERYTHROMYCIN, DOXYCYCLINE and SULFA. FAMILY HISTORY: Dad of stomach cancer. Mom of stroke and CHF. SOCIAL HISTORY: The patient is a nonsmoker. She does not drink. She is a retired speech therapist. She is . She lives alone. She has 5 children. Her son, Cristino is her healthcare proxy. REVIEW OF SYSTEMS: A complete 11-system review of systems is obtained. Pertinent positives and negatives are as per HPI. In addition, the patient states that she has had off and on chest discomfort over the last 1 week. She describes it is as if a person is pressing on her chest. She is unable to tell me exactly when this occurred. She admits to an occasional cough. She also admits to shortness of breath when lying flat. The patient reportedly told her nurse in the emergency room that prescription for an antibiotic was just called in for a questionable urinary tract infection the day prior to admission. PHYSICAL EXAMINATION GENERAL: The patient is a well-developed elderly female, seen lying in the stretcher with the head at approximately 30 degrees, in no acute distress. VITAL SIGNS: Blood pressure 124/63, pulse 80, respirations 21, temp 98.7, and O2 sat 92% on room air. HEENT: Pupils are equal and round. Extraocular muscles are intact. Oropharynx is clear. Oral mucosa is moist. There is no submandibular, cervical , or supraclavicular adenopathy. Thyroid is not enlarged. No thyroid nodules are noted. PULMONARY: There are few crackles heard at the bases bilaterally. Breath sounds generally are diminished throughout. CARDIAC: Normal S1, S2. Regular rate and rhythm. I do not appreciate any murmurs. There is no lower extremity edema. ABDOMEN: Bowel sounds are present. Abdomen is soft, nondistended. She is mildly tender to palpation throughout. MUSCULOSKELETAL: There is no cyanosis or clubbing of the digits. There is full active range of motion of all 4 extremities. SKIN: Warm and dry. There are no rashes. NEURO: Cranial nerves II through XII appeared to be grossly intact. Sensation is intact to light touch throughout. Strength is 5/5 and symmetric in both upper and lower extremities bilaterally. PSYCH: The patient is alert. She is oriented x3. Affect appears appropriate. DIAGNOSTIC STUDIES/LAB DATA: WBC 11.4, hemoglobin 13.3, hematocrit 41, platelets 276. INR 1.24. Sodium 137, potassium 2.8, chloride 103, CO2 of 24, BUN 17 and creatinine 0.74, glucose 112. Lactic acid 1.9. Calcium 9.5. Bilirubin 1.1, AST 35, ALT 55, alk phos 71. Troponin 0.01. CRP 11.16. BNP 696. Albumin 4.2. Urinalysis is clear with a specific gravity of 1.013 and no signs of infection. Chest x-ray to my interpretation appears to reveal pulmonary vascular congestion. CTA chest, abdomen and pelvis reveals signs of acute congestive heart failure and no evidence of pulmonary emboli. There are no CT findings to correlate with the patient's abdominal discomfort, large pleural effusion and associated lung volume loss present. Distal colonic diverticulosis is noted. CHF- associated mesenteric edema is noted. ASSESSMENT AND PLAN: Ms. Blas is an 83-year-old female with history of nonischemic cardiomyopathy, atrial fibrillation, supraventricular tachycardia, hypertension, hypothyroidism, and depression and anxiety, who presents to the emergency room with complaints of abdominal discomfort and while in the ER, is noted to be slightly hypoxic and have findings on lab and imaging consistent with acute congestive heart failure. 1. Acute diastolic congestive heart failure. The patient most recently had an echocardiogram in June 2017. At that time, she was found to have an EF of 45% to 50%. She has been maintained on lisinopril and spironolactone as an outpatient. She has now been on a loop diuretic. At this point, the patient received Lasix 40 mg IV x1 in the emergency room. I will have another 20 mg of IV Lasix administered at 11 a.m. on 09/03/18. Consideration should be made for the patient being initiated on Lasix 20 mg every other day or daily if it is determined her volume status is such that she would benefit from a daily dose. At this point, she is not needing any supplemental oxygen, however, overnight pulse oximetry could be considered. I am not going to repeat an echocardiogram at this time, but this could be considered if she fails to respond to the above treatment. 2. Abdominal discomfort. My suspicion is the abdominal discomfort is related to the patient's acute congestive heart failure. There is evidence of mesenteric edema. There is slight elevation of the ALT on her blood work, which could indicate passive congestion of her liver. We will diurese the patient as above and monitor her symptoms of abdominal discomfort. 3. Atrial fibrillation. The patient had what sounds to be a Holter monitor as an outpatient recently. She was found to have 2 episodes of atrial fibrillation. She will be maintained on amiodarone 100 mg daily, Eliquis 2.5 mg twice daily, and her rhythm will be monitored on telemetry. 4. Hypertension. The patient will continue on her usual dose of lisinopril. 5. Hypothyroidism. Continue Synthroid 100 mcg p.o. daily. 6. Depression/anxiety. We will continue p.r.n. Xanax and her Paxil. 7. DVT prophylaxis. According to the Adult Thrombosis Prophylaxis Risk Factor Assessment Guide, the patient has a total risk factor score of 3, making her high risk. She is already on Eliquis and this will act as her DVT prophylaxis. 8. Code status is DNR. TIME SPENT: Sixty-five minutes was spent admitting this patient. [id number] #: [id number] DEXTER
[2018-09-03] MEDS: Levothyroxine TAB* 100 MCG TAB PO SCH (07:22)
[2018-09-03] MEDS: CMCS: Pravastatin (NF) 20 MG TAB PO SCH (09:48)
[2018-09-03] MEDS: Psyllium PAK PO SCH (09:48)
[2018-09-03] MEDS: Calcium Carbonate CHEW TAB* 500 MG (TUMS) PO SCH (09:49)
[2018-09-03] MEDS: Lisinopril TAB* 5 MG PO SCH (09:49)
[2018-09-03] MEDS: Spironolactone TAB* 25 MG PO SCH (09:50)
[2018-09-03] MEDS: PARoxetine HCL TAB* 40 MG PO SCH (09:50)
[2018-09-03] MEDS: Amiodarone TAB* 200 MG PO SCH (09:50)
[2018-09-03] MEDS: PARoxetine HCL TAB* 10 MG PO SCH (09:50)
[2018-09-03] MEDS: Apixaban* 2.5 MG TAB PO SCH ×2 (09:50→21:07)
[2018-09-03] MEDS ORDERED: Furosemide IV* 10 MG/ML 2 ML VIAL (20 MG) IV ONE (11:00)
--- NOTE | 2018-09-03 17:06 | PN ---
Subjective Interval History: Patient is feeling well today. Patient states he abdominal pain has subsided and her appetite is increasing. Patient denies SOB, CP, N/V, dysuria, or other pain. Patient denies F/C, cough, diarrhea. Family History: Unchanged from Admission Social History: Unchanged from Admission Past Medical History: Unchanged from Admission Objective Active Medications: Amiodarone HCl (Cordarone Tab*) 100 mg PO DAILY [facility] Last Admin: 09/03/18 09:50 Dose: 100 mg Apixaban (Eliquis*) 2.5 mg PO BID [facility] Last Admin: 09/03/18 09:50 Dose: 2.5 mg Calcium Carbonate (Tums*) 1,000 mg PO DAILY [facility] Last Admin: 09/03/18 09:49 Dose: 1,000 mg Furosemide (Lasix Tab*) 20 mg PO EVERY OTHER DAY [facility] Levothyroxine Sodium (Synthroid Tab*) 100 mcg PO 0600 [facility] Last Admin: 09/03/18 07:22 Dose: 100 mcg Lisinopril (Prinivil Tab*) 2.5 mg PO DAILY [facility] Last Admin: 09/03/18 09:49 Dose: 2.5 mg Paroxetine HCl (Paxil Tab*) 10 mg PO DAILY [facility] Last Admin: 09/03/18 09:50 Dose: 10 mg Paroxetine HCl (Paxil Tab*) 40 mg PO DAILY [facility] Last Admin: 09/03/18 09:50 Dose: 40 mg Pravastatin Sodium (Pravachol (Nf)) 10 mg PO DAILY [facility] Last Admin: 09/03/18 09:48 Dose: 10 mg Psyllium Hydrophilic Mucilloid (Metamucil Lucho*) 1 pkt PO DAILY [facility] Last Admin: 09/03/18 09:48 Dose: 1 pkt Spironolactone (Aldactone Tab*) 25 mg PO DAILY [facility] Last Admin: 09/03/18 09:50 Dose: 25 mg Zolpidem Tartrate (Ambien Tab*) 5 mg PO BEDTIME PRN PRN Reason: INSOMNIA Vital Signs - 8 hr 09/03/18 12:07 Temperature 98.2 F Pulse Rate 83 Respiratory 20 Rate Blood Pressure 106/54 (mmHg) O2 Sat by Pulse 95 Oximetry Oxygen Devices in Use Now: None Appearance: Patient is an 83yo female who appears stated age and is sitting in the bed in [facility]. Eyes: No Scleral Icterus, PERRLA Ears/Nose/Mouth/Throat: NL Teeth, Lips, Gums, Clear Oropharnyx, Mucous Membranes Moist Neck: NL Appearance and Movements; NL JVP, Trachea Midline Respiratory: Symmetrical Chest Expansion and Respiratory Effort, Clear to Auscultation Cardiovascular: NL Sounds; No Murmurs; No JVD, RRR, No Edema Abdominal: NL Sounds; No Tenderness; No Distention, No Hepatosplenomegaly, - - No Hepatojugular Reflux Lymphatic: No Cervical Adenopathy, No Auricular Adenopathy Extremities: No Edema Skin: No Rash or Ulcers, No Nodules or Sclerosis Neurological: Alert and Oriented x 3, NL Sensation, NL Muscle Strength and Tone , - - CN II-XII intact. Result Diagrams: 09/02/18 22:15 09/02/18 22:15 Additional Lab and Data: Lab Results Assess/Plan/Problems-Billing Assessment: Patient is an 83yo female with a PMH for HTN, HLD, Non-ischemic Cardiomyopathy, and Afib who presents with fluid overload and likely bowel edema who is responding to lasix. - Patient Problems (1) Cardiomyopathy Current Visit: No Status: Acute Code(s): I42.9 - CARDIOMYOPATHY, UNSPECIFIED SNOMED Code(s): 98149105 Comment: - Continue Lisinopril and spironolactone - Negative Cath - With fluid overload which responded to Lasix - Continue Torsemide every other day. - Repeat BMP in AM to assess kidney function and potassium (2) Atrial fibrillation Current Visit: No Status: Acute Code(s): I48.91 - UNSPECIFIED ATRIAL FIBRILLATION SNOMED Code(s): 53653494 Comment: - Was confirmed by holter monitor. - On Amiodarone - Having small runs of Afib with RVR which do not last long - Continue Eliquis - Possibly exacerbating HF symptoms. - F/U Cardiology outpatient. (3) Depression Current Visit: No Status: Acute Code(s): F32.9 - MAJOR DEPRESSIVE DISORDER, SINGLE EPISODE, UNSPECIFIED SNOMED Code(s): 65073636 Comment: -Continue Paroxetine and Trazodone (4) DVT prophylaxis Current Visit: No Status: Acute Priority: Medium Onset Date: 01/29/15 Code(s): YPL3928 - SNOMED Code(s): 489279287 Comment: -Eliquis Status and Disposition: Observation for CHF exacerbation
[2018-09-04] MEDS: Levothyroxine TAB* 100 MCG TAB PO SCH (05:06)
[2018-09-04 05:25] LABS: ABS Basophils 0.1 10^3/ul (0-0.2); ABS Eosinophils 0.2 10^3/ul (0-0.6); ABS Lymphocytes 1.1 10^3/ul (1.0-4.8); ABS Monocytes 0.6 10^3/ul (0-0.8); ABS Neutrophils 4.6 10^3/ul (1.5-7.7); ABS Nucleated RBC 0 10^3/ul; Eosinophil % 3.5 %; Hematocrit 34 % (35-47); Hemoglobin 11.1 g/dl (12.0-16.0); Mean Corpuscular HGB Conc 33 g/dl (31-36); Mean Corpuscular Hemoglobin 28 pg (27-31); Mean Corpuscular Volume 84 fL (80-97); Mean Platelet Volume 8.6 fL (7.4-10.4); Nucleated Red Blood Cells % 0; Platelet Count 218 10^3/ul (150-450); Red Blood Count 4.04 10^6/ul (4.00-5.40); Red Cell Distribution Width 16 % (10.5-15); White Blood Count 6.7 10^3/ul (3.5-10.8)
[2018-09-04 05:46] LABS: EGFR Non-African American 74.6 (>60)
[2018-09-04] MEDS: PARoxetine HCL TAB* 10 MG PO SCH (09:15)
[2018-09-04] MEDS: Spironolactone TAB* 25 MG PO SCH (09:15)
[2018-09-04] MEDS: Calcium Carbonate CHEW TAB* 500 MG (TUMS) PO SCH (09:15)
[2018-09-04] MEDS: CMCS: Pravastatin (NF) 20 MG TAB PO SCH (09:15)
[2018-09-04] MEDS: Apixaban* 2.5 MG TAB PO SCH ×2 (09:15→21:30)
[2018-09-04] MEDS: Lisinopril TAB* 5 MG PO SCH (09:17)
[2018-09-04] MEDS: PARoxetine HCL TAB* 40 MG PO SCH (09:17)
[2018-09-04] MEDS: Amiodarone TAB* 200 MG PO SCH (09:17)
[2018-09-04] MEDS: Psyllium PAK PO SCH ×3 (09:18→21:31)
--- NOTE | 2018-09-04 15:48 | PN ---
Subjective Date of Service: 09/04/18 Interval History: Patient seen and examined at bedside. Denies fever, chills, shortness of breath , chest discomfort, N/V/D. Reports that she is feeling much better than at the time of her admission. She is feeling constipated since her Metamucil was decreased to daily on admission. Denies LE swelling or difficulty sleeping laying flat. Tele: SR with multiple PVCs, bigeminy and 10 beat run of vtach. Family History: Unchanged from Admission Social History: Unchanged from Admission Past Medical History: Unchanged from Admission Objective Active Medications: Amiodarone HCl (Cordarone Tab*) 100 mg PO DAILY [facility] Apixaban (Eliquis*) 2.5 mg PO BID [facility] Calcium Carbonate (Tums*) 1,000 mg PO DAILY [facility] Levothyroxine Sodium (Synthroid Tab*) 100 mcg PO 0600 [facility] Lisinopril (Prinivil Tab*) 2.5 mg PO DAILY [facility] Paroxetine HCl (Paxil Tab*) 10 mg PO DAILY [facility] Paroxetine HCl (Paxil Tab*) 40 mg PO DAILY [facility] Pravastatin Sodium (Pravachol (Nf)) 10 mg PO DAILY [facility] Psyllium Hydrophilic Mucilloid (Metamucil Lucho*) 1 pkt PO DAILY [facility] Spironolactone (Aldactone Tab*) 25 mg PO DAILY [facility] Torsemide (Demadex*) 10 mg PO EVERY OTHER DAY [facility] Zolpidem Tartrate (Ambien Tab*) 5 mg PO BEDTIME PRN Reason: INSOMNIA Vital Signs - 8 hr 09/04/18 09/04/18 07:45 15:14 Temperature 98.0 F 98.3 F Pulse Rate 71 85 Respiratory 20 20 Rate Blood Pressure 114/66 130/71 (mmHg) O2 Sat by Pulse 95 97 Oximetry Oxygen Devices in Use Now: None Appearance: NAD, laying in bed Respiratory: Symmetrical Chest Expansion and Respiratory Effort, Clear to Auscultation Cardiovascular: - - Heart rate irregular Abdominal: NL Sounds; No Tenderness; No Distention Extremities: No Edema Skin: No Rash or Ulcers Neurological: Alert and Oriented x 3, NL Muscle Strength and Tone Lines/Tubes/Other Access: Clean, Dry and Intact Peripheral IV - site benign Nutrition: Taking PO's Result Diagrams: 09/04/18 05:13 09/05/18 05:30 Additional Lab and Data: . Microbiology and Other Data: Microbiology 09/02/18 22:15 Aerobic Blood Culture - Preliminary Blood Venous No Growth Day 1 Anaerobic Blood Culture - Preliminary No Growth Day 1 Assess/Plan/Problems-Billing Assessment: Ms. Blas is an 83yo female with a PMH significant for HTN, HLD, Non- ischemic Cardiomyopathy, and Afib who presents with fluid overload and likely bowel edema who is improving with diuresis. - Patient Problems (1) Cardiomyopathy Code(s): I42.9 - CARDIOMYOPATHY, UNSPECIFIED SNOMED Code(s): 40730512 Comment: - Presented with fluid overload which responded to Lasix - Continue Torsemide every other day, Lisinopril and spironolactone - Continue to follow BMP to assess kidney function and potassium - Daily weights and strict I+O's (2) Nonsustained ventricular tachycardia Code(s): I47.2 - VENTRICULAR TACHYCARDIA SNOMED Code(s): 446848135 Comment: - 10 run beat of asymptomatic vtach today - Will replace electrolytes today (k+ 3.7 and Mg+ 1.9), goal for K+ 4 and MG+ 2 - Will get echo in the AM to eval EF (if EF has decreased closer to 30% this could have contributed to the vtach) (3) Atrial fibrillation Code(s): I48.91 - UNSPECIFIED ATRIAL FIBRILLATION SNOMED Code(s): 70676218 Comment: - Sinus rhythm with multiple PVCs today - Suspect this is exacerbating HF symptoms - Continue Eliquis, Amiodarone - F/U Cardiology outpatient (4) Abdominal pain Code(s): R10.9 - UNSPECIFIED ABDOMINAL PAIN SNOMED Code(s): 31177709 Comment: - Present on admission, has resolved - Suspect secondary to bowel edema r/t HF (5) Depression Code(s): F32.9 - MAJOR DEPRESSIVE DISORDER, SINGLE EPISODE, UNSPECIFIED SNOMED Code(s): 68769393 Comment: -Continue Paroxetine and Trazodone (6) DVT prophylaxis Code(s): QRQ0790 - SNOMED Code(s): 113033328 Comment: -Eliquis (7) DNR (do not resuscitate) Status and Disposition: Observation for CHF exacerbation. Discharge to home when medically stable, possibly in the AM after Echo.
[2018-09-04] MEDS ORDERED: Potassium Chlor TAB* 20 MEQ TAB.ER PO ONE (16:11)
[2018-09-04] MEDS ORDERED: Magnesium Sulfate 1 GM IV* 1 GM/100 ML BAG IV ONE (16:12)
[2018-09-04] MEDS ORDERED: Melatonin 3 MG TAB PO PRN (16:24)
[2018-09-05] MEDS: Levothyroxine TAB* 100 MCG TAB PO SCH (05:48)
[2018-09-05 07:18] LABS: EGFR Non-African American 78.2 (>60)
[2018-09-05] MEDS: Apixaban* 2.5 MG TAB PO SCH (08:36)
[2018-09-05] MEDS: Amiodarone TAB* 200 MG PO SCH (08:36)
[2018-09-05] MEDS: Calcium Carbonate CHEW TAB* 500 MG (TUMS) PO SCH (08:37)
[2018-09-05] MEDS: Lisinopril TAB* 5 MG PO SCH (08:37)
[2018-09-05] MEDS: CMCS: Pravastatin (NF) 20 MG TAB PO SCH (08:38)
[2018-09-05] MEDS: Spironolactone TAB* 25 MG PO SCH (08:39)
[2018-09-05] MEDS: Psyllium PAK PO SCH (08:39)
[2018-09-05] MEDS: PARoxetine HCL TAB* 40 MG PO SCH (08:39)
[2018-09-05] MEDS: PARoxetine HCL TAB* 10 MG PO SCH (08:39)
[2018-09-05] MEDS ORDERED: Furosemide TAB* 20 MG PO SCH (09:00)
[2018-09-05] MEDS ORDERED: Torsemide TAB* 20 MG PO SCH (09:00)
--- NOTE | 2018-09-05 13:07 | ECHO ---
Patient: EVELINE TINOCO [facility] Rec#: [id number] : 1935 Date: 09/05/2018 Age: 83y Height: 157 cm / 61.8 in Weight: 56 kg / 123.4 lbs Sex: F BSA: 1.55 Room#: 437 Admit Date#: 09/03/2018 Type: Inpatient Referring: Letitia Davison NP Reading: Malia Blount MD Orthotist Or Prosthetist: Yamilet Spears,ANGELOCS,RDMS CC: UCHE DUQUE Transthoracic Echocardiogram Indication: CHF BP: 131/67 HR: 76 Rhythm: NSR with PVCs Findings History: HTN, MV disorder, Cardiomyopathy Technical Comments: The study quality is good. Left Ventricle: The left ventricular size is mild to moderately dilated. There is no left ventricular hypertrophy. There is global hypokinesis of the left ventricle with minor regional variation.Base of the posterior lateral wall is best. Severe hypo and akinesis of the anterior wall, apex extending to the septum. There is severely decreased left ventricular systolic function. The estimated ejection fraction is 20-25%. Abnormal left ventricular diastolic function is observed. The left ventricular diastolic filling pattern is consistent with pseudonormalization. The left ventricular diastolic filling pattern is consistent with elevated left ventricular end-diastolic pressure. Left Atrium: The left atrium is severely dilated. Right Ventricle: The right ventricular cavity size is normal. The right ventricular global systolic function is mildly reduced. Right Atrium: The right atrium is mildly dilated. Aortic Valve: The aortic valve is trileaflet. The aortic valve leaflets are mildly thickened. There is mild to moderate aortic regurgitation. closer to mild, no reversal of flow in the descending aorta. There is no evidence of aortic stenosis. Mitral Valve: There is mitral annular calcification. The mitral valve leaflets are mildly thickened. There is moderate to severe mitral regurgitation. The mitral regurgitant jet is posteriorly directed. The mitral regurgitant jet is laterally directed. There is mild mitral stenosis. Tricuspid Valve: The tricuspid valve leaflets are mildly thickened. There is moderate tricuspid regurgitation. The right ventricular systolic pressure is estimated at 44 mmHg. There is evidence of mild to moderate pulmonary hypertension. Pulmonic Valve: The pulmonic valve appears normal. There is a trace pulmonic regurgitation. Pericardium: A trivial pericardial effusion is visualized. A left pleural effusion is present. Aorta: The aortic root appears normal. There is no dilatation of the aortic arch. Pulmonary Artery: The main pulmonary artery appears normal. Venous: The inferior vena cava appears normal in size. There is less than 50% respiratory change in the inferior vena cava dimension. Conclusions The left ventricular size is mild to moderately dilated. There is severely decreased left ventricular systolic function. The estimated ejection fraction is 20-25%. Base of the posterior lateral wall is best. Severe hypo and akinesis of the anterior wall, apex extending to the septum. The left ventricular diastolic filling pattern is consistent with elevated left ventricular end-diastolic pressure and pseudonormalization. The right ventricular global systolic function is mildly reduced. The aortic valve leaflets are mildly thickened with mild to moderate aortic regurgitation, closer to mild, no reversal of flow in the descending aorta. There is moderate tricuspid regurgitation. The PA pressure is estimated at 44 mmHg. A trivial pericardial effusion is visualized. A left pleural effusion is present. Compared with prior echo of 10/13/17, EF has decreased further from 35-40%, RV function is stable, AI previously mild, MR has increased from moderate, TR is stable. Measurements Name Value Normal Range RVIDd (AP) 2D 3.1 cm (0.9 - 2.6) RVDdMajor (2D) 3.3 cm (2.2 - 4.4) RAd ISD 4CH 5.5 cm (3.4 - 4.9) RA (A4C)W 4 cm (2.9 - 4.6) IVSd (2D) 1 cm (0.6 - 1) LVPWd (2D) 0.8 cm (0.6 - 1) LVIDd (2D) 5.9 cm (3.6 - 5.4) LVIDs (2D) 4.6 cm - LV FS (2D) 22 % (25 - 45) Aortic Annulus 2.1 cm (1.4 - 2.6) Ao root diameter (2D) 3.1 cm (2.1 - 3.5) Ascending Ao 3.1 cm (2.1 - 3.4) Aortic arch 2.9 cm (1.8 - 3.4) LA dimension (AP) 2D 4.3 cm (2.3 - 3.8) LAd ISD 4CH 6.5 cm (2.9 - 5.3) LA ISD 4CH W 5.3 cm (2.5 - 4.5) Name Value Normal Range LA ESV BP (A/L) index 86 ml/m2 - Name Value Normal Range MV E-wave Vmax 1.6 m/sec - MV deceleration time 224 msec - MV A-wave Vmax 0.5 m/sec - MV E:A ratio 3.4 ratio - LV septal e' Vmax 0.05 m/sec - LV lateral e' Vmax 0.07 m/sec - LV E:e' septal ratio 33 ratio - LV E:e' lateral ratio 23 ratio - Name Value Normal Range AV Vmax 1.1 m/sec - AV VTI 20 cm - AV peak gradient 5 mmHg - AV mean gradient 3 mmHg - LVOT diameter 2 cm - LVOT Vmax 0.9 m/sec - LVOT VTI 16.5 cm - LVOT peak gradient 3.2 mmHg - LVOT mean gradient 2 mmHg - KAYLENE (continuity Vmax) 2.8 cm2 - KAYLENE (continuity Vmax) in2.6 cm2/m2 - AR PHT 290 msec - ROSALEE Vmax 0.5 m/sec - Name Value Normal Range MV Vmax 1.7 m/sec - MV VTI 41 cm - MV peak gradient 12 mmHg - MV mean gradient 4 mmHg - MV PHT 91 msec - MR Vmax 4.7 m/sec - MR VTI 149 cm - MR volume (PISA) 15 ml - MR flow (PISA) 49 ml/sec - MR ERO 0.1 cm2 - MR PISA radius 0.5 cm - MR alias Vmax 31 cm/sec - MVA (PHT) 2.4 cm2 - MVA (continuity VTI) 1.3 cm2 - Name Value Normal Range TR Vmax 3 m/sec - TR peak gradient 36 mmHg - RAP 8 mmHg - RVSP 44 mmHg - IVC diameter 1.6 cm - Name Value Normal Range PV Vmax 0.6 m/sec - PV peak gradient 1.4 mmHg -
[2018-09-05 15:27] VITALS: BP 126/55
--- NOTE | 2018-09-06 07:53 | DS ---
CC: Rissa Green MD; José Madden MD * DISCHARGE SUMMARY: DATE OF ADMISSION: 09/03/18 DATE OF DISCHARGE: 09/05/18 PRIMARY CARE PROVIDER: Rissa Green MD PLANT PATHOLOGIST: José Madden MD ATTENDING PHYSICIAN: Julia Jensen MD * (dictated by Leticia Bermudez NP). PRIMARY DIAGNOSES: 1. Aftpc-di-cmmppfm diastolic congestive heart failure. 2. Dilated cardiomyopathy. 3. Nonsustained ventricular tachycardia. SECONDARY DIAGNOSES: 1. Atrial fibrillation. 2. Depression. 3. Hypertension. 4. Hypothyroidism. STUDIES WHILE IN THE HOSPITAL: 1. Chest x-ray on 09/02/18 reads as findings most consistent with congestive heart failure. 2. Chest, abdomen, pelvis CTA on 09/02/18 reads as acute congestive heart failure. No pulmonary emboli. 3. Transthoracic echocardiogram on 09/05/18 reads as the left ventricular size is mildly to moderately dilated. There is severely decreased left ventricular systolic function. The estimated ejection fraction is 20% to 25%. Based on the posterolateral wall severe hypokinesia and akinesia of the anterior wall, apex extending to the septum. The left ventricular diastolic filling pattern is consistent with elevated left ventricular end-diastolic pressure and pseudonormalization. The right ventricular global systolic function is mildly reduced. The aortic valve leaflets are mildly thickened with [id number] aortic regurgitation, closer to mild, no reversal of flow in the descending aorta. There is moderate tricuspid regurgitation. The PA pressure is estimated at 44 mmHg. A trivial pericardial effusion is visualized. A left ventricular effusion is present. Compared with a prior echo on 10/13/17, EF has decreased further from 35% to 40%. RV function is stable. AI previously mild. MR has increased from moderate. TR is stable. HISTORY OF PRESENT ILLNESS AND HOSPITAL COURSE: Ms. Blas is an 83-year-old female with past medical history of nonischemic dilated cardiomyopathy, SVT, atrial fibrillation, hypertension, depression, anxiety, and hypothyroidism, who presented to the emergency room on 09/03/18 with complaints of abdominal discomfort. Please see the history and physical by Dr. Burch for a complete summary of the events leading up to this hospitalization. In short, the patient was having abdominal discomfort. She was unable to further describe the abdominal discomfort. She was having chills. She denied any diarrhea or nausea. She was concerned for diverticulitis. Her appetite had been poor and she had not taken her medications for the last 1 to 2 days. In the emergency room, she was noted to have a BNP of 696. She was admitted by the hospitalist service for congestive heart failure. The patient was given IV Lasix for diuresis. It was felt as though the abdominal discomfort was secondary to her congestive heart failure. I will note that the patient did not have lower extremity edema, rather abdominal edema. She had been continued on her other usual medications. On telemetry monitoring, she was not noted to have any atrial fibrillation, though she was noted to have 2 episodes of 10 beats of asymptomatic V-tach. The patient was continued on her spironolactone. She was given torsemide every other day. Electrolytes were repleted for ventricular tachycardia. The patient continued to improve. I will note that on admission, the patient's weight was 121 and as of the day of discharge, her weight is 115. As of today, she still has no lower extremity edema. She reports as though her abdomen feels slightly distended, but very close to her baseline. It does not appear to be distended. Vital signs have been stable. I spoke briefly with Cardiology because of the concern of her significant drop in ejection fraction. I did attempt to speak with Dr. Madden, though he was not available. It was recommended that the patient be medically optimized. She had not previously been on a beta-davi. I did speak at length with the patient about her diagnosis of cardiomyopathy and congestive heart failure. She is aware of the risk of sudden cardiac due to her low ejection fraction. She does wish to be a DNR and is not interested in pursuing any treatment such as a LifeVest or any invasive procedures. She is agreeable to management with medication. Ms. Blas is stable for discharge today. Vital signs are as follows: Temp 98.2, heart rate 88, respiratory rate 20, oxygen saturation 96% on room air, blood pressure 126/55. DISCHARGE MEDICATIONS: New home medications: 1. Metoprolol succinate XL 12.5 p.o. daily. 2. Torsemide 10 mg p.o. every other day. Continued home medications: 1. Amiodarone 100 mg p.o. daily. 2. Apixaban 2.5 mg p.o. b.i.d. 3. Calcium carbonate 1000 mg p.o. daily. 4. Levothyroxine 100 mcg p.o. daily. 5. Lisinopril 2.5 mg p.o. daily. 6. Paroxetine 50 mg p.o. daily. 7. Pravastatin 10 mg p.o. daily. 8. Psyllium Husk/calcium carb 3 caps p.o. daily. 9. Spironolactone 25 mg p.o. daily. 10. Ambien 5 mg p.o. bedtime p.r.n. insomnia. 11. Alprazolam 1 mg p.o. daily p.r.n. anxiety. 12. Multivitamin 1 tab p.o. daily. DISCHARGE PLAN: Ms. Blas will be discharged to home. Activity will be as tolerated. Diet will be heart healthy. Medications are noted above. The patient has been started on a beta-davi as she had not previously been on a beta- davi. She has been started on low-dose metoprolol. Additionally, she has been started on torsemide every other day. She should continue to take her spironolactone daily. The patient reports that her son typically manages her medications for her and I have recommended that he continue to do this. She should follow up with her primary care provider in 4 to 7 days. She will need to follow up with Dr. Madden. I did move her appointment up for her and she is scheduled for 09/18/18 at 11:20 a.m. She has been instructed to weigh herself daily and keep a record of her weights as well as monitor for any abdominal distention or discomfort. She has been advised to return to the emergency room or nearest hospital for any worsening of symptoms, shortness of breath, lightheadedness, dizziness, chest discomfort, high fevers, chills, night sweats , loss of consciousness, or any other worrisome signs or symptoms. This is a summarized report of a complex medical history and hospital stay. For further details, please see the entire medical record. TIME SPENT: Approximately 45 minutes were spent on this discharge, greater than half of that time spent [id number] with the patient discussing discharge plans and instructions. LETICIA BERMUDEZ, HAND ICER [id number]/[facility] #: [id number] D[place]TER
== END 2018-09-05 19:30 | disposition home or self-care (01) | DRG 292 ==
LOC: ED 20:52 → SSU 09-03 03:04 → MEDTELE 09-03 03:59 → OBSVTOIN 09-04 15:00
PROVIDERS: ADMIT Hospitalist; ATTEND Internal Medicine
DX: I11.0 Hypertensive heart disease with heart failure (principal); I47.2 Ventricular tachycardia; K57.30 Diverticulosis of large intestine without perforation or abscess without bleeding; I50.33 Acute on chronic diastolic (congestive) heart failure; F32.9 Major depressive disorder, single episode, unspecified; I42.8 Other cardiomyopathies; F41.9 Anxiety disorder, unspecified; E78.5 Hyperlipidemia, unspecified; E03.9 Hypothyroidism, unspecified; I48.91 Unspecified atrial fibrillation; E05.90 Thyrotoxicosis, unspecified without thyrotoxic crisis or storm; R09.02 Hypoxemia; Z66 Do not resuscitate; L90.0 Lichen sclerosus et atrophicus; I08.3 Combined rheumatic disorders of mitral, aortic and tricuspid valves; I42.0 Dilated cardiomyopathy; Z72.89 Other problems related to lifestyle; Z90.710 Acquired absence of both cervix and uterus; Z87.440 Personal history of urinary (tract) infections; Z82.49 Family history of ischemic heart disease and other diseases of the circulatory system; Z88.1 Allergy status to other antibiotic agents; Z88.2 Allergy status to sulfonamides; Z79.01 Long term (current) use of anticoagulants; I49.3 Ventricular premature depolarization
CPT/HCPCS: 36415; 71045; 71275; 74177; 80048; 80053; 81003; 83605; 83735; 83880; 84484; 85025; 85610; 85730; 86140; 87040; 93306; 99284; A9270-GY; G0378; J1940; J3475; Q9967

== ENCOUNTER 2019-08-14 12:37 | Day surgery (SDC) | payer MEDICARE, BC ==
[2019-08-14] MEDS ORDERED: acetaZOLAMIDE TAB* 250 MG ONE (13:16)
[2019-08-14] MEDS ORDERED: Povidone Iodine 5% OPTH* 30 ML BTL ONE (13:16)
[2019-08-14] MEDS ORDERED: Proparacaine 0.5% OPHTH.SOL* 15 ML BTL ONE (13:16)
[2019-08-14] MEDS ORDERED: Phenylephrine OPHTH SOL 2.5%* 2 ML ONE (13:16)
[2019-08-14] MEDS ORDERED: Ketorolac 0.5% OPHTH (NF) 0.5 % 5 ML BTL ONE (13:16)
[2019-08-14] MEDS ORDERED: Neomycin/Polymy/Dex OPTH.SUSP* MAXITROL 0.1% 5 ML ONE (13:16)
[2019-08-14] MEDS ORDERED: Lidocaine 2% w/ EPI 1:200,000* 20 ML SDV VIAL ONE (13:16)
[2019-08-14] MEDS ORDERED: Lidocaine 1% MPF ** 5 ML VIAL ONE (13:16)
[2019-08-14] MEDS ORDERED: Cyclopentolate 1% OPTH.SOL* 2 ML BTL ONE (13:16)
[2019-08-14 15:25] VITALS: BP 111/85
--- NOTE | 2019-08-14 16:06 | OP ---
DATE OF OPERATION: 08/14/2019 - [facility] DATE OF : 1935. SURGEON: Nestor Grant M.D. PREOPERATIVE DIAGNOSIS: Cataract left eye. POSTOPERATIVE DIAGNOSIS: Cataract left eye. OPERATIVE PROCEDURE: Extracapsular cataract extraction with intraocular lens implant left eye. DESCRIPTION OF PROCEDURE: The patient was brought to the operating room after being given 1/2% Alcaine with epinephrine drops in the preoperative area. The eye was prepped and draped in the usual sterile fashion. Sterile drape and eyelid speculum were placed. Again, topical 1/2% Alcaine with epinephrine was given. A paracentesis incision was made at the 3 o'clock position with the No.75 blade. Clear cornea incision 2.2 x 2.2-mm was created at the 6 o'clock position starting at the anterior limbus using the 2.2-mm keratome. The anterior chamber was irrigated with 0.4 mL of 1% non-preservative intracameral lidocaine and filled with DisCoVisc. A capsulorrhexis was completed using the cystotome and the Utrata forceps. Hydrodissection was performed with balanced salt solution. The lens nucleus was removed with the Phacoemulsification handpiece without incident. Cortex was removed with the irrigation-aspiration handpiece. The capsular bag was re-inflated using DisCoVisc and an [id number] implant was inserted with the shooter. The irrigation-aspiration handpiece was used to remove all residual DisCoVisc. The eye was refilled with balanced salt solution and the wound checked and found to be watertight. Topical Maxitrol drops were given. [id number]/[facility] #: [id number] [facility] HOSPITALDulce
== END 2019-08-14 15:26 | disposition home or self-care (01) ==
LOC: OREAST 12:37
PROVIDERS: ATTEND Specialist
DX: H25.813 Combined forms of age-related cataract, bilateral (principal); H25.23 Age-related cataract, morgagnian type, bilateral; I48.0 Paroxysmal atrial fibrillation; I42.9 Cardiomyopathy, unspecified; E03.9 Hypothyroidism, unspecified; F41.9 Anxiety disorder, unspecified; I10 Essential (primary) hypertension
CPT/HCPCS: A9270-GY; V2632

== ENCOUNTER 2019-08-21 09:45 | Day surgery (SDC) | payer MEDICARE, BC ==
[~2019-08-21 09:45] MED LIST changes: +Buffered Lidocaine 1% SYRIN* 1 ML/SYRINGE INTRADERM ONE; -Iohexol 300* (CONTRAST) 10 ML SDV IV ONE; -NS 0.9% 1000 ML* 1,000 ML IV ONE
[2019-08-21] MEDS ORDERED: Buffered Lidocaine 1% SYRIN* 1 ML/SYRINGE INTRADERM ONE (10:07)
[2019-08-21] MEDS ORDERED: Cyclopentolate 1% OPTH.SOL* 2 ML BTL ONE (10:41)
[2019-08-21] MEDS ORDERED: Proparacaine 0.5% OPHTH.SOL* 15 ML BTL ONE (10:41)
[2019-08-21] MEDS ORDERED: Ketorolac 0.5% OPHTH (NF) 0.5 % 5 ML BTL ONE (10:41)
[2019-08-21] MEDS ORDERED: Lidocaine 2% w/ EPI 1:200,000* 20 ML SDV VIAL ONE (10:41)
[2019-08-21] MEDS ORDERED: Neomycin/Polymy/Dex OPTH.SUSP* MAXITROL 0.1% 5 ML ONE (10:41)
[2019-08-21] MEDS ORDERED: Lidocaine 1% MPF ** 5 ML VIAL ONE (10:41)
[2019-08-21] MEDS ORDERED: Povidone Iodine 5% OPTH* 30 ML BTL ONE (10:41)
[2019-08-21] MEDS ORDERED: acetaZOLAMIDE TAB* 250 MG ONE (10:41)
[2019-08-21] MEDS ORDERED: Phenylephrine OPHTH SOL 2.5%* 2 ML ONE (10:41)
[2019-08-21] MEDS ORDERED: Lidocaine 2% PF * 5 ML VIAL ONE (11:20)
[2019-08-21] MEDS ORDERED: Propofol* 10 MG/ML 20 ML BTL ONE (11:20)
[2019-08-21 12:48] VITALS: BP 148/76
--- NOTE | 2019-08-21 18:33 | OP ---
DATE OF OPERATION: 08/21/19 [facility] DATE OF : [birth year] SURGEON: Nestor Grant M.D. PREOPERATIVE DIAGNOSIS: Cataract, right eye. POSTOPERATIVE DIAGNOSIS: Cataract, right eye. OPERATIVE PROCEDURE: Extracapsular cataract extraction with intraocular lens implant right eye. DESCRIPTION OF PROCEDURE: The patient was brought to the operating room after being given 1/2% Alcaine with epinephrine drops in the preoperative area. The eye was prepped and draped in the usual sterile fashion. Sterile drape and eyelid speculum were placed. Again, topical 1/2% Alcaine with epinephrine was given. A paracentesis incision was made at the 9 o'clock position with the No.75 blade. Clear cornea incision 2.2 x 2.2-mm was created at the 12 o'clock position starting at the anterior limbus using the 2.2-mm keratome. The anterior chamber was irrigated with 0.4 mL of 1% non-preservative intracameral lidocaine and filled with DisCoVisc. A capsulorrhexis was completed using the cystotome and the Utrata forceps. Hydrodissection was performed with balanced salt solution. The lens nucleus was removed with the Phacoemulsification handpiece without incident. Cortex was removed with the irrigation-aspiration handpiece. The capsular bag was re-inflated using DisCoVisc and an [id number] 22.5 implant was inserted with the shooter. The irrigation-aspiration handpiece was used to remove all residual DisCoVisc. The eye was refilled with balanced salt solution and the wound checked and found to be watertight. Topical Maxitrol drops were given. [id number]/[facility] #: [id number] MTDD
== END 2019-08-21 12:27 | disposition home or self-care (01) ==
LOC: OREAST 09:45
PROVIDERS: ATTEND Specialist
DX: H25.811 Combined forms of age-related cataract, right eye (principal); F41.8 Other specified anxiety disorders; G47.8 Other sleep disorders; I48.0 Paroxysmal atrial fibrillation; I42.9 Cardiomyopathy, unspecified; E03.9 Hypothyroidism, unspecified; K57.90 Diverticulosis of intestine, part unspecified, without perforation or abscess without bleeding; Z96.1 Presence of intraocular lens; Z79.01 Long term (current) use of anticoagulants; Z95.0 Presence of cardiac pacemaker; Z88.1 Allergy status to other antibiotic agents
CPT/HCPCS: A9270-GY; J2704; V2632

== ENCOUNTER 2020-07-02 15:53 | Observation (INO) ==
[2020-07-02 17:01] LABS: INR 1.36 (0.82-1.09)
[2020-07-02 17:07] LABS: ABS Basophils 0.1 10^3/ul (0-0.2); ABS Eosinophils 0.1 10^3/ul (0-0.6); ABS Lymphocytes 0.7 10^3/ul (1.0-4.8); ABS Monocytes 1.1 10^3/ul (0-0.8); ABS Neutrophils 8.4 10^3/ul (1.5-7.7); Eosinophil % 0.6 %; Hematocrit 38 % (35-47); Hemoglobin 13.1 g/dL (12.0-16.0); Lymphocyte % 7.2 %; Mean Corpuscular HGB Conc 34 g/dL (31-36); Mean Corpuscular Hemoglobin 30 pg (27-31); Mean Corpuscular Volume 87 fL (80-97); Mean Platelet Volume 9.2 fL (7.4-10.4); Nucleated Red Blood Cells % 0.1; Platelet Count 201 10^3/uL (150-450); Red Blood Count 4.38 10^6 /uL (3.70-4.87); Red Cell Distribution Width 14 % (10-15); White Blood Count 10.4 10^3/uL (3.5-10.8)
[2020-07-02 17:26] LABS: Albumin/Globulin Ratio 1.3 (1-3); Calcium 8.9 mg/dL (8.6-10.3); EGFR African American 74.5 (>60); EGFR Non-African American 61.6 (>60); Globulin 3.2 g/dL (2-4); Potassium 3.9 mmol/L (3.5-5.0); Total Bilirubin 0.7 mg/dL (0.2-1.0); Total Protein 7.2 g/dL (6.4-8.9)
[2020-07-02 17:28] LABS: Troponin I 0.02 ng/mL (<0.03)
[2020-07-02] MEDS ORDERED: NS 0.9% 1000 ml BAG 1,000 ML IV SCH (17:45)
[2020-07-02] MEDS ORDERED: Ondansetron 4 mg VIAL 2 MG/ML 2 ml VIAL IV ONE (17:45)
[2020-07-02] MEDS ORDERED: Iohexol 350 (CONTRAST) 500 ML MDV IV ONE (18:27)
[2020-07-03 03:15] LABS: Digoxin 0.3 ng/ml (0.8-2.0)
[2020-07-03 08:57] LABS: ABS Basophils 0.1 10^3/ul (0-0.2); ABS Eosinophils 0.4 10^3/ul (0-0.6); ABS Lymphocytes 0.9 10^3/ul (1.0-4.8); ABS Monocytes 0.8 10^3/ul (0-0.8); ABS Neutrophils 4.4 10^3/ul (1.5-7.7); Eosinophil % 6.3 %; Hematocrit 35 % (35-47); Hemoglobin 11.8 g/dL (12.0-16.0); Lymphocyte % 13.9 %; Mean Corpuscular HGB Conc 34 g/dL (31-36); Mean Corpuscular Hemoglobin 29 pg (27-31); Mean Corpuscular Volume 87 fL (80-97); Mean Platelet Volume 8.5 fL (7.4-10.4); Platelet Count 191 10^3/uL (150-450); Red Blood Count 4.04 10^6 /uL (3.70-4.87); Red Cell Distribution Width 14 % (10-15); White Blood Count 6.6 10^3/uL (3.5-10.8)
[2020-07-03 09:23] LABS: Anion Gap 5 mmol/L (2-11); BUN/Creatinine Ratio 24.7 (8-20); Blood Urea Nitrogen 19 mg/dL (6-24); CO2 Carbon Dioxide 27 mmol/L (22-32); Calcium 8.4 mg/dL (8.6-10.3); Chloride 103 mmol/L (101-111); EGFR African American 85.8 (>60); EGFR Non-African American 70.9 (>60); Glucose 102 mg/dL (70-100); Potassium 3.9 mmol/L (3.5-5.0); Sodium 135 mmol/L (135-145)
[2020-07-03 09:30] LABS: % Iron Saturation 13 % (15-55); Iron 25 ug/dL (50-212); Total Iron Binding Capacity 196 mcg/dL (250-450); Transferrin 140 mg/dL (203-362); Unsaturated Iron Binding < 181 ug/dL
[2020-07-03 09:44] LABS: Ferritin 398.3 ng/mL (11-307)
[2020-07-03 16:10] VITALS: BP 116/66
== END 2020-07-03 17:12 | disposition home or self-care (01) ==
LOC: ED 15:53 → MEDTELE 15:53
PROVIDERS: ADMIT Student in an Organized Health Care Education/Training Program; ATTEND Internal Medicine

== ENCOUNTER 2020-11-03 13:23 | Inpatient (IN) ==
[2020-11-03 14:57] LABS: ABS Eosinophils 0.1 10^3/ul (0-0.6); ABS Lymphocytes 0.9 10^3/ul (1.0-4.8); ABS Monocytes 0.7 10^3/ul (0-0.8); ABS Neutrophils 3.9 10^3/ul (1.5-7.7); Eosinophil % 1.8 %; Hematocrit 39 % (35-47); Hemoglobin 12.9 g/dL (12.0-16.0); Lymphocyte % 15.9 %; Mean Corpuscular HGB Conc 33 g/dL (31-36); Mean Corpuscular Hemoglobin 29 pg (27-31); Mean Corpuscular Volume 86 fL (80-97); Mean Platelet Volume 9.6 fL (7.4-10.4); Platelet Count 185 10^3/uL (150-450); Red Blood Count 4.52 10^6 /uL (3.70-4.87); Red Cell Distribution Width 15 % (10-15); White Blood Count 5.6 10^3/uL (3.5-10.8)
[2020-11-03 15:11] LABS: Urine Appearance Cloudy; Urine Bilirubin Negative (Negative); Urine Blood Negative (Negative); Urine Color Yellow; Urine Glucose Negative (Negative); Urine Ketones Negative (Negative); Urine Nitrite Negative (Negative); Urine Protein Negative (Negative); Urine Specific Gravity 1.015 (1.010-1.030); Urine Urobilinogen Negative (Negative)
[2020-11-03 15:14] LABS: Urine Bacteria Absent (Absent); Urine Red Blood Cell Absent (Absent); Urine White Blood Cell 2+(11-20/hpf) (Absent)
[2020-11-03 15:17] LABS: ALT 47 U/L (7-52); AST 37 U/L (13-39); Albumin 3.9 g/dL (3.2-5.2); Albumin/Globulin Ratio 1.6 (1-3); Alkaline Phosphatase 63 U/L (34-104); Anion Gap 4 mmol/L (2-11); Blood Urea Nitrogen 26 mg/dL (6-24); C Reactive Protein 19.02 mg/L (<8.01); CO2 Carbon Dioxide 27 mmol/L (22-32); Calcium 9.1 mg/dL (8.6-10.3); Chloride 104 mmol/L (101-111); Globulin 2.5 g/dL (2-4); Glucose 107 mg/dL (70-100); Lipase 15 U/L (11.0-82.0); Potassium 4.3 mmol/L (3.5-5.0); Sodium 135 mmol/L (135-145); Total Protein 6.4 g/dL (6.4-8.9)
[2020-11-03] MEDS ORDERED: Iodixanol (CONTRAST) 320 MG/ML 100 ML SDV IV ONE (15:19)
[2020-11-03] MEDS ORDERED: NS 0.9% 500 ml BAG 500 ML IV ONE (15:56)
[2020-11-03] MEDS ORDERED: Metoprolol Tartrate 5 mg VIAL 5 ml VIAL (1 mg/ml) IV ONE ×2 (16:28→17:57)
[2020-11-03 16:41] LABS: Digoxin < 0.3 ng/ml (0.8-2.0)
[2020-11-03] MEDS ORDERED: Digoxin IV 0.5 MG/2 ML AMP (0.25 MG/ML) IV SLOW PU ONE (17:02)
[2020-11-03] MEDS ORDERED: Piperacillin/Tazobac ADVAN 3.375 GM in NS 0.9% 100 ml BAG 100 ML IV ONE (18:24)
[2020-11-03] MEDS ORDERED: NS 0.9% 1000 ml BAG 1,000 ML IV ONE (18:41)
[2020-11-03 19:11] LABS: TSH Ultra Thyroid Stim Horm 10.33 mcIU/mL (0.34-5.60)
[2020-11-03] MEDS ORDERED: Zosyn per Pharmacy NOTE FOLLOW UP SCH (21:00)
[2020-11-04] MEDS: ZOSYN 3.375 GM Q8H per EXTENDED INFUSION IV SCH ×3 (00:14→16:40)
[2020-11-04] MEDS ORDERED: Metoprolol Tartrate 5 mg VIAL 5 ml VIAL (1 mg/ml) IV PRN (01:35)
[2020-11-04] MEDS ORDERED: Piperacillin/Tazobac ADVAN 3.375 GM in NS 0.9% 100 ml BAG 100 ML IV ONE ×2 (04:00→09:00)
[2020-11-04] MEDS ORDERED: Morphine 2 MG/ML SYRINGE IV PRN (04:48)
[2020-11-04 08:33] LABS: Free T4 1.03 ng/dL (0.61-1.12)
[2020-11-04 08:37] LABS: Total T3 65 ng/dL (87-178)
[2020-11-04] MEDS: Calcium (OSCAL) 500 mg TAB PO SCH (08:48)
[2020-11-04] MEDS ORDERED: Lactated Ringers 1000 ml BAG 1,000 ML IV ONE (13:22)
[2020-11-05] MEDS: Ondansetron 4 mg VIAL 2 MG/ML 2 ml VIAL IV PRN ×2 (06:16→21:47)
[2020-11-05 06:22] LABS: ABS Basophils 0.1 10^3/ul (0-0.2); ABS Eosinophils 0.2 10^3/ul (0-0.6); ABS Monocytes 0.9 10^3/ul (0-0.8); ABS Neutrophils 4.2 10^3/ul (1.5-7.7); Eosinophil % 3.3 %; Hematocrit 39 % (35-47); Hemoglobin 13.2 g/dL (12.0-16.0); Lymphocyte % 26.6 %; Mean Corpuscular HGB Conc 34 g/dL (31-36); Mean Corpuscular Hemoglobin 29 pg (27-31); Mean Corpuscular Volume 87 fL (80-97); Mean Platelet Volume 9.5 fL (7.4-10.4); Nucleated Red Blood Cells % 0.1; Platelet Count 199 10^3/uL (150-450); Red Blood Count 4.51 10^6 /uL (3.70-4.87); Red Cell Distribution Width 16 % (10-15); White Blood Count 7.4 10^3/uL (3.5-10.8)
[2020-11-05 06:44] LABS: Albumin 3.5 g/dL (3.2-5.2); Albumin/Globulin Ratio 1.5 (1-3); BUN/Creatinine Ratio 25.9 (8-20); Calcium 8.6 mg/dL (8.6-10.3); EGFR African American 58.1 (>60); Globulin 2.4 g/dL (2-4); Potassium 4.6 mmol/L (3.5-5.0); Total Bilirubin 0.4 mg/dL (0.2-1.0); Total Protein 5.9 g/dL (6.4-8.9)
[2020-11-05] MEDS: Calcium (OSCAL) 500 mg TAB PO SCH (09:19)
[2020-11-05] MEDS: Psyllium PAK PO SCH (11:53)
[2020-11-06] MEDS: Ondansetron 4 mg VIAL 2 MG/ML 2 ml VIAL IV PRN ×2 (02:17→06:03)
[2020-11-06 08:18] LABS: BUN/Creatinine Ratio 31.4 (8-20); Calcium 8.4 mg/dL (8.6-10.3); EGFR Non-African American 51.3 (>60); Potassium 4.4 mmol/L (3.5-5.0)
[2020-11-06 08:40] LABS: Hematocrit 41 % (35-47); Hemoglobin 13.1 g/dL (12.0-16.0); Mean Corpuscular HGB Conc 32 g/dL (31-36); Mean Corpuscular Hemoglobin 28 pg (27-31); Mean Corpuscular Volume 88 fL (80-97); Mean Platelet Volume 9.7 fL (7.4-10.4); Platelet Count 183 10^3/uL (150-450); Red Blood Count 4.61 10^6 /uL (3.70-4.87); Red Cell Distribution Width 15 % (10-15); White Blood Count 7.5 10^3/uL (3.5-10.8)
[2020-11-06] MEDS: Calcium (OSCAL) 500 mg TAB PO SCH (09:40)
[2020-11-06] MEDS: Psyllium PAK PO SCH (09:50)
[2020-11-06 16:51] VITALS: BP 129/80
== END 2020-11-06 18:17 | disposition home health service (06) | DRG 392 ==
LOC: ED 13:23 → SSU 21:25
PROVIDERS: ADMIT Internal Medicine; ATTEND Internal Medicine

== ENCOUNTER 2020-11-08 09:18 | Inpatient (IN) ==
[2020-11-08 10:13] LABS: ABS Basophils 0.1 10^3/ul (0-0.2); ABS Eosinophils 0.1 10^3/ul (0-0.6); ABS Lymphocytes 1.1 10^3/ul (1.0-4.8); ABS Monocytes 0.8 10^3/ul (0-0.8); ABS Neutrophils 5.3 10^3/ul (1.5-7.7); ABS Nucleated RBC 0.1 10^3/ul; Eosinophil % 1.5 %; Hematocrit 40 % (35-47); Mean Corpuscular HGB Conc 33 g/dL (31-36); Mean Corpuscular Hemoglobin 29 pg (27-31); Mean Corpuscular Volume 88 fL (80-97); Mean Platelet Volume 9.3 fL (7.4-10.4); Nucleated Red Blood Cells % 0.8; Platelet Count 221 10^3/uL (150-450); Red Cell Distribution Width 16 % (10-15); White Blood Count 7.4 10^3/uL (3.5-10.8)
[2020-11-08 10:30] LABS: ALT 82 U/L (7-52); Albumin 3.7 g/dL (3.2-5.2); Albumin/Globulin Ratio 1.5 (1-3); Alkaline Phosphatase 65 U/L (34-104); BUN/Creatinine Ratio 30.8 (8-20); Blood Urea Nitrogen 28 mg/dL (6-24); CO2 Carbon Dioxide 20 mmol/L (22-32); Calcium 8.4 mg/dL (8.6-10.3); Chloride 102 mmol/L (101-111); EGFR African American 70.8 (>60); EGFR Non-African American 58.5 (>60); Globulin 2.5 g/dL (2-4); Glucose 105 mg/dL (70-100); Lipase 18 U/L (11.0-82.0); Sodium 128 mmol/L (135-145); Total Protein 6.2 g/dL (6.4-8.9)
[2020-11-08] MEDS ORDERED: diPHENhydraMINE IV 50 MG/ML 1 ml VIAL (BENADRYL) IV ONE (10:37)
[2020-11-08 11:38] LABS: Digoxin 0.7 ng/ml (0.8-2.0)
[2020-11-08 12:03] LABS: Anion Gap 6 mmol/L (2-11)
[2020-11-08] MEDS ORDERED: NS 0.9% 1000 ml BAG 500 ML IV ONE (12:10)
[2020-11-08] MEDS ORDERED: Digoxin IV 0.5 MG/2 ML AMP (0.25 MG/ML) IV SLOW PU ONE (12:10)
[2020-11-08] MEDS ORDERED: Metoprolol Tartrate 5 mg VIAL 5 ml VIAL (1 mg/ml) IV ONE (12:36)
[2020-11-08] MEDS ORDERED: LORazepam 2 mg VIAL 1 ml IV PUSH ONE (12:37)
[2020-11-08] MEDS ORDERED: Lorazepam PYXIS KEY PRN (12:37)
[2020-11-08] MEDS ORDERED: Lorazepam PYXIS KEY ONE (12:43)
[2020-11-08] MEDS ORDERED: Ondansetron ODT 4 mg TAB 4 MG TAB PO PRN (14:59)
[2020-11-08 15:56] LABS: C Reactive Protein 24.65 mg/L (<8.01)
[2020-11-08] MEDS ORDERED: Lactated Ringers 1000 ml BAG 1,000 ML IV SCH (16:00)
[2020-11-08] MEDS ORDERED: NS 0.9% 1000 ml BAG 1,000 ML IV SCH (16:15)
[2020-11-08 16:59] LABS: Potassium Redraw 4.7 mmol/L (3.5-5.0)
[2020-11-08 17:19] LABS: Cholesterol 170 mg/dL; HDL Cholesterol 21.6 mg/dL; LDL Cholesterol 126 mg/dL; Triglycerides 111 mg/dL
[2020-11-08] MEDS: [UNRECOGNIZED DRUG - OTHER] PO SCH (20:37)
[2020-11-09 07:28] LABS: Hematocrit 40 % (35-47); Hemoglobin 12.9 g/dL (12.0-16.0); Mean Corpuscular HGB Conc 33 g/dL (31-36); Mean Corpuscular Hemoglobin 29 pg (27-31); Mean Corpuscular Volume 88 fL (80-97); Mean Platelet Volume 9.2 fL (7.4-10.4); Platelet Count 240 10^3/uL (150-450); Red Cell Distribution Width 16 % (10-15); White Blood Count 8.4 10^3/uL (3.5-10.8)
[2020-11-09 07:47] LABS: BUN/Creatinine Ratio 25.7 (8-20); Calcium 8.5 mg/dL (8.6-10.3); EGFR African American 57.5 (>60); EGFR Non-African American 47.5 (>60); Magnesium 2.1 mg/dL (1.9-2.7); Potassium 4.8 mmol/L (3.5-5.0)
[2020-11-09] MEDS: [UNRECOGNIZED DRUG - OTHER] PO SCH ×2 (09:19→19:32)
[2020-11-10 05:43] LABS: Calcium 8.4 mg/dL (8.6-10.3)
[2020-11-10 05:49] LABS: BUN/Creatinine Ratio 32.7 (8-20); EGFR Non-African American 53.7 (>60)
[2020-11-10 05:52] LABS: Potassium 5.3 mmol/L (3.5-5.0)
[2020-11-10] MEDS: [UNRECOGNIZED DRUG - OTHER] PO SCH (08:35)
[2020-11-10] MEDS ORDERED: Midazolam 10 mg/10 ml VIAL 1 mg/ml 10 ml VIAL (10 mg) ONE (11:25)
[2020-11-10] MEDS ORDERED: fentaNYL 100 mcg/2 ml 50 MCG/ML VIAL ONE (11:25)
[2020-11-10] MEDS ORDERED: Iodixanol (CONTRAST) 320 MG/ML 100 ML SDV IV ONE (12:54)
[2020-11-10 14:29] LABS: TSH Ultra Thyroid Stim Horm 12.22 mcIU/mL (0.34-5.60)
[2020-11-10 14:41] LABS: Vitamin B12 > 1450 pg/mL (180-914)
[2020-11-10] MEDS ORDERED: Buffered Lidocaine 1% SYRIN 1 ml INTRADERM ONE (17:47)
[2020-11-10 21:45] LABS: BUN/Creatinine Ratio 32.4 (8-20); Calcium 8.6 mg/dL (8.6-10.3); EGFR Non-African American 51.3 (>60)
[2020-11-10 21:47] LABS: Potassium 5.1 mmol/L (3.5-5.0)
[2020-11-10 22:05] LABS: Urine Appearance Clear; Urine Bilirubin Negative (Negative); Urine Blood Negative (Negative); Urine Color Yellow; Urine Glucose Negative (Negative); Urine Ketones Negative (Negative); Urine Nitrite Negative (Negative); Urine Protein Negative (Negative); Urine Specific Gravity 1.018 (1.010-1.030); Urine Urobilinogen Negative (Negative)
[2020-11-10 22:10] LABS: Urine Bacteria Absent (Absent); Urine Red Blood Cell Absent (Absent); Urine Squamous Epithelial Cell Present (Absent); Urine White Blood Cell Trace(0-5/hpf) (Absent)
[2020-11-11 06:15] LABS: ABS Neutrophils 6.6 10^3/ul (1.5-7.7); ABS Nucleated RBC 0.1 10^3/ul; Eosinophil % 0.3 %; Hematocrit 39 % (35-47); Hemoglobin 12.9 g/dL (12.0-16.0); Lymphocyte % 11.2 %; Mean Corpuscular HGB Conc 33 g/dL (31-36); Mean Corpuscular Hemoglobin 29 pg (27-31); Mean Corpuscular Volume 88 fL (80-97); Mean Platelet Volume 8.5 fL (7.4-10.4); Nucleated Red Blood Cells % 0.8; Platelet Count 212 10^3/uL (150-450); Red Blood Count 4.45 10^6 /uL (3.70-4.87); Red Cell Distribution Width 16 % (10-15); White Blood Count 8.6 10^3/uL (3.5-10.8)
[2020-11-11 06:39] LABS: BUN/Creatinine Ratio 32.6 (8-20); Calcium 8.6 mg/dL (8.6-10.3); EGFR African American 69.9 (>60); EGFR Non-African American 57.7 (>60); Potassium 4.7 mmol/L (3.5-5.0)
[2020-11-11] MEDS ORDERED: Buffered Lidocaine 1% SYRIN 1 ml INTRADERM ONE (09:36)
[2020-11-12 06:56] LABS: Hematocrit 39 % (35-47); Hemoglobin 12.9 g/dL (12.0-16.0); Mean Corpuscular HGB Conc 33 g/dL (31-36); Mean Corpuscular Hemoglobin 29 pg (27-31); Mean Corpuscular Volume 88 fL (80-97); Mean Platelet Volume 8.2 fL (7.4-10.4); Platelet Count 191 10^3/uL (150-450); Red Blood Count 4.43 10^6 /uL (3.70-4.87); Red Cell Distribution Width 16 % (10-15); White Blood Count 7.6 10^3/uL (3.5-10.8)
[2020-11-12 07:20] LABS: Albumin 3.4 g/dL (3.2-5.2); Albumin/Globulin Ratio 1.4 (1-3); BUN/Creatinine Ratio 30.5 (8-20); Calcium 8.5 mg/dL (8.6-10.3); EGFR African American 79.8 (>60); EGFR Non-African American 65.9 (>60); Globulin 2.4 g/dL (2-4); Potassium 4.7 mmol/L (3.5-5.0); Total Bilirubin 0.5 mg/dL (0.2-1.0); Total Protein 5.8 g/dL (6.4-8.9)
[2020-11-12] MEDS ORDERED: Polyethylene Glycol 3350 17 GM PACKET PO PRN (15:45)
[2020-11-13] MEDS ORDERED: Digoxin IV 0.5 MG/2 ML AMP (0.25 MG/ML) IV SLOW PU ONE ×2 (11:01→21:23)
[2020-11-13] MEDS ORDERED: Furosemide 20 mg/2 ml IV VIAL IV ONE (11:01)
[2020-11-13 12:32] LABS: ABS Eosinophils 0.1 10^3/ul (0-0.6); ABS Lymphocytes 0.5 10^3/ul (1.0-4.8); ABS Monocytes 0.5 10^3/ul (0-0.8); ABS Neutrophils 7.2 10^3/ul (1.5-7.7); Eosinophil % 0.7 %; Hematocrit 41 % (35-47); Hemoglobin 13.3 g/dL (12.0-16.0); Lymphocyte % 6.2 %; Mean Corpuscular HGB Conc 33 g/dL (31-36); Mean Corpuscular Hemoglobin 29 pg (27-31); Mean Corpuscular Volume 88 fL (80-97); Mean Platelet Volume 8.3 fL (7.4-10.4); Nucleated Red Blood Cells % 0.1; Platelet Count 194 10^3/uL (150-450); Red Blood Count 4.65 10^6 /uL (3.70-4.87); Red Cell Distribution Width 17 % (10-15); White Blood Count 8.3 10^3/uL (3.5-10.8)
[2020-11-13 12:35] LABS: ALT 103 U/L (7-52); AST 52 U/L (13-39); Albumin 3.5 g/dL (3.2-5.2); Albumin/Globulin Ratio 1.5 (1-3); Alkaline Phosphatase 70 U/L (34-104); Anion Gap 7 mmol/L (2-11); Blood Urea Nitrogen 22 mg/dL (6-24); CO2 Carbon Dioxide 28 mmol/L (22-32); Calcium 8.7 mg/dL (8.6-10.3); Chloride 102 mmol/L (101-111); EGFR African American 73.5 (>60); EGFR Non-African American 60.8 (>60); Globulin 2.4 g/dL (2-4); Glucose 110 mg/dL (70-100); Indirect Bilirubin 0.6 mg/dL (0.3-1.0); Potassium 4.2 mmol/L (3.5-5.0); Sodium 137 mmol/L (135-145); Total Protein 5.9 g/dL (6.4-8.9)
[2020-11-13 13:00] LABS: % Iron Saturation 15 % (15-55); Digoxin 0.9 ng/ml (0.8-2.0); Iron 47 ug/dL (50-212); Total Iron Binding Capacity 312 mcg/dL (250-450); Transferrin 223 mg/dL (203-362); Unsaturated Iron Binding < 297 ug/dL
[2020-11-13 13:21] LABS: Ferritin 85.8 ng/mL (11-307)
[2020-11-13] MEDS ORDERED: Midazolam 5 mg/5 ml VIAL 1 mg/ml 5 ml VIAL (5 mg) ONE (14:00)
[2020-11-13] MEDS ORDERED: fentaNYL 100 mcg/2 ml 50 MCG/ML VIAL ONE (14:00)
[2020-11-13] MEDS ORDERED: Flumazenil 0.5 mg/5 ml 0.1 MG/ML 5 ml VIAL ONE (14:00)
[2020-11-13] MEDS ORDERED: Naloxone 0.4 mg VIAL 0.4 mg/ml 1 ml VIAL ONE (14:00)
[2020-11-14 07:35] LABS: Calcium 8.3 mg/dL (8.6-10.3); Magnesium 1.8 mg/dL (1.9-2.7); Potassium 3.8 mmol/L (3.5-5.0)
[2020-11-14 07:41] LABS: BUN/Creatinine Ratio 21.6 (8-20); EGFR African American 89.8 (>60); EGFR Non-African American 74.2 (>60)
[2020-11-14 08:20] LABS: BUN/Creatinine Ratio 21.6 (8-20); Calcium 8.3 mg/dL (8.6-10.3); EGFR African American 89.8 (>60); EGFR Non-African American 74.2 (>60); Magnesium 1.8 mg/dL (1.9-2.7); Potassium 3.7 mmol/L (3.5-5.0)
[2020-11-14] MEDS: Polyethylene Glycol 3350 17 GM PACKET PO SCH (09:02)
[2020-11-14] MEDS ORDERED: Magnesium Sulfate 2 gm BAG 2 GM/50 ML BAG IVPB ONE (10:29)
[2020-11-14] MEDS ORDERED: Potassium Chlor 20 meq TAB.ER PO ONE (10:30)
[2020-11-14] MEDS ORDERED: Furosemide 20 mg/2 ml IV VIAL IV ONE (13:40)
[2020-11-14] MEDS: Iron Sucrose 200 MG in NS 0.9% 100 ml BAG 100 ML IVPB SCH (14:03)
[2020-11-14] MEDS ORDERED: Digoxin IV 0.5 MG/2 ML AMP (0.25 MG/ML) IV SLOW PU ONE (18:55)
[2020-11-15 08:20] LABS: BUN/Creatinine Ratio 16.9 (8-20); Calcium 8.4 mg/dL (8.6-10.3); EGFR African American 94.2 (>60); EGFR Non-African American 77.9 (>60); Potassium 3.5 mmol/L (3.5-5.0)
[2020-11-15 08:34] LABS: Digoxin 2.2 ng/ml (0.8-2.0)
[2020-11-15] MEDS: Iron Sucrose 200 MG in NS 0.9% 100 ml BAG 100 ML IVPB SCH (10:15)
[2020-11-15] MEDS: Polyethylene Glycol 3350 17 GM PACKET PO SCH (10:16)
[2020-11-15] MEDS ORDERED: Potassium Chloride LIQUID 20 MEQ/15 ML LIQUID PO ONE ×2 (11:45→17:00)
[2020-11-15] MEDS: Senna TAB 8.6 mg TAB PO PRN (16:13)
[2020-11-16 06:44] LABS: C Reactive Protein 8.38 mg/L (<8.01); Calcium 8.4 mg/dL (8.6-10.3); EGFR African American 79.8 (>60); EGFR Non-African American 65.9 (>60); Potassium 3.4 mmol/L (3.5-5.0)
[2020-11-16 07:02] LABS: Digoxin 1.9 ng/ml (0.8-2.0)
[2020-11-16] MEDS: Senna TAB 8.6 mg TAB PO PRN (08:07)
[2020-11-16] MEDS: Iron Sucrose 200 MG in NS 0.9% 100 ml BAG 100 ML IVPB SCH (08:07)
[2020-11-16] MEDS: Polyethylene Glycol 3350 17 GM PACKET PO SCH (08:09)
[2020-11-16] MEDS ORDERED: Potassium Chlor 20 meq TAB.ER PO ONE (09:05)
[2020-11-16 09:25] LABS: Magnesium 1.8 mg/dL (1.9-2.7)
[2020-11-16] MEDS: Magnesium Hydroxide LIQ 30 ML UDC PO SCH ×2 (09:33→20:00)
[2020-11-16] MEDS ORDERED: Ondansetron 4 mg VIAL 2 MG/ML 2 ml VIAL IV PRN (11:58)
[2020-11-16] MEDS ORDERED: Naloxone 0.4 mg VIAL 0.4 mg/ml 1 ml VIAL IV PRN (11:58)
[2020-11-17 06:38] LABS: ABS Eosinophils 0.2 10^3/ul (0-0.6); ABS Lymphocytes 0.6 10^3/ul (1.0-4.8); ABS Monocytes 0.8 10^3/ul (0-0.8); ABS Neutrophils 4.3 10^3/ul (1.5-7.7); Eosinophil % 2.7 %; Hematocrit 38 % (35-47); Hemoglobin 12.5 g/dL (12.0-16.0); Lymphocyte % 10.2 %; Mean Corpuscular HGB Conc 33 g/dL (31-36); Mean Corpuscular Hemoglobin 28 pg (27-31); Mean Corpuscular Volume 87 fL (80-97); Mean Platelet Volume 7.9 fL (7.4-10.4); Platelet Count 150 10^3/uL (150-450); Red Cell Distribution Width 16 % (10-15); White Blood Count 5.9 10^3/uL (3.5-10.8)
[2020-11-17 06:50] LABS: Calcium 8.5 mg/dL (8.6-10.3); Potassium 3.7 mmol/L (3.5-5.0)
[2020-11-17 06:56] LABS: BUN/Creatinine Ratio 21.5 (8-20); EGFR African American 83.3 (>60); EGFR Non-African American 68.8 (>60)
[2020-11-17 07:27] LABS: Digoxin 2.2 ng/ml (0.8-2.0)
[2020-11-17] MEDS: Magnesium Hydroxide LIQ 30 ML UDC PO SCH (07:52)
[2020-11-17] MEDS: Polyethylene Glycol 3350 17 GM PACKET PO SCH (07:53)
[2020-11-17 11:05] LABS: Magnesium 1.9 mg/dL (1.9-2.7)
[2020-11-17 11:23] VITALS: BP 111/41
== END 2020-11-17 16:50 | disposition home health service (06) | DRG 915 ==
LOC: MEDTELE 09:18 → ED 09:18 → MEDTELE 20:00 → ICU 11-10 15:38 → MEDTELE 11-11 14:10
PROVIDERS: ADMIT Internal Medicine; ATTEND Internal Medicine
PROC: O.CATEE (2020-11-16 12:15)